=== PATIENT | male | born 1990 | race Two or more races ===

== ENCOUNTER 2021-06-03 10:28 | Inpatient (IN) | payer OTHER, SELFPAY ==
--- NOTE | ~2021-06-03 | XR_ITS ---
EXAMINATION: XR CHEST CLINICAL INFORMATION: Fever. COMPARISON: Chest radiograph dated from 06/08/2021. TECHNIQUE: 2 views of the chest were obtained. FINDINGS: No significant abnormality is noted involving the heart, lungs, mediastinum, bony thorax or soft tissues. XR/XR chest 2V IMPRESSION: Unremarkable examination.
--- NOTE | ~2021-06-03 | XR_ITS ---
EXAMINATION: XR CHEST CLINICAL INFORMATION: Chest congestion with fever. COMPARISON: None TECHNIQUE: Frontal view of the chest was obtained. FINDINGS: No significant abnormality is noted involving the heart, lungs, mediastinum, bony thorax or soft tissues. XR/XR chest 1V IMPRESSION: Unremarkable examination.
[2021-06-03 13:22] VITALS: BP 131/90; PULSE 107; RESP 18; TEMP 37.1; O2SAT 99; BMI 23.3
--- NOTE | 2021-06-03 14:58 | ED_ITS ---
HPI - Psych General Chief Complaint: Psychiatric Symptoms Stated Complaint: Cant sleep/panic attacks Time Seen by Provider: 06/03/21 11:54 Source: patient, family and animal care attendant Mode of arrival: ambulatory Limitations: no limitations History of Present Illness complaint: anxiety and hallucinations Onset (ago): day(s) (4) Duration: constant History of same: Yes Relieving factors: none Exacerbating factors: drug use (?cocaine use) Context: other (states he was hospitalized in [place] for similar episode 2016) Associated psychiatric symptoms: auditory hallucinations and visual hallucinations Associated symptoms: denies other symptoms Treatments prior to arrival: none If self harm: other (when asked about SI or if the AH is telling him to harm himself he states I have maybe heard that. ) Related Data Allergies Allergy/AdvReac Type Severity Reaction Status Date / Time No Known Allergies Allergy Verified 06/03/21 13:27 Review of Systems Review of Systems: Constitutional : No Fever, No Chills ENT/Mouth : No Ear Pain, No Nasal Congestion, No sore throat Eyes: No Eye Pain, No Swelling, No Redness Cardiovascular : No Chest Pain, No SOB Respiratory : No Cough, No Sputum, No Dyspnea Gastrointestinal : No Nausea, No Vomiting, No Diarrhea, No Hematochezia, No Melena Genitourinary : No Dysuria, No Urinary Frequency, No Hematuria Musculoskeletal : No Myalgias Skin : No Skin Lesions, No rash Neuro : No Weakness, No Numbness, No Paresthesias, No Dizziness, No Headache Psych : positive Anxiety, positive Depression, no SI/HI, pos AH/VH Heme/Lymph: No Lymphadenopathy Endocrine : No Polyuria, No Polydipsia All other systems reviewed and are negative [facility] Past Medical History Attestation statement: The following information was validated with the patient. Medical History Anxiety Asthma Depression Social History Social History Patient Tobacco Use Status: Never used Tobacco Substance Use Type: Crack/Cocaine and Marijuana Advance Directives: No Advance Directives Information Provided: No Physical Exam Vital Signs: Vital Signs: Last Vital Signs Temp 97.8 F 06/03/21 15:51 Pulse 70 06/03/21 15:51 Resp 16 06/03/21 15:51 BP 118/70 06/03/21 15:51 Pulse Ox 98 06/03/21 15:51 BMI result Body Mass Index 23.3 Appearance: Alert. Oriented X3. No acute distress. Looking around, soft spoken, anxious Eyes: Pupils equal, round and reactive to light. ENT: Pharynx normal. Neck: Normal inspection. Neck supple. CVS: Normal heart rate and rhythm. Pulses normal. Respiratory: No respiratory distress. Breath sounds normal. Abdomen: Soft and nontender. Skin: Skin warm and dry. Normal skin color. Normal skin turgor. Extremities: No lower extremity edema. No calf ttp Neuro: Oriented X 3. No motor deficit. No sensory deficit. CN2-12 intact Course Course Course Narrative: Physician observation started at 7pm. Patient placed in physician observation because the patient needed more time for care team to reassess in AM given presentation. At the time observation was started the patient's vitals were stable, patient is alert and oriented but slightly anxious, Neuro: nonfocal, CV RRR, Lungs clear MDM - Psych MDM Narrative Medical decision making narrative: 31 yo male with anxiety/depression notes he was hospitalized in [place] 2017 but cannot tell me why, here with c/o AH/VH with insomnia x 4 days. Admits to THC and cocaine use. He will need labs, PO ativan and crisis consult. When I asked him about bipolar/schizophrenia/psychosis - he notes they were thinking about that but never finished it. Lab Data Result diagrams: 06/03/21 16:08 06/03/21 16:08 Labs: Lab Results 06/03/21 06/03/21 06/03/21 Range/Units 16:08 16:08 16:08 WBC 8.4 (4.8-10.8) X10*3/uL RBC 5.02 (4.60-5.80) X10*6/uL Hgb 15.3 (14.0-18.0) g/dl Hct 45.0 (42.0-52.0) % MCV 89.6 (80.0-98.0) fL MCH 30.5 (27.0-33.0) pg MCHC 34.0 (31.0-36.0) g/dl RDW 12.3 (11.0-16.0) % Plt Count 253 (160-400) X10*3/uL MPV 9.7 (9.4-12.4) fL Immature Gran % (Auto) 0.4 (0.0-0.4) % Neut % (Auto) 55.6 (45-73) % Lymph % (Auto) 32.8 (20-40) % [place] % (Auto) 9.9 (2-11) % Eos % (Auto) 0.6 (0-4) % Baso % (Auto) 0.7 (0-2) % Lymph # (Auto) 2.8 (1.2-4.9) X10*3/uL [place] # (Auto) 0.8 (0.1-1.2) X10*3/uL Eos # (Auto) 0.1 (0.0-0.4) X10*3/uL Baso # (Auto) 0.1 (0.0-0.2) X10*3/uL Abs Immat Gran (auto) 0.03 (0.00-0.03) X10*3/uL Absolute Neuts (auto) 4.7 (2.0-8.3) x10*3/uL Absolute Nucleated RBC 0.000 (0.0-0.012) X10*3/uL Nucleated RBC % (auto) 0.0 (0.0-0.2) /100WBC Sodium 136 (135-145) mmol/L Potassium 4.7 (3.3-5.1) mmol/L Chloride 103 (96-108) mmol/L Carbon Dioxide 25 (22-29) mmol/L Anion Gap 13 (12-20) BUN 10 (9-16) mg/dL Creatinine 0.92 (0.5-1.4) mg/dL Estim Creat Clear Calc 103.0 Estimated GFR > 60 Random Glucose 94 (60-115) mg/dL Calcium 10.3 H (8.4-10.2) mg/dL Total Bilirubin (0.0-1.0) mg/dL Direct Bilirubin (0.0-0.5) mg/dL AST (5-37) U/L ALT (0-40) U/L Alkaline Phosphatase (39-117) U/L Total Protein (6.5-8.0) g/dL Albumin (3.5-5.0) g/dL Urine Color Urine Appearance Urine pH (5.0-8.0) Ur Specific [place] (1.005-1.025) Urine Protein (NEG-TRACE) MG/DL Urine Glucose (UA) (NEG) MG/DL Urine Ketones (NEG) MG/DL Urine Blood (NEG) Urine Nitrite (NEG) Ur Leukocyte Esterase (NEG) Urine RBC (0) /HPF Urine WBC (0-4) /HPF Ur Squamous Epith Cells /LPF Calcium Oxalate Crystal /LPF Urine Bacteria /LPF Urine Mucus /LPF Urine Opiates Screen (Not Detect) Urine Fentanyl Screen (Not Detect) Ur Barbiturates Screen (Not Detect) Ur Phencyclidine Scrn (Not Detect) Ur Amphetamines Screen (Not Detect) U Benzodiazepines Scrn (Not Detect) Urine Cocaine Screen (Not Detect) U Marijuana (THC) Screen (Not Detect) Ethyl Alcohol < 10 mg/dL COVID-19 (DREA) (Negative) COVID-19 Clin Com 06/03/21 06/03/21 06/03/21 Range/Units 16:08 16:08 16:08 WBC (4.8-10.8) X10*3/uL RBC (4.60-5.80) X10*6/uL Hgb (14.0-18.0) g/dl Hct (42.0-52.0) % MCV (80.0-98.0) fL MCH (27.0-33.0) pg MCHC (31.0-36.0) g/dl RDW (11.0-16.0) % Plt Count (160-400) X10*3/uL MPV (9.4-12.4) fL Immature Gran % (Auto) (0.0-0.4) % Neut % (Auto) (45-73) % Lymph % (Auto) (20-40) % [place] % (Auto) (2-11) % Eos % (Auto) (0-4) % Baso % (Auto) (0-2) % Lymph # (Auto) (1.2-4.9) X10*3/uL [place] # (Auto) (0.1-1.2) X10*3/uL Eos # (Auto) (0.0-0.4) X10*3/uL Baso # (Auto) (0.0-0.2) X10*3/uL Abs Immat Gran (auto) (0.00-0.03) X10*3/uL Absolute Neuts (auto) (2.0-8.3) x10*3/uL Absolute Nucleated RBC (0.0-0.012) X10*3/uL Nucleated RBC % (auto) (0.0-0.2) /100WBC Sodium (135-145) mmol/L Potassium (3.3-5.1) mmol/L Chloride (96-108) mmol/L Carbon Dioxide (22-29) mmol/L Anion Gap (12-20) BUN (9-16) mg/dL Creatinine (0.5-1.4) mg/dL Estim Creat Clear Calc Estimated GFR Random Glucose (60-115) mg/dL Calcium (8.4-10.2) mg/dL Total Bilirubin 1.0 (0.0-1.0) mg/dL Direct Bilirubin 0.4 (0.0-0.5) mg/dL AST 18 (5-37) U/L ALT 14 (0-40) U/L Alkaline Phosphatase 51 (39-117) U/L Total Protein 8.0 (6.5-8.0) g/dL Albumin 5.0 (3.5-5.0) g/dL Urine Color YELLOW Urine Appearance CLEAR Urine pH 5.5 (5.0-8.0) Ur Specific [place] >= 1.030 H (1.005-1.025) Urine Protein TRACE (NEG-TRACE) MG/DL Urine Glucose (UA) NEG (NEG) MG/DL Urine Ketones 5 (NEG) MG/DL Urine Blood NEG (NEG) Urine Nitrite NEG (NEG) Ur Leukocyte Esterase NEG (NEG) Urine RBC 0 (0) /HPF Urine WBC 0 (0-4) /HPF Ur Squamous Epith Cells NONE /LPF Calcium Oxalate Crystal TRACE /LPF Urine Bacteria TRACE /LPF Urine Mucus TRACE /LPF Urine Opiates Screen (Not Detect) Urine Fentanyl Screen (Not Detect) Ur Barbiturates Screen (Not Detect) Ur Phencyclidine Scrn (Not Detect) Ur Amphetamines Screen (Not Detect) U Benzodiazepines Scrn (Not Detect) Urine Cocaine Screen (Not Detect) U Marijuana (THC) Screen (Not Detect) Ethyl Alcohol mg/dL COVID-19 (DREA) Negative (Negative) COVID-19 Clin Com See Note 06/03/21 Range/Units 16:08 WBC (4.8-10.8) X10*3/uL RBC (4.60-5.80) X10*6/uL Hgb (14.0-18.0) g/dl Hct (42.0-52.0) % MCV (80.0-98.0) fL MCH (27.0-33.0) pg MCHC (31.0-36.0) g/dl RDW (11.0-16.0) % Plt Count (160-400) X10*3/uL MPV (9.4-12.4) fL Immature Gran % (Auto) (0.0-0.4) % Neut % (Auto) (45-73) % Lymph % (Auto) (20-40) % [place] % (Auto) (2-11) % Eos % (Auto) (0-4) % Baso % (Auto) (0-2) % Lymph # (Auto) (1.2-4.9) X10*3/uL [place] # (Auto) (0.1-1.2) X10*3/uL Eos # (Auto) (0.0-0.4) X10*3/uL Baso # (Auto) (0.0-0.2) X10*3/uL Abs Immat Gran (auto) (0.00-0.03) X10*3/uL Absolute Neuts (auto) (2.0-8.3) x10*3/uL Absolute Nucleated RBC (0.0-0.012) X10*3/uL Nucleated RBC % (auto) (0.0-0.2) /100WBC Sodium (135-145) mmol/L Potassium (3.3-5.1) mmol/L Chloride (96-108) mmol/L Carbon Dioxide (22-29) mmol/L Anion Gap (12-20) BUN (9-16) mg/dL Creatinine (0.5-1.4) mg/dL Estim Creat Clear Calc Estimated GFR Random Glucose (60-115) mg/dL Calcium (8.4-10.2) mg/dL Total Bilirubin (0.0-1.0) mg/dL Direct Bilirubin (0.0-0.5) mg/dL AST (5-37) U/L ALT (0-40) U/L Alkaline Phosphatase (39-117) U/L Total Protein (6.5-8.0) g/dL Albumin (3.5-5.0) g/dL Urine Color Urine Appearance Urine pH (5.0-8.0) Ur Specific [place] (1.005-1.025) Urine Protein (NEG-TRACE) MG/DL Urine Glucose (UA) (NEG) MG/DL Urine Ketones (NEG) MG/DL Urine Blood (NEG) Urine Nitrite (NEG) Ur Leukocyte Esterase (NEG) Urine RBC (0) /HPF Urine WBC (0-4) /HPF Ur Squamous Epith Cells /LPF Calcium Oxalate Crystal /LPF Urine Bacteria /LPF Urine Mucus /LPF Urine Opiates Screen Not Detected (Not Detect) Urine Fentanyl Screen Not Detected (Not Detect) Ur Barbiturates Screen Not Detected (Not Detect) Ur Phencyclidine Scrn Not Detected (Not Detect) Ur Amphetamines Screen Not Detected (Not Detect) U Benzodiazepines Scrn Not Detected (Not Detect) Urine Cocaine Screen POSITIVE H (Not Detect) U Marijuana (THC) Screen POSITIVE H (Not Detect) Ethyl Alcohol mg/dL COVID-19 (DREA) (Negative) COVID-19 Clin Com Discharge Plan Discharge Clinical Impression: Auditory hallucinations, Cocaine abuse Patient Disposition: Still a Patient
[2021-06-03] MEDS: LORazepam 1 MG TABLET PO (15:26)
[2021-06-03 15:51] VITALS: BP 118/70; PULSE 70; RESP 16; TEMP 36.6; O2SAT 98
[2021-06-03 16:17] LABS: MANUAL DIFF FLAG NO
[2021-06-03 16:18] LABS: Appearance Urine CLEAR; Color Urine YELLOW; Glucose Urine UA NEG (NEG); Leukocyte Esterase Urine NEG (NEG); Nitrite Urine NEG (NEG); PH 5.5 (5.0-8.0); Specific Gravity - Urine >= 1.030 (1.005-1.025); Urine Blood NEG (NEG); Urine Ketones 5 MG/DL (NEG); Urine Protein TRACE MG/DL (NEG-TRACE)
[2021-06-03 16:30] LABS: COVID-19 Test Negative (Negative)
[2021-06-03 16:32] LABS: Bacteria Urine TRACE /LPF; RBC Urine 0 /HPF (0); WBC Urine 0 /HPF (0-4)
[2021-06-03 16:33] LABS: Calcium Oxalate Crystals Urine TRACE /LPF; Mucus Urine TRACE /LPF
[2021-06-03 16:36] LABS: Basophils Absolute Auto 0.1 X10*3/uL (0.0-0.2); Basophils Percent Auto 0.7 % (0-2); Eosinophils Absolute Auto 0.1 X10*3/uL (0.0-0.4); Eosinophils Percent Auto 0.6 % (0-4); Hemoglobin 15.3 g/dl (14.0-18.0); Imm Gran Abs Auto 0.03 X10*3/uL (0.00-0.03); Imm Gran Pct Auto 0.4 % (0.0-0.4); Lymphocytes Absolute Auto 2.8 X10*3/uL (1.2-4.9); Lymphocytes Percent Auto 32.8 % (20-40); Mean Corpuscular Hemoglobin 30.5 pg (27.0-33.0); Mean Corpuscular Volume 89.6 fL (80.0-98.0); Mean Platelet Volume 9.7 fL (9.4-12.4); Monocytes Absolute Auto 0.8 X10*3/uL (0.1-1.2); Monocytes Percent Auto 9.9 % (2-11); Neutrophils Absolute Auto 4.7 x10*3/uL (2.0-8.3); Neutrophils Percent Auto 55.6 % (45-73); Platelet Count 253 X10*3/uL (160-400); Red Blood Count 5.02 X10*6/uL (4.60-5.80); Red Cell Distribution Width 12.3 % (11.0-16.0); White Blood Count 8.4 X10*3/uL (4.8-10.8)
[2021-06-03 16:41] LABS: Ethanol < 10 mg/dL
[2021-06-03 16:42] LABS: Amphetamine Screen Urine Not Detected (Not Detect); Anion Gap 13 (12-20); Barbiturates, Urine Not Detected (Not Detect); Benzodiazepines Screen Urine Not Detected (Not Detect); Blood Urea Nitrogen 10 mg/dL (9-16); Calcium 10.3 mg/dL (8.4-10.2); Cannabinoid Screen Urine POSITIVE (Not Detect); Carbon Dioxide 25 mmol/L (22-29); Chloride 103 mmol/L (96-108); Cocaine Screen Urine POSITIVE (Not Detect); Estimated Glomerular Filt Rate > 60; Fentanyl, urine Not Detected (Not Detect); Glucose Random 94 mg/dL (60-115); Opiate Screen Urine Not Detected (Not Detect); Phencyclidine Screen Urine Not Detected (Not Detect); Potassium 4.7 mmol/L (3.3-5.1); Sodium 136 mmol/L (135-145)
[2021-06-03 16:43] LABS: Alanine Aminotransferase 14 U/L (0-40); Alkaline Phosphatase 51 U/L (39-117); Aspartate Amino Transferase 18 U/L (5-37); Bilirubin Direct 0.4 mg/dL (0.0-0.5)
[2021-06-04 01:52] VITALS: BP 114/79; PULSE 90; RESP 16; TEMP 37.3; O2SAT 98
--- NOTE | 2021-06-04 06:40 | PC.NURSE ---
This RN received consent from PT to speak with brother, Wade, over the phone. Brother was informed of plan to reassess PT this morning. Brother requested that we call with an update once reassessment was completed. Contact at [phone].
[2021-06-04] MEDS: LORazepam 1 MG TABLET 2 MG PO ×2 (07:21→15:10)
--- NOTE | 2021-06-04 07:30 | PC.NURSE ---
patient appears to remain at rest at present, respirations are even and unlabored patient appears in no distress
[2021-06-04 07:53] VITALS: BP 127/81; PULSE 89; RESP 17; TEMP 37.2; O2SAT 98
--- NOTE | 2021-06-04 13:07 | PC.NURSE ---
patient and patients mother requested staff interpreter services to speak to this patient, m had asked about results from labs and this tech writer responded that i could review labs but ti would be normal for mew to share with patient only, patient stated after this i dont feel like i trust you they give me pills and i have moctezuma on me t/w explained only medication given was one in morning for rquest of medication for sleep. t/w exited room leaving staff interpreter and mom and son (patient).
--- NOTE | 2021-06-04 23:39 | PC.NURSE ---
Patient ripped up sheet into long strips. Sheet taken away. Will monitor closely.
--- NOTE | 2021-06-05 | ECG_ITS ---
Test Reason : MEDCLEARANCE Blood Pressure : / mmHG Vent. Rate : 099 BPM Atrial Rate : 099 BPM P-R Int : 142 ms QRS Dur : 088 ms QT Int : 308 ms P-R-T Axes : 070 053 002 degrees QTc Int : 395 ms Normal sinus rhythm with sinus arrhythmia Normal ECG No previous ECGs available Referred By: Dahiana Hammond Electronically Signed By:TIFFANY WICK MD
[2021-06-05 01:08] VITALS: BP 116/77; PULSE 83; RESP 16; TEMP 36.8; O2SAT 99
[2021-06-05] MEDS: LORazepam 1 MG TABLET 2 MG PO ×3 (02:38→14:07)
--- NOTE | 2021-06-05 07:20 | PC.NURSE ---
patient appears to remain asleep at present respirations are even and unlabored patient appears in no distress
--- NOTE | 2021-06-05 08:01 | PHA.MEDREC ---
Pharmacy Consult ? Medication Reconciliation Pharmacy has completed the medication reconciliation. Per nurse, pt doesnt take any home medications
[2021-06-05 10:07] VITALS: BP 103/62; PULSE 92; TEMP 37.2; O2SAT 97
--- NOTE | 2021-06-05 10:46 | PC.NURSE ---
clients brother requested update have attempted to call twice in last ten minutes, phone line remains busy.
[2021-06-05 11:26] LABS: COVID-19 Test Negative (Negative)
[2021-06-05 17:10] VITALS: BP 125/78; PULSE 97; RESP 16; TEMP 36.6; O2SAT 100
--- NOTE | 2021-06-05 18:02 | PC.ADMIT ---
Patient arrived to M3 from [facility] ED pod at 17:05. Patient arrived in a wheelchair with a legal status of conditional voluntary. Patient's vital signs upon admission were 97.8, 125/78, 97 for HR, 16 for RR, 100% RA. Patient denied physical complaints. Patient is primarily Filipino speaking. Patient declined to use the video medical writer during admission assessment stating I am not going to be able understand that thing . This RN attempted to call medical writer services a few times, but was unsuccessful in making contact with hospital medical writer services. Patient reported to be a smoker reporting smoking a pack a day. Patient denied SI/HI/VH. Patient reported that I will hear familiar voices sometimes. They don't tell me bad things. They just are there . Patient reported that he last had a therapist when I was at university and she truly cared about my well being. She helped me learn about who I was . Patient was tearful during this conversation. Patient disclosed that he has a male partner and he often refers to him as his brother . Patient reported that a hard thing for me is being with a partner. Like people don't have to be an asshole to me because I am different . Admission assessment and process unable to be completed at this time due to language barrier and awaiting medical writer services.
[2021-06-05] MEDS: Acetaminophen 325 MG TABLET 650 MG PO (19:19)
[2021-06-05 20:20] VITALS: BP 117/79; PULSE 100; RESP 16; TEMP 36.8; O2SAT 99
[2021-06-05] MEDS: OLANZapine 10 MG TABLET PO (20:43)
[2021-06-05] MEDS: Nicotine Polacrilex 2 MG GUM BUCCAL (20:46)
[2021-06-06 08:32] LABS: Estimated Average Glucose 103 mg/dL; Hemoglobin A1c % 5.2 %
--- NOTE | 2021-06-06 08:43 | PC.NURSE ---
Admission process completed per crisis evaluation. Patient reported to RN to be smoker of a pack a day. Patient declined nicotine replacement and refused flu vaccine.
[2021-06-06 08:46] VITALS: BP 124/81; PULSE 86; RESP 17; TEMP 36.7; O2SAT 98
[2021-06-06 09:06] LABS: Alanine Aminotransferase 12 U/L (0-40); Albumin Level 4.6 g/dL (3.5-5.0); Alkaline Phosphatase 43 U/L (39-117); Anion Gap 11 (12-20); Aspartate Amino Transferase 14 U/L (5-37); Bilirubin Direct 0.3 mg/dL (0.0-0.5); Bilirubin Total 0.7 mg/dL (0.0-1.0); Blood Urea Nitrogen 11 mg/dL (9-16); Carbon Dioxide 28 mmol/L (22-29); Chloride 104 mmol/L (96-108); Cholesterol 114 mg/dL; Creatinine Clr Calc Pharmacy 92.9; Estimated Glomerular Filt Rate > 60; Glucose Fasting 94 mg/dL (60-99); HDL Cholesterol 38 mg/dL; LDL Cholesterol Calculated 63 mg/dl; Potassium 4.2 mmol/L (3.3-5.1); Sodium 139 mmol/L (135-145); Total Protein 7.2 g/dL (6.5-8.0); Triglycerides 66 mg/dL
[2021-06-06 09:29] LABS: Free T4 (Free Thyroxine) 1.04 ng/dL (0.71-1.85); Thyroid Stimulating Hormone 0.77 uIU/mL (0.32-4.0)
--- NOTE | 2021-06-06 09:30 | P.HPPS_ITS ---
HPI Date of Service: 06/06/21 Chief Complaint: Psychosis Sources of Information: patient interviewed, chart reviewed and crisis/core team assessment reviewed Additional Sources of Information: Mother- Monica present during interview. HPI Subjective Notes: Conn Warning and Conditional Voluntary Narrative: Mr. Cardoza is a 31 year-old male who was brought by mother to [facility] ED due to changes in behavior including increased agitation, anxious mood, suicidal reports in context of cocaine use. His utox in the ED was positive for cannabis and cocaine. On the unit, pt presents at times tearful. He reports he does not remember much in terms of events leading to this admission. He does report that several days prior to being brought to ED, he had suicidal ideation with plan to jump off a bridge. Mother, who was present at time of interview, reports that Mr. Cardoza friend called her to let her know that he was very agitated and anxious. Mother reports pt was not sleeping well for about one week. She reports she was unaware of Mr. Cardoza using cocaine but states that she had not seen him the way he presented on day she brought him to the ED. Pt reports hearing voices in the past of people he knows. He denies hearing any voices or seeing things that others can't see. Mother denies hx of paranoia or delusions. Pt reports hx of trauma, depression, intermittent suicidal ideation for several years. Pt reports past inpatient psychiatric admission, outpatient psychiatric treatment in [place]. He reports he came to [place] this past January with his mother. In terms of substance use, pt reports he was unaware that cannabis had cocaine. He reports cannabis was probably laced with cocaine as he does not remember using it. He denies any other substance use hx. On the unit, Mr. Cardoza denies suicidal or homicidal ideation. He reports he heard some voices yesterday but again reports of people he knew- unclear if these are related to trauma, more than primarily psychosis. Past Psychiatric History: Inpatient: 2017 [place]; one other in [place] OP: none currently Past trials: wellbutrin (ineffective- made him angry ), zoloft ( made me violent ) Suicide attempts: pt reports ideation but no hx of attempts. Medical Evaluation Reviewed: Yes [facility] Medical History Anxiety Asthma Depression Family History: mother- depression maternal uncle of suicide Social History: lives with mother. not , no children. 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 Substance History: cocaine: positive for cocaine but denies frequent use. alcohol: none cannabis: regularly opioids: denies amphetamines: denies Trauma History: reports but no details provided Diagnostics Vital Signs (24Hr): Vital Signs - 24 hr 06/05/21 17:10 06/05/21 20:20 06/06/21 08:46 Temperature 97.8 F 98.3 F 98.1 F Pulse Rate 97 100 86 Respiratory Rate 16 16 17 Blood Pressure 125/78 117/79 124/81 Pulse Oximetry 100 99 98 BMI result Body Mass Index 23.3 Labs Results: 06/03/21 16:08 06/06/21 08:11 Labs: Laboratory Results - last 48 hr 06/05/21 06/06/21 06/06/21 10:48 08:11 08:11 Sodium 139 Potassium 4.2 Chloride 104 Carbon Dioxide 28 Anion Gap 11 L BUN 11 Creatinine 1.02 Estim Creat Clear Calc 92.9 Estimated GFR > 60 Fasting Glucose 94 Estimat Average Glucose 103 Hemoglobin A1c % 5.2 Calcium 10.0 Total Bilirubin 0.7 Direct Bilirubin 0.3 AST 14 ALT 12 Alkaline Phosphatase 43 Total Protein 7.2 Albumin 4.6 Triglycerides 66 Cholesterol 114 LDL Cholesterol, Calc 63 HDL Cholesterol 38 Vitamin B12 Folate TSH 0.77 Free T4 1.04 COVID-19 (DREA) Negative COVID-19 Clin Com See Note 06/06/21 08:11 Sodium Potassium Chloride Carbon Dioxide Anion Gap BUN Creatinine Estim Creat Clear Calc Estimated GFR Fasting Glucose Estimat Average Glucose Hemoglobin A1c % Calcium Total Bilirubin Direct Bilirubin AST ALT Alkaline Phosphatase Total Protein Albumin Triglycerides Cholesterol LDL Cholesterol, Calc HDL Cholesterol Vitamin B12 408 Folate 14.6 TSH Free T4 COVID-19 (DREA) COVID-19 Clin Com Meds/Allergies Meds Home Medications Acetaminophen (Acetaminophen 325 Mg Tablet) 650 mg PO Q6H PRN PRN Reason: Headache/Pain Mild Scale (1-3) Last Admin: 06/05/21 19:19 Dose: 650 mg Documented by: Al Hydroxide/Mg Hydroxide (Magnesium Hydrox/Alum Hydrox 30 Ml Oral.Susp) 30 ml PO Q6H PRN PRN Reason: Heartburn/Nausea Clonidine HCl (Clonidine Hcl 0.1 Mg Tablet) 0.1 mg PO BID PRN; Protocol PRN Reason: anxiety Hydroxyzine HCl (Hydroxyzine Hcl 50 Mg Tablet) 50 mg PO Q6H PRN PRN Reason: Anxiety/sleep Ibuprofen (Ibuprofen 600 Mg Tablet) 600 mg PO Q8H PRN PRN Reason: Pain, Moderate (Pain Scale 4-6 Magnesium Hydroxide (Milk Of Magnesia 30 Ml Oral.Susp) 30 ml PO DAILY PRN PRN Reason: Constipation Nicotine Polacrilex (Nicotine Polacrilex 2 Mg Gum) 2 mg BUCCAL QID PRN PRN Reason: Nicotine Cravings Last Admin: 06/05/21 20:46 Dose: 2 mg Documented by: Nicotine Polacrilex (Nicotine Polacrilex 2 Mg Gum) 4 mg BUCCAL Q2H PRN PRN Reason: Nicotine Cravings Last Admin: 06/06/21 14:28 Dose: 4 mg Documented by: Olanzapine (Olanzapine 10 Mg Tablet) 10 mg PO BEDTIME ALISTAIR Last Admin: 06/05/21 20:43 Dose: 10 mg Documented by: Olanzapine (Olanzapine 5 Mg Tablet) 5 mg PO Q6H PRN PRN Reason: agitation Pharmacy Consult (Consult Rx Perform Med Rec) 1 each MISCELLANE ONCE PRN PRN Reason: Consult order Trazodone HCl (Trazodone Hcl 100 Mg Tablet) 100 mg PO BEDTIME PRN PRN Reason: Insomnia Allergies Allergies Allergy/AdvReac Type Severity Reaction Status Date / Time No Known Allergies Allergy Verified 06/03/21 13:27 Mental Status Exam Mental Status Exam Narrative: Appearance: casually groomed, fair hygiene in NAD Behavior:guarded, but cooperative. psychomotor:on agitation or retardation noted Speech:clear, normal rate/rhythm/volume, spontaneous Thought process:tangential Thought content:no signs of psychosis, wanting to spend time with mother and reconnecting with psych tx. Mood: depressed Affect: tearful, blunted SI:none, but reports feeling hopeless, HI:none VH/AH:none Delusions:none Insight/judgment:fair x 2. Memory/cog: alert, oriented x 3. grossly intact to conversational testing. Assessment & Plan Assessment & Plan (1) Bipolar 2 disorder, major depressive episode: Status: Acute Code(s): F31.81 - Bipolar II disorder (2) Cocaine use disorder: Status: Acute Code(s): F14.10 - Cocaine abuse, uncomplicated Plan Mr. Cardoza is a 31 year-old male with hx of depression, trauma, cocaine use who was brought to [facility] ED by mother as pt presented as agitated, anxious, reporting SI in context of cocaine use. However, pt reports hx of increase irritability and aggression with antidepressants. He denies ongoing cocaine use and states that cannabis must have been laced as he did not remember using cocaine. We discussed risks, benefits and alternative treatment options. He agrees to continue olanzapine, which was started in ED PLAN 1. Admit to M3, CV, 15 mins checks 2. continue olanzapine 10mg po qhs, prn for agitation, clonidine for anxiety 3. aftercare planning. Mr. Cardoza interested in reconnecting with OP psych tx, pt does not think he needs support with substance use treatment. Patient educated on: diagnosis and substance abuse Reason for continued inpatient stay Substantial Risk for: harm to self
[2021-06-06 10:03] LABS: Folate 14.6 ng/mL (> or = 4.0); Vitamin B12 408 pg/mL (200-900)
[2021-06-06] MEDS: Nicotine Polacrilex 2 MG GUM 4 MG BUCCAL ×2 (14:28→20:59)
[2021-06-06 20:55] VITALS: BP 129/90; PULSE 91; RESP 18; TEMP 36.2; O2SAT 98
[2021-06-06] MEDS: OLANZapine 10 MG TABLET PO (20:59)
[2021-06-06] MEDS: traZODone HCL 100 MG TABLET PO ×2 (21:45→23:43)
[2021-06-06] MEDS: Nicotine 14 MG PATCH.TD24 TRANSDERMA (21:45)
[2021-06-07] MEDS: Nicotine Polacrilex 2 MG GUM 4 MG BUCCAL ×2 (02:53→19:18)
[2021-06-07 10:15] VITALS: BP 137/81; PULSE 105; RESP 17; TEMP 36.7; O2SAT 99
[2021-06-07] MEDS: Nicotine 14 MG PATCH.TD24 TRANSDERMA (10:17)
--- NOTE | 2021-06-07 14:43 | P.PNPSI_ITS ---
Subjective Subjective Date of Service: 06/07/21 Reason For Visit: Psychosis Subjective Notes: Conditional Voluntary Interim History: Pt reports feeling less calmer, less anxious. Pt somewhat sspicious about staff and thinking they are making him sign things that are not legal. Pt denies SI/HI. he denies VH/AH. He reports he slept better last night, but nursing reports he was up most of the night. He has been visible in the unit. No behavioral concerns. Medication Compliance: Yes Side effects from medications: No Attending Groups: Yes Review of Systems Acute medical concerns: No Medical Review of Systems: unchanged Review of Systems Review of Systems Pt reports hx of TBI, denies hx of seizures. Constitutional: Reports difficulty sleeping and Denies headache(s) Eyes: Reports no additional eye complaints Denies headache(s) and Denies disequilibrium Cardiovascular: Denies chest pain, Denies chest pain at rest, Denies diaphoresis, Denies rapid heart rate, Denies leg edema, Denies lightheadedness and Denies dyspnea Respiratory: Denies chest congestion, Denies cough, Denies pain with cough and Denies dyspnea Gastrointestinal: Denies constipation, Denies dyspepsia, Denies heartburn, Denies diarrhea and Denies nausea Genitourinary: Denies dysuria, Denies flank pain and Denies urinary frequency Musculoskeletal: Reports back pain (for one day, no trauma) and Denies numbness Denies headache(s), Denies numbness, Denies convulsions, Denies seizure-like activity and Denies disequilibrium Mental Status Exam Mental Status Exam Narrative: Appearance: casually groomed, fair hygiene in NAD Behavior:guarded, but cooperative. psychomotor:on agitation or retardation noted Speech:clear, normal rate/rhythm/volume, spontaneous Thought process:tangential Thought content:no signs of psychosis, wanting to spend time with mother and reconnecting with psych tx. Mood: depressed Affect: tearful, blunted SI:none, but reports feeling hopeless, HI:none VH/AH:none Delusions:none Insight/judgment:fair x 2. Memory/cog: alert, oriented x 3. grossly intact to conversational testing. Diagnostics Vital Signs (24Hr): Vital Signs - 24 hr 06/06/21 20:55 06/07/21 10:15 Temperature 97.2 F 98.1 F Pulse Rate 91 105 H Respiratory Rate 18 17 Blood Pressure 129/90 H 137/81 Pulse Oximetry 98 99 BMI result Body Mass Index 23.3 Labs Results: 06/03/21 16:08 06/06/21 08:11 Labs: Laboratory Results - last 48 hr 06/06/21 06/06/21 06/06/21 08:11 08:11 08:11 Sodium 139 Potassium 4.2 Chloride 104 Carbon Dioxide 28 Anion Gap 11 L BUN 11 Creatinine 1.02 Estim Creat Clear Calc 92.9 Estimated GFR > 60 Fasting Glucose 94 Estimat Average Glucose 103 Hemoglobin A1c % 5.2 Calcium 10.0 Total Bilirubin 0.7 Direct Bilirubin 0.3 AST 14 ALT 12 Alkaline Phosphatase 43 Total Protein 7.2 Albumin 4.6 Triglycerides 66 Cholesterol 114 LDL Cholesterol, Calc 63 HDL Cholesterol 38 Vitamin B12 408 Folate 14.6 TSH 0.77 Free T4 1.04 Medications Medications Current Medications Acetaminophen (Acetaminophen 325 Mg Tablet) 650 mg PO Q6H PRN PRN Reason: Headache/Pain Mild Scale (1-3) Last Admin: 06/05/21 19:19 Dose: 650 mg Documented by: Al Hydroxide/Mg Hydroxide (Magnesium Hydrox/Alum Hydrox 30 Ml Oral.Susp) 30 ml PO Q6H PRN PRN Reason: Heartburn/Nausea Clonidine HCl (Clonidine Hcl 0.1 Mg Tablet) 0.1 mg PO BID PRN; Protocol PRN Reason: anxiety Hydroxyzine HCl (Hydroxyzine Hcl 50 Mg Tablet) 50 mg PO Q6H PRN PRN Reason: Anxiety/sleep Ibuprofen (Ibuprofen 600 Mg Tablet) 600 mg PO Q8H PRN PRN Reason: Pain, Moderate (Pain Scale 4-6 Magnesium Hydroxide (Milk Of Magnesia 30 Ml Oral.Susp) 30 ml PO DAILY PRN PRN Reason: Constipation Nicotine (Nicotine 14 Mg Patch.Td24) 14 mg TRANSDERMA DAILY [facility] Last Admin: 06/07/21 10:17 Dose: 14 mg Documented by: Nicotine Polacrilex (Nicotine Polacrilex 2 Mg Gum) 4 mg BUCCAL Q2H PRN PRN Reason: Nicotine Cravings Last Admin: 06/07/21 02:53 Dose: 4 mg Documented by: Olanzapine (Olanzapine 10 Mg Tablet) 10 mg PO BEDTIME [facility] Last Admin: 06/06/21 20:59 Dose: 10 mg Documented by: Olanzapine (Olanzapine 5 Mg Tablet) 5 mg PO Q6H PRN PRN Reason: agitation Pharmacy Consult (Consult Rx Perform Med Rec) 1 each MISCELLANE ONCE PRN PRN Reason: Consult order Trazodone HCl (Trazodone Hcl 100 Mg Tablet) 100 mg PO BEDTIME PRN PRN Reason: Insomnia Last Admin: 06/06/21 23:43 Dose: 100 mg Documented by: Allergies Allergies Allergy/AdvReac Type Severity Reaction Status Date / Time No Known Allergies Allergy Verified 06/03/21 13:27 Assessment & Plan Assessment & Plan (1) Bipolar 2 disorder, major depressive episode: Status: Acute Code(s): F31.81 - Bipolar II disorder (2) Cocaine use disorder: Status: Acute Code(s): F14.10 - Cocaine abuse, uncomplicated Plan Mr. Cardoza is a 31 year-old male with hx of depression, trauma, cocaine use who was brought to [facility] ED by mother as pt presented as agitated, anxious, reporting SI in context of cocaine use. However, pt reports hx of increase irritability and aggression with antidepressants. He denies ongoing cocaine use and states that cannabis must have been laced as he did not remember using cocaine. We discussed risks, benefits and alternative treatment options. He agrees to continue olanzapine, which was started in ED PLAN 1. Admit to M3, CV, 15 mins checks 2. continue olanzapine 10mg po qhs, prn for agitation, clonidine for anxiety 3. aftercare planning. Mr. Cardoza interested in reconnecting with OP psych tx, pt does not think he needs support with substance use treatment. 06/07- increase olanzapine to 15mg po qhs. continue all other meds. increase trazodone for sleep. I spent __25____ minutes with the patient and/or on the patient floor today, greater than?50% of which was spent counseling/coordinating care. Reason for contiued inpatient stay Substantial Risk for: inability to function
[2021-06-07] MEDS: cloNIDine HCL 0.1 MG TABLET PO (20:49)
[2021-06-07] MEDS: OLANZapine 7.5 MG TABLET 15 MG PO (20:49)
[2021-06-07 20:50] VITALS: BP 126/89; PULSE 108; RESP 20; TEMP 36.7; O2SAT 99
[2021-06-07] MEDS: traZODone HCL 100 MG TABLET PO (20:54)
[2021-06-08] MEDS: hydrOXYzine HCL 50 MG TABLET PO (02:29)
[2021-06-08] MEDS: OLANZapine 5 MG TABLET PO (02:29)
[2021-06-08] MEDS: Acetaminophen 325 MG TABLET 650 MG PO ×2 (11:02→18:36)
[2021-06-08 11:09] VITALS: BP 115/58; PULSE 112; RESP 18; TEMP 39.3; O2SAT 98
--- NOTE | 2021-06-08 11:12 | P.PNPSI_ITS ---
Subjective Subjective Date of Service: 06/08/21 Reason For Visit: Psychosis Interim History: 06/07:Pt reports feeling less calmer, less anxious. Pt somewhat sspicious about staff and thinking they are making him sign things that are not legal. Pt denies SI/HI. he denies VH/AH. He reports he slept better last night, but nursing reports he was up most of the night. He has been visible in the unit. No behavioral concerns. 06/08: Pt states feels sedated. AH are + but farther away. Pt is febrile, Vo/ Diarhea/ Chest tightness. XRC neg/ COVID neg. c/o penile redness. Hospitalist consulted. Albuterol/ MDI and Nebs added. Check CK too. Labs ordered. Medication Compliance: Yes Side effects from medications: No Attending Groups: No Review of Systems Acute medical concerns: Yes See above Review of Systems Review of Systems Denies chest pain Denies shortness of breath Denies nausea vomiting diarrhea Admits fever chills Denies discharge Constitutional: Reports difficulty sleeping and Denies headache(s) Eyes: Reports no additional eye complaints Denies headache(s) and Denies disequilibrium Cardiovascular: Denies chest pain, Denies chest pain at rest, Denies diaphoresis, Denies rapid heart rate, Denies leg edema, Denies lightheadedness and Denies dyspnea Respiratory: Denies chest congestion, Denies cough, Denies pain with cough and Denies dyspnea Gastrointestinal: Denies constipation, Denies dyspepsia, Denies heartburn, Joao es diarrhea and Denies nausea Genitourinary: Denies dysuria, Denies flank pain and Denies urinary frequency Musculoskeletal: Reports back pain (for one day, no trauma) and Denies numbness Denies headache(s), Denies numbness, Denies convulsions, Denies seizure-like activity and Denies disequilibrium Mental Status Exam Mental Status Exam Narrative: Appearance: casually groomed, fair hygiene in NAD Behavior:guarded, but cooperative. psychomotor:on agitation or retardation noted Speech:clear, normal rate/rhythm/volume, spontaneous Thought process:tangential Thought content:no signs of psychosis, wanting to spend time with mother and reconnecting with psych tx. Mood: depressed Affect: tearful, blunted SI:none, but reports feeling hopeless, HI:none VH/AH:none Delusions:none Insight/judgment:fair x 2. Memory/cog: alert, oriented x 3. grossly intact to conversational testing. Diagnostics Vital Signs (24Hr): Vital Signs - 24 hr 06/07/21 20:50 06/08/21 11:09 Temperature 98.1 F 102.8 F H Pulse Rate 108 H 112 H Respiratory Rate 20 18 Blood Pressure 126/89 115/58 L Pulse Oximetry 99 98 BMI result Body Mass Index 23.3 Labs Results: 06/03/21 16:08 06/06/21 08:11 Medications Medications Current Medications Acetaminophen (Acetaminophen 325 Mg Tablet) 650 mg PO Q6H PRN PRN Reason: Headache/Pain Mild Scale (1-3) Last Admin: 06/08/21 11:02 Dose: 650 mg Documented by: Al Hydroxide/Mg Hydroxide (Magnesium Hydrox/Alum Hydrox 30 Ml Oral.Susp) 30 ml PO Q6H PRN PRN Reason: Heartburn/Nausea Clonidine HCl (Clonidine Hcl 0.1 Mg Tablet) 0.1 mg PO BID PRN; Protocol PRN Reason: anxiety Last Admin: 06/07/21 20:49 Dose: 0.1 mg Documented by: Hydroxyzine HCl (Hydroxyzine Hcl 50 Mg Tablet) 50 mg PO Q6H PRN PRN Reason: Anxiety/sleep Last Admin: 06/08/21 02:29 Dose: 50 mg Documented by: Ibuprofen (Ibuprofen 600 Mg Tablet) 600 mg PO Q8H PRN PRN Reason: Pain, Moderate (Pain Scale 4-6 Magnesium Hydroxide (Milk Of Magnesia 30 Ml Oral.Susp) 30 ml PO DAILY PRN PRN Reason: Constipation Nicotine (Nicotine 14 Mg Patch.Td24) 14 mg TRANSDERMA DAILY [facility] Last Admin: 06/07/21 10:17 Dose: 14 mg Documented by: Nicotine Polacrilex (Nicotine Polacrilex 2 Mg Gum) 4 mg BUCCAL Q2H PRN PRN Reason: Nicotine Cravings Last Admin: 06/07/21 19:18 Dose: 4 mg Documented by: Olanzapine (Olanzapine 5 Mg Tablet) 5 mg PO Q6H PRN PRN Reason: agitation Last Admin: 06/08/21 02:29 Dose: 5 mg Documented by: Olanzapine (Olanzapine 7.5 Mg Tablet) 15 mg PO BEDTIME [facility] Last Admin: 06/07/21 20:49 Dose: 15 mg Documented by: Pharmacy Consult (Consult Rx Perform Med Rec) 1 each MISCELLANE ONCE PRN PRN Reason: Consult order Trazodone HCl (Trazodone Hcl 100 Mg Tablet) 100 mg PO BEDTIME PRN PRN Reason: Insomnia Last Admin: 06/06/21 23:43 Dose: 100 mg Documented by: Trazodone HCl (Trazodone Hcl 100 Mg Tablet) 100 mg PO BEDTIME [facility] Last Admin: 06/07/21 20:54 Dose: 100 mg Documented by: Allergies Allergies Allergy/AdvReac Type Severity Reaction Status Date / Time No Known Allergies Allergy Verified 06/03/21 13:27 Assessment & Plan Assessment & Plan (1) Bipolar 2 disorder, major depressive episode: Status: Acute Code(s): F31.81 - Bipolar II disorder (2) Cocaine use disorder: Status: Acute Code(s): F14.10 - Cocaine abuse, uncomplicated Plan Mr. Cardoza is a 31 year-old male with hx of depression, trauma, cocaine use who was brought to [facility] ED by mother as pt presented as agitated, anxious, reporting SI in context of cocaine use. However, pt reports hx of increase irritability and aggression with antidepressants. He denies ongoing cocaine use and states that cannabis must have been laced as he did not remember using cocaine. We discussed risks, benefits and alternative treatment options. He agrees to carito nue olanzapine, which was started in ED PLAN 1. Admit to M3, CV, 15 mins checks 2. continue olanzapine 10mg po qhs, prn for agitation, clonidine for anxiety 3. aftercare planning. Mr. Cardoza interested in reconnecting with OP psych tx, pt does not think he needs support with substance use treatment. 06/07- increase olanzapine to 15mg po qhs. continue all other meds. increase trazodone for sleep. 06/08: No med changes. Med consult pending. I spent minutes with the patient and/or on the patient floor today, greater than?50% of which was spent counseling/coordinating care. Reason for contiued inpatient stay Substantial Risk for: inability to function and med/psych decompensation
[2021-06-08 12:16] LABS: COVID-19 Test Negative (Negative)
[2021-06-08 14:45] VITALS: TEMP 37.5
--- NOTE | 2021-06-08 15:49 | P.CNHOSGPS_ITS ---
History of Present Illness Data of Consult Service Date: 06/08/21 Primary Care Provider: None Physician HPI Reason for consult: fever Asked to see patient for complaints of redness underneath the glans of his penis and fever to 102. He was COVID negative on admission and states he was vaccinated in [place]. Review of Systems Review of Systems: Denies chest pain Denies shortness of breath Denies nausea vomiting diarrhea Admits fever chills Denies discharge PENDING SALE TO [facility] Medical History Anxiety Asthma Depression Social History Household Members: Significant Other Housing: Homeless Do you presently have visiting nurse or other home services: No Unable to assess alcohol history related to: Refusing to respond Patient Tobacco Use Status: Current someday Tobacco user Tobacco use type: Cigarette Cigarette Packs Per Day: 1 Cigarettes Per Day: 20.0 Smoked in Last 30 Days: Yes Patient Interested in Nicotine Replacement: No Patient Given Instructions on How to Stop Smoking: No Second Hand Smoke Exposure: No Use of substances other than those prescribed or required for medical reasons: Refusing to respond Substance Use Type: Crack/Cocaine and Marijuana Currently Displaying Signs/Symptoms of Drug Intoxication Withdrawal: No Do you feel safe in your current relationship?: Yes Advance Directives: No Advance Directives Information Provided: No Guardian: No Do you have thoughts of harming others: None Do you have a plan to hurt others: No Plan Recently lost weight without trying: Unsure Nutrition Risks: No Nutritional Risk Poor oral hygiene: No service: No Sexual orientation: Did not discuss. Meds Allergies Allergy/AdvReac Type Severity Reaction Status Date / Time No Known Allergies Allergy Verified 06/03/21 13:27 Active Medications: Current Medications Acetaminophen (Acetaminophen 325 Mg Tablet) 650 mg PO Q6H PRN PRN Reason: Headache/Pain Mild Scale (1-3) Last Admin: 06/08/21 11:02 Dose: 650 mg Documented by: Al Hydroxide/Mg Hydroxide (Magnesium Hydrox/Alum Hydrox 30 Ml Oral.Susp) 30 ml PO Q6H PRN PRN Reason: Heartburn/Nausea Albuterol Sulfate (Albuterol Sulfate 90 Mcg 8 Gm Inhaler) 2 puff INHALE RQ4H PRN PRN Reason: Shortness of Breath/Wheezing Albuterol/Ipratropium (Albuterol/Iprat 2.5/0.5mg 3 Ml Ampul.Neb) 3 ml INHALE RQ4H PRN PRN Reason: Shortness of Breath Cefuroxime Axetil (Cefuroxime Axetil 500 Mg Tablet) 500 mg PO Q12H [facility] Clonidine HCl (Clonidine Hcl 0.1 Mg Tablet) 0.1 mg PO BID PRN; Protocol PRN Reason: anxiety Last Admin: 06/07/21 20:49 Dose: 0.1 mg Documented by: Hydrocortisone (Hydrocortisone 1 % Cream 28.35 Gm Tube) 1 appl TOPICAL BID [facility]; Protocol Hydroxyzine HCl (Hydroxyzine Hcl 50 Mg Tablet) 50 mg PO Q6H PRN PRN Reason: Anxiety/sleep Last Admin: 06/08/21 02:29 Dose: 50 mg Documented by: Ibuprofen (Ibuprofen 600 Mg Tablet) 600 mg PO Q8H PRN PRN Reason: Pain, Moderate (Pain Scale 4-6 Magnesium Hydroxide (Milk Of Magnesia 30 Ml Oral.Susp) 30 ml PO DAILY PRN PRN Reason: Constipation Nicotine (Nicotine 14 Mg Patch.Td24) 14 mg TRANSDERMA DAILY [facility] Last Admin: 06/08/21 12:24 Dose: Not Given Documented by: Nicotine Polacrilex (Nicotine Polacrilex 2 Mg Gum) 4 mg BUCCAL Q2H PRN PRN Reason: Nicotine Cravings Last Admin: 06/07/21 19:18 Dose: 4 mg Documented by: Olanzapine (Olanzapine 5 Mg Tablet) 5 mg PO Q6H PRN PRN Reason: agitation Last Admin: 06/08/21 02:29 Dose: 5 mg Documented by: Olanzapine (Olanzapine 7.5 Mg Tablet) 15 mg PO BEDTIME [facility] Last Admin: 06/07/21 20:49 Dose: 15 mg Documented by: Pharmacy Consult (Consult Rx Perform Med Rec) 1 each MISCELLANE ONCE PRN PRN Reason: Consult order Trazodone HCl (Trazodone Hcl 100 Mg Tablet) 100 mg PO BEDTIME PRN PRN Reason: Insomnia Last Admin: 06/06/21 23:43 Dose: 100 mg Documented by: Trazodone HCl (Trazodone Hcl 100 Mg Tablet) 100 mg PO BEDTIME [facility] Last Admin: 06/07/21 20:54 Dose: 100 mg Documented by: Home Medications Medication Instructions Recorded Confirmed Last Taken Type No Known Home Meds 06/05/21 06/05/21 Unknown History Results Labs CBC and Chem 7: 06/03/21 16:08 06/06/21 08:11 Labs: Laboratory Results - last 24 hr 06/08/21 11:34 COVID-19 ([facility]REA) Negative COVID-19 Clin Com See Note Imaging Radiologist's Impressions: Impressions Chest X-Ray 06/08/21 11:21 IMPRESSION: Unremarkable examination. Assessment and Plan (1) Balanitis: Status: Acute (2) Fever: Status: Acute Plan 31-year-old with irritation distal faintness and fevers to 102. COVID negative this a.m. 1. Balanitis -hydrocortisone cream to affected areas b.i.d. x1 week or until resolved 2. Fever -check CBC chemistries/flu swab/blood cultures x2/urine culture/chest x-ray -empiric Ceftin after cultures Will follow Physical Exam Vital Signs: Last Vital Signs Temp 99.5 F 06/08/21 14:45 Pulse 112 H 06/08/21 11:09 Resp 18 06/08/21 11:09 BP 115/58 L 06/08/21 11:09 Pulse Ox 98 06/08/21 11:09 BMI result Body Mass Index 23.3 Const Other: Awake alert oriented x3 no acute distress Resp Other: Clear to auscultation bilaterally Cardio Other: No S4 positive S1-S2 no S3 murmurs or gallops GI Other: Soft nontender nondistended with normoactive bowel sounds Other: Uncircumcised; foreskin retracted evidence of balanitis Neuro Other: Cranial nerves 2-12 grossly intact as tested. Motor is 5/5 all extremities. Sensation intact. Cognition appropriate Cranial nerves: Yes CN's II-XII intact bilaterally Extrem Other: No edema bilaterally
[2021-06-08 16:09] LABS: Alanine Aminotransferase 13 U/L (0-40); Albumin Level 4.4 g/dL (3.5-5.0); Alkaline Phosphatase 41 U/L (39-117); Anion Gap 12 (12-20); Aspartate Amino Transferase 15 U/L (5-37); Bilirubin Total 0.6 mg/dL (0.0-1.0); Blood Urea Nitrogen 13 mg/dL (9-16); Calcium 9.2 mg/dL (8.4-10.2); Carbon Dioxide 26 mmol/L (22-29); Chloride 104 mmol/L (96-108); Creatinine Clr Calc Pharmacy 86.9; Estimated Glomerular Filt Rate > 60; Glucose Random 116 mg/dL (60-115); Potassium 3.8 mmol/L (3.3-5.1); Sodium 138 mmol/L (135-145); Total Protein 6.9 g/dL (6.5-8.0)
[2021-06-08 16:13] LABS: MANUAL DIFF FLAG NO
[2021-06-08 16:15] LABS: Basophils Percent Auto 0.2 % (0-2); Eosinophils Percent Auto 0.2 % (0-4); Hematocrit 41.2 % (42.0-52.0); Hemoglobin 13.9 g/dl (14.0-18.0); Imm Gran Abs Auto 0.02 X10*3/uL (0.00-0.03); Imm Gran Pct Auto 0.5 % (0.0-0.4); Lymphocytes Absolute Auto 0.6 X10*3/uL (1.2-4.9); Lymphocytes Percent Auto 14.3 % (20-40); Mean Corpuscular HGB Conc 33.7 g/dl (31.0-36.0); Mean Corpuscular Hemoglobin 30.6 pg (27.0-33.0); Mean Corpuscular Volume 90.7 fL (80.0-98.0); Mean Platelet Volume 9.2 fL (9.4-12.4); Monocytes Absolute Auto 0.5 X10*3/uL (0.1-1.2); Monocytes Percent Auto 12.4 % (2-11); Neutrophils Absolute Auto 3.1 x10*3/uL (2.0-8.3); Neutrophils Percent Auto 72.4 % (45-73); Platelet Count 173 X10*3/uL (160-400); Red Blood Count 4.54 X10*6/uL (4.60-5.80); Red Cell Distribution Width 12.3 % (11.0-16.0); White Blood Count 4.3 X10*3/uL (4.8-10.8)
[2021-06-08 16:39] LABS: IDNOW Serial# 16C4AD1C; Influenza A Positive (Negative); Influenza B2 Negative (Negative)
[2021-06-08] MEDS: Oseltamivir Phosphate 75 MG CAPSULE PO (18:36)
[2021-06-08] MEDS: Albuterol Sulfate 90 MCG 8 GM INHALER 2 PUFF INHALE (18:38)
[2021-06-08 18:55] VITALS: TEMP 38.1
[2021-06-08] MEDS: traZODone HCL 100 MG TABLET PO (20:43)
[2021-06-08] MEDS: OLANZapine 7.5 MG TABLET 15 MG PO (20:43)
[2021-06-08 20:50] VITALS: BP 127/66; PULSE 110; RESP 20; TEMP 37.6; O2SAT 97
[2021-06-09] MEDS: Oseltamivir Phosphate 75 MG CAPSULE PO ×2 (06:30→17:23)
[2021-06-09] MEDS: Acetaminophen 325 MG TABLET 650 MG PO ×3 (06:30→21:27)
[2021-06-09 06:39] VITALS: TEMP 37.8
[2021-06-09] MEDS: Albuterol Sulfate 90 MCG 8 GM INHALER 2 PUFF INHALE ×2 (06:40→17:22)
[2021-06-09] MEDS: Hydrocortisone 1 % Cream 28.35 GM TUBE 1 APPL TOPICAL (10:53)
[2021-06-09] MEDS: Nicotine 14 MG PATCH.TD24 TRANSDERMA (10:54)
[2021-06-09 11:00] VITALS: BP 110/74; PULSE 110; RESP 17; TEMP 37.1
--- NOTE | 2021-06-09 14:50 | P.PNPSI_ITS ---
Subjective Subjective Date of Service: 06/09/21 Reason For Visit: Psychosis Subjective Notes: Conditional Voluntary Interim History: 06/07:Pt reports feeling less calmer, less anxious. Pt somewhat sspicious about staff and thinking they are making him sign things that are not legal. Pt denies SI/HI. he denies VH/AH. He reports he slept better last night, but al kirk reports he was up most of the night. He has been visible in the unit. No behavioral concerns. 06/08: Pt states feels sedated. AH are + but farther away. Pt is febrile, Vo/ Diarhea/ Chest tightness. XRC neg/ COVID neg. c/o penile redness. Hospitalist consulted. Albuterol/ MDI and Nebs added. Check CK too. Labs ordered. 06/09: Afebrile today but flushed. In bed with Flu Type A. Blood Cx pending. XRC neg. Reactive cell lines noted. Now on Tamiflu per Dr sepulveda. AH +. Review of Systems Review of Systems Denies chest pain Denies shortness of breath Denies nausea vomiting diarrhea Admits fever chills Denies discharge Constitutional: Reports difficulty sleeping and Denies headache(s) Eyes: Reports no additional eye complaints Denies headache(s) and Denies disequilibrium Cardiovascular: Denies chest pain, Denies chest pain at rest, Denies diaphoresis, Denies rapid heart rate, Denies leg edema, Denies lightheadedness and Denies dyspnea Respiratory: Denies chest congestion, Denies cough, Denies pain with cough and Denies dyspnea Gastrointestinal: Denies constipation, Denies dyspepsia, Denies heartburn, Denies diarrhea and Denies nausea Genitourinary: Denies dysuria, Denies flank pain and Denies urinary frequency Musculoskeletal: Reports back pain (for one day, no trauma) and Denies numbness Denies headache(s), Denies numbness, Denies convulsions, Denies seizure-like activity and Denies disequilibrium Mental Status Exam Mental Status Exam Narrative: Appearance: casually groomed, fair hygiene in NAD Behavior:guarded, but cooperative. psychomotor:on agitation or retardation noted Speech:clear, normal rate/rhythm/volume, spontaneous Thought process:tangential Thought content:no signs of psychosis, wanting to spend time with mother and reconnecting with psych tx. Mood: depressed Affect: tearful, blunted SI:none, but reports feeling hopeless, HI:none VH/AH:none Delusions:none Insight/judgment:fair x 2. Memory/cog: alert, oriented x 3. grossly intact to conversational testing. Diagnostics Vital Signs (24Hr): Vital Signs - 24 hr 06/08/21 18:55 06/08/21 20:50 06/09/21 06:39 Temperature 100.6 F H 99.6 F 100.0 F Pulse Rate 110 H Respiratory Rate 20 Blood Pressure 127/66 Pulse Oximetry 97 06/09/21 11:00 Temperature 98.7 F Pulse Rate 110 H Respiratory Rate 17 Blood Pressure 110/74 Pulse Oximetry BMI result Body Mass Index 23.3 Labs Results: 06/08/21 16:08 06/08/21 15:27 Labs: Laboratory Results - last 48 hr 06/08/21 06/08/21 06/08/21 11:34 15:27 16:08 WBC 4.3 L RBC 4.54 L Hgb 13.9 L Hct 41.2 L MCV 90.7 MCH 30.6 MCHC 33.7 RDW 12.3 Plt Count 173 D MPV 9.2 L Immature Gran % (Auto) 0.5 H Neut % (Auto) 72.4 Lymph % (Auto) 14.3 L [place] % (Auto) 12.4 H Eos % (Auto) 0.2 Baso % (Auto) 0.2 Lymph # (Auto) 0.6 L [place] # (Auto) 0.5 Eos # (Auto) 0.0 Baso # (Auto) 0.0 Abs Immat Gran (auto) 0.02 Absolute Neuts (auto) 3.1 Absolute Nucleated RBC 0.000 Nucleated RBC % (auto) 0.0 Sodium 138 Potassium 3.8 Chloride 104 Carbon Dioxide 26 Anion Gap 12 BUN 13 Creatinine 1.09 Estim Creat Clear Calc 86.9 Estimated GFR > 60 Random Glucose 116 H Calcium 9.2 D Total Bilirubin 0.6 AST 15 ALT 13 Alkaline Phosphatase 41 Total Creatine Kinase 95 Total Protein 6.9 Albumin 4.4 COVID-19 (DREA) Negative COVID-19 Clin Com See Note Influenza Type A (MARLY) Influenza Type B (MARLY) Influenza A & B Note 06/08/21 16:16 WBC RBC Hgb Hct MCV MCH MCHC RDW Plt Count MPV Immature Gran % (Auto) Neut % (Auto) Lymph % (Auto) [place] % (Auto) Eos % (Auto) Baso % (Auto) Lymph # (Auto) [place] # (Auto) Eos # (Auto) Baso # (Auto) Abs Immat Gran (auto) Absolute Neuts (auto) Absolute Nucleated RBC Nucleated RBC % (auto) Sodium Potassium Chloride Carbon Dioxide Anion Gap BUN Creatinine Estim Creat Clear Calc Estimated GFR Random Glucose Calcium Total Bilirubin AST ALT Alkaline Phosphatase Total Creatine Kinase Total Protein Albumin COVID-19 (DREA) COVID-19 Clin Com Influenza Type A (MARLY) Positive A Influenza Type B (MARLY) Negative Influenza A & B Note See Note Imaging Radiology Impressions: ITS Impressions Chest X-Ray 06/08/21 11:21 IMPRESSION: Unremarkable examination. Chest X-Ray 06/08/21 20:00 IMPRESSION: Unremarkable examination. Medications Medications Current Medications Acetaminophen (Acetaminophen 325 Mg Tablet) 650 mg PO Q6H PRN PRN Reason: Headache/Pain Mild Scale (1-3) Last Admin: 06/09/21 13:40 Dose: 650 mg Documented by: Al Hydroxide/Mg Hydroxide (Magnesium Hydrox/Alum Hydrox 30 Ml Oral.Susp) 30 ml PO Q6H PRN PRN Reason: Heartburn/Nausea Albuterol Sulfate (Albuterol Sulfate 90 Mcg 8 Gm Inhaler) 2 puff INHALE RQ4H PRN PRN Reason: Shortness of Breath/Wheezing Last Admin: 06/09/21 06:40 Dose: 2 puff Documented by: Albuterol/Ipratropium (Albuterol/Iprat 2.5/0.5mg 3 Ml Ampul.Neb) 3 ml INHALE RQ4H PRN PRN Reason: Shortness of Breath Cefuroxime Axetil (Cefuroxime Axetil 500 Mg Tablet) 500 mg PO Q12H [facility] Last Admin: 06/09/21 06:30 Dose: 500 mg Documented by: Clonidine HCl (Clonidine Hcl 0.1 Mg Tablet) 0.1 mg PO BID PRN; Protocol PRN Reason: anxiety Last Admin: 06/07/21 20:49 Dose: 0.1 mg Documented by: Hydrocortisone (Hydrocortisone 1 % Cream 28.35 Gm Tube) 1 appl TOPICAL BID [facility]; Protocol Last Admin: 06/09/21 10:53 Dose: 1 appl Documented by: Hydroxyzine HCl (Hydroxyzine Hcl 50 Mg Tablet) 50 mg PO Q6H PRN PRN Reason: Anxiety/sleep Last Admin: 06/08/21 02:29 Dose: 50 mg Documented by: Ibuprofen (Ibuprofen 600 Mg Tablet) 600 mg PO Q8H PRN PRN Reason: Pain, Moderate (Pain Scale 4-6 Magnesium Hydroxide (Milk Of Magnesia 30 Ml Oral.Susp) 30 ml PO DAILY PRN PRN Reason: Constipation Nicotine (Nicotine 14 Mg Patch.Td24) 14 mg TRANSDERMA DAILY [facility] Last Admin: 06/09/21 10:54 Dose: 14 mg Documented by: Nicotine Polacrilex (Nicotine Polacrilex 2 Mg Gum) 4 mg BUCCAL Q2H PRN PRN Reason: Nicotine Cravings Last Admin: 06/07/21 19:18 Dose: 4 mg Documented by: Olanzapine (Olanzapine 5 Mg Tablet) 5 mg PO Q6H PRN PRN Reason: agitation Last Admin: 06/08/21 02:29 Dose: 5 mg Documented by: Olanzapine (Olanzapine 7.5 Mg Tablet) 15 mg PO BEDTIME [facility] Last Admin: 06/08/21 20:43 Dose: 15 mg Documented by: Oseltamivir Phosphate (Oseltamivir Phosphate 75 Mg Capsule) 75 mg PO Q12H [facility] Stop: 06/13/21 06:01 Last Admin: 06/09/21 06:30 Dose: 75 mg Documented by: Pharmacy Consult (Consult Rx Perform Med Rec) 1 each MISCELLANE ONCE PRN PRN Reason: Consult order Trazodone HCl (Trazodone Hcl 100 Mg Tablet) 100 mg PO BEDTIME PRN PRN Reason: Insomnia Last Admin: 06/06/21 23:43 Dose: 100 mg Documented by: Trazodone HCl (Trazodone Hcl 100 Mg Tablet) 100 mg PO BEDTIME [facility] Last Admin: 06/08/21 20:43 Dose: 100 mg Documented by: Allergies Allergies Allergy/AdvReac Type Severity Reaction Status Date / Time No Known Allergies Allergy Verified 06/03/21 13:27 Assessment & Plan Assessment & Plan (1) Bipolar 2 disorder, major depressive episode: Status: Acute Code(s): F31.81 - Bipolar II disorder (2) Cocaine use disorder: Status: Acute Code(s): F14.10 - Cocaine abuse, uncomplicated Plan Mr. Cardoza is a 31 year-old male with hx of depression, trauma, cocaine use who was brought to [facility] ED by mother as pt presented as agitated, anxious, reporting SI in context of cocaine use. However, pt reports hx of increase irritability and aggression with antidepressants. He denies ongoing cocaine use and states that cannabis must have been laced as he did not remember using cocaine. We discussed risks, benefits and alternative treatment options. He agrees to continue olanzapine, which was started in ED PLAN 1. Admit to M3, CV, 15 mins checks 2. continue olanzapine 10mg po qhs, prn for agitation, clonidine for anxiety 3. aftercare planning. Mr. Cardoza interested in reconnecting with OP psych tx, pt does not think he needs support with substance use treatment. 06/07- increase olanzapine to 15mg po qhs. continue all other meds. increase trazodone for sleep. 06/08: No med changes. Med consult pending. 06/09: Ct meds. Monitor Flu Sx. I spent minutes with the patient and/or on the patient floor today, greater than?50% of which was spent counseling/coordinating care. Reason for contiued inpatient stay Substantial Risk for: harm to self and med/psych decompensation
[2021-06-09] MEDS: Nicotine Polacrilex 2 MG GUM 4 MG BUCCAL (16:45)
[2021-06-09] MEDS: Ibuprofen 600 MG TABLET PO (16:45)
[2021-06-09 16:47] VITALS: TEMP 36.6
[2021-06-09 18:00] VITALS: BP 126/77; PULSE 91; RESP 18; TEMP 36.8; O2SAT 99
[2021-06-09] MEDS: hydrOXYzine HCL 50 MG TABLET PO (21:27)
[2021-06-09] MEDS: traZODone HCL 100 MG TABLET PO ×2 (21:27→23:40)
[2021-06-09] MEDS: OLANZapine 5 MG TABLET PO (21:28)
[2021-06-09] MEDS: OLANZapine 7.5 MG TABLET 15 MG PO (21:28)
[2021-06-09] MEDS: cloNIDine HCL 0.1 MG TABLET PO (23:40)
[2021-06-10] MEDS: traZODone HCL 100 MG TABLET PO ×4 (00:46→23:22)
[2021-06-10] MEDS: Ibuprofen 600 MG TABLET PO (00:46)
[2021-06-10] MEDS: Albuterol Sulfate 90 MCG 8 GM INHALER 2 PUFF INHALE ×3 (00:48→21:12)
[2021-06-10] MEDS: Acetaminophen 325 MG TABLET 650 MG PO ×2 (08:26→21:14)
[2021-06-10] MEDS: Oseltamivir Phosphate 75 MG CAPSULE PO ×2 (08:29→21:14)
[2021-06-10 08:52] VITALS: BP 123/72; PULSE 87; RESP 18; TEMP 36.2; O2SAT 99
--- NOTE | 2021-06-10 11:33 | HO.PSYCHPN ---
Subjective Subjective Date of Service: 06/10/21 Reason For Visit: Psychosis Interim History: Medical- pt dx influenza type 1. no cough, afebrile, reports feeling better physically. Psych- reports feeling depressed, sad, less than before but still tearful, future oriented in that he is looking forward to return home with family and continue OP psych tx. Passive SI at times but no plan or intent to hurt himself. Medication Compliance: Yes Side effects from medications: No Attending Groups: Yes Review of Systems Review of Systems Denies chest pain Denies shortness of breath Denies nausea vomiting diarrhea Admits fever chills Denies discharge Constitutional: Reports difficulty sleeping and Denies headache(s) Eyes: Reports no additional eye complaints Denies headache(s) and Denies disequilibrium Cardiovascular: Denies chest pain, Denies chest pain at rest, Denies diaphoresis, Denies rapid heart rate, Denies leg edema, Denies lightheadedness and Denies dyspnea Respiratory: Denies chest congestion, Denies cough, Denies pain with cough and Denies dyspnea Gastrointestinal: Denies constipation, Denies dyspepsia, Denies heartburn, Denies diarrhea and Denies nausea Genitourinary: Denies dysuria, Denies flank pain and Denies urinary frequency Musculoskeletal: Reports back pain (for one day, no trauma) and Denies numbness Denies headache(s), Denies numbness, Denies convulsions, Denies seizure-like activity and Denies disequilibrium Mental Status Exam Mental Status Exam Narrative: Appearance: casually groomed, fair hygiene in NAD Behavior:guarded, but cooperative. psychomotor:on agitation or retardation noted Speech:clear, normal rate/rhythm/volume, spontaneous Thought process:tangential Thought content:no signs of psychosis, wanting to spend time with mother and reconnecting with psych tx. Mood: depressed Affect: tearful, blunted SI:none, but reports feeling hopeless, HI:none VH/AH:none Delusions:none Insight/judgment:fair x 2. Memory/cog: alert, oriented x 3. grossly intact to conversational testing. Diagnostics Vital Signs (24Hr): Vital Signs - 24 hr 06/09/21 16:47 06/09/21 18:00 06/10/21 08:52 Temperature 97.9 F 98.3 F 97.1 F Pulse Rate 91 87 Respiratory Rate 18 18 Blood Pressure 126/77 123/72 Pulse Oximetry 99 99 BMI result Body Mass Index 23.3 Labs Results: 06/08/21 16:08 06/08/21 15:27 Labs: Laboratory Results - last 48 hr 06/08/21 06/08/21 06/08/21 15:27 16:08 16:16 WBC 4.3 L RBC 4.54 L Hgb 13.9 L Hct 41.2 L MCV 90.7 MCH 30.6 MCHC 33.7 RDW 12.3 Plt Count 173 D MPV 9.2 L Immature Gran % (Auto) 0.5 H Neut % (Auto) 72.4 Lymph % (Auto) 14.3 L [place] % (Auto) 12.4 H Eos % (Auto) 0.2 Baso % (Auto) 0.2 Lymph # (Auto) 0.6 L [place] # (Auto) 0.5 Eos # (Auto) 0.0 Baso # (Auto) 0.0 Abs Immat Gran (auto) 0.02 Absolute Neuts (auto) 3.1 Absolute Nucleated RBC 0.000 Nucleated RBC % (auto) 0.0 Sodium 138 Potassium 3.8 Chloride 104 Carbon Dioxide 26 Anion Gap 12 BUN 13 Creatinine 1.09 Estim Creat Clear Calc 86.9 Estimated GFR > 60 Random Glucose 116 H Calcium 9.2 D Total Bilirubin 0.6 AST 15 ALT 13 Alkaline Phosphatase 41 Total Creatine Kinase 95 Total Protein 6.9 Albumin 4.4 Influenza Type A (MARLY) Positive A Influenza Type B (MARLY) Negative Influenza A & B Note See Note Imaging Radiology Impressions: ITS Impressions Chest X-Ray 06/08/21 11:21 IMPRESSION: Unremarkable examination. Chest X-Ray 06/08/21 20:00 IMPRESSION: Unremarkable examination. Medications Medications Current Medications Acetaminophen (Acetaminophen 325 Mg Tablet) 650 mg PO Q6H PRN PRN Reason: Headache/Pain Mild Scale (1-3) Last Admin: 06/10/21 08:26 Dose: 650 mg Documented by: Al Hydroxide/Mg Hydroxide (Magnesium Hydrox/Alum Hydrox 30 Ml Oral.Susp) 30 ml PO Q6H PRN PRN Reason: Heartburn/Nausea Albuterol Sulfate (Albuterol Sulfate 90 Mcg 8 Gm Inhaler) 2 puff INHALE RQ4H PRN PRN Reason: Shortness of Breath/Wheezing Last Admin: 06/10/21 08:26 Dose: 2 puff Documented by: Albuterol/Ipratropium (Albuterol/Iprat 2.5/0.5mg 3 Ml Ampul.Neb) 3 ml INHALE RQ4H PRN PRN Reason: Shortness of Breath Cefuroxime Axetil (Cefuroxime Axetil 500 Mg Tablet) 500 mg PO Q12H [facility] Stop: 06/14/21 08:01 Last Admin: 06/10/21 08:29 Dose: 500 mg Documented by: Clonidine HCl (Clonidine Hcl 0.1 Mg Tablet) 0.1 mg PO BID PRN; Protocol PRN Reason: anxiety Last Admin: 06/09/21 23:40 Dose: 0.1 mg Documented by: Hydrocortisone (Hydrocortisone 1 % Cream 28.35 Gm Tube) 1 appl TOPICAL BID [facility]ISTAIR; Protocol Last Admin: 06/10/21 13:02 Dose: Not Given Documented by: Hydroxyzine HCl (Hydroxyzine Hcl 50 Mg Tablet) 50 mg PO Q6H PRN PRN Reason: Anxiety/sleep Last Admin: 06/09/21 21:27 Dose: 50 mg Documented by: Ibuprofen (Ibuprofen 600 Mg Tablet) 600 mg PO Q8H PRN PRN Reason: Pain, Moderate (Pain Scale 4-6 Last Admin: 06/10/21 00:46 Dose: 600 mg Documented by: Magnesium Hydroxide (Milk Of Magnesia 30 Ml Oral.Susp) 30 ml PO DAILY PRN PRN Reason: Constipation Nicotine (Nicotine 14 Mg Patch.Td24) 14 mg TRANSDERMA DAILY [facility] Last Admin: 06/10/21 08:33 Dose: Not Given Documented by: Nicotine Polacrilex (Nicotine Polacrilex 2 Mg Gum) 4 mg BUCCAL Q2H PRN PRN Reason: Nicotine Cravings Last Admin: 06/09/21 16:45 Dose: 4 mg Documented by: Olanzapine (Olanzapine 5 Mg Tablet) 5 mg PO Q6H PRN PRN Reason: agitation Last Admin: 06/10/21 13:15 Dose: 5 mg Documented by: Olanzapine (Olanzapine 7.5 Mg Tablet) 15 mg PO BEDTIME [facility] Last Admin: 06/09/21 21:28 Dose: 15 mg Documented by: Oseltamivir Phosphate (Oseltamivir Phosphate 75 Mg Capsule) 75 mg PO Q12H [facility] Stop: 06/13/21 08:01 Last Admin: 06/10/21 08:29 Dose: 75 mg Documented by: Pharmacy Consult (Consult Rx Perform Med Rec) 1 each MISCELLANE ONCE PRN PRN Reason: Consult order Trazodone HCl (Trazodone Hcl 100 Mg Tablet) 100 mg PO BEDTIME PRN PRN Reason: Insomnia Last Admin: 06/10/21 00:46 Dose: 100 mg Documented by: Trazodone HCl (Trazodone Hcl 100 Mg Tablet) 100 mg PO BEDTIME [facility] Last Admin: 06/09/21 21:27 Dose: 100 mg Documented by: Allergies Allergies Allergy/AdvReac Type Severity Reaction Status Date / Time No Known Allergies Allergy Verified 06/03/21 13:27 Assessment & Plan Assessment & Plan (1) Bipolar 2 disorder, major depressive episode: Status: Acute Code(s): F31.81 - Bipolar II disorder (2) Cocaine use disorder: Status: Acute Code(s): F14.10 - Cocaine abuse, uncomplicated Plan Mr. Cardoza is a 31 year-old male with hx of depression, trauma, cocaine use who was brought to [facility] by mother as pt presented as agitated, anxious, reporting SI in context of cocaine use. However, pt reports hx of increase irritability and aggression with antidepressants. He denies ongoing cocaine use and states that cannabis must have been laced as he did not remember using cocaine. We discussed risks, benefits and alternative treatment options. He agrees to continue olanzapine, which was started in ED PLAN 1. Admit to M3, CV, 15 mins checks 2. continue olanzapine 10mg po qhs, prn for agitation, clonidine for anxiety 3. aftercare planning. Mr. Cardoza interested in reconnecting with OP psych tx, pt does not think he needs support with substance use treatment. 06/07- increase olanzapine to 15mg po qhs. continue all other meds. increase trazodone for sleep. 06/10- continue current medications, may add antidepressant. 06/08: No med changes. Med consult pending. 06/09: Ct meds. Monitor Flu Sx. I spent minutes with the patient and/or on the patient floor today, greater than?50% of which was spent counseling/coordinating care. Reason for contiued inpatient stay Substantial Risk for: harm to self
[2021-06-10] MEDS: OLANZapine 5 MG TABLET PO (13:15)
--- NOTE | 2021-06-10 13:17 | PC.NURSE ---
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 A few minutes later patient came to nurses' station stating that staff has told him' that you have my meds ready?' Patient given Olanzapine PRN for agitation.
[2021-06-10 18:00] VITALS: BP 126/78; PULSE 76; RESP 18; TEMP 37; O2SAT 100
[2021-06-10] MEDS: Hydrocortisone 1 % Cream 28.35 GM TUBE 1 APPL TOPICAL (21:12)
[2021-06-10] MEDS: OLANZapine 7.5 MG TABLET 15 MG PO (21:13)
[2021-06-10] MEDS: cloNIDine HCL 0.1 MG TABLET PO (21:13)
[2021-06-10] MEDS: hydrOXYzine HCL 50 MG TABLET PO (21:13)
[2021-06-11] MEDS: Acetaminophen 325 MG TABLET 650 MG PO (04:02)
[2021-06-11 09:30] VITALS: BP 114/60; PULSE 116; RESP 18; TEMP 36.2; O2SAT 100
[2021-06-11] MEDS: Oseltamivir Phosphate 75 MG CAPSULE PO (10:05)
[2021-06-11] MEDS: OLANZapine 10 MG TABLET PO (12:47)
--- NOTE | 2021-06-11 12:52 | PC.NURSE ---
Patient requesting to sign a 3 day notice. Instructional Leader called, reviewed 3 day notice with patient as requested w/ sanitizer present. Patient then began to state that he had completed his 3 days and he wanted to leave today. Patient informed that this was not how a three day notice worked, and reminded that he had had a conversation yesterday with his psychiatric social worker supervisor about discharge plans this week. Patient then became increasingly agitated, making allegations regarding an incident he stated had occurred during the night. 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 Attempted to redirect patient back to the 3 day notice w/ assistance from the sanitizer. Patient declined to sign. Management and provider informed of patient allegations. Patient accepted Zyprexa 10 mg as ordered.
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
[2021-06-11] MEDS: Nicotine Polacrilex 2 MG GUM 4 MG BUCCAL (15:25)
[2021-06-11] MEDS: hydrOXYzine HCL 50 MG TABLET PO (17:48)
[2021-06-11] MEDS: Albuterol Sulfate 90 MCG 8 GM INHALER 2 PUFF INHALE (17:59)
[2021-06-11] MEDS: Milk of Magnesia 30 ML ORAL.SUSP PO (17:59)
[2021-06-11] MEDS: traZODone HCL 100 MG TABLET PO (20:56)
[2021-06-11] MEDS: OLANZapine 10 MG TABLET 20 MG PO (20:56)
[2021-06-11] MEDS: diphenhydrAMINE HCL 25 MG TABLET PO (20:58)
[2021-06-11 21:05] VITALS: BP 117/73; PULSE 78; RESP 18; TEMP 36.8; O2SAT 99
[2021-06-12 08:59] VITALS: BP 131/84; PULSE 83; RESP 17; TEMP 36.5; O2SAT 100
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
[2021-06-12] MEDS: Nicotine 14 MG PATCH.TD24 TRANSDERMA (09:52)
== END 2021-06-12 11:58 | disposition home or self-care (01) | DRG 753 ==
LOC: HO.ED 19:01 → HO.PADLT16 06-05 16:33
PROVIDERS: Hospitalist; Physician Assistant Medical; Psychiatry & Neurology Psychiatry; Admitting Provider Psychiatry & Neurology Psychiatry; Emergency Provider Emergency Medicine; Visit Provider Social Worker
DX: F31.81 Bipolar II disorder (principal); F14.10 Cocaine abuse, uncomplicated; N48.1 Balanitis; J11.1 Influenza due to unidentified influenza virus with other respiratory manifestations; F17.210 Nicotine dependence, cigarettes, uncomplicated; J45.909 Unspecified asthma, uncomplicated; Z20.822 Contact with and (suspected) exposure to COVID-19; Z87.820 Personal history of traumatic brain injury; Z71.6 Tobacco abuse counseling; Z79.899 Other long term (current) drug therapy
CPT/HCPCS: 36415; 71045; 71046; 80048; 80053; 80061; 80076; 80307; 81001; 82077; 82550; 82607; 82746; 83036; 84439; 84443; 85025; 87040; 87502; 87635; 93005; 99285; Q0163

== ENCOUNTER 2021-08-24 18:01 | Inpatient (IN) | payer OTHER, SELFPAY ==
[2021-08-24 18:15] VITALS: BP 110/90; BP 120/86; PULSE 103; PULSE 80; RESP 18; TEMP 36.9; O2SAT 96; O2SAT 98; BMI 21.6
--- NOTE | 2021-08-24 18:34 | ED.ANXIETY ---
HPI - Anxiety General Chief Complaint: Psychiatric Symptoms Stated Complaint: crisis Time Seen by Provider: 08/24/21 18:29 Source: patient and EMS Mode of arrival: EMS Limitations: no limitations History of Present Illness MD complaint: anxiety (SI) Onset (ago): day(s) (2) Symptoms: other (anxiety, SI) Severity: moderate Quality: worsening Place: home History of similar episodes: Yes Provoking factors: other (used a drug, not taking meds x 1 week) Relieving factors: other Exacerbating factors: thinking about event Associated symptoms: denies other symptoms Related Data Previous Rx's Medication Instructions Recorded albuterol sulfate 90 mcg/actuation 2 puff inhalation RQ4H PRN 06/12/21 aerosol inhaler (Ventolin HFA) Shortness Of Breath/Wheezing #6.7 grams clonidine HCl 0.1 mg tablet 0.1 mg PO BID PRN anxiety #30 tabs 06/12/21 hydrocortisone 1 % topical cream 1 appl topical BID #28.35 grams 06/12/21 nicotine 14 mg/24 hr daily 14 mg transdermal DAILY #30 ea 06/12/21 transdermal patch olanzapine 20 mg tablet 20 mg PO BEDTIME #30 tabs 06/12/21 olanzapine 5 mg tablet 5 mg PO BID PRN agitation #60 tabs 06/12/21 trazodone 150 mg tablet 150 mg PO BEDTIME #30 tabs 06/12/21 Allergies Allergy/AdvReac Type Severity Reaction Status Date / Time No Known Allergies Allergy Verified 06/03/21 13:27 Review of Systems Review of Systems: Constitutional : No Fever, No Chills ENT/Mouth : No Ear Pain, No Nasal Congestion, No sore throat Eyes: No Eye Pain, No Swelling, No Redness Cardiovascular : No Chest Pain, No SOB Respiratory : No Cough, No Sputum, No Dyspnea Gastrointestinal : No Nausea, No Vomiting, No Diarrhea, No Hematochezia, No Melena Genitourinary : No Dysuria, No Urinary Frequency, No Hematuria Musculoskeletal : No Myalgias Skin : No Skin Lesions, No rash Neuro : No Weakness, No Numbness, No Paresthesias, No Dizziness, No Headache Psych : positive Anxiety, positive Depression, positive SI no HI Heme/Lymph: No Lymphadenopathy Endocrine : No Polyuria, No Polydipsia All other systems reviewed and are negative [facility] Past Medical History Attestation statement: The following information was validated with the patient. Medical History Anxiety Asthma Depression Social History Social History Household Members: Significant Other Housing: Homeless Do you presently have visiting nurse or other home services: No Unable to assess alcohol history related to: Refusing to respond Patient Tobacco Use Status: Current someday Tobacco user Tobacco use type: Cigarette Cigarette Packs Per Day: 1 Cigarettes Per Day: 20.0 Second Hand Smoke Exposure: No Substance Use Type: Crack/Cocaine and Marijuana service: No Sexual orientation: Did not discuss. Physical Exam Vital Signs: Vital Signs: Last Vital Signs Temp 98.5 F 08/24/21 18:15 Pulse 80 08/24/21 18:15 Resp 18 08/24/21 18:15 BP 120/86 08/24/21 18:15 Pulse Ox 98 08/24/21 18:15 O2 Del Method 08/24/21 18:15 BMI result Body Mass Index 21.6 Appearance: Alert. Oriented X3. No acute distress. Crying, anxious Eyes: Pupils equal, round and reactive to light. ENT: Pharynx normal. Neck: Normal inspection. Neck supple. CVS: Normal heart rate and rhythm. Pulses normal. Respiratory: No respiratory distress. Breath sounds normal. Abdomen: Soft and nontender. Skin: Skin warm and dry. Normal skin color. Normal skin turgor. Extremities: No lower extremity edema. No calf ttp Neuro: Oriented X 3. No motor deficit. No sensory deficit. CN 2-12 intact Course Course Course Narrative: Physician observation started at 702pm. Patient placed in physician observation because the patient needed more time for BHN to assess the need for psych admission. At the time observation was started the patient's vitals were stable, patient is alert and oriented but anxious, Neuro: nonfocal, CV RRR, Lungs clear MDM - Anxiety MDM Narrative Medical decision making narrative: 31 yo male with hx of bipolar disorder here off meds with anxiety and drug use at this time labs and BHN consult ordered. Dispo per their recommendations. Discharge Plan Discharge Clinical Impression: Acute anxiety Patient Disposition: Still a Patient Prescriptions: No Action albuterol sulfate [Ventolin HFA] 90 mcg/actuation Hfa Aerosol Inhaler 2 puff inhalation RQ4H PRN (Reason: Shortness Of Breath/Wheezing) Qty: 6.7 0RF clonidine HCl 0.1 mg Tablet 0.1 mg PO BID PRN (Reason: anxiety) Qty: 30 0RF Protocol: Hold for SBP< HOLD for SBP < : 90 nicotine 14 mg/24 hr Patch 24 Hour 14 mg transdermal DAILY Qty: 30 0RF olanzapine 20 mg tablet 20 mg PO BEDTIME Qty: 30 0RF trazodone 150 mg tablet 150 mg PO BEDTIME Qty: 30 0RF hydrocortisone 1 % Cream 1 appl topical BID Qty: 28.35 0RF Protocol: Apply to: Apply to: base of glans olanzapine 5 mg tablet 5 mg PO BID PRN (Reason: agitation) Qty: 60 0RF
[2021-08-24 19:16] LABS: COVID-19 Test Negative (Negative)
[2021-08-24 19:25] LABS: MANUAL DIFF FLAG NO
[2021-08-24 19:28] LABS: Basophils Percent Auto 0.2 % (0-2); Eosinophils Percent Auto 0.2 % (0-4); Hemoglobin 15.7 g/dl (14.0-18.0); Imm Gran Abs Auto 0.03 X10*3/uL (0.00-0.03); Imm Gran Pct Auto 0.5 % (0.0-0.4); Lymphocytes Absolute Auto 1.5 X10*3/uL (1.2-4.9); Lymphocytes Percent Auto 25.9 % (20-40); Mean Corpuscular HGB Conc 34.1 g/dl (31.0-36.0); Mean Corpuscular Hemoglobin 30.4 pg (27.0-33.0); Mean Platelet Volume 9.2 fL (9.4-12.4); Monocytes Absolute Auto 0.5 X10*3/uL (0.1-1.2); Monocytes Percent Auto 8.2 % (2-11); Neutrophils Absolute Auto 3.8 x10*3/uL (2.0-8.3); Platelet Count 250 X10*3/uL (160-400); Red Blood Count 5.17 X10*6/uL (4.60-5.80); Red Cell Distribution Width 11.9 % (11.0-16.0); White Blood Count 5.8 X10*3/uL (4.8-10.8)
[2021-08-24 19:38] LABS: Ethanol < 10 mg/dL
[2021-08-24 19:42] LABS: Alanine Aminotransferase 20 U/L (0-40); Albumin Level 5.3 g/dL (3.5-5.0); Alkaline Phosphatase 57 U/L (39-117); Anion Gap 14 (12-20); Aspartate Amino Transferase 19 U/L (5-37); Bilirubin Direct 0.3 mg/dL (0.0-0.5); Bilirubin Total 0.6 mg/dL (0.0-1.0); Blood Urea Nitrogen 9 mg/dL (9-16); Calcium 10.3 mg/dL (8.4-10.2); Carbon Dioxide 28 mmol/L (22-29); Chloride 101 mmol/L (96-108); Creatinine Clr Calc Pharmacy 99.8; Estimated Glomerular Filt Rate > 60; Glucose Random 101 mg/dL (60-115); Potassium 3.9 mmol/L (3.3-5.1); Sodium 139 mmol/L (135-145); Total Protein 8.4 g/dL (6.5-8.0)
[2021-08-24 20:23] LABS: Amphetamine Screen Urine Not Detected (Not Detect); Barbiturates, Urine Not Detected (Not Detect); Benzodiazepines Screen Urine Not Detected (Not Detect); Cannabinoid Screen Urine Not Detected (Not Detect); Cocaine Screen Urine Not Detected (Not Detect); Fentanyl, urine Not Detected (Not Detect); Opiate Screen Urine Not Detected (Not Detect); Phencyclidine Screen Urine Not Detected (Not Detect)
[2021-08-24] MEDS: hydrOXYzine HCL 25 MG TABLET PO (20:48)
[2021-08-24] MEDS: OLANZapine 5 MG TABLET PO (20:48)
[2021-08-24] MEDS: LORazepam 1 MG TABLET 2 MG PO (20:48)
[2021-08-24 20:58] LABS: Appearance Urine CLEAR; Color Urine YELLOW; Glucose Urine UA NEG (NEG); Leukocyte Esterase Urine NEG (NEG); Nitrite Urine NEG (NEG); PH 6.5 (5.0-8.0); Specific Gravity - Urine 1.015 (1.005-1.025); Urine Blood NEG (NEG); Urine Ketones 40 MG/DL (NEG); Urine Protein NEG (NEG-TRACE)
[2021-08-25] VITALS (7 sets, daily range): BP systolic 103–117; BP diastolic 68–86; PULSE 82–100; RESP 15–20; TEMP 36.2–37.1; O2SAT 97–100
[2021-08-25] MEDS: OLANZapine 5 MG TABLET PO ×2 (02:08→21:02)
[2021-08-25] MEDS: OLANZapine 10 MG VIAL 5 MG IM (03:30)
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
--- NOTE | 2021-08-25 07:12 | PC.NURSE ---
patient appears top remain asleep at present respirations are even and unlabored patient appears in no distress
[2021-08-25] MEDS: busPIRone HCl 5 MG TABLET PO ×2 (15:12→20:25)
[2021-08-25] MEDS: Doxepin HCl 25 MG CAPSULE 50 MG PO (20:25)
[2021-08-25] MEDS: hydrOXYzine HCL 25 MG TABLET PO (21:00)
--- NOTE | 2021-08-25 21:24 | PC.NURSE ---
Patient seems frustrated/agitated, punched wall couple of times, making multiple phone calls, patient called 911 reported he wants to turn himself in, PRN Olanzapine 5 mg and hydroxyzine 25 mg administered as ordered pending effect, compliant with HS medication, disposition per N is section 12 inpatient bed search, vss, currently on phone talking to his brother Wade, will continue to monitor.
[2021-08-26] MEDS: LORazepam 1 MG TABLET PO ×3 (00:29→20:36)
--- NOTE | 2021-08-26 00:34 | PC.NURSE ---
Patient tried to exit the unit by pushing the door, unable to redirect, security on site, provider notified/ordered/Ativan 1 mg po administered as ordered with pending effect, will continue to monitor.
--- NOTE | 2021-08-26 06:12 | PC.NURSE ---
Patient has been sleeping since 214, patient's thought content delusional and paranoid, affect flat, response delayed, behavior exit seeking and unpredictable, medication compliant, VSS, disposition per [facility] is section 12 inpatient bed search, will continue to monitor.
--- NOTE | 2021-08-26 07:05 | PC.NURSE ---
patient appears to remain asleep at present respirations are even and unlabored patient appears in no distress
[2021-08-26 08:03] VITALS: BP 117/65; PULSE 72; RESP 17; TEMP 36.6; O2SAT 99
[2021-08-26] MEDS: hydrOXYzine HCL 25 MG TABLET PO ×2 (11:28→23:35)
[2021-08-26] MEDS: OLANZapine 5 MG TABLET PO (11:30)
--- NOTE | 2021-08-26 12:41 | PM.PSYCN ---
History of Present Illness Date of Service: 08/26/2021 Chief Complaint: crisis Reason for Consult: psychosis/catatonia Discussed with referring provider: Yes Sources of Information: patient interviewed, chart reviewed and crisis/core team assessment reviewed HPI Narrative: Mr. 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 He was brought on sect 12 from community due to presenting more anxious. His utox was negative. He presents with blank stare, mutism, internally preoccupied. He minimally responds to question. He nods when asked if he is hearing voices. He states he is not suicidal or homicidal. Per nursing, pt has been mostly in his room, minimally verbal, not eating much. No aggression towards self or others. Mother by his side, reports he has not been sleeping, appears to hear voices that others can't here. Here in the ED, pt listening to the renae as he is hearing voices, hypervigilant, fearful at times. Past Psychiatric History: Inpatient: 2017 [place]; one other in [place] OP: none currently Past trials: wellbutrin (ineffective- made him angry ), zoloft ( made me violent ) Suicide attempts: pt reports ideation but no hx of attempts. [facility], [facility] Medical History Anxiety Asthma Depression Family History: mother- depression maternal uncle of suicide Social History: lives with mother. not , no children. 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 Trauma History: reports but no details provided Diagnostics Vital Signs (24Hr): Vital Signs - 24 hr 08/25/21 23:47 08/26/21 08:03 Temperature 97.1 F 97.9 F Pulse Rate 98 72 Respiratory Rate 16 17 Blood Pressure 117/86 117/65 Pulse Oximetry 100 99 Oxygen Delivery Method Room Air Room Air BMI result Body Mass Index 21.6 Labs Results: 08/24/21 19:21 08/24/21 19:21 Labs: Laboratory Results - last 48 hr 08/24/21 08/24/21 08/24/21 18:49 19:21 19:21 WBC 5.8 RBC 5.17 Hgb 15.7 Hct 46.0 MCV 89.0 MCH 30.4 MCHC 34.1 RDW 11.9 Plt Count 250 D MPV 9.2 L Immature Gran % (Auto) 0.5 H Neut % (Auto) 65.0 Lymph % (Auto) 25.9 [place] % (Auto) 8.2 Eos % (Auto) 0.2 Baso % (Auto) 0.2 Lymph # (Auto) 1.5 [place] # (Auto) 0.5 Eos # (Auto) 0.0 Baso # (Auto) 0.0 Abs Immat Gran (auto) 0.03 Absolute Neuts (auto) 3.8 Absolute Nucleated RBC 0.000 Nucleated RBC % (auto) 0.0 Sodium 139 Potassium 3.9 Chloride 101 Carbon Dioxide 28 Anion Gap 14 BUN 9 Creatinine 0.91 Estim Creat Clear Calc 99.8 Estimated GFR > 60 Random Glucose 101 Calcium 10.3 H D Total Bilirubin 0.6 Direct Bilirubin 0.3 AST 19 ALT 20 Alkaline Phosphatase 57 D Total Protein 8.4 H D Albumin 5.3 H D Urine Color Urine Appearance Urine pH Ur Specific [place]el Urine Protein Urine Glucose (UA) Urine Ketones Urine Blood Urine Nitrite Ur Leukocyte Esterase Urine Opiates Screen Urine Fentanyl Screen Ur Barbiturates Screen Ur Phencyclidine Scrn Ur Amphetamines Screen U Benzodiazepines Scrn Urine Cocaine Screen U Marijuana (THC) Screen Ethyl Alcohol COVID-19 (DREA) Negative COVID-19 Clin Com See Note 08/24/21 08/24/21 08/24/21 19:21 20:01 20:01 WBC RBC Hgb Hct MCV MCH MCHC RDW Plt Count MPV Immature Gran % (Auto) Neut % (Auto) Lymph % (Auto) [place] % (Auto) Eos % (Auto) Baso % (Auto) Lymph # (Auto) [place] # (Auto) Eos # (Auto) Baso # (Auto) Abs Immat Gran (auto) Absolute Neuts (auto) Absolute Nucleated RBC Nucleated RBC % (auto) Sodium Potassium Chloride Carbon Dioxide Anion Gap BUN Creatinine Estim Creat Clear Calc Estimated GFR Random Glucose Calcium Total Bilirubin Direct Bilirubin AST ALT Alkaline Phosphatase Total Protein Albumin Urine Color YELLOW Urine Appearance CLEAR Urine pH 6.5 Ur Specific Noel 1.015 Urine Protein NEG Urine Glucose (UA) NEG Urine Ketones 40 Urine Blood NEG Urine Nitrite NEG Ur Leukocyte Esterase NEG Urine Opiates Screen Not Detected Urine Fentanyl Screen Not Detected Ur Barbiturates Screen Not Detected Ur Phencyclidine Scrn Not Detected Ur Amphetamines Screen Not Detected U Benzodiazepines Scrn Not Detected Urine Cocaine Screen Not Detected U Marijuana (THC) Screen Not Detected Ethyl Alcohol < 10 COVID-19 (DREA) COVID-19 Clin Com Mental Status Exam Mental Status Exam Narrative: Appearance: casually groomed, fair hygiene in NAD Behavior:blank stare, minimally engaged psychomotor:retardation noted Speech:single words, soft, delayed response rate, minimally spontaneous Thought process:thought blocking Thought content:unable to assess, does say he hears voices but would not elaborate. Mood: not well Affect: blunted, constricted SI:denies HI:denies VH/AH:appears internally preoccupied. Delusions:paranoid delusions Insight/judgment:poor x 2. Memory/cog: alert, unable to assess orientation. Medications Medications Current Medications Buspirone HCl (Buspirone Hcl 5 Mg Tablet) 5 mg PO TID ALISTAIR Last Admin: 08/26/21 10:59 Dose: Not Given Hydroxyzine HCl (Hydroxyzine Hcl 25 Mg Tablet) 25 mg PO TID PRN PRN Reason: Anxiety Last Admin: 08/26/21 11:28 Dose: 25 mg Lorazepam (Lorazepam 1 Mg Tablet) 1 mg PO TID ALISTAIR Olanzapine (Olanzapine 5 Mg Tablet) 5 mg PO Q6H PRN PRN Reason: anxiety/aggression Last Admin: 08/26/21 11:30 Dose: 5 mg Allergies Allergies Allergy/AdvReac Type Severity Reaction Status Date / Time No Known Allergies Allergy Verified 06/03/21 13:27 Assessment & Plan Assessment & Plan (1) MDD (major depressive disorder), recurrent, severe, with psychosis: Status: Acute Code(s): F33.3 - Major depressive disorder, recurrent, severe with psychotic symptoms Plan Mr. Cardoza is a 31 year-old male with hx of psychosis, initially thought to be related to substance induced but it is becoming more frequent and intense even without any substance use. Pt has been presenting with AH, not sleeping. In the ED pt presents with s/s of catatonia including blank stare, mutism, reports AH. We discussed risks, benefits and alternative treatment options. He agrees to start ativan 1mg po TID, Olanzapine 10mg po qhs and 5 mg po daily. PLAN 1. Pt meets criteria for ILOC due to presenting unable to care for himself due to s/s of catatonia, AH, paranoia. 2. Start Ativan 1mg po TID- may need higher doses for catatonia 3. Olanzapine 10mg po qhs and 5mg po daily. I spent minutes with the patient and/or on the patient floor today, greater than?50% of which was spent counseling/coordinating care.
[2021-08-26 14:39] LABS: COVID-19 Test Negative (Negative)
[2021-08-26] MEDS: busPIRone HCl 5 MG TABLET PO (14:39)
[2021-08-26] MEDS: Escitalopram Oxalate 5 MG TABLET PO (14:39)
--- NOTE | 2021-08-26 15:51 | PHA.MEDREC ---
Pharmacy Consult ? Medication Reconciliation Pharmacy has completed the medication reconciliation. Reviewed med red done by nursing.
[2021-08-26 16:50] VITALS: BP 98/57; PULSE 81; TEMP 36.6
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
[2021-08-26] MEDS: QUEtiapine Fumarate 100 MG TABLET PO ×2 (20:35→23:35)
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
[2021-08-27] MEDS: QUEtiapine Fumarate 100 MG TABLET PO ×2 (01:59→20:40)
[2021-08-27 06:00] VITALS: BP 108/58; PULSE 92; RESP 16; TEMP 36.6; O2SAT 99
[2021-08-27 09:06] LABS: Ammonia 30 umol/L (13-55)
[2021-08-27] MEDS: LORazepam 1 MG TABLET PO ×4 (09:06→20:41)
[2021-08-27 09:11] LABS: Estimated Average Glucose 97 mg/dL
[2021-08-27 10:03] LABS: Cholesterol 99 mg/dL; HDL Cholesterol 32 mg/dL; LDL Cholesterol Calculated 58 mg/dl; Triglycerides 46 mg/dL
[2021-08-27 10:09] LABS: Reflex LDLD? No
--- NOTE | 2021-08-27 10:38 | P.PNPSI_ITS ---
Subjective Subjective Date of Service: 08/27/21 Reason For Visit: psychosis/ catatonia Interim History: Patient mostly mute, internally preoccupied. Certified Respiratory Therapist asked if it was hard to talk or if patient just in want to and he was able to say that It is hard to talk. Nodded yes to hearing voices; nodded yes that he wants treatment home medication. Understood 3 day notice. Otherwise Remained disorganized and uncommunicative with production underwriter and mother who was also present. Mental Status Exam Mental Status Exam Narrative: Pt is alert and oriented; behavior is disorganized, mostly mute; calm; dressed in casual attire with hat on; adequate hygiene; mood: pt mute; affect cons tricted; no eye contact; Speech: pt is mute; psychomotor retardation present; thought process derailed by Internal preoccupations; Thought content is derailed by Internal preoccupations; unable to access for delusional content, paranoid ideations or grandiosity; unclear SI/HI. Internally preoccupied. Positive for AH which say to hurt himself and hurt others. Patients insight and judgment Are impaired. Diagnostics Vital Signs (24Hr): Vital Signs - 24 hr 08/26/21 16:50 08/27/21 06:00 Temperature 97.8 F 97.8 F Pulse Rate 81 92 Respiratory Rate 16 Blood Pressure 98/57 L 108/58 L Pulse Oximetry 99 Oxygen Delivery Method Room Air BMI result Body Mass Index 21.6 Labs Results: 08/24/21 19:21 08/24/21 19:21 Labs: Laboratory Results - last 48 hr 08/26/21 08/27/21 08/27/21 14:13 08:13 08:13 Estimat Average Glucose 97 Hemoglobin A1c % 5.0 Ammonia 30 Triglycerides Cholesterol LDL Cholesterol, Calc HDL Cholesterol TSH COVID-19 (DREA) Negative COVID-19 Clin Com See Note 08/27/21 08:13 Estimat Average Glucose Hemoglobin A1c % Ammonia Triglycerides 46 Cholesterol 99 LDL Cholesterol, Calc 58 HDL Cholesterol 32 TSH 0.80 COVID-19 (DREA) COVID-19 Clin Com Medications Medications Current Medications Acetaminophen (Acetaminophen 325 Mg Tablet) 650 mg PO Q6H PRN PRN Reason: Headache/Pain Mild Scale (1-3) Al Hydroxide/Mg Hydroxide (Magnesium Hydrox/Alum Hydrox 30 Ml Oral.Susp) 30 ml PO Q6H PRN PRN Reason: Heartburn/Nausea Hydroxyzine HCl (Hydroxyzine Hcl 25 Mg Tablet) 25 mg PO TID PRN PRN Reason: Anxiety Last Admin: 08/26/21 23:35 Dose: 25 mg Lorazepam (Lorazepam 1 Mg Tablet) 1 mg PO TID ALISTAIR Last Admin: 08/27/21 09:06 Dose: 1 mg Magnesium Hydroxide (Milk Of Magnesia 30 Ml Oral.Susp) 30 ml PO DAILY PRN PRN Reason: Constipation Nicotine Polacrilex (Nicotine Polacrilex 2 Mg Gum) 4 mg BUCCAL Q2H PRN PRN Reason: Nicotine Cravings Quetiapine Fumarate (Quetiapine Fumarate 100 Mg Tablet) 100 mg PO BEDTIME PRN PRN Reason: sleep Last Admin: 08/27/21 01:59 Dose: 100 mg Allergies Allergies Allergy/AdvReac Type Severity Reaction Status Date / Time No Known Allergies Allergy Verified 06/03/21 13:27 Assessment & Plan Assessment & Plan (1) Cocaine use disorder: Status: Acute Code(s): F14.10 - Cocaine abuse, uncomplicated (2) Bipolar 2 disorder, major depressive episode: Status: Acute Code(s): F31.81 - Bipolar II disorder Plan Alcides is a 31 year-old male with hx of psychosis, initially thought to be related to substance induced but it is becoming more frequent and intense even without any substance use. Pt has been presenting with AH, not sleeping. In the ED pt presents with s/s of catatonia including blank stare, mutism, reports AH. Pt agreed to start ativan 1mg po TID, In the ED, pt was seen for psych consultation, was started on Ativan 1mg po TID, Olanzapine 10mg po qhs, and 5mg po daily. On Admission, Pt stated he does not want to take olanzapine, says that medication is ?not good? and ?I dont want that one,? has been non-adherent for unclear reasons. Agrees to trial seroquel 100 mg QHS for sleep tonight. 08/27 Patient appears catatonic; will treat with Ativan for now and hold off antipsychotics PLAN: Q15 min safety checks, CV INCREASED To Ativan 1 mg q.i.d. for catatonic symptoms HOLD OFF on starting an antipsychotic at this time as patient is not exhibiting any unsafe behavior and want to mitigate risk of impeding Ativan's treatment for catatonia Monitor response to medications. Monitor for safety in the milieu. Discharge on stabilization. Patient seen. Chart reviewed. Discussed with team. Obtain collateral contact info?as needed I spent minutes with the patient and/or on the patient floor today, greater than?50% of which was spent counseling/coordinating care. Patient educated on: diagnosis and medication risk/benefits Informed Consent: understands and further education needed Reason for contiued inpatient stay Substantial Risk for: inability to function and rapid decompensation
--- NOTE | 2021-08-27 15:37 | PC.NURSE ---
Alcides signed a 3 day today, will be up Thursday.
--- NOTE | 2021-08-27 15:52 | ECG_ITS ---
Test Reason : QTC CHECK Blood Pressure : / mmHG Vent. Rate : 089 BPM Atrial Rate : 089 BPM P-R Int : 156 ms QRS Dur : 088 ms QT Int : 330 ms P-R-T Axes : 068 030 002 degrees QTc Int : 401 ms Normal sinus rhythm Normal ECG When compared with ECG of 05-JUN-2021 16:37, No significant change was found Referred By: Gordo San Electronically Signed By:TIFFANY WICK MD
[2021-08-27 20:30] VITALS: BP 107/75; PULSE 113; TEMP 36.6; O2SAT 98
[2021-08-28] MEDS: Nicotine Polacrilex 2 MG GUM 4 MG BUCCAL ×3 (02:24→22:00)
[2021-08-28] MEDS: LORazepam 1 MG TABLET PO ×4 (09:38→21:58)
--- NOTE | 2021-08-28 10:36 | HO.PSYCHPN ---
Subjective Subjective Date of Service: 08/28/21 Reason For Visit: psychosis/ catatonia Subjective Notes: Conn Warning (Given by this database report writer on 08/28) Interim History: Patient a little more able to talk today and more engaged. Agrees to retract 3 day notice and says he wants to be here and wants treatment. Patient reports auditory hallucinations that say upsetting things. He is unable to say how long it has been going on a when it 1st started or when it got worse; he says he was psychiatrically admitted at least once before. He does not want Zyprexa since he does not like the way it makes him feel. Denies drug or alcohol abuse. Agrees to start Risperdal for auditory hallucinations. Patient said he was able to eat today Later Kuwaiti-speaking nurse talked with patient in [place]i and found that although patient is fully bilingual, he is more comfortable talking in [place]i and was able to converse much more freely. He reports seeing faces of people some he knows and some he does not know and that he is terrified. He very much wants medication to help these hallucinations.. Director Of Epidemiology's mother came in and shared that patient's psychotic symptoms started little by little about 5 years ago and increased where he started hearing voices and would sometimes hit himself in the head. Symptoms seem to have waxed and waned. She said about 2 weeks ago he told her the voices started to get louder and that they were telling him to hurt himself and hurt others. He had told a friend he had some thoughts to jump off a bridge. Mother says patient was not eating much at all and not sleeping, wanting to sleep but just unable to. Sometimes he would throw stuff in his head with his hands. At last admission patient had auditory hallucinations and some delusional thoughts. Mental Status Exam Mental Status Exam Narrative: Pt is alert and oriented; behavior is disorganized, but less so and no longer mute; calm; dressed in casual attire with hat on; adequate hygiene; mood scared and affect anxious and constricted; appropriate eye contact; significant speech latency however when talks, normal rate, volume and prosody; psychomotor retardation present; thought process derailed by Internal preoccupations but is able to be goal oriented; Thought content is on dealing with auditory and visual hallucinations, feeling very frightened; patient has not expressed any delusional content or paranoid ideations; denies SI/HI. Auditory hallucinations saying to hurt himself and others; visual hallucinations of faces, some he knows others he does not. Patients insight and judgment Are impaired. Diagnostics Vital Signs (24Hr): Vital Signs - 24 hr 08/27/21 20:30 Temperature 98 F Pulse Rate 113 H Blood Pressure 107/75 Pulse Oximetry 98 Oxygen Delivery Method Room Air BMI result Body Mass Index 21.6 Labs Results: 08/24/21 19:21 08/24/21 19:21 Labs: Laboratory Results - last 48 hr 08/26/21 08/27/21 08/27/21 14:13 08:13 08:13 Estimat Average Glucose 97 Hemoglobin A1c % 5.0 Ammonia 30 Triglycerides Cholesterol LDL Cholesterol, Calc HDL Cholesterol TSH COVID-19 ([facility]) Negative COVID-19 Clin Com See Note 08/27/21 08:13 Estimat Average Glucose Hemoglobin A1c % Ammonia Triglycerides 46 Cholesterol 99 LDL Cholesterol, Calc 58 HDL Cholesterol 32 TSH 0.80 COVID-19 ([facility]) COVID-19 Clin Com Medications Medications Current Medications Acetaminophen (Acetaminophen 325 Mg Tablet) 650 mg PO Q6H PRN PRN Reason: Headache/Pain Mild Scale (1-3) Al Hydroxide/Mg Hydroxide (Magnesium Hydrox/Alum Hydrox 30 Ml Oral.Susp) 30 ml PO Q6H PRN PRN Reason: Heartburn/Nausea Hydroxyzine HCl (Hydroxyzine Hcl 25 Mg Tablet) 25 mg PO TID PRN PRN Reason: Anxiety Last Admin: 08/26/21 23:35 Dose: 25 mg Lorazepam (Lorazepam 1 Mg Tablet) 1 mg PO QID ALISTAIR Last Admin: 08/28/21 09:38 Dose: 1 mg Magnesium Hydroxide (Milk Of Magnesia 30 Ml Oral.Susp) 30 ml PO DAILY PRN PRN Reason: Constipation Nicotine Polacrilex (Nicotine Polacrilex 2 Mg Gum) 4 mg BUCCAL Q2H PRN PRN Reason: Nicotine Cravings Last Admin: 08/28/21 02:24 Dose: 4 mg Quetiapine Fumarate (Quetiapine Fumarate 100 Mg Tablet) 100 mg PO BEDTIME PRN PRN Reason: sleep Last Admin: 08/27/21 20:40 Dose: 100 mg Allergies Allergies Allergy/AdvReac Type Severity Reaction Status Date / Time No Known Allergies Allergy Verified 06/03/21 13:27 Assessment & Plan Assessment & Plan (1) Cocaine use disorder: Status: Acute Code(s): F14.10 - Cocaine abuse, uncomplicated (2) Bipolar 2 disorder, major depressive episode: Status: Acute Code(s): F31.81 - Bipolar II disorder Plan Alcides is a bilingual 31 year-old male (prefers to talk in [place]i) with hx of psychosis, initially thought to be related to substance induced but it is becoming more frequent and intense even without any substance use. Pt has been presenting with AH, not sleeping. In the ED pt presents with s/s of catatonia including blank stare, mutism, reports AH. Pt agreed to start ativan 1mg po TID, In the ED, pt was seen for psych consultation, was started on Ativan 1mg po TID, Olanzapine 10mg po qhs, and 5mg po daily. On Admission, Pt stated he does not want to take olanzapine, says that medication is ?not good? and ?I dont want that one,? has been non-adherent for unclear reasons. Agrees to trial seroquel 100 mg QHS for sleep tonight. 08/27 Patient appears catatonic; will treat with Ativan for now and hold off antipsychotics 08/28 catatonic symptoms have dissipated and patient is talking much more freely, especially in [place]i; endorses auditory and visual hallucinations and that he is very frightened. Wants to start Risperdal; database report writer offered to discuss side effects/risks but patient said to talk at a later time about it PLAN: Q15 min safety checks, CV Taper Ativan; Ativan 1 mg q.i.d. at 1st for catatonic like symptoms (did not meet full criteria for catatonia); will taper and discontinue Risperdal 1 mg daily Risperdal 2 mg q.h.s. Seroquel p.r.n. for anxiety Hydroxyzine p.r.n. for anxiety Monitor response to medications. Monitor for safety in the milieu. Discharge on stabilization. Patient seen. Chart reviewed. Discussed with team. Obtain collateral contact info?as needed I spent minutes with the patient and/or on the patient floor today, greater than?50% of which was spent counseling/coordinating care. Patient educated on: diagnosis and medication risk/benefits Informed Consent: understands Reason for contiued inpatient stay Substantial Risk for: inability to function and rapid decompensation
[2021-08-28 10:47] VITALS: BP 118/79; PULSE 108; RESP 16; TEMP 36.7; O2SAT 97
[2021-08-28] MEDS: hydrOXYzine HCL 25 MG TABLET PO (14:12)
[2021-08-28] MEDS: risperiDONE 1 MG TABLET PO (17:30)
[2021-08-28] MEDS: Acetaminophen 325 MG TABLET 650 MG PO (17:32)
[2021-08-28 20:40] VITALS: BP 114/74; PULSE 95; TEMP 36.8
[2021-08-28] MEDS: risperiDONE 2 MG TABLET PO (21:58)
[2021-08-28] MEDS: QUEtiapine Fumarate 100 MG TABLET PO (23:01)
[2021-08-29] MEDS: hydrOXYzine HCL 25 MG TABLET PO (01:21)
[2021-08-29] MEDS: LORazepam 1 MG TABLET PO ×3 (08:46→22:02)
[2021-08-29] MEDS: Nicotine Polacrilex 2 MG GUM 4 MG BUCCAL (08:52)
[2021-08-29 09:00] VITALS: BP 108/61; PULSE 108; RESP 18; TEMP 36.3; O2SAT 100
--- NOTE | 2021-08-29 12:35 | HO.PSYCHPN ---
Subjective Subjective Date of Service: 08/29/21 Reason For Visit: psychosis/ catatonia Interim History: Patient reports that both legs got cramped and tight after taking Risperdal dose. Pollution Control Engineer agrees could be due to side effect of Risperdal. Patient agrees to switch to Abilify. Patient says he still has auditory hallucinations but they are less than on admission seemingly due to Risperdal. Patient slept well. No visual hallucinations today. Patient asked if he would ever be able to have a normal life, would have to take medications indefinitely that at that video games storywriter discussed his diagnosis, treatment and potential outcomes with and without medication; patient asked questions and understood. denies any SI. Mental Status Exam Mental Status Exam Narrative: Pt is alert and oriented; behavior is somewhat disorganized, smiling at odd times, but overall organization has improved; no longer mute; dressed in casual attire with hat on; adequate hygiene; mood anxious and affect congruent; minimal eye contact, though sometimes stares; continues with speech latency, though less so; when talks, often slowed and soft, but sometimes normal rate, volume and prosody; psychomotor retardation present; thought process derailed by Internal preoccupations but is able to be goal oriented; Thought content is on dealing with auditory; feeling very frightened; patient has not expressed any delusional content or paranoid ideations; denies SI/HI. Auditory hallucinations saying to hurt himself and others; No VH; Patients insight and judgment Are impaired but improving. Diagnostics Vital Signs (24Hr): Vital Signs - 24 hr 08/28/21 20:40 08/29/21 09:00 Temperature 98.3 F 97.4 F Pulse Rate 95 108 H Respiratory Rate 18 Blood Pressure 114/74 108/61 Pulse Oximetry 100 Oxygen Delivery Method Room Air BMI result Body Mass Index 21.6 Labs Results: 08/24/21 19:21 08/24/21 19:21 Medications Medications Current Medications Acetaminophen (Acetaminophen 325 Mg Tablet) 650 mg PO Q6H PRN PRN Reason: Headache/Pain Mild Scale (1-3) Last Admin: 08/28/21 17:32 Dose: 650 mg Al Hydroxide/Mg Hydroxide (Magnesium Hydrox/Alum Hydrox 30 Ml Oral.Susp) 30 ml PO Q6H PRN PRN Reason: Heartburn/Nausea Diphenhydramine HCl (Diphenhydramine Hcl 25 Mg Tablet) 50 mg PO Q4H PRN PRN Reason: agitation/severe psychotic anx Haloperidol (Haloperidol 5 Mg Tablet) 5 mg PO Q4H PRN PRN Reason: agitation/severe psychotic anx Hydroxyzine HCl (Hydroxyzine Hcl 25 Mg Tablet) 25 mg PO TID PRN PRN Reason: Anxiety Last Admin: 08/29/21 01:21 Dose: 25 mg Lorazepam (Lorazepam 1 Mg Tablet) 1 mg PO TID ALISTAIR Last Admin: 08/29/21 08:46 Dose: 1 mg Lorazepam (Lorazepam 1 Mg Tablet) 2 mg PO Q4H PRN PRN Reason: agitation/severe psychotic anx Magnesium Hydroxide (Milk Of Magnesia 30 Ml Oral.Susp) 30 ml PO DAILY PRN PRN Reason: Constipation Nicotine Polacrilex (Nicotine Polacrilex 2 Mg Gum) 4 mg BUCCAL Q2H PRN PRN Reason: Nicotine Cravings Last Admin: 08/29/21 08:52 Dose: 4 mg Quetiapine Fumarate (Quetiapine Fumarate 100 Mg Tablet) 100 mg PO BEDTIME PRN PRN Reason: sleep Last Admin: 08/28/21 23:01 Dose: 100 mg Risperidone (Risperidone 2 Mg Tablet) 2 mg PO BEDTIME ALISTAIR Last Admin: 08/28/21 21:58 Dose: 2 mg Risperidone (Risperidone 1 Mg Tablet) 1 mg PO DAILY ALISTAIR Last Admin: 08/29/21 08:52 Dose: Not Given Allergies Allergies Allergy/AdvReac Type Severity Reaction Status Date / Time No Known Allergies Allergy Verified 06/03/21 13:27 Assessment & Plan Assessment & Plan (1) Cocaine use disorder: Status: Acute Code(s): F14.10 - Cocaine abuse, uncomplicated (2) Bipolar 2 disorder, major depressive episode: Status: Acute Code(s): F31.81 - Bipolar II disorder Plan Alcides is a bilingual 31 year-old male (prefers to talk in [place]err[place]) with hx of psychosis, initially thought to be related to substance induced but it is becoming more frequent and intense even without any substance use. Pt has been presenting with AH, not sleeping. In the ED pt presents with s/s of catatonia including blank stare, mutism, reports AH. Pt agreed to start ativan 1mg po TID, In the ED, pt was seen for psych consultation, was started on Ativan 1mg po TID, Olanzapine 10mg po qhs, and 5mg po daily. On Admission, Pt stated he does not want to take olanzapine, says that medication is ?not good? and ?I dont want that one,? has been non-adherent for unclear reasons. Agrees to trial seroquel 100 mg QHS for sleep tonight. 08/27 Patient appears catatonic; will treat with Ativan for now and hold off antipsychotics 08/28 catatonic symptoms have dissipated and patient is talking much more freely, especially in [place]; endorses auditory and visual hallucinations and that he is very frightened. Wants to start Risperdal; video games storywriter offered to discuss side effects/risks but patient said to talk at a later time about it 08/29 patient reports side effect from Risperdal, cramps legs and does not want to take. Agrees to Abilify. Auditory hallucinations are less and visual hallucinations have so far resolved, likely due to Risperdal. Patient remains with speech latency however is able to talk a little more freely. He has insight to know that he has a psychiatric illness that requires medications. Eating better. Able to sleep with medication PLAN: Q15 min safety checks, CV Leave Ativan 1 mg TID as it seems to be helping; will eventually taper and discontinue (did not meet full criteria for catatonia) START Abilify 5 mg daily Discontinue Risperdal possibly dystonic reaction; that said this medication seem to reduce psychotic symptoms Seroquel p.r.n. for anxiety Hydroxyzine p.r.n. for anxiety Monitor response to medications. Monitor for safety in the milieu. Discharge on stabilization. Patient seen. Chart reviewed. Discussed with team. Obtain collateral contact info?as needed I spent minutes with the patient and/or on the patient floor today, greater than?50% of which was spent counseling/coordinating care. Patient educated on: diagnosis, medication risk/benefits and therapeutic strategies Informed Consent: understands Reason for contiued inpatient stay Substantial Risk for: inability to function and rapid decompensation
[2021-08-29] MEDS: ARIPiprazole 5 MG TABLET PO (13:01)
[2021-08-29 17:15] VITALS: BP 109/59; PULSE 98; TEMP 37.2
[2021-08-29] MEDS: diphenhydrAMINE HCL 25 MG TABLET 50 MG PO (18:04)
[2021-08-29] MEDS: HaloperidoL 5 MG TABLET PO (18:05)
[2021-08-29] MEDS: LORazepam 1 MG TABLET 2 MG PO (18:05)
[2021-08-29] MEDS: QUEtiapine Fumarate 100 MG TABLET PO (22:02)
[2021-08-30] MEDS: Nicotine Polacrilex 2 MG GUM 4 MG BUCCAL ×2 (00:32→19:32)
[2021-08-30] MEDS: diphenhydrAMINE HCL 25 MG TABLET 50 MG PO (00:36)
[2021-08-30] MEDS: hydrOXYzine HCL 25 MG TABLET PO ×2 (00:36→17:12)
[2021-08-30 06:00] VITALS: BP 112/74; PULSE 102; RESP 18; TEMP 36.6; O2SAT 99
[2021-08-30] MEDS: ARIPiprazole 5 MG TABLET PO (08:58)
[2021-08-30] MEDS: LORazepam 1 MG TABLET PO ×3 (08:58→19:32)
--- NOTE | 2021-08-30 10:35 | HO.PSYCHPN ---
Subjective Subjective Date of Service: 08/30/21 Reason For Visit: psychosis/ catatonia Interim History: AH remain but are less; no VH. Pt reports sleeping well, eating well. Tolerating abilify. Pt remains with speech latency Mental Status Exam Mental Status Exam Narrative: Pt is alert and oriented; behavior is somewhat disorganized, smiling at odd times, but overall organization has improved; no longer mute; dressed in casual attire with hat on; adequate hygiene; mood anxious and affect congruent; minimal eye contact, though sometimes stares; continues with speech latency, though less so; when talks, often slowed and soft, but sometimes normal rate, volume and prosody; psychomotor retardation present; thought process derailed by Internal preoccupations but is able to be goal oriented; Thought content is on dealing with auditory; feeling very frightened; patient has not expressed any delusional content or paranoid ideations; denies SI/HI. Auditory hallucinations saying to hurt himself and others; No VH; Patients insight and judgment Are impaired but improving. Diagnostics Vital Signs (24Hr): Vital Signs - 24 hr 08/29/21 17:15 08/30/21 06:00 Temperature 98.9 F 97.9 F Pulse Rate 98 102 H Respiratory Rate 18 Blood Pressure 109/59 L 112/74 Pulse Oximetry 99 BMI result Body Mass Index 21.6 Labs Results: 08/24/21 19:21 08/24/21 19:21 Medications Medications Current Medications Acetaminophen (Acetaminophen 325 Mg Tablet) 650 mg PO Q6H PRN PRN Reason: Headache/Pain Mild Scale (1-3) Last Admin: 08/28/21 17:32 Dose: 650 mg Al Hydroxide/Mg Hydroxide (Magnesium Hydrox/Alum Hydrox 30 Ml Oral.Susp) 30 ml PO Q6H PRN PRN Reason: Heartburn/Nausea Aripiprazole (Aripiprazole 5 Mg Tablet) 5 mg PO DAILY ALISTAIR Last Admin: 08/30/21 08:58 Dose: 5 mg Diphenhydramine HCl (Diphenhydramine Hcl 25 Mg Tablet) 50 mg PO Q4H PRN PRN Reason: agitation/severe psychotic anx Last Admin: 08/30/21 00:36 Dose: 50 mg Haloperidol (Haloperidol 5 Mg Tablet) 5 mg PO Q4H PRN PRN Reason: agitation/severe psychotic anx Last Admin: 08/29/21 18:05 Dose: 5 mg Hydroxyzine HCl (Hydroxyzine Hcl 25 Mg Tablet) 25 mg PO TID PRN PRN Reason: Anxiety Last Admin: 08/30/21 00:36 Dose: 25 mg Lorazepam (Lorazepam 1 Mg Tablet) 1 mg PO TID ALISTAIR Last Admin: 08/30/21 08:58 Dose: 1 mg Lorazepam (Lorazepam 1 Mg Tablet) 2 mg PO Q4H PRN PRN Reason: agitation/severe psychotic anx Last Admin: 08/29/21 18:05 Dose: 2 mg Magnesium Hydroxide (Milk Of Magnesia 30 Ml Oral.Susp) 30 ml PO DAILY PRN PRN Reason: Constipation Nicotine Polacrilex (Nicotine Polacrilex 2 Mg Gum) 4 mg BUCCAL Q2H PRN PRN Reason: Nicotine Cravings Last Admin: 08/30/21 00:32 Dose: 4 mg Quetiapine Fumarate (Quetiapine Fumarate 100 Mg Tablet) 100 mg PO BEDTIME PRN PRN Reason: sleep Last Admin: 08/29/21 22:02 Dose: 100 mg Allergies Allergies Allergy/AdvReac Type Severity Reaction Status Date / Time No Known Allergies Allergy Verified 06/03/21 13:27 Assessment & Plan Assessment & Plan (1) Cocaine use disorder: Status: Acute Code(s): F14.10 - Cocaine abuse, uncomplicated (2) Schizophrenia: Status: Acute Code(s): F20.9 - Schizophrenia, unspecified Plan Alcides is a bilingual 31 year-old male (prefers to talk in Hungarian) with hx of psychosis, initially thought to be related to substance induced but it is becoming more frequent and intense even without any substance use. Pt has been presenting with AH, not sleeping. In the ED pt presents with s/s of catatonia including blank stare, mutism, reports AH. Pt agreed to start ativan 1mg po TID, In the ED, pt was seen for psych consultation, was started on Ativan 1mg po TID, Olanzapine 10mg po qhs, and 5mg po daily. On Admission, Pt stated he does not want to take olanzapine, says that medication is ?not good? and ?I dont want that one,? has been non-adherent for unclear reasons. Agrees to trial seroquel 100 mg QHS for sleep tonight. 08/27 Patient appears catatonic; will treat with Ativan for now and hold off antipsychotics 08/28 catatonic symptoms have dissipated and patient is talking much more freely, especially in Hungarian; endorses auditory and visual hallucinations and that he is very frightened. Wants to start Risperdal; telegraphic typewriter mechanic offered to discuss side effects/risks but patient said to talk at a later time about it 08/29 patient reports side effect from Risperdal, cramps legs and does not want to take. Agrees to Abilify. Auditory hallucinations are less and visual hallucinations have so far resolved, likely due to Risperdal. Patient remains with speech latency however is able to talk a little more freely. He has insight to know that he has a psychiatric illness that requires medications. Eating better. Able to sleep with medication 08/30 tolerating abilify; AH remains but a little less; still speech latency. PLAN: Q15 min safety checks, CV Leave Ativan 1 mg TID as it seems to be helping; will eventually taper and discontinue (did not meet full criteria for catatonia) START Abilify 5 mg daily Discontinue Risperdal possibly dystonic reaction; that said this medication seem to reduce psychotic symptoms Seroquel p.r.n. for anxiety Hydroxyzine p.r.n. for anxiety Monitor response to medications. Monitor for safety in the milieu. Discharge on stabilization. Patient seen. Chart reviewed. Discussed with team. Obtain collateral contact info?as needed I spent minutes with the patient and/or on the patient floor today, greater than?50% of which was spent counseling/coordinating care. Patient educated on: diagnosis and medication risk/benefits Informed Consent: understands Reason for contiued inpatient stay Substantial Risk for: inability to function and rapid decompensation
[2021-08-30 18:00] VITALS: BP 112/68; PULSE 74; RESP 14; TEMP 36.5
[2021-08-30] MEDS: QUEtiapine Fumarate 100 MG TABLET PO ×2 (21:44→22:21)
[2021-08-31 06:00] VITALS: BP 110/77; PULSE 100; TEMP 36.8; O2SAT 97
[2021-08-31] MEDS: ARIPiprazole 5 MG TABLET PO ×2 (09:11→15:02)
[2021-08-31] MEDS: LORazepam 1 MG TABLET PO ×3 (09:13→20:23)
--- NOTE | 2021-08-31 13:52 | HO.PSYCHPN ---
Subjective Subjective Date of Service: 08/31/21 Reason For Visit: psychosis/ catatonia Interim History: Patient remains with speech latency and is internally preoccupied. However he says the voices continue to lessened and are less than yesterday. No SI. He would like to increase Abilify to 10 mg to see if this can further resolve auditory hallucinations; he understands that he can always lowered back down to 5 mg later as an outpatient if he remains stable. Patient's mother present who reports she finds her son more calm and peaceful. Patient is sleeping and eating well. In the course of discussion he shares that he does have a history of depression and would like to discuss medications for depression. It is not clear if he also has a history of manic episodes and thus patient agrees to wait until his mind clear is a little more from the psychotic fog so that a more accurate history can be obtained Diagnostics Vital Signs (24Hr): Vital Signs - 24 hr 08/30/21 18:00 08/31/21 06:00 Temperature 97.7 F 98.2 F Pulse Rate 74 100 Respiratory Rate 14 Blood Pressure 112/68 110/77 Pulse Oximetry 97 Oxygen Delivery Method Room Air BMI result Body Mass Index 21.6 Labs Results: 08/24/21 19:21 08/24/21 19:21 Medications Medications Current Medications Acetaminophen (Acetaminophen 325 Mg Tablet) 650 mg PO Q6H PRN PRN Reason: Headache/Pain Mild Scale (1-3) Last Admin: 08/28/21 17:32 Dose: 650 mg Al Hydroxide/Mg Hydroxide (Magnesium Hydrox/Alum Hydrox 30 Ml Oral.Susp) 30 ml PO Q6H PRN PRN Reason: Heartburn/Nausea Aripiprazole (Aripiprazole 5 Mg Tablet) 5 mg PO DAILY [facility] Last Admin: 08/31/21 09:11 Dose: 5 mg Aripiprazole (Aripiprazole 5 Mg Tablet) 5 mg PO ONCE ONE Stop: 08/31/21 13:52 Diphenhydramine HCl (Diphenhydramine Hcl 25 Mg Tablet) 50 mg PO Q4H PRN PRN Reason: agitation/severe psychotic anx Last Admin: 08/30/21 00:36 Dose: 50 mg Haloperidol (Haloperidol 5 Mg Tablet) 5 mg PO Q4H PRN PRN Reason: agitation/severe psychotic anx Last Admin: 08/29/21 18:05 Dose: 5 mg Hydroxyzine HCl (Hydroxyzine Hcl 25 Mg Tablet) 25 mg PO TID PRN PRN Reason: Anxiety Last Admin: 08/30/21 17:12 Dose: 25 mg Lorazepam (Lorazepam 1 Mg Tablet) 1 mg PO TID [facility] Last Admin: 08/31/21 09:13 Dose: 1 mg Lorazepam (Lorazepam 1 Mg Tablet) 2 mg PO Q4H PRN PRN Reason: agitation/severe psychotic anx Last Admin: 08/29/21 18:05 Dose: 2 mg Magnesium Hydroxide (Milk Of Magnesia 30 Ml Oral.Susp) 30 ml PO DAILY PRN PRN Reason: Constipation Nicotine Polacrilex (Nicotine Polacrilex 2 Mg Gum) 4 mg BUCCAL Q2H PRN PRN Reason: Nicotine Cravings Last Admin: 08/30/21 19:32 Dose: 4 mg Quetiapine Fumarate (Quetiapine Fumarate 100 Mg Tablet) 100 mg PO BEDTIME PRN PRN Reason: sleep Last Admin: 08/30/21 22:21 Dose: 100 mg Allergies Allergies Allergy/AdvReac Type Severity Reaction Status Date / Time No Known Allergies Allergy Verified 06/03/21 13:27 Assessment & Plan Assessment & Plan (1) Schizoaffective disorder, depressive type: Status: Acute Code(s): F25.1 - Schizoaffective disorder, depressive type (2) Cocaine use disorder: Status: Acute Code(s): F14.10 - Cocaine abuse, uncomplicated Plan Alcides is a bilingual 31 year-old male (prefers to talk in Portuguese) with hx of psychosis, initially thought to be related to substance induced but it is becoming more frequent and intense even without any substance use. Pt has been presenting with AH, not sleeping. In the ED pt presents with s/s of catatonia including blank stare, mutism, reports AH. Pt agreed to start ativan 1mg po TID, In the ED, pt was seen for psych consultation, was started on Ativan 1mg po TID, Olanzapine 10mg po qhs, and 5mg po daily. On Admission, Pt stated he does not want to take olanzapine, says that medication is ?not good? and ?I dont want that one,? has been non-adherent for unclear reasons. Agrees to trial seroquel 100 mg QHS for sleep tonight. 08/27 Patient appears catatonic; will treat with Ativan for now and hold off antipsychotics 08/28 catatonic symptoms have dissipated and patient is talking much more freely, especially in Portuguese; endorses auditory and visual hallucinations and that he is very frightened. Wants to start Risperdal; senior underwriter offered to discuss side effects/risks but patient said to talk at a later time about it 08/29 patient reports side effect from Risperdal, cramps legs and does not want to take. Agrees to Abilify. Auditory hallucinations are less and visual hallucinations have so far resolved, likely due to Risperdal. Patient remains with speech latency however is able to talk a little more freely. He has insight to know that he has a psychiatric illness that requires medications. Eating better. Able to sleep with medication 08/30 tolerating abilify; AH remains but a little less; still speech latency. 08/31 auditory hallucinations remain but are a little better; still with speech latency and internally preoccupied. He shares a history of depression and wants to discuss medications for depression. He makes a vague reference to a possible history of manic episodes however this is not clear. Patient agrees to wait until his mind clears is a little more from the psychotic fog so that a more accurate history can be obtained. Will change diagnosis to schizoaffective depressed type PLAN: Q15 min safety checks, CV Lower to Ativan 1 mg BID as it seems to be helping; will eventually taper and discontinue (did not meet full criteria for catatonia) INCREAE to [id number] mg daily on 08/31 Consider medication for depression; 1st need to rule out history of manic type episodes. Discontinue Risperdal possibly dystonic reaction; that said this medication seem to reduce psychotic symptoms Seroquel p.r.n. for anxiety Hydroxyzine p.r.n. for anxiety Monitor response to medications. Monitor for safety in the milieu. Discharge on stabilization. Patient seen. Chart reviewed. Discussed with team. Obtain collateral contact info?as needed I spent minutes with the patient and/or on the patient floor today, greater than?50% of which was spent counseling/coordinating care. Patient educated on: diagnosis, medication risk/benefits and therapeutic strategies Informed Consent: understands Reason for contiued inpatient stay Substantial Risk for: inability to function and rapid decompensation
[2021-08-31] MEDS: Nicotine Polacrilex 2 MG GUM 4 MG BUCCAL ×2 (15:38→19:17)
[2021-08-31] MEDS: hydrOXYzine HCL 25 MG TABLET PO (18:17)
[2021-08-31 18:30] VITALS: BP 118/83; PULSE 91; TEMP 37.1
[2021-08-31] MEDS: QUEtiapine Fumarate 100 MG TABLET PO ×2 (20:23→23:00)
[2021-09-01 06:00] VITALS: BP 108/72; PULSE 90; TEMP 36.8; O2SAT 90
[2021-09-01] MEDS: LORazepam 1 MG TABLET PO ×2 (08:53→20:49)
[2021-09-01] MEDS: ARIPiprazole 10 MG TABLET PO (08:53)
[2021-09-01] MEDS: Acetaminophen 325 MG TABLET 650 MG PO ×2 (09:21→17:01)
[2021-09-01] MEDS: hydrOXYzine HCL 25 MG TABLET PO (13:50)
[2021-09-01] MEDS: Nicotine Polacrilex 2 MG GUM 4 MG BUCCAL (16:30)
[2021-09-01] MEDS: QUEtiapine Fumarate 25 MG TABLET PO (16:59)
[2021-09-01 18:00] VITALS: BP 113/70; PULSE 98; TEMP 36.8; O2SAT 96
--- NOTE | 2021-09-01 18:04 | HO.PSYCHPN ---
Subjective Subjective Date of Service: 09/01/21 Reason For Visit: psychosis/ catatonia Interim History: Patient remains internally preoccupied and with speech latency. However he says that the voices are still continue to lessen and he is mostly able to ignore it. He says however when he is feeling emotional they are harder to ignore. Patient just got done with a difficult conversation with his partner and is feeling emotional. Denies any SI. Feels Abilify is probably helping and wants to continue. He says he is about a 4/10, 10 being his regular self. He said the gap is that normally he is more organized and more able to focus. Patient said he would very much like to discharge as soon as he can however says that he will stay as long as doctor/team thinks he needs to. Mental Status Exam Mental Status Exam Narrative: Pt is alert and oriented; behavior is overall more organized, though not fully and he remains internally preoccupied, speech latent and odd affect; dressed in casual attire with hat on; adequate hygiene; mood anxious and affect a little odd; appropriate l eye contact, though sometimes stares; Speech: continues with speech latency, though less so; when talks, often slowed and soft, but sometimes normal rate, volume and prosody; some psychomotor retardation present; thought process still gets derailed by Internal preoccupations but is able to be goal oriented and linear; Thought content is on dealing with AH and depression; also on life going foward with psychiatric diagnosis; patient has not expressed any delusional content or paranoid ideations; denies SI/HI. AH but mostly minimal, muffled and mostly able to be ignored; VH fully resolved; Patients insight and judgment have improved an are fair and adequate. Diagnostics Vital Signs (24Hr): Vital Signs - 24 hr 08/31/21 18:30 09/01/21 06:00 Temperature 98.8 F 98.2 F Pulse Rate 91 90 Blood Pressure 118/83 108/72 Pulse Oximetry 90 L Oxygen Delivery Method Room Air BMI result Body Mass Index 21.6 Labs Results: 08/24/21 19:21 08/24/21 19:21 Medications Medications Current Medications Acetaminophen (Acetaminophen 325 Mg Tablet) 650 mg PO Q6H PRN PRN Reason: Headache/Pain Mild Scale (1-3) Last Admin: 09/01/21 17:01 Dose: 650 mg Al Hydroxide/Mg Hydroxide (Magnesium Hydrox/Alum Hydrox 30 Ml Oral.Susp) 30 ml PO Q6H PRN PRN Reason: Heartburn/Nausea Aripiprazole (Aripiprazole 10 Mg Tablet) 10 mg PO DAILY [facility] Last Admin: 09/01/21 08:53 Dose: 10 mg Diphenhydramine HCl (Diphenhydramine Hcl 25 Mg Tablet) 50 mg PO Q4H PRN PRN Reason: agitation/severe psychotic anx Last Admin: 08/30/21 00:36 Dose: 50 mg Haloperidol (Haloperidol 5 Mg Tablet) 5 mg PO Q4H PRN PRN Reason: agitation/severe psychotic anx Last Admin: 08/29/21 18:05 Dose: 5 mg Hydroxyzine HCl (Hydroxyzine Hcl 25 Mg Tablet) 25 mg PO TID PRN PRN Reason: Anxiety Last Admin: 09/01/21 13:50 Dose: 25 mg Lorazepam (Lorazepam 1 Mg Tablet) 2 mg PO Q4H PRN PRN Reason: agitation/severe psychotic anx Last Admin: 08/29/21 18:05 Dose: 2 mg Lorazepam (Lorazepam 1 Mg Tablet) 1 mg PO BID [facility] Last Admin: 09/01/21 08:53 Dose: 1 mg Magnesium Hydroxide (Milk Of Magnesia 30 Ml Oral.Susp) 30 ml PO DAILY PRN PRN Reason: Constipation Nicotine Polacrilex (Nicotine Polacrilex 2 Mg Gum) 4 mg BUCCAL Q2H PRN PRN Reason: Nicotine Cravings Last Admin: 09/01/21 16:30 Dose: 4 mg Quetiapine Fumarate (Quetiapine Fumarate 200 Mg Tablet) 200 mg PO BEDTIME PRN PRN Reason: sleep Quetiapine Fumarate (Quetiapine Fumarate 25 Mg Tablet) 25 mg PO Q4H PRN PRN Reason: anxiety Last Admin: 09/01/21 16:59 Dose: 25 mg Allergies Allergies Allergy/AdvReac Type Severity Reaction Status Date / Time No Known Allergies Allergy Verified 06/03/21 13:27 Assessment & Plan Assessment & Plan (1) Schizoaffective disorder, depressive type: Status: Acute Code(s): F25.1 - Schizoaffective disorder, depressive type (2) Cocaine use disorder: Status: Acute Code(s): F14.10 - Cocaine abuse, uncomplicated Plan Alcides is a bilingual 31 year-old male (prefers to talk in [place]ian) with hx of psychosis, initially thought to be related to substance induced but it is becoming more frequent and intense even without any substance use. Pt has been presenting with AH, not sleeping. In the ED pt presents with s/s of catatonia including blank stare, mutism, reports AH. Pt agreed to start ativan 1mg po TID, In the ED, pt was seen for psych consultation, was started on Ativan 1mg po TID, Olanzapine 10mg po qhs, and 5mg po daily. On Admission, Pt stated he does not want to take olanzapine, says that medication is ?not good? and ?I dont want that one,? has been non-adherent for unclear reasons. Agrees to trial seroquel 100 mg QHS for sleep tonight. 08/27 Patient appears catatonic; will treat with Ativan for now and hold off antipsychotics 08/28 catatonic symptoms have dissipated and patient is talking much more freely, especially in Malawian; endorses auditory and visual hallucinations and that he is very frightened. Wants to start Risperdal; fiction and nonfiction writer prose offered to discuss side effects/risks but patient said to talk at a later time about it 08/29 patient reports side effect from Risperdal, cramps legs and does not want to take. Agrees to Abilify. Auditory hallucinations are less and visual hallucinations have so far resolved, likely due to Risperdal. Patient remains with speech latency however is able to talk a little more freely. He has insight to know that he has a psychiatric illness that requires medications. Eating better. Able to sleep with medication 08/30 tolerating abilify; AH remains but a little less; still speech latency. 08/31 auditory hallucinations remain but are a little better; still with speech latency and internally preoccupied. He shares a history of depression and wants to discuss medications for depression. He makes a vague reference to a possible history of manic episodes however this is not clear. Patient agrees to wait until his mind clears is a little more from the psychotic fog so that a more accurate history can be obtained. Will change diagnosis to schizoaffective depressed type 09/01 improved though still with psychotic symptoms; will leave Abilify as is for now and see if symptoms improve further. Patient has depression but before starting him on an SSRI, want to still will out bipolar disorder. That said he is on Abilify which is a mood stabilizer PLAN: Q15 min safety checks, CV Lower to Ativan 1 mg BID as it seems to be helping; will eventually taper and discontinue (did not meet full criteria for catatonia) Continue at [id number] mg daily on 08/31 Consider medication for depression; 1st need to rule out history of manic type episodes. Discontinue Risperdal possibly dystonic reaction; that said this medication seem to reduce psychotic symptoms Seroquel p.r.n. for anxiety Hydroxyzine p.r.n. for anxiety Monitor response to medications. Monitor for safety in the milieu. Discharge on stabilization. Patient seen. Chart reviewed. Discussed with team. Obtain collateral contact info?as needed I spent minutes with the patient and/or on the patient floor today, greater than?50% of which was spent counseling/coordinating care. Patient educated on: diagnosis and medication risk/benefits Informed Consent: understands Reason for contiued inpatient stay Substantial Risk for: rapid decompensation
[2021-09-01] MEDS: QUEtiapine Fumarate 200 MG TABLET PO (20:49)
[2021-09-02 06:00] VITALS: BP 117/79; PULSE 88; RESP 16; TEMP 36.7; O2SAT 97
[2021-09-02] MEDS: LORazepam 1 MG TABLET PO ×2 (09:07→20:13)
[2021-09-02] MEDS: ARIPiprazole 10 MG TABLET PO (09:07)
--- NOTE | 2021-09-02 15:39 | HO.PSYCHPN ---
Subjective Subjective Date of Service: 09/02/21 Reason For Visit: psychosis/ catatonia Interim History: Patient remains with significant speech latency and is internally preoccupied When journalists and other writers set down to talk with patient he became tearful and says he does not know where to begin. Patient still has AH but says they are less than yesterday; however he is still only sometimes able to ignore them. Staff reported patient complained of some neck pain. Patient clarifies and says this was 2 days ago, not yesterday and not today. Patient endorses history of depression that was so debilitating it interfered with continuing school. 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 Episodes like this has happened more than once. Patient was not on any cocaine at this time Patient says he uses cocaine infrequently Mental Status Exam Mental Status Exam Narrative: Pt is alert and oriented; behavior is overall more organized, though not fully and he remains internally preoccupied, speech latent and odd affect; dressed in casual attire with hat on; adequate hygiene; mood anxious and affect a little odd; appropriate l eye contact, though sometimes stares; Speech: continues with speech latency, though less so; when talks, often slowed and soft, but sometimes normal rate, volume and prosody; some psychomotor retardation present; thought process still gets derailed by Internal preoccupations but is able to be goal oriented and linear; Thought content is on dealing with AH and depression; also on life going foward with psychiatric diagnosis; patient has not expressed any delusional content or paranoid ideations; denies SI/HI. AH but mostly minimal, muffled and mostly able to be ignored; VH fully resolved; Patients insight and judgment have improved an are fair and adequate. Diagnostics Vital Signs (24Hr): Vital Signs - 24 hr 09/01/21 18:00 09/02/21 06:00 Temperature 98.3 F 98.1 F Pulse Rate 98 88 Respiratory Rate 16 Blood Pressure 113/70 117/79 Pulse Oximetry 96 97 Oxygen Delivery Method Room Air BMI result Body Mass Index 21.6 Labs Results: 08/24/21 19:21 08/24/21 19:21 Medications Medications Current Medications Acetaminophen (Acetaminophen 325 Mg Tablet) 650 mg PO Q6H PRN PRN Reason: Headache/Pain Mild Scale (1-3) Last Admin: 09/01/21 17:01 Dose: 650 mg Al Hydroxide/Mg Hydroxide (Magnesium Hydrox/Alum Hydrox 30 Ml Oral.Susp) 30 ml PO Q6H PRN PRN Reason: Heartburn/Nausea Aripiprazole (Aripiprazole 10 Mg Tablet) 10 mg PO DAILY [facility] Last Admin: 09/02/21 09:07 Dose: 10 mg Diphenhydramine HCl (Diphenhydramine Hcl 25 Mg Tablet) 50 mg PO Q4H PRN PRN Reason: agitation/severe psychotic anx Last Admin: 08/30/21 00:36 Dose: 50 mg Haloperidol (Haloperidol 5 Mg Tablet) 5 mg PO Q4H PRN PRN Reason: agitation/severe psychotic anx Last Admin: 08/29/21 18:05 Dose: 5 mg Hydroxyzine HCl (Hydroxyzine Hcl 25 Mg Tablet) 25 mg PO TID PRN PRN Reason: Anxiety Last Admin: 09/01/21 13:50 Dose: 25 mg Lorazepam (Lorazepam 1 Mg Tablet) 2 mg PO Q4H PRN PRN Reason: agitation/severe psychotic anx Last Admin: 08/29/21 18:05 Dose: 2 mg Lorazepam (Lorazepam 1 Mg Tablet) 1 mg PO BID [facility] Last Admin: 09/02/21 09:07 Dose: 1 mg Magnesium Hydroxide (Milk Of Magnesia 30 Ml Oral.Susp) 30 ml PO DAILY PRN PRN Reason: Constipation Nicotine Polacrilex (Nicotine Polacrilex 2 Mg Gum) 4 mg BUCCAL Q2H PRN PRN Reason: Nicotine Cravings Last Admin: 09/01/21 16:30 Dose: 4 mg Quetiapine Fumarate (Quetiapine Fumarate 200 Mg Tablet) 200 mg PO BEDTIME PRN PRN Reason: sleep Last Admin: 09/01/21 20:49 Dose: 200 mg Quetiapine Fumarate (Quetiapine Fumarate 25 Mg Tablet) 25 mg PO Q4H PRN PRN Reason: anxiety Last Admin: 09/01/21 16:59 Dose: 25 mg Allergies Allergies Allergy/AdvReac Type Severity Reaction Status Date / Time No Known Allergies Allergy Verified 06/03/21 13:27 Assessment & Plan Assessment & Plan (1) Schizoaffective disorder, depressive type: Status: Acute Code(s): F25.1 - Schizoaffective disorder, depressive type (2) Cocaine use disorder: Status: Acute Code(s): F14.10 - Cocaine abuse, uncomplicated Plan Alcides is a bilingual 31 year-old male (prefers to talk in [place]) with hx of psychosis, initially thought to be related to substance induced but it is becoming more frequent and intense even without any substance use. Pt has been presenting with AH, not sleeping. In the ED pt presents with s/s of catatonia including blank stare, mutism, reports AH. Pt agreed to start ativan 1mg po TID, In the ED, pt was seen for psych consultation, was started on Ativan 1mg po TID, Olanzapine 10mg po qhs, and 5mg po daily. On Admission, Pt stated he does not want to take olanzapine, says that medication is ?not good? and ?I dont want that one,? has been non-adherent for unclear reasons. Agrees to trial seroquel 100 mg QHS for sleep tonight. 08/27 Patient appears catatonic; will treat with Ativan for now and hold off antipsychotics 08/28 catatonic symptoms have dissipated and patient is talking much more freely, especially in [place]; endorses auditory and visual hallucinations and that he is very frightened. Wants to start Risperdal; journalists and other writers offered to discuss side effects/risks but patient said to talk at a later time about it 08/29 patient reports side effect from Risperdal, cramps legs and does not want to take. Agrees to Abilify. Auditory hallucinations are less and visual hallucinations have so far resolved, likely due to Risperdal. Patient remains with speech latency however is able to talk a little more freely. He has insight to know that he has a psychiatric illness that requires medications. Eating better. Able to sleep with medication 08/30 tolerating abilify; AH remains but a little less; still speech latency. 08/31 auditory hallucinations remain but are a little better; still with speech latency and internally preoccupied. He shares a history of depression and wants to discuss medications for depression. He makes a vague reference to a possible history of manic episodes however this is not clear. Patient agrees to wait until his mind clears is a little more from the psychotic fog so that a more accurate history can be obtained. Will change diagnosis to schizoaffective depressed type 09/01 improved though still with psychotic symptoms; will leave Abilify as is for now and see if symptoms improve further. Patient has depression but before starting him on an SSRI, want to still will out bipolar disorder. That said he is on Abilify which is a mood stabilizer 09/02 Every day patient says AH is a little less than the day before however they remain on a bothersome; also he remains with speech latency and is emotional. Endorses hypomanic episodes lasting 3-4 days; also history of depression which would sometimes be severe enough to interfere with school PLAN: Q15 min safety checks, CV Lower to Ativan 1 mg daily and then dc INCREASE Abilify 15 mg daily on 09/02 Consider medication for depression; 1st need to rule out history of manic type episodes. Discontinue Risperdal possibly dystonic reaction; that said this medication seem to reduce psychotic symptoms Seroquel p.r.n. for anxiety Hydroxyzine p.r.n. for anxiety Monitor response to medications. Monitor for safety in the milieu. Discharge on stabilization. Patient seen. Chart reviewed. Discussed with team. Obtain collateral contact info?as needed I spent minutes with the patient and/or on the patient floor today, greater than?50% of which was spent counseling/coordinating care. Patient educated on: diagnosis, medication risk/benefits and substance abuse Informed Consent: understands Reason for contiued inpatient stay Substantial Risk for: stable for discharge
[2021-09-02] MEDS: hydrOXYzine HCL 25 MG TABLET PO (16:52)
[2021-09-02] MEDS: Nicotine Polacrilex 2 MG GUM 4 MG BUCCAL (16:52)
[2021-09-02 18:00] VITALS: BP 114/77; PULSE 94; RESP 14; TEMP 37.1
[2021-09-02] MEDS: QUEtiapine Fumarate 200 MG TABLET PO (20:14)
[2021-09-03 06:00] VITALS: BP 116/74; PULSE 95; RESP 16; TEMP 36.8; O2SAT 97
[2021-09-03] MEDS: ARIPiprazole 15 MG TABLET PO (09:07)
[2021-09-03] MEDS: LORazepam 1 MG TABLET PO ×2 (09:07→21:18)
--- NOTE | 2021-09-03 17:50 | HO.PSYCHPN ---
Subjective Subjective Date of Service: 09/03/21 Reason For Visit: psychosis/ catatonia Interim History: Patient reports that voices are intermittent and seem to be more present during stress. He thinks that the Abilify is helping. Patient was much more able to engage and articulate his history more clearly. In the course of discussion patient reflected that it seems the auditory hallucinations may only have ever been present when he is depressed. Given his also reported history of mild hyperactive episodes, it is quite possible that patient may actually have bipolar disorder. He reports that his mood was made much better with Wellbutrin; on this medication he said he got a very tiny bit more irritable but it was very manageable and not a problem. Nuclear Instructor discussed his differential diagnosis and discussed risks/side effects of Wellbutrin; also reviewed risks/side effects of Abilify. Patient understands, ask questions and would like to restart Wellbutrin Reports feeling depressed trying to wrap his mind around how to move forward given his new diagnosis Mental Status Exam Mental Status Exam Narrative: Pt is alert and oriented; behavior is organized, though somewhat internally preoccupied, speech still latent but can pull out of it; dressed in casual attire with hat on; adequate hygiene; mood i don't know... depressed and affect congruent, withdrawn; appropriate eye contact, though sometimes stares; Speech: continues with speech latency, though less so; when talks, more normal rate, volume and prosody; some psychomotor retardation present; thought process goal oriented and linear; Thought content is on dealing with AH and depression; also on life going forward with psychiatric diagnosis; patient has not expressed any delusional content or paranoid ideations; denies SI/HI. AH but mostly minimal, muffled and mostly able to be ignored; VH fully resolved; Patients insight and judgment are fair and adequate. Diagnostics Vital Signs (24Hr): Vital Signs - 24 hr 09/02/21 18:00 09/03/21 06:00 Temperature 98.8 F 98.2 F Pulse Rate 94 95 Respiratory Rate 14 16 Blood Pressure 114/77 116/74 Pulse Oximetry 97 BMI result Body Mass Index 21.6 Labs Results: 08/24/21 19:21 08/24/21 19:21 Medications Medications Current Medications Acetaminophen (Acetaminophen 325 Mg Tablet) 650 mg PO Q6H PRN PRN Reason: Headache/Pain Mild Scale (1-3) Last Admin: 09/01/21 17:01 Dose: 650 mg Al Hydroxide/Mg Hydroxide (Magnesium Hydrox/Alum Hydrox 30 Ml Oral.Susp) 30 ml PO Q6H PRN PRN Reason: Heartburn/Nausea Aripiprazole (Aripiprazole 15 Mg Tablet) 15 mg PO DAILY [facility] Last Admin: 09/03/21 09:07 Dose: 15 mg Bupropion HCl (Bupropion Hcl Xl 150 Mg Tab.Er.24h) 150 mg PO DAILY [facility] Hydroxyzine HCl (Hydroxyzine Hcl 25 Mg Tablet) 25 mg PO TID PRN PRN Reason: Anxiety Last Admin: 09/02/21 16:52 Dose: 25 mg Lorazepam (Lorazepam 1 Mg Tablet) 1 mg PO BID [facility] Stop: 09/03/21 21:00 Last Admin: 09/03/21 09:07 Dose: 1 mg Lorazepam (Lorazepam 1 Mg Tablet) 1 mg PO DAILY [facility] Magnesium Hydroxide (Milk Of Magnesia 30 Ml Oral.Susp) 30 ml PO DAILY PRN PRN Reason: Constipation Nicotine Polacrilex (Nicotine Polacrilex 2 Mg Gum) 4 mg BUCCAL Q2H PRN PRN Reason: Nicotine Cravings Last Admin: 09/02/21 16:52 Dose: 4 mg Quetiapine Fumarate (Quetiapine Fumarate 200 Mg Tablet) 200 mg PO BEDTIME PRN PRN Reason: sleep Last Admin: 09/02/21 20:14 Dose: 200 mg Quetiapine Fumarate (Quetiapine Fumarate 25 Mg Tablet) 25 mg PO Q4H PRN PRN Reason: anxiety Last Admin: 09/01/21 16:59 Dose: 25 mg Allergies Allergies Allergy/AdvReac Type Severity Reaction Status Date / Time No Known Allergies Allergy Verified 06/03/21 13:27 Assessment & Plan Assessment & Plan (1) Cocaine use disorder: Status: Acute Code(s): F14.10 - Cocaine abuse, uncomplicated (2) Schizoaffective disorder, bipolar type: Status: Acute Code(s): F25.0 - Schizoaffective disorder, bipolar type Plan Alcides is a bilingual 31 year-old male (prefers to talk in Italian) with hx of psychosis, initially thought to be related to substance induced but it is becoming more frequent and intense even without any substance use. Pt has been presenting with AH, not sleeping. In the ED pt presents with s/s of catatonia including blank stare, mutism, reports AH. Pt agreed to start ativan 1mg po TID, In the ED, pt was seen for psych consultation, was started on Ativan 1mg po TID, Olanzapine 10mg po qhs, and 5mg po daily. On Admission, Pt stated he does not want to take olanzapine, says that medication is ?not good? and ?I dont want that one,? has been non-adherent for unclear reasons. Agrees to trial seroquel 100 mg QHS for sleep tonight. 08/27 Patient appears catatonic; will treat with Ativan for now and hold off antipsychotics 08/28 catatonic symptoms have dissipated and patient is talking much more freely, especially in Italian; endorses auditory and visual hallucinations and that he is very frightened. Wants to start Risperdal; blurb writer offered to discuss side effects/risks but patient said to talk at a later time about it 08/29 patient reports side effect from Risperdal, cramps legs and does not want to take. Agrees to Abilify. Auditory hallucinations are less and visual hallucinations have so far resolved, likely due to Risperdal. Patient remains with speech latency however is able to talk a little more freely. He has insight to know that he has a psychiatric illness that requires medications. Eating better. Able to sleep with medication 08/30 tolerating abilify; AH remains but a little less; still speech latency. 08/31 auditory hallucinations remain but are a little better; still with speech latency and internally preoccupied. He shares a history of depression and wants to discuss medications for depression. He makes a vague reference to a possible history of manic episodes however this is not clear. Patient agrees to wait until his mind clears is a little more from the psychotic fog so that a more accurate history can be obtained. Will change diagnosis to schizoaffective depressed type 09/01 improved though still with psychotic symptoms; will leave Abilify as is for now and see if symptoms improve further. Patient has depression but before starting him on an SSRI, want to still will out bipolar disorder. That said he is on Abilify which is a mood stabilizer 09/02 Every day patient says AH is a little less than the day before however they remain on a bothersome; also he remains with speech latency and is emotional. Endorses hypomanic episodes lasting 3-4 days; also history of depression which would sometimes be severe enough to interfere with school 09/03 more likely Bipolar disorder with psychotic symptoms OR schizoaffective disorder; patient reports having found relief from depression with Wellbutrin and wants to restart. Patient feels that he is good enough to go home and that he can continue treatment as an outpatient which with blurb writer agrees. He agrees that it is best to leave Abilify at current dose since it is possible for continued improvement to occur at this dose. PLAN: Q15 min safety checks, CV Start Wellbutrin XL 150mg Lower to Ativan 1 mg daily and then dc INCREASE Abilify 15 mg daily on 09/02 Consider medication for depression; 1st need to rule out history of manic type episodes. Discontinue Risperdal possibly dystonic reaction; that said this medication seem to reduce psychotic symptoms Seroquel p.r.n. for anxiety Hydroxyzine p.r.n. for anxiety Monitor response to medications. Monitor for safety in the milieu. Discharge on stabilization. Patient seen. Chart reviewed. Discussed with team. Obtain collateral contact info?as needed I spent minutes with the patient and/or on the patient floor today, greater than?50% of which was spent counseling/coordinating care. Patient educated on: diagnosis, medication risk/benefits and therapeutic strategies Informed Consent: understands Reason for contiued inpatient stay Substantial Risk for: stable for discharge
[2021-09-03] MEDS: Nicotine Polacrilex 2 MG GUM 4 MG BUCCAL (19:17)
[2021-09-03] MEDS: QUEtiapine Fumarate 200 MG TABLET PO (21:18)
[2021-09-03 21:20] VITALS: BP 122/83; PULSE 103; TEMP 36.3; O2SAT 96
[2021-09-04 06:00] VITALS: BP 123/76; PULSE 82; TEMP 36.7; O2SAT 99
[2021-09-04] MEDS: ARIPiprazole 15 MG TABLET PO (08:16)
[2021-09-04] MEDS: LORazepam 1 MG TABLET PO (08:16)
[2021-09-04] MEDS: buPROPion HCl XL 150 MG TAB.ER.24H PO (08:16)
--- NOTE | 2021-09-04 13:44 | P.PNPSI_ITS ---
Subjective Subjective Date of Service: 09/04/21 Reason For Visit: psychosis/ catatonia Interim History: Patient reports still depressed but feeling less anxious and tolerating Wellbutrin and feels a little more focused. Still feels ready to go tomorrow. Denies any SI at all. Mental Status Exam Mental Status Exam Narrative: Pt is alert and oriented; behavior is organized, though somewhat internally preoccupied, speech still latent but can pull out of it; dressed in casual attire with hat on; adequate hygiene; mood i don't know... depressed and affect congruent, withdrawn; appropriate eye contact, though sometimes stares; Speech: continues with speech latency, though less so; when talks, more normal rate, volume and prosody; some psychomotor retardation present; thought process goal oriented and linear; Thought content is on dealing with AH and depression; also on life going forward with psychiatric diagnosis; patient has not expressed any delusional content or paranoid ideations; denies SI/HI. AH but mostly minimal, muffled and mostly able to be ignored; VH fully resolved; Patients insight and judgment are fair and adequate. Diagnostics Vital Signs (24Hr): Vital Signs - 24 hr 09/03/21 21:20 09/04/21 06:00 Temperature 97.3 F 98.0 F Pulse Rate 103 H 82 Blood Pressure 122/83 123/76 Pulse Oximetry 96 99 Oxygen Delivery Method Room Air Room Air BMI result Body Mass Index 21.6 Labs Results: 08/24/21 19:21 08/24/21 19:21 Medications Medications Current Medications Acetaminophen (Acetaminophen 325 Mg Tablet) 650 mg PO Q6H PRN PRN Reason: Headache/Pain Mild Scale (1-3) Last Admin: 09/01/21 17:01 Dose: 650 mg Al Hydroxide/Mg Hydroxide (Magnesium Hydrox/Alum Hydrox 30 Ml Oral.Susp) 30 ml PO Q6H PRN PRN Reason: Heartburn/Nausea Aripiprazole (Aripiprazole 15 Mg Tablet) 15 mg PO DAILY [facility] Last Admin: 09/04/21 08:16 Dose: 15 mg Bupropion HCl (Bupropion Hcl Xl 150 Mg Tab.Er.24h) 150 mg PO DAILY [facility] Last Admin: 09/04/21 08:16 Dose: 150 mg Hydroxyzine HCl (Hydroxyzine Hcl 25 Mg Tablet) 25 mg PO TID PRN PRN Reason: Anxiety Last Admin: 09/02/21 16:52 Dose: 25 mg Lorazepam (Lorazepam 1 Mg Tablet) 1 mg PO DAILY [facility] Last Admin: 09/04/21 08:16 Dose: 1 mg Magnesium Hydroxide (Milk Of Magnesia 30 Ml Oral.Susp) 30 ml PO DAILY PRN PRN Reason: Constipation Nicotine Polacrilex (Nicotine Polacrilex 2 Mg Gum) 4 mg BUCCAL Q2H PRN PRN Reason: Nicotine Cravings Last Admin: 09/03/21 19:17 Dose: 4 mg Quetiapine Fumarate (Quetiapine Fumarate 200 Mg Tablet) 200 mg PO BEDTIME PRN PRN Reason: sleep Last Admin: 09/03/21 21:18 Dose: 200 mg Quetiapine Fumarate (Quetiapine Fumarate 25 Mg Tablet) 25 mg PO Q4H PRN PRN Reason: anxiety Last Admin: 09/01/21 16:59 Dose: 25 mg Trazodone HCl (Trazodone Hcl 50 Mg Tablet) 50 mg PO BEDTIME [facility] Allergies Allergies Allergy/AdvReac Type Severity Reaction Status Date / Time No Known Allergies Allergy Verified 06/03/21 13:27 Assessment & Plan Assessment & Plan (1) Schizoaffective disorder, depressive type: Status: Acute Code(s): F25.1 - Schizoaffective disorder, depressive type (2) Cocaine use disorder: Status: Acute Code(s): F14.10 - Cocaine abuse, uncomplicated Plan Alcides is a bilingual 31 year-old male (prefers to talk in Maltese) with hx of psychosis, initially thought to be related to substance induced but it is becoming more frequent and intense even without any substance use. Pt has been presenting with AH, not sleeping. In the ED pt presents with s/s of catatonia including blank stare, mutism, reports AH. Pt agreed to start ativan 1mg po TID, In the ED, pt was seen for psych consultation, was started on Ativan 1mg po TID, Olanzapine 10mg po qhs, and 5mg po daily. On Admission, Pt stated he does not want to take olanzapine, says that medication is ?not good? and ?I dont want that one,? has been non-adherent for unclear reasons. Agrees to trial seroquel 100 mg QHS for sleep tonight. 08/27 Patient appears catatonic; will treat with Ativan for now and hold off antipsychotics 08/28 catatonic symptoms have dissipated and patient is talking much more freely, especially in Maltese; endorses auditory and visual hallucinations and that he is very frightened. Wants to start Risperdal; sign writer letterer or painter offered to discuss side effects/risks but patient said to talk at a later time about it 08/29 patient reports side effect from Risperdal, cramps legs and does not want to take. Agrees to Abilify. Auditory hallucinations are less and visual hallucinations have so far resolved, likely due to Risperdal. Patient remains with speech latency however is able to talk a little more freely. He has insight to know that he has a psychiatric illness that requires medications. Eating better. Able to sleep with medication 08/30 tolerating abilify; AH remains but a little less; still speech latency. 08/31 auditory hallucinations remain but are a little better; still with speech latency and internally preoccupied. He shares a history of depression and wants to discuss medications for depression. He makes a vague reference to a possible history of manic episodes however this is not clear. Patient agrees to wait until his mind clears is a little more from the psychotic fog so that a more accurate history can be obtained. Will change diagnosis to schizoaffective depressed type 09/01 improved though still with psychotic symptoms; will leave Abilify as is for now and see if symptoms improve further. Patient has depression but before st arting him on an SSRI, want to still will out bipolar disorder. That said he is on Abilify which is a mood stabilizer 09/02 Every day patient says AH is a little less than the day before however they remain on a bothersome; also he remains with speech latency and is emotional. Endorses hypomanic episodes lasting 3-4 days; also history of depression which would sometimes be severe enough to interfere with school 09/03 more likely Bipolar disorder with psychotic symptoms OR schizoaffective disorder; patient reports having found relief from depression with Wellbutrin and wants to restart.? Patient feels that he is good enough to go home and that he can continue treatment as an outpatient which with sign writer letterer or painter agrees.? He agrees that it is best to leave Abilify at current dose since it is possible for continued improvement to occur at this dose. 7/20 patient not in imminent risk for harm to self or others and request for discharge honored PLAN: Q15 min safety checks, CV Patient will try trazodone tonight for sleep to see if can avoid taking Seroquel Start Wellbutrin XL 150mg Lower to Ativan 1 mg daily and then dc INCREASE Abilify 15 mg daily on 09/02 Consider medication for depression; 1st need to rule out history of manic type episodes. Discontinue Risperdal possibly dystonic reaction; that said this medication seem to reduce psychotic symptoms Seroquel p.r.n. for insomnia Hydroxyzine p.r.n. for anxiety Monitor response to medications. Monitor for safety in the milieu. Discharge on stabilization. Patient seen. Chart reviewed. Discussed with team. Obtain collateral contact info?as needed I spent minutes with the patient and/or on the patient floor today, greater than?50% of which was spent counseling/coordinating care. Patient educated on: diagnosis and medication risk/benefits Informed Consent: understands Reason for contiued inpatient stay Substantial Risk for: stable for discharge
[2021-09-04 18:00] VITALS: BP 123/72; PULSE 92; RESP 20; TEMP 37.2; O2SAT 99
[2021-09-04] MEDS: QUEtiapine Fumarate 200 MG TABLET PO (20:25)
[2021-09-04] MEDS: traZODone HCL 50 MG TABLET PO (20:25)
[2021-09-05 06:35] VITALS: BP 116/74; PULSE 96; RESP 16; TEMP 37.5; O2SAT 95
[2021-09-05] MEDS: LORazepam 1 MG TABLET PO (09:13)
[2021-09-05] MEDS: buPROPion HCl XL 150 MG TAB.ER.24H PO (09:13)
[2021-09-05] MEDS: ARIPiprazole 15 MG TABLET PO (09:13)
[2021-09-05 09:16] VITALS: BMI 25.6
--- NOTE | 2021-09-05 09:36 | PM.PSYDC ---
DS: Providers Provider Date of Service: 09/05/21 Date of admission: 08/26/21 15:43 Date of discharge: 09/05/21 Primary care physician: Unknown Physician Admitting clinician: Nkechi Arreguin Attending physician on discharge: Gordo San DS: Diagnosis Discharge Diagnosis (1) Schizoaffective disorder, depressive type: Status: Acute (2) Cocaine use disorder: Status: Acute DS: Medications Discharge Medications Home Medications: Previous Rx's Medication Instructions Recorded aripiprazole 15 mg tablet 15 mg PO DAILY 30 days #30 tabs 09/05/21 bupropion HCl 150 mg 24 hr tablet, 150 mg PO DAILY 30 days #30 tabs 09/05/21 extended release hydroxyzine pamoate 25 mg capsule 25 mg PO TID PRN Anxiety 30 days 09/05/21 #60 caps nicotine (polacrilex) 2 mg gum 4 mg buccal Q2H PRN Nicotine 09/05/21 Cravings 30 days #50 ea quetiapine 200 mg tablet 200 mg PO BEDTIME PRN continued 09/05/21 insomnia 30 days #30 tabs quetiapine 25 mg tablet 25 mg PO Q4H PRN anxiety 30 days 09/05/21 #30 tabs trazodone 100 mg tablet 100 mg PO BEDTIME PRN insomnia 30 09/05/21 days #30 tabs Mental Status Exam Mental Status Exam Narrative: Pt is alert and oriented; behavior is organized, though somewhat internally preoccupied, speech still latent but can pull out of it; dressed in casual attire with hat on; adequate hygiene; mood ok and affect congruent, a little withdrawn; appropriate eye contact, though sometimes stares; Speech: continues with speech latency, though less so; when talks, more normal rate, volume and prosody; no psychomotor retardation; thought process goal oriented and linear; Thought content is on dealing with AH and depression; also on life going forward with psychiatric diagnosis; no delusional content or paranoid ideations; denies SI/HI. Minimal and intermittent AH, muffled and mostly able to be ignored; no VH; Patients insight and judgment are intact. DS: Summary Hospital Course Hospital Course: HPI: Alcides is a bilingual 31 year-old male (prefers to talk in Greek) with hx of psychosis, initially thought to be related to substance induced but it is becoming more frequent and intense even without any substance use. Pt has been presenting with AH, not sleeping. In the ED pt presents with s/s of catatonia including blank stare, mutism, reports AH. Pt agreed to start ativan 1mg po TID, In the ED, pt was seen for psych consultation, was started on Ativan 1mg po TID, Olanzapine 10mg po qhs, and 5mg po daily. On Admission, Pt stated he does not want to take olanzapine, says that medication is ?not good? and ?I dont want that one,? has been non-adherent for unclear reasons. Agrees to trial seroquel 100 mg QHS for sleep tonight. Hospital course: -On admission, has some catatonic-like symptoms (though does not meet criteria for actual catatonia) with significant speech latency and internal preoccupation -Treated catatonic-like symptoms with Ativan prior to starting antipsychotics; with ativan catatonic symptoms started to dissipated; speech latency remains but patient is talking more freely, especially in Greek; endorses auditory and visual hallucinations and that he is very frightened.? -started Risperdal however seemed to develop either bilateral lower limb dystonia or akathisia and this medication was discontinued -Patient agreed to start Abilify which was titrated. Over the next several days, AH continue to lessen and VH fully resolved. AH did not fully resolve but it became minimal, intermittent and mostly able to be ignored. Patient continued to have some speech latency but was much less and he could break out of it once he got talking. Patient endorsed depression but denied any SI at all. At S patient became more able to engage he reflected on his history and thought that his history of AH was only present when he was depressed. Patient also endorsed hypomanic episodes lasting 3-4 days. Which data analyst report writer change diagnosis to schizoaffective disorder, bipolar type and left bipolar as a rule out (patient's memory of AH not fully clear). -For depression, patient reported that he had been on Wellbutrin in the past and that it was helpful. Patient was restarted on this medication which was well tolerated and lowered anxiety. -Patient thinks trazodone may be enough for insomnia; however also prescribed Seroquel as a p.r.n. in case patient has severe insomnia, which could otherwise potentially exacerbate psychotic or manic symptoms -Patient was eager for discharge. Throughout his admission, patient mostly kept to himself but was otherwise appropriate with peers and staff. Patient was engaged in 1 on 1 therapy sessions. He demonstrated good insight and good judgment and fully understands his psychiatric illness and the need for medication. In fact much of the time during this admission patient was trying to Gilma matching what his life was going to be like going forward, now that he understands his illness. Senior Salesforce Developer and patient discussed treatment plan and patient decided to remain on current dose of Abilify to see if this does continue to further resolve symptoms; if not, patient felt comfortable discussing this with outpatient provider on whether not to increase. Same true for Wellbutrin. Patient is returning to live with his mother who is supportive. Patient also has friends in the community and feels safe and he already has a therapist and an outpatient prescriber. Patient is not in imminent risk for harm to self or others and his request for discharge honored. Time spent discussing smoking cessation with patient: 3 to 10 minutes Status at Discharge Functional status at discharge: independent ambulation Overall status at discharge: patient is progressing back to baseline Time Spent with Patient Time attestation: Total time spent providing and/or coordinating discharge services: Time spent: Greater than 30 minutes Discharge Plan Discharge Patient Disposition: Home, Self-Care Discharge Diagnosis: Schizoaffective disorder, bipolar type (r/o Bipolar) Referrals: MAYCOL JURADO, THERAPIST [Other] - 09/16/21 3:00 pm (TELE[facility]) PATY GARCIA MEDICATION PROVIDER [Other] - 09/24/21 4:20 pm (TELEHEALTH) Discharge Medications: New nicotine (polacrilex) 2 mg Gum 4 mg buccal Q2H PRN (Reason: Nicotine Cravings) 30 Days Qty: 50 0RF aripiprazole 15 mg Tablet 15 mg PO DAILY 30 Days Qty: 30 0RF bupropion HCl 150 mg Tablet Extended Release 24 Hr 150 mg PO DAILY 30 Days Qty: 30 0RF quetiapine 25 mg Tablet 25 mg PO Q4H PRN (Reason: anxiety) 30 Days Qty: 30 0RF quetiapine 200 mg Tablet 200 mg PO BEDTIME PRN (Reason: continued insomnia) 30 Days Qty: 30 0RF trazodone 100 mg tablet 100 mg PO BEDTIME PRN (Reason: insomnia) 30 Days Qty: 30 0RF Rx Instructions: take 1/2 to 1 tab as needed for sleep Changed hydroxyzine pamoate 25 mg capsule 25 mg PO TID PRN (Reason: Anxiety) 30 Days Qty: 60 0RF Discontinued buspirone 5 mg tablet 1 tab PO TID doxepin 25 mg capsule 2 cap PO BEDTIME escitalopram oxalate 5 mg tablet 1 tab PO DAILY Discharge Orders: Discharge Order (Routine); Ordered 09/05/21 Ordered By: Gordo San Diet: Regular diet Activity on Discharge: As tolerated Stand Alone Forms: Patient Portal Discharge page Care Plan Goals: Maintain mood and safe behaviors Take medications as prescribed Continue to pursue sobriety Practice coping skills Continue with outpatient providers and reach out to them as needed Health Concerns: Mood stability and behaviors Sobriety Plan of Treatment: Follow up with your psychiatric provider and other outpatient providers regarding above concerns Take medications as prescribed Assessment: Risk assessment at time of discharge:? Patient was interviewed prior to discharge and found to be fully oriented and without any SI or HI. Patient has insight and demonstrates good judgment in terms of wanting to pursue treatment. Patient is not in imminent risk of harm to self or others and has a safety plan that includes presenting to the closest ER or calling 911 if feeling unsafe.? Patient has been observed closely by nursing and unit staff throughout admission; patient has not engaged in any behaviors that suggest dangerousness to self or others and has demonstrated appropriate behaviors and impulse control
[2021-09-05] MEDS: Naloxone HCl Nasal TAKE HOME 4 MG SPRAY NOSTRILALT (10:37)
== END 2021-09-05 13:17 | disposition home or self-care (01) | DRG 750 ==
LOC: HO.ED 19:37 → HO.PM5 08-26 15:49
PROVIDERS: Physician Assistant Medical; Admitting Provider Psychiatry & Neurology Psychiatry; Emergency Provider Emergency Medicine; Visit Provider Psychiatry & Neurology Psychiatry
DX: F25.1 Schizoaffective disorder, depressive type (principal); F14.10 Cocaine abuse, uncomplicated; F17.210 Nicotine dependence, cigarettes, uncomplicated; Z20.822 Contact with and (suspected) exposure to COVID-19; Z71.6 Tobacco abuse counseling; Z79.899 Other long term (current) drug therapy
CPT/HCPCS: 36415; 80048; 80061; 80076; 80307; 81003; 82077; 82140; 83036; 84443; 85025; 87635; 93005; 99285; Q0163

== ENCOUNTER 2022-06-26 11:38 | Inpatient (IN) | payer OTHER, SELFPAY ==
[2022-06-26 11:49] VITALS: BP 108/82; PULSE 93; RESP 18; TEMP 36.6; O2SAT 99; BMI 22.5
[2022-06-26 12:23] LABS: Appearance Urine Clear; Color Urine Dark Yellow; Glucose Urine UA Negative (Negative); Leukocyte Esterase Urine Negative (Negative); Nitrite Urine Negative (Negative); Specific Gravity - Urine >= 1.030 (1.005-1.025); UMIC TRIGGER UACC YES; Urine Blood Negative (Negative); Urine Ketones 15 mg/dL (Negative); Urine Protein 30 (1+) mg/dL (Neg-Trace)
[2022-06-26 12:28] LABS: Bacteria Urine None Seen (None Seen); Hyaline Casts Urine 0-2 /LPF (0-2); RBC Urine 0-2 /HPF (0-2); Squamous Epithelial Cell Urine 0-2 /HPF (0-2); WBC Urine 0-5 /HPF (0-5)
[2022-06-26 12:36] LABS: Amphetamine Screen Urine POSITIVE (Not Detect); Barbiturates, Urine Not Detected (Not Detect); Benzodiazepines Screen Urine Not Detected (Not Detect); Cannabinoid Screen Urine POSITIVE (Not Detect); Cocaine Screen Urine Not Detected (Not Detect); Fentanyl, urine Not Detected (Not Detect); Opiate Screen Urine Not Detected (Not Detect); Phencyclidine Screen Urine Not Detected (Not Detect)
--- NOTE | 2022-06-26 12:55 | ED_ITS ---
HPI - General Adult General Chief complaint: Psychiatric Symptoms Stated complaint: crisis Time Seen by Provider: 06/26/22 12:49 Source: patient, RN notes reviewed and old records reviewed Mode of arrival: ambulatory History of Present Illness HPI narrative: 32-year-old male with past medical history of anxiety, asthma, depression, schizoaffective, presenting to the ED complaining of polysubstance abuse, requesting detox. Patient reports using cocaine, meth, cigarettes, and marijuana. Patient requesting help, would like to stop using the substances. Also reports auditory and visual hallucinations. Denies SI/HI. Denies EtOH, abdominal pain, CP/SOB, nausea/vomiting Onset (ago): unknown Related Data Home Medications Medication Instructions Recorded Confirmed dolutegravir 50 mg tablet (Tivicay) 50 mg PO QAM 06/26/22 06/26/22 emtricitabine 200 mg-tenofovir 1 tab PO QAM 06/26/22 06/26/22 alafenamide fumarate 25 mg tablet (Descovy) Allergies Allergy/AdvReac Type Severity Reaction Status Date / Time No Known Allergies Allergy Verified 06/26/22 13:36 Review of Systems Review of Systems: Constitutional: No Fever, No Chills, No Fatigue, No Malaise ENT/Mouth: No Ear Pain, No Nasal Congestion, No sore throat, No Rhinorrhea, No Swallowing Difficulty Eyes: No Eye Pain, No Swelling, No Redness Cardiovascular: No Chest Pain, No SOB, No Edema, No Palpitations Respiratory: No Cough, No Sputum, No Dyspnea Gastrointestinal: No Nausea, No Vomiting, No Diarrhea, No Constipation, No Abdominal pain Musculoskeletal: No joint pain, No Myalgias Skin: No Skin Lesions, No rash Neuro: No Weakness, No Headache Psych: No Anxiety/Panic, No Depression, No SI/HI, +AH/VH, No Social Issues Yes all other systems are reviewed and are negative Constitutional: Constitutional: Reports as per [facility] Past Medical History Attestation statement: The following information was validated with the patient. Source: old records reviewed Medical History Acute anxiety Anxiety Asthma Depression Schizoaffective disorder, bipolar type Social History Social History Household Members: Other Household Members Other:: mother Housing: Apartment Do you presently have visiting nurse or other home services: No Unable to assess alcohol history related to: Refusing to respond Alcohol intake: current Alcohol intake frequency: a few times a week Alcohol type: beer, wine and hard liquor Patient Tobacco Use Status: Current everyday Tobacco user Tobacco use type: Cigarette Cigarette Packs Per Day: 1 Cigarettes Per Day: 20.0 Years Smoked: 10 Smoked in Last 30 Days: Yes e-Cigarette/Vaping Use: Former Use Second Hand Smoke Exposure: Yes Substance Use Type: [employer] Senior [employer] Drugs, Crack/Cocaine, Marijuana, Methamphetamine, Opiates and Caffiene Substance Use Frequency: Chronic Longstanding Last Used Substance: Just Prior to Admission Any prior treatment program specific to substance use: Yes Advance Directives: No Advance Directives Information Provided: Yes Healthcare Proxy: No Guardian: No service: No Sexual orientation: Did not discuss Physical Exam ED Vital Signs: Vital Signs - 24 hr 06/26/22 11:49 Temperature 97.9 F Pulse Rate 93 Respiratory Rate 18 Blood Pressure 108/82 Pulse Oximetry 99 Oxygen Delivery Method Room Air BMI result Body Mass Index 22.5 Const General: cooperative, no acute distress and alert Orientation/consciousness: patient oriented x3 Limitations: no limitations HENMT Head: Yes normal to inspection and Yes atraumatic Ears: hearing grossly normal bilaterally General nose exam: Normal external nose present Face and sinus: Yes normal facial exam Eyes General: appearance normal, both eyes and all related structures Pupils: Equal, round and reactive pupils present and Dilated pupils bilaterally EOM: EOMs intact bilaterally Neck Neck: Yes normal visual inspection and Yes no meningeal signs Resp Effort & Inspection: normal respiratory effort and no respiratory distress Auscultation: clear to auscultation bilaterally Cardio Rate: regular rate Heart sounds: S1 normal heart sound present and S2 normal heart sound present GI Inspection: Yes normal to inspection Palpation (GI): Soft to palpation, nontender, no guarding and not rigid Skin Rashes: no rashes Wounds: no wounds Neuro General: patient oriented x3, tone normal, moves all extremities, no meningeal signs, no focal motor deficits and CN's II-XI intact bilaterally Cranial nerves: Yes CN's II-XII intact bilaterally and Yes Equal, round and reactive pupils present Gait exam (Neuro): Normal gait present Extrem General: Yes normal to inspection Psych Affect: Sad affect present (Tearful) Attitude: cooperative Thought content: suicidality, no homicidality and Hallucination(s) present Course Course Course Narrative: - labs reassuring. Tox screen positive for amphetamines and THC -CARE team evaluated patient and he needs inpatient level of care. Physician observation initiated at 14:40 as patient needs more time for inpatient bed search -1630-- ED care transferred to [facility] pending inpatient bed search Medical Decision Making Medical Decision Making [facility] Narrative: 32-year-old male with past medical history of anxiety, asthma, depression, schizoaffective, presenting to the ED complaining of polysubstance abuse, requesting detox and auditory/visual hallucinations. On exam vital signs stable, NAD, nontoxic appearing, concern for polysubstance abuse vs schizoaffective. Rule out metabolic/infectious etiology Plan: Labs, UA, drug screen, CARE team consult Please refer to course for remaining clinical decision making, interpretation of labs/imaging results, and discussions with consultants and/or family members. Differential Diagnosis Differential Diagnoses: The differential diagnosis associated with the presentation includes As above Admission/Observation Consideration of admission/observation: Escalation of care including admission/observation considered Lab Data [facility] Lab Attestation statement: I reviewed the patient's lab results. 06/26/22 13:12 06/26/22 13:12 Labs: Lab Results 06/26/22 06/26/22 06/26/22 Range/Units 12:10 12:10 13:08 WBC (4.8-10.8) X10*3/uL RBC (4.60-5.80) X10*6/uL Hgb (14.0-18.0) g/dl Hct (42.0-52.0) % MCV (80.0-98.0) fL MCH (27.0-33.0) pg MCHC (31.0-36.0) g/dl RDW (11.0-16.0) % Plt Count (160-400) X10*3/uL MPV (9.4-12.4) fL Immature Gran % (Auto) (0.0-0.4) % Neut % (Auto) (45-73) % Lymph % (Auto) (20-40) % [place] % (Auto) (2-11) % Eos % (Auto) (0-4) % Baso % (Auto) (0-2) % Lymph # (Auto) (1.2-4.9) X10*3/uL [place] # (Auto) (0.1-1.2) X10*3/uL Eos # (Auto) (0.0-0.4) X10*3/uL Baso # (Auto) (0.0-0.2) X10*3/uL Abs Immat Gran (auto) (0.00-0.03) X10*3/uL Absolute Neuts (auto) (2.0-8.3) x10*3/uL Absolute Nucleated RBC (0.0-0.012) X10*3/uL Nucleated RBC % (auto) (0.0-0.2) /100WBC Sodium (135-145) mmol/L Potassium (3.3-5.1) mmol/L Chloride (96-108) mmol/L Carbon Dioxide (22-29) mmol/L Anion Gap (12-20) BUN (9-16) mg/dL Creatinine (0.5-1.4) mg/dL Estim Creat Clear Calc Estimated GFR Random Glucose (60-115) mg/dL Calcium (8.4-10.2) mg/dL Total Bilirubin (0.0-1.0) mg/dL AST (5-37) U/L ALT (0-40) U/L Alkaline Phosphatase (39-117) U/L Total Protein (6.5-8.0) g/dL Albumin (3.5-5.0) g/dL Urine Color Dark Yellow Urine Appearance Clear Urine pH 6.0 (5.0-9.0) Ur Specific [place] >= 1.030 H (1.005-1.025) Urine Protein 30 (1+) H (Neg-Trace) mg/dL Urine Glucose (UA) Negative (Negative) mg/dL Urine Ketones 15 (Negative) mg/dL Urine Blood Negative (Negative) Urine Nitrite Negative (Negative) Ur Leukocyte Esterase Negative (Negative) Urine RBC 0-2 (0-2) /HPF Urine WBC 0-5 (0-5) /HPF Ur Squamous Epith Cells 0-2 (0-2) /HPF Urine Bacteria None Seen (None Seen) Hyaline Casts 0-2 (0-2) /LPF Salicylates (15-30) mg/dL Urine Opiates Screen Not Detected (Not Detect) Urine Fentanyl Screen Not Detected (Not Detect) Acetaminophen (<30) mcg/mL Ur Barbiturates Screen Not Detected (Not Detect) Ur Phencyclidine Scrn Not Detected (Not Detect) Ur Amphetamines Screen POSITIVE H (Not Detect) U Benzodiazepines Scrn Not Detected (Not Detect) Urine Cocaine Screen Not Detected (Not Detect) U Marijuana (THC) Screen POSITIVE H (Not Detect) Ethyl Alcohol mg/dL COVID-19 (DREA) Negative (Negative) COVID-19 Clin Com See Note 06/26/22 06/26/22 Range/Units 13:12 13:12 WBC 5.7 (4.8-10.8) X10*3/uL RBC 4.69 (4.60-5.80) X10*6/uL Hgb 14.4 (14.0-18.0) g/dl Hct 41.1 L (42.0-52.0) % MCV 87.6 (80.0-98.0) fL MCH 30.7 (27.0-33.0) pg MCHC 35.0 (31.0-36.0) g/dl RDW 12.8 (11.0-16.0) % Plt Count 213 (160-400) X10*3/uL MPV 9.0 L (9.4-12.4) fL Immature Gran % (Auto) 0.2 (0.0-0.4) % Neut % (Auto) 46.0 (45-73) % Lymph % (Auto) 42.8 H (20-40) % [place] % (Auto) 8.5 (2-11) % Eos % (Auto) 1.8 (0-4) % Baso % (Auto) 0.7 (0-2) % Lymph # (Auto) 2.4 (1.2-4.9) X10*3/uL [place] # (Auto) 0.5 (0.1-1.2) X10*3/uL Eos # (Auto) 0.1 (0.0-0.4) X10*3/uL Baso # (Auto) 0.0 (0.0-0.2) X10*3/uL Abs Immat Gran (auto) 0.01 (0.00-0.03) X10*3/uL Absolute Neuts (auto) 2.6 (2.0-8.3) x10*3/uL Absolute Nucleated RBC 0.000 (0.0-0.012) X10*3/uL Nucleated RBC % (auto) 0.0 (0.0-0.2) /100WBC Sodium 139 (135-145) mmol/L Potassium 4.1 (3.3-5.1) mmol/L Chloride 105 (96-108) mmol/L Carbon Dioxide 28 (22-29) mmol/L Anion Gap 10 L (12-20) BUN 15 (9-16) mg/dL Creatinine 0.79 (0.5-1.4) mg/dL Estim Creat Clear Calc 118.4 Estimated GFR > 60 Random Glucose 103 (60-115) mg/dL Calcium 9.3 D (8.4-10.2) mg/dL Total Bilirubin 1.1 H (0.0-1.0) mg/dL AST 30 (5-37) U/L ALT 22 (0-40) U/L Alkaline Phosphatase 64 (39-117) U/L Total Protein 7.0 (6.5-8.0) g/dL Albumin 4.4 (3.5-5.0) g/dL Urine Color Urine Appearance Urine pH (5.0-9.0) Ur Specific [place] (1.005-1.025) Urine Protein (Neg-Trace) mg/dL Urine Glucose (UA) (Negative) mg/dL Urine Ketones (Negative) mg/dL Urine Blood (Negative) Urine Nitrite (Negative) Ur Leukocyte Esterase (Negative) Urine RBC (0-2) /HPF Urine WBC (0-5) /HPF Ur Squamous Epith Cells (0-2) /HPF Urine Bacteria (None Seen) Hyaline Casts (0-2) /LPF Salicylates < 5.0 L (15-30) mg/dL Urine Opiates Screen (Not Detect) Urine Fentanyl Screen (Not Detect) Acetaminophen < 17 (<30) mcg/mL Ur Barbiturates Screen (Not Detect) Ur Phencyclidine Scrn (Not Detect) Ur Amphetamines Screen (Not Detect) U Benzodiazepines Scrn (Not Detect) Urine Cocaine Screen (Not Detect) U Marijuana (THC) Screen (Not Detect) Ethyl Alcohol < 10 mg/dL COVID-19 (DREA) (Negative) COVID-19 Clin Com Radiology Impression Discussion of test interpretation with radiology: I have reviewed the radiologist's reading. External Record Review External record reviewed: Inpatient record, Office record, Outpatient record, [facility] outpatient labs, Prior outpatient radiology, Primary care record and Outside ED record Tests considered The following testing was considered but not selected: As above Discharge Plan Discharge Clinical Impression: Schizoaffective disorder, bipolar type, Polysubstance abuse Patient Disposition: Still a Patient Prescriptions: No Action Tivicay 50 mg tablet 50 mg PO QAM Descovy 200-25 mg tablet 1 tab PO QAM Interventions: [place]-Suicide Risk Severity Scale Last Done: 06/26/22 12:16
[2022-06-26 13:20] LABS: MANUAL DIFF FLAG NO
[2022-06-26 13:21] LABS: Basophils Percent Auto 0.7 % (0-2); Eosinophils Absolute Auto 0.1 X10*3/uL (0.0-0.4); Eosinophils Percent Auto 1.8 % (0-4); Hematocrit 41.1 % (42.0-52.0); Hemoglobin 14.4 g/dl (14.0-18.0); Imm Gran Abs Auto 0.01 X10*3/uL (0.00-0.03); Imm Gran Pct Auto 0.2 % (0.0-0.4); Lymphocytes Absolute Auto 2.4 X10*3/uL (1.2-4.9); Lymphocytes Percent Auto 42.8 % (20-40); Mean Corpuscular Hemoglobin 30.7 pg (27.0-33.0); Mean Corpuscular Volume 87.6 fL (80.0-98.0); Monocytes Absolute Auto 0.5 X10*3/uL (0.1-1.2); Monocytes Percent Auto 8.5 % (2-11); Neutrophils Absolute Auto 2.6 x10*3/uL (2.0-8.3); Platelet Count 213 X10*3/uL (160-400); Red Blood Count 4.69 X10*6/uL (4.60-5.80); Red Cell Distribution Width 12.8 % (11.0-16.0); White Blood Count 5.7 X10*3/uL (4.8-10.8)
[2022-06-26 13:41] LABS: COVID-19 Test Negative (Negative); IDNOW Serial# BCCEAD1C
[2022-06-26 13:48] LABS: Alanine Aminotransferase 22 U/L (0-40); Albumin Level 4.4 g/dL (3.5-5.0); Alkaline Phosphatase 64 U/L (39-117); Anion Gap 10 (12-20); Aspartate Amino Transferase 30 U/L (5-37); Bilirubin Total 1.1 mg/dL (0.0-1.0); Blood Urea Nitrogen 15 mg/dL (9-16); Calcium 9.3 mg/dL (8.4-10.2); Carbon Dioxide 28 mmol/L (22-29); Chloride 105 mmol/L (96-108); Creatinine Clr Calc Pharmacy 118.4; Estimated Glomerular Filt Rate > 60; Ethanol < 10 mg/dL; Glucose Random 103 mg/dL (60-115); Potassium 4.1 mmol/L (3.3-5.1); Sodium 139 mmol/L (135-145)
[2022-06-26 15:14] LABS: Acetaminophen LAB < 17 mcg/mL (<30); Salicylate < 5.0 mg/dL (15-30)
--- NOTE | 2022-06-26 15:20 | PHA.MEDREC ---
Pharmacy Consult ? Medication Reconciliation Pharmacy has completed the medication reconciliation. Nurse unable to put medications in the system...unsure why. Patient takes two antiretrovirals. When asked about psych meds, patient says they want meth instead rajinder
[2022-06-26] MEDS: LORazepam 1 MG TABLET PO (19:13)
[2022-06-26 20:46] VITALS: BP 115/73; PULSE 79; RESP 18; TEMP 37.2; O2SAT 99
--- NOTE | 2022-06-26 21:26 | ECG_ITS ---
Test Reason : ck rhythm Blood Pressure : / mmHG Vent. Rate : 092 BPM Atrial Rate : 092 BPM P-R Int : 144 ms QRS Dur : 088 ms QT Int : 338 ms P-R-T Axes : 069 048 014 degrees QTc Int : 417 ms Normal sinus rhythm Normal ECG When compared with ECG of 27-AUG-2021 15:33, No significant change was found Referred By: Oh Cam Electronically Signed By:NIKKIE LOVE
[2022-06-26 22:18] VITALS: BP 119/80; PULSE 85; RESP 20; TEMP 36.6; O2SAT 99
[2022-06-27 09:39] LABS: Alanine Aminotransferase 22 U/L (0-40); Albumin Level 4.3 g/dL (3.5-5.0); Alkaline Phosphatase 60 U/L (39-117); Anion Gap 11 (12-20); Aspartate Amino Transferase 28 U/L (5-37); Bilirubin Total 0.7 mg/dL (0.0-1.0); Blood Urea Nitrogen 14 mg/dL (9-16); Calcium 9.1 mg/dL (8.4-10.2); Carbon Dioxide 26 mmol/L (22-29); Chloride 105 mmol/L (96-108); Cholesterol 108 mg/dL; Creatinine Clr Calc Pharmacy 116.9; Estimated Glomerular Filt Rate > 60; Glucose Fasting 93 mg/dL (60-99); HDL Cholesterol 39 mg/dL; LDL Cholesterol Calculated 57 mg/dl; Potassium 4.6 mmol/L (3.3-5.1); Sodium 137 mmol/L (135-145); Total Protein 6.8 g/dL (6.5-8.0); Triglycerides 60 mg/dL
--- NOTE | 2022-06-27 11:25 | HO.PSYADMNOT ---
Documented by User: Sara Ortiz NP 06/27/22 12:55 HPI Date of Service: 06/27/22 Chief Complaint: SI PARANOIA SUB ABUSE Sources of Information: patient interviewed, chart reviewed and crisis/core team assessment reviewed HPI Subjective Notes: Conn Warning and Conditional Voluntary Medical Problems Affecting Mental Status: No Narrative: Patient is a 32 year old male with hx of schizoaffective d/o and polysubstance abuse who self presented to [facility] secondary to wanting detox and reporting vague SI. He was last at [facility] on M5 09/06 and M3 06/07. He currently does not have any psychiatric providers and does not take any psychiatric medications. He reports he has been homeless for the past year, which is one of his biggest stressors. During interview, patient presents as irritable, disorganized, and tangential. Patients insight and judgement are poor. Patient observed responding to internal stimuli. Patient denies AH/VH at this time. He does report having thoughts of suicide but feels safe on the unit. Patient denies HI at this time. Past Psychiatric History: Inpatient: 2017 [place]; one other in [place], M5 09/06, M3 06/07, Suicide attempts: one attempt in 2017 where he attempted to hang self but friend intervened Medical Evaluation Reviewed: Yes [facility] Medical History (Updated 06/27/22 @ 15:09 by Oh Cam MD) Acute anxiety Amphetamine use disorder, severe Anxiety Asthma Cocaine use disorder, moderate, dependence Depression Schizoaffective disorder, bipolar type Family History: mother- depression maternal uncle of suicide Social History: homeless. single, Substance History: Patient reports daily use of methamphetamines, marijuana, cocaine. Trauma History: reports but no details provided Diagnostics Vital Signs (24Hr): Vital Signs - 24 hr 06/26/22 11:49 06/26/22 20:46 06/26/22 22:18 Temperature 97.9 F 98.9 F 98 F Pulse Rate 93 79 85 Respiratory Rate 18 18 20 Blood Pressure 108/82 115/73 119/80 Pulse Oximetry 99 99 99 Oxygen Delivery Method Room Air Room Air Room Air BMI result Body Mass Index 22.5 Labs 06/26/22 13:12 06/27/22 08:48 Labs: Laboratory Results - last 48 hr 06/26/22 06/26/22 06/26/22 12:10 12:10 13:08 WBC RBC Hgb Hct MCV MCH MCHC RDW Plt Count MPV Immature Gran % (Auto) Neut % (Auto) Lymph % (Auto) [place] % (Auto) Eos % (Auto) Baso % (Auto) Lymph # (Auto) [place] # (Auto) Eos # (Auto) Baso # (Auto) Abs Immat Gran (auto) Absolute Neuts (auto) Absolute Nucleated RBC Nucleated RBC % (auto) Sodium Potassium Chloride Carbon Dioxide Anion Gap BUN Creatinine Estim Creat Clear Calc Estimated GFR Random Glucose Fasting Glucose Calcium Total Bilirubin AST ALT Alkaline Phosphatase Total Protein Albumin Triglycerides Cholesterol LDL Cholesterol, Calc HDL Cholesterol Urine Color Dark Yellow Urine Appearance Clear Urine pH 6.0 Ur Specific [place] >= 1.030 H Urine Protein 30 (1+) H Urine Glucose (UA) Negative Urine Ketones 15 Urine Blood Negative Urine Nitrite Negative Ur Leukocyte Esterase Negative Urine RBC 0-2 Urine WBC 0-5 Ur Squamous Epith Cells 0-2 Urine Bacteria None Seen Hyaline Casts 0-2 Salicylates Urine Opiates Screen Not Detected Urine Fentanyl Screen Not Detected Acetaminophen Ur Barbiturates Screen Not Detected Ur Phencyclidine Scrn Not Detected Ur Amphetamines Screen POSITIVE H U Benzodiazepines Scrn Not Detected Urine Cocaine Screen Not Detected U Marijuana (THC) Screen POSITIVE H Ethyl Alcohol COVID-19 (DREA) Negative COVID-19 Clin Com See Note 06/26/22 06/26/22 06/27/22 13:12 13:12 08:48 WBC 5.7 RBC 4.69 Hgb 14.4 Hct 41.1 L MCV 87.6 MCH 30.7 MCHC 35.0 RDW 12.8 Plt Count 213 MPV 9.0 L Immature Gran % (Auto) 0.2 Neut % (Auto) 46.0 Lymph % (Auto) 42.8 H [place] % (Auto) 8.5 Eos % (Auto) 1.8 Baso % (Auto) 0.7 Lymph # (Auto) 2.4 [place] # (Auto) 0.5 Eos # (Auto) 0.1 Baso # (Auto) 0.0 Abs Immat Gran (auto) 0.01 Absolute Neuts (auto) 2.6 Absolute Nucleated RBC 0.000 Nucleated RBC % (auto) 0.0 Sodium 139 137 Potassium 4.1 4.6 Chloride 105 105 Carbon Dioxide 28 26 Anion Gap 10 L 11 L BUN 15 14 Creatinine 0.79 0.80 Estim Creat Clear Calc 118.4 116.9 Estimated GFR > 60 > 60 Random Glucose 103 Fasting Glucose 93 Calcium 9.3 D 9.1 Total Bilirubin 1.1 H 0.7 AST 30 28 ALT 22 22 Alkaline Phosphatase 64 60 Total Protein 7.0 6.8 Albumin 4.4 4.3 Triglycerides 60 Cholesterol 108 LDL Cholesterol, Calc 57 HDL Cholesterol 39 Urine Color Urine Appearance Urine pH Ur Specific [place] Urine Protein Urine Glucose (UA) Urine Ketones Urine Blood Urine Nitrite Ur Leukocyte Esterase Urine RBC Urine WBC Ur Squamous Epith Cells Urine Bacteria Hyaline Casts Salicylates < 5.0 L Urine Opiates Screen Urine Fentanyl Screen Acetaminophen < 17 Ur Barbiturates Screen Ur Phencyclidine Scrn Ur Amphetamines Screen U Benzodiazepines Scrn Urine Cocaine Screen U Marijuana (THC) Screen Ethyl Alcohol < 10 COVID-19 (DREA) COVID-19 Clin Com Meds/Allergies Meds Home Medications Medication Instructions Recorded Confirmed Type dolutegravir 50 mg tablet (Tivicay) 50 mg PO QAM 06/26/22 06/26/22 History emtricitabine 200 mg-tenofovir 1 tab PO QAM 06/26/22 06/26/22 History alafenamide fumarate 25 mg tablet (Descovy) Allergies Allergies Allergy/AdvReac Type Severity Reaction Status Date / Time No Known Allergies Allergy Verified 06/26/22 13:36 Mental Status Exam Mental Status Exam Narrative: Pt is alert and oriented; behavior is cooperative; patient is not in distress; dressed in casual attire; mood is described as okay and affect congruent; eye contact appropriate; Speech is normal rate, volume and prosody and not pressured; no psychomotor agitation/retardation present; thought process is disorganized; Thought content is tangential; does not present with any delusional content, paranoid ideations or grandiosity; Patient reports having suicidal ideation d/t homelessness, however he states he feels safe on the unit. denies any HI. Patient observed responding to internal stimuli. Patient denies AH/VH. Patients insight and judgment appear poor. During interview patient stated, I like using cocaine and meth. I'll take Adderall and viagra so I can have sex with people . Patient has a difficult time staying on topic when asked a question. Patient believes people are working against him for him not to have a relationship with his mother. Patient stated, I don't know who is controlling my mother and I not seeing each other. I've been sleeping with the government to have something in my life . Assessment & Plan Assessment & Plan (1) Schizoaffective disorder, bipolar type: Status: Acute Code(s): F25.0 - Schizoaffective disorder, bipolar type (2) Cocaine use disorder: Status: Resolved Code(s): F14.10 - Cocaine abuse, uncomplicated (3) Amphetamine use disorder, moderate, dependence: Status: Acute Code(s): F15.20 - Other stimulant dependence, uncomplicated (4) Cocaine use disorder, moderate, dependence: Status: Acute Code(s): F14.20 - Cocaine dependence, uncomplicated Plan Patient is a 32 year old male with hx of schizoaffective d/o and polysubstance abuse who self presented to [facility] secondary to wanting detox and reporting vague SI. CV 15 min safety checks Start: Abilify 5mg PO daily (Increase to 10mg if no positive affects seen with 5mg) Ativan 1mg TID PRN Patient educated on: medication risk/benefits Informed Consent: further education needed Reason for continued inpatient stay Substantial Risk for: harm to self and med/psych decompensation Statement Statement: I have reviewed the history and physical and performed a pertinent examination on my patient. No changes have occurred unless specified. If the History and Physical was not performed prior to admission, the Hospitalist's service will be consulted for completing the admission physical. Time Spent With Patient Time: Total time managing care of this patient today ____ minutes. Documented by User: Oh Cam MD 06/27/22 15:12 HPI Chief Complaint: SI PARANOIA SUB ABUSE [facility] Medical History (Updated 06/27/22 @ 15:09 by Oh Cam MD) Acute anxiety Amphetamine use disorder, severe Anxiety Asthma Cocaine use disorder, moderate, dependence Depression Schizoaffective disorder, bipolar type Diagnostics Labs 06/26/22 13:12 06/27/22 08:48 Meds/Allergies Meds Home Medications Medication Instructions Recorded Confirmed Type dolutegravir 50 mg tablet (Tivicay) 50 mg PO QAM 06/26/22 06/26/22 History emtricitabine 200 mg-tenofovir 1 tab PO QAM 06/26/22 06/26/22 History alafenamide fumarate 25 mg tablet (Descovy) Allergies Allergies Allergy/AdvReac Type Severity Reaction Status Date / Time No Known Allergies Allergy Verified 06/26/22 13:36 Assessment & Plan Assessment & Plan (1) Schizoaffective disorder, bipolar type: Status: Acute Code(s): F25.0 - Schizoaffective disorder, bipolar type (2) Cocaine use disorder: Status: Resolved Code(s): F14.10 - Cocaine abuse, uncomplicated (3) Amphetamine use disorder, moderate, dependence: Status: Acute Code(s): F15.20 - Other stimulant dependence, uncomplicated (4) Cocaine use disorder, moderate, dependence: Status: Acute Code(s): F14.20 - Cocaine dependence, uncomplicated Plan Patient is a 32 year old male with hx of schizoaffective d/o and polysubstance abuse who self presented to [facility] secondary to wanting detox and reporting vague SI. CV 15 min safety checks clarify psych history Start: Abilify 5mg PO daily (Increase to 10mg if no positive affects seen with 5mg) Ativan 1mg TID PRN would benefit from sub abuse referral and tx Patient educated on: substance abuse
[2022-06-27] MEDS: Emtricitabine/Tenofov Alafenam TABLET 1 TAB PO (11:31)
[2022-06-27] MEDS: ARIPiprazole 5 MG TABLET PO (11:31)
[2022-06-27 11:33] VITALS: BP 140/88; PULSE 99; RESP 18; TEMP 36.6; O2SAT 98
[2022-06-27] MEDS: Dolutegravir Sodium 50 MG TABLET PO (13:53)
[2022-06-27] MEDS: LORazepam 1 MG TABLET PO ×2 (13:55→19:37)
[2022-06-28] MEDS: Dolutegravir Sodium 50 MG TABLET PO (08:40)
[2022-06-28] MEDS: Emtricitabine/Tenofov Alafenam TABLET 1 TAB PO (08:41)
[2022-06-28 10:36] VITALS: BP 114/65; PULSE 72; RESP 16; TEMP 36.4; O2SAT 98
--- NOTE | 2022-06-28 11:39 | P.PNPSI_ITS ---
Subjective Subjective Date of Service: 06/28/22 Reason For Visit: SI PARANOIA SUB ABUSE Interim History: Patient seen and chart reviewed. He has taken his medications. He continues withdrawn and paranoid and disorganized. He says he feels people are plotting against jose and he doesn't feel safe. I want to protect us. When asked who us is he talked about being homosexual and trying to protect other homosexual people. His thought process was disorganized while discussing this. He says I want a medicine that is equivalent to meth. I have been using a lot of meth.I guess that's Adderall. Explained that stimulants are not indicated in his case. When medications to alleviate his fears and worries was brought up he got angry and irritable saying I am not scared, you have to take that out of your mind.. Appears preoccupied and guarded. Review of Systems Review of Systems Constitutional: No Fever, No Chills, No Fatigue, No Malaise ENT/Mouth: No Ear Pain, No Nasal Congestion, No sore throat, No Rhinorrhea, No Swallowing Difficulty Eyes: No Eye Pain, No Swelling, No Redness Cardiovascular: No Chest Pain, No SOB, No Edema, No Palpitations Respiratory: No Cough, No Sputum, No Dyspnea Gastrointestinal: No Nausea, No Vomiting, No Diarrhea, No Constipation, No Abdominal pain Musculoskeletal: No joint pain, No Myalgias Skin: No Skin Lesions, No rash Neuro: No Weakness, No Headache Psych: No Anxiety/Panic, No Depression, No SI/HI, +AH/VH, No Social Issues Yes all other systems are reviewed and are negative Constitutional: Reports as per HPI Eyes: Reports as per HPI Reports as per HPI Cardiovascular: Reports as per HPI Respiratory: Reports as per HPI Gastrointestinal: Reports as per HPI Genitourinary: Reports as per HPI Musculoskeletal: Reports as per HPI Skin/Breast: Reports as per HPI Reports as per HPI Psychiatric: Reports as per HPI Endocrine: Reports as per HPI Hematologic/Lymphatic: Reports as per HPI Allergic/Immunologic: Reports as per HPI Mental Status Exam Mental Status Exam Narrative: Pt is alert and oriented; behavior is cooperative; patient is not in distress; dressed in casual attire; mood is described as okay and affect labile; eye contact intense; Speech is slow. normal volume and prosody and not pressured; no psychomotor agitation/retardation present; thought process is disorganized; Thought content is tangential, paranoid ideation and grandiosity; Patient reports having suicidal ideation d/t homelessness, however he states he feels safe on the unit. denies any HI. Patient observed responding to internal stimuli. Patient denies AH/VH. Patients insight and judgment appear poor. Diagnostics Vital Signs (24Hr): Vital Signs - 24 hr 06/28/22 10:36 Temperature 97.6 F Pulse Rate 72 Respiratory Rate 16 Blood Pressure 114/65 Pulse Oximetry 98 Oxygen Delivery Method Room Air BMI result Body Mass Index 22.5 Labs 06/26/22 13:12 06/27/22 08:48 Labs: Laboratory Results - last 48 hr 06/26/22 06/26/22 06/26/22 12:10 12:10 13:08 WBC RBC Hgb Hct MCV MCH MCHC RDW Plt Count MPV Immature Gran % (Auto) Neut % (Auto) Lymph % (Auto) Bent % (Auto) Eos % (Auto) Baso % (Auto) Lymph # (Auto) Bent # (Auto) Eos # (Auto) Baso # (Auto) Abs Immat Gran (auto) Absolute Neuts (auto) Absolute Nucleated RBC Nucleated RBC % (auto) Sodium Potassium Chloride Carbon Dioxide Anion Gap BUN Creatinine Estim Creat Clear Calc Estimated GFR Random Glucose Fasting Glucose Calcium Total Bilirubin AST ALT Alkaline Phosphatase Total Protein Albumin Triglycerides Cholesterol LDL Cholesterol, Calc HDL Cholesterol Urine Color Dark Yellow Urine Appearance Clear Urine pH 6.0 Ur Specific [place] >= 1.030 H Urine Protein 30 (1+) H Urine Glucose (UA) Negative Urine Ketones 15 Urine Blood Negative Urine Nitrite Negative Ur Leukocyte Esterase Negative Urine RBC 0-2 Urine WBC 0-5 Ur Squamous Epith Cells 0-2 Urine Bacteria None Seen Hyaline Casts 0-2 Salicylates Urine Opiates Screen Not Detected Urine Fentanyl Screen Not Detected Acetaminophen Ur Barbiturates Screen Not Detected Ur Phencyclidine Scrn Not Detected Ur Amphetamines Screen POSITIVE H U Benzodiazepines Scrn Not Detected Urine Cocaine Screen Not Detected U Marijuana (THC) Screen POSITIVE H Ethyl Alcohol COVID-19 (DREA) Negative COVID-19 Clin Com See Note 06/26/22 06/26/22 06/27/22 13:12 13:12 08:48 WBC 5.7 RBC 4.69 Hgb 14.4 Hct 41.1 L MCV 87.6 MCH 30.7 MCHC 35.0 RDW 12.8 Plt Count 213 MPV 9.0 L Immature Gran % (Auto) 0.2 Neut % (Auto) 46.0 Lymph % (Auto) 42.8 H Bent % (Auto) 8.5 Eos % (Auto) 1.8 Baso % (Auto) 0.7 Lymph # (Auto) 2.4 Bent # (Auto) 0.5 Eos # (Auto) 0.1 Baso # (Auto) 0.0 Abs Immat Gran (auto) 0.01 Absolute Neuts (auto) 2.6 Absolute Nucleated RBC 0.000 Nucleated RBC % (auto) 0.0 Sodium 139 137 Potassium 4.1 4.6 Chloride 105 105 Carbon Dioxide 28 26 Anion Gap 10 L 11 L BUN 15 14 Creatinine 0.79 0.80 Estim Creat Clear Calc 118.4 116.9 Estimated GFR > 60 > 60 Random Glucose 103 Fasting Glucose 93 Calcium 9.3 D 9.1 Total Bilirubin 1.1 H 0.7 AST 30 28 ALT 22 22 Alkaline Phosphatase 64 60 Total Protein 7.0 6.8 Albumin 4.4 4.3 Triglycerides 60 Cholesterol 108 LDL Cholesterol, Calc 57 HDL Cholesterol 39 Urine Color Urine Appearance Urine pH Ur Specific [place] Urine Protein Urine Glucose (UA) Urine Ketones Urine Blood Urine Nitrite Ur Leukocyte Esterase Urine RBC Urine WBC Ur Squamous Epith Cells Urine Bacteria Hyaline Casts Salicylates < 5.0 L Urine Opiates Screen Urine Fentanyl Screen Acetaminophen < 17 Ur Barbiturates Screen Ur Phencyclidine Scrn Ur Amphetamines Screen U Benzodiazepines Scrn Urine Cocaine Screen U Marijuana (THC) Screen Ethyl Alcohol < 10 COVID-19 (DREA) COVID-19 Clin Com Medications Medications Current Medications Acetaminophen (Acetaminophen 325 Mg Tablet) 650 mg PO Q6H PRN PRN Reason: Headache/Pain Mild Scale (1-3) Al Hydroxide/Mg Hydroxide (Magnesium Hydrox/Alum Hydrox 30 Ml Oral.Susp) 30 ml PO Q6H PRN PRN Reason: Heartburn/Nausea Aripiprazole (Aripiprazole 5 Mg Tablet) 5 mg PO DAILY [facility] Last Admin: 06/28/22 09:30 Dose: Not Given Dolutegravir Sodium (Dolutegravir Sodium 50 Mg Tablet) 50 mg PO DAILY [facility] Last Admin: 06/28/22 08:40 Dose: 50 mg Emtricitabine/Tenofovir Alafenamide (Emtricitabine/Tenofov Alafenam Tablet) 1 tab PO DAILY [facility] Last Admin: 06/28/22 08:41 Dose: 1 tab Hydroxyzine HCl (Hydroxyzine Hcl 25 Mg Tablet) 25 mg PO Q6H PRN PRN Reason: Anxiety Lorazepam (Lorazepam 1 Mg Tablet) 1 mg PO TID PRN PRN Reason: Anxiety Last Admin: 06/27/22 19:37 Dose: 1 mg Magnesium Hydroxide (Milk Of Magnesia 30 Ml Oral.Susp) 30 ml PO DAILY PRN PRN Reason: Constipation Trazodone HCl (Trazodone Hcl 50 Mg Tablet) 50 mg PO BEDTIME MRX1 PRN PRN Reason: Insomnia Allergies Allergies Allergy/AdvReac Type Severity Reaction Status Date / Time No Known Allergies Allergy Verified 06/26/22 13:36 Assessment & Plan Assessment & Plan (1) Schizoaffective disorder, bipolar type: Status: Acute Code(s): F25.0 - Schizoaffective disorder, bipolar type (2) Cocaine use disorder: Status: Resolved Code(s): F14.10 - Cocaine abuse, uncomplicated (3) Amphetamine use disorder, moderate, dependence: Status: Acute Code(s): F15.20 - Other stimulant dependence, uncomplicated (4) Cocaine use disorder, moderate, dependence: Status: Acute Code(s): F14.20 - Cocaine dependence, uncomplicated Plan Patient is a 32 year old male with hx of schizoaffective d/o and polysubstance abuse who self presented to [facility] ED secondary to wanting detox and reporting vague SI. CV 15 min safety checks clarify psych history Start: Abilify 5mg PO daily (Increase to 10mg if no positive affects seen with 5mg) Ativan 1mg TID PRN would benefit from sub abuse referral and tx 06/28: Increase Abilify to 10 mg. Reason for continued inpatient stay Substantial Risk for: inability to function and rapid decompensation Time Spent With Patient Time: Total time managing care of this patient today ____ minutes.
[2022-06-28] MEDS: LORazepam 1 MG TABLET PO ×3 (13:17→22:16)
[2022-06-28] MEDS: hydrOXYzine HCL 25 MG TABLET PO ×2 (15:14→20:45)
[2022-06-28 18:00] VITALS: BP 104/60; PULSE 80; RESP 18; TEMP 37.2; O2SAT 99
[2022-06-28] MEDS: Nicotine Polacrilex 2 MG GUM 4 MG BUCCAL (22:21)
[2022-06-29] MEDS: hydrOXYzine HCL 25 MG TABLET PO ×4 (03:56→23:53)
[2022-06-29] MEDS: Nicotine Polacrilex 2 MG GUM 4 MG BUCCAL ×3 (03:57→17:53)
[2022-06-29] MEDS: LORazepam 1 MG TABLET PO ×3 (07:26→15:32)
[2022-06-29] MEDS: Emtricitabine/Tenofov Alafenam TABLET 1 TAB PO (08:44)
[2022-06-29] MEDS: Dolutegravir Sodium 50 MG TABLET PO (08:44)
[2022-06-29 10:21] VITALS: BP 138/80; PULSE 87; RESP 18; TEMP 36.4; O2SAT 98
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
[2022-06-29] MEDS: traZODone HCL 50 MG TABLET PO (19:35)
[2022-06-29] MEDS: OLANZapine 10 MG VIAL IM (21:25)
[2022-06-29] MEDS: diphenhydrAMINE HCL 50 MG/ML VIAL IM (21:25)
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
[2022-06-30] MEDS: LORazepam 1 MG TABLET PO ×3 (02:41→19:26)
[2022-06-30 06:00] VITALS: RESP 16
[2022-06-30] MEDS: Dolutegravir Sodium 50 MG TABLET PO (09:03)
[2022-06-30] MEDS: Emtricitabine/Tenofov Alafenam TABLET 1 TAB PO (09:03)
[2022-06-30] MEDS: hydrOXYzine HCL 25 MG TABLET PO ×2 (09:10→15:34)
[2022-06-30] MEDS: OLANZapine ODT 10 MG TAB.RAPDIS TRANSLINGU ×2 (13:11→19:26)
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
[2022-07-01] MEDS: hydrOXYzine HCL 25 MG TABLET PO ×4 (03:09→22:08)
[2022-07-01] MEDS: LORazepam 1 MG TABLET PO ×2 (03:09→11:03)
[2022-07-01] MEDS: QUEtiapine Fumarate 100 MG TABLET PO (04:44)
[2022-07-01] MEDS: Dolutegravir Sodium 50 MG TABLET PO (08:50)
[2022-07-01] MEDS: OLANZapine ODT 10 MG TAB.RAPDIS TRANSLINGU ×2 (08:51→20:02)
[2022-07-01] MEDS: Emtricitabine/Tenofov Alafenam TABLET 1 TAB PO (08:51)
[2022-07-01] MEDS: Acetaminophen 325 MG TABLET 650 MG PO (08:56)
[2022-07-01 08:58] VITALS: BP 133/80; PULSE 97; RESP 16; TEMP 36.8; O2SAT 99
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
[2022-07-01] MEDS: Divalproex Sodium ER 250 MG TAB.ER.24H PO (12:26)
[2022-07-01] MEDS: Nicotine Polacrilex 2 MG GUM 4 MG BUCCAL ×2 (13:55→21:23)
[2022-07-01 16:51] VITALS: BP 110/61; PULSE 54; RESP 16; TEMP 36.1; O2SAT 97
[2022-07-01] MEDS: Divalproex Sodium ER 500 MG TAB.ER.24H PO (20:16)
[2022-07-02] MEDS: hydrOXYzine HCL 25 MG TABLET PO ×2 (03:13→15:09)
[2022-07-02] MEDS: LORazepam 1 MG TABLET PO ×3 (03:47→16:57)
[2022-07-02 07:46] LABS: HBc Num1 7.67 S/CO (0.00-0.79); HBsAGNum1 0.34 S/CO (0.00-0.99); Hepatitis A Antibody IgM 0.22 Index (0-0.79); Hepatitis B Surface Antigen Negative (Negative); ~HepC Num1 0.09 S/CO (0.00-0.79); ~Hepatitis A Antibody IgM Nonreactive (Nonreactive); ~Hepatitis B Surface Antibody REACTIVE (Nonreactive); ~Hepatitis C Antibody Nonreactive (Nonreactive)
[2022-07-02] MEDS: Dolutegravir Sodium 50 MG TABLET PO (08:04)
[2022-07-02] MEDS: Emtricitabine/Tenofov Alafenam TABLET 1 TAB PO (08:04)
[2022-07-02] MEDS: OLANZapine ODT 10 MG TAB.RAPDIS TRANSLINGU ×2 (08:04→22:15)
[2022-07-02 08:07] VITALS: BP 118/84; PULSE 87; RESP 18; TEMP 36.9; O2SAT 98
[2022-07-02 08:48] LABS: HIV AB/AG Reactive (Nonreactive)
[2022-07-02 08:53] LABS: HBc Num3 7.75 S/CO; Hepatitis B Core Antibody Reactive (Nonreactive)
--- NOTE | 2022-07-02 13:03 | HO.PSYCHPN ---
Subjective Subjective Date of Service: 07/02/22 Reason For Visit: SI PARANOIA SUB ABUSE Subjective Notes: Conditional Voluntary Interim History: Reviewed in team. Met pt with social services specialist present; patient presents as labile, paranoid and disorganized. Patient stated, you guys won't help me. Why won't you give me a job here? T/W explained to patient that he is welcome to apply to work for the hospital once he is feeling better and discharged, but we don't control who gets hired . Patient then stated, I don't respect women because my mothers is a fucking liar. Any women in my life is a fucking liar . T/W expressed that we are trying to help. Patient agreed to increasing dose of Depakote. Medication Compliance: Yes Attending Groups: Yes Review of Systems Medical Review of Systems: unchanged Review of Systems Review of Systems Yes all other systems are reviewed and are negative Constitutional: Reports as per HPI Eyes: Reports as per HPI Reports as per HPI Cardiovascular: Reports as per HPI Respiratory: Reports as per HPI Gastrointestinal: Reports as per HPI Genitourinary: Reports as per HPI Musculoskeletal: Reports as per HPI Skin/Breast: Reports as per HPI Reports as per HPI Psychiatric: Reports as per HPI Endocrine: Reports as per HPI Hematologic/Lymphatic: Reports as per HPI Allergic/Immunologic: Reports as per HPI Mental Status Exam Mental Status Exam Narrative: Pt is alert and oriented; behavior can be cooperative but also intermittently guarded, aggressive and threatening; patient is not in distress; dressed in hospital garb, has wrapped hospital top around his waist and turned into shorts; mood is described as fine and affect labile; eye contact intense; Speech is slow. normal volume and prosody and not pressured; no psychomotor agitation/retardation present; thought process can be goal oriented; Thought content with paranoid ideation; denies SI/HI. Patient denies AH/VH. Patients insight and judgment appear poor. Diagnostics Vital Signs (24Hr): Vital Signs - 24 hr 07/01/22 16:51 07/02/22 08:07 Temperature 97 F 98.4 F Pulse Rate 54 87 Respiratory Rate 16 18 Blood Pressure 110/61 118/84 Pulse Oximetry 97 98 Oxygen Delivery Method Room Air Room Air BMI result Body Mass Index 22.5 Labs 06/26/22 13:12 06/27/22 08:48 Labs: Laboratory Results - last 48 hr 07/01/22 07/01/22 15:27 15:27 Hepatitis A IgM Ab Nonreactive Hep Bs Antigen Negative Hep Bs Antibody REACTIVE Hep B Core Total Ab Reactive Hep B Core IgM Ab Cancelled Hepatitis C Ab (EIA) Nonreactive HIV 1&2 Ab/P24 Ag 4thGn Reactive H Medications Medications Current Medications Acetaminophen (Acetaminophen 325 Mg Tablet) 650 mg PO Q6H PRN PRN Reason: Headache/Pain Mild Scale (1-3) Last Admin: 07/01/22 08:56 Dose: 650 mg Al Hydroxide/Mg Hydroxide (Magnesium Hydrox/Alum Hydrox 30 Ml Oral.Susp) 30 ml PO Q6H PRN PRN Reason: Heartburn/Nausea Divalproex Sodium (Divalproex Sodium Er 250 Mg Tab.Er.24h) 750 mg PO BEDTIME [facility] Dolutegravir Sodium (Dolutegravir Sodium 50 Mg Tablet) 50 mg PO DAILY [facility] Last Admin: 07/02/22 08:04 Dose: 50 mg Emtricitabine/Tenofovir Alafenamide (Emtricitabine/Tenofov Alafenam Tablet) 1 tab PO DAILY [facility] Last Admin: 07/02/22 08:04 Dose: 1 tab Hydroxyzine HCl (Hydroxyzine Hcl 25 Mg Tablet) 25 mg PO Q6H PRN PRN Reason: Anxiety Last Admin: 07/02/22 03:13 Dose: 25 mg Lorazepam (Lorazepam 1 Mg Tablet) 1 mg PO TID PRN PRN Reason: Anxiety Last Admin: 07/02/22 12:45 Dose: 1 mg Magnesium Hydroxide (Milk Of Magnesia 30 Ml Oral.Susp) 30 ml PO DAILY PRN PRN Reason: Constipation Nicotine Polacrilex (Nicotine Polacrilex 2 Mg Gum) 4 mg BUCCAL Q2H PRN PRN Reason: Nicotine Cravings Last Admin: 07/01/22 21:23 Dose: 4 mg Olanzapine (Olanzapine Odt 10 Mg Tab.Rapdis) 10 mg TRANSLINGU BID [facility] Last Admin: 07/02/22 08:04 Dose: 10 mg Quetiapine Fumarate (Quetiapine Fumarate 100 Mg Tablet) 100 mg PO BID PRN PRN Reason: agitation Last Admin: 07/01/22 04:44 Dose: 100 mg Trazodone HCl (Trazodone Hcl 50 Mg Tablet) 50 mg PO BEDTIME MRX1 PRN PRN Reason: Insomnia Last Admin: 06/29/22 19:35 Dose: 50 mg Allergies Allergies Allergy/AdvReac Type Severity Reaction Status Date / Time No Known Allergies Allergy Verified 06/26/22 13:36 Assessment & Plan Assessment & Plan (1) Schizoaffective disorder, bipolar type: Status: Acute Code(s): F25.0 - Schizoaffective disorder, bipolar type (2) Cocaine use disorder: Status: Resolved Code(s): F14.10 - Cocaine abuse, uncomplicated (3) Amphetamine use disorder, moderate, dependence: Status: Acute Code(s): F15.20 - Other stimulant dependence, uncomplicated (4) Cocaine use disorder, moderate, dependence: Status: Acute Code(s): F14.20 - Cocaine dependence, uncomplicated Plan Patient is a 32 year old male with hx of schizoaffective d/o and polysubstance abuse who self presented to [facility] [place] [facility] secondary to wanting detox and reporting vague SI. CV 15 min safety checks Zyprexa Zydis 10mg PO BID Seroquel 100mg BID PRN for agitation Increase Depakote ER 1000mg PO bedtime Hospital course: 06/28: Increase Abilify to 10 mg. 06/29: Refusing Abilify. Continues paranoid and psychotic. Wants Adderall to replace methamphetamine he was using on the street. Poor insight. 06/30: Stopped Abilify d/t patient not wanting to take this medication. Patient agreed to Zyprexa Zydis, starting since pt has disorganized, psychotic presentation. He continues to request Adderall. Patient reports he does not plan on stopping using methamphetamine while he is outside the hospital. Continues with poor insight and judgment. 07/01: Per RN report, pt did not sleep last night. He continues irritable, paranoid and accusatory. Pt presenting with manic symptoms as well as psychotic. He has agreed to try Depakote to help in his mood. 07/02: Patient continues to present as labile and paranoid. Patient agrees to increase in Depakote. Patient educated on: medication risk/benefits Informed Consent: further education needed Reason for continued inpatient stay Substantial Risk for: med/psych decompensation Time Spent With Patient Time: Total time managing care of this patient today ____ minutes.
--- NOTE | 2022-07-02 13:28 | PC.NURSE ---
pt signed a 3 day notice, up on Thursday07/07/22. Provider, SW, and UR notified via [place] Text
[2022-07-02] MEDS: Nicotine Polacrilex 2 MG GUM 4 MG BUCCAL (15:42)
--- NOTE | 2022-07-02 16:23 | PC.NURSE ---
Patient agitated and said Hydroxyzine made him want to run around the building . He refused Seroquel and also insists this selling underwriter is lying about Hydroxyzine and Atarax being the same medication.
[2022-07-02 17:20] VITALS: BP 119/69; PULSE 111; TEMP 36.7
[2022-07-02] MEDS: Divalproex Sodium ER 250 MG TAB.ER.24H 750 MG PO (22:15)
[2022-07-03] MEDS: LORazepam 1 MG TABLET PO ×3 (03:09→19:45)
[2022-07-03] MEDS: hydrOXYzine HCL 25 MG TABLET PO ×3 (03:09→22:45)
[2022-07-03 07:00] VITALS: BMI 25.1
[2022-07-03] MEDS: OLANZapine ODT 10 MG TAB.RAPDIS TRANSLINGU (08:26)
[2022-07-03] MEDS: Emtricitabine/Tenofov Alafenam TABLET 1 TAB PO (08:26)
[2022-07-03] MEDS: Dolutegravir Sodium 50 MG TABLET PO (08:26)
[2022-07-03 08:34] VITALS: BP 115/84; PULSE 96; RESP 18; TEMP 20.2; O2SAT 98
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
[2022-07-03 16:30] VITALS: BP 119/66; PULSE 102; TEMP 37
[2022-07-03] MEDS: Divalproex Sodium ER 500 MG TAB.ER.24H 1000 MG PO (22:40)
[2022-07-03] MEDS: OLANZapine ODT 10 MG TAB.RAPDIS 20 MG TRANSLINGU (22:41)
[2022-07-04] MEDS: LORazepam 1 MG TABLET PO ×3 (02:32→21:13)
[2022-07-04] MEDS: Acetaminophen 325 MG TABLET 650 MG PO ×3 (02:59→23:41)
[2022-07-04] MEDS: Emtricitabine/Tenofov Alafenam TABLET 1 TAB PO (09:20)
[2022-07-04] MEDS: Dolutegravir Sodium 50 MG TABLET PO (09:20)
[2022-07-04] MEDS: Nicotine Polacrilex 2 MG GUM 4 MG BUCCAL ×2 (09:55→13:42)
--- NOTE | 2022-07-04 10:02 | P.PNPSI_ITS ---
Subjective Subjective Date of Service: 07/04/22 Reason For Visit: SI PARANOIA SUB ABUSE Interim History: met w/ patient; discussed with team pt slept on/off overnight, which is improvement still making innappropriate sexualized comments to staff, but overall in improved behavioral control and more organized in speech an behavior. Discussed treatment and pt agrees to continue medications; discussed aftercare options Mental Status Exam Mental Status Exam Narrative: Pt is alert and oriented; behavior can be cooperative and today less guarded, however remains intermittently can be verbally aggressive and inappropriate; patient is not in distress; dressed in casual attire; mood is described as great and affect congruent, more calm; eye contact appropriate; Speech is normal rate, volume and prosody and not pressured; no psychomotor agitation/retardation present; thought process can be goal oriented; Thought content about treatment and aftercare though still with some residual paranoid ideation; denies SI/HI. Patient denies AH/VH. Patients insight and judgment are impaired but improving Diagnostics Vital Signs (24Hr): Vital Signs - 24 hr 07/03/22 16:30 Temperature 98.6 F Pulse Rate 102 H Blood Pressure 119/66 BMI result Body Mass Index 25.1 Labs 06/26/22 13:12 06/27/22 08:48 Medications Medications Current Medications Acetaminophen (Acetaminophen 325 Mg Tablet) 650 mg PO Q6H PRN PRN Reason: Headache/Pain Mild Scale (1-3) Last Admin: 07/04/22 02:59 Dose: 650 mg Al Hydroxide/Mg Hydroxide (Magnesium Hydrox/Alum Hydrox 30 Ml Oral.Susp) 30 ml PO Q6H PRN PRN Reason: Heartburn/Nausea Divalproex Sodium (Divalproex Sodium Er 500 Mg Tab.Er.24h) 1,000 mg PO BEDTIME [facility] Last Admin: 07/03/22 22:40 Dose: 1,000 mg Dolutegravir Sodium (Dolutegravir Sodium 50 Mg Tablet) 50 mg PO DAILY [facility] Last Admin: 07/04/22 09:20 Dose: 50 mg Emtricitabine/Tenofovir Alafenamide (Emtricitabine/Tenofov Alafenam Tablet) 1 tab PO DAILY [facility] Last Admin: 07/04/22 09:20 Dose: 1 tab Hydroxyzine HCl (Hydroxyzine Hcl 25 Mg Tablet) 25 mg PO Q6H PRN PRN Reason: Anxiety Last Admin: 07/03/22 22:45 Dose: 25 mg Lorazepam (Lorazepam 1 Mg Tablet) 1 mg PO TID PRN PRN Reason: Anxiety Last Admin: 07/04/22 02:32 Dose: 1 mg Magnesium Hydroxide (Milk Of Magnesia 30 Ml Oral.Susp) 30 ml PO DAILY PRN PRN Reason: Constipation Nicotine Polacrilex (Nicotine Polacrilex 2 Mg Gum) 4 mg BUCCAL Q2H PRN PRN Reason: Nicotine Cravings Last Admin: 07/04/22 09:55 Dose: 4 mg Olanzapine (Olanzapine Odt 10 Mg Tab.Rapdis) 20 mg TRANSLINGU BEDTIME [facility] Last Admin: 07/03/22 22:41 Dose: 20 mg Quetiapine Fumarate (Quetiapine Fumarate 100 Mg Tablet) 100 mg PO BID PRN PRN Reason: agitation Last Admin: 07/01/22 04:44 Dose: 100 mg Trazodone HCl (Trazodone Hcl 50 Mg Tablet) 50 mg PO BEDTIME MRX1 PRN PRN Reason: Insomnia Last Admin: 06/29/22 19:35 Dose: 50 mg Allergies Allergies Allergy/AdvReac Type Severity Reaction Status Date / Time No Known Allergies Allergy Verified 06/26/22 13:36 Assessment & Plan Assessment & Plan (1) Schizoaffective disorder, bipolar type: Status: Acute Code(s): F25.0 - Schizoaffective disorder, bipolar type (2) Cocaine use disorder: Status: Resolved Code(s): F14.10 - Cocaine abuse, uncomplicated (3) Amphetamine use disorder, moderate, dependence: Status: Acute Code(s): F15.20 - Other stimulant dependence, uncomplicated (4) Cocaine use disorder, moderate, dependence: Status: Acute Code(s): F14.20 - Cocaine dependence, uncomplicated (5) Post traumatic stress disorder (PTSD): Status: Acute Code(s): F43.10 - Post-traumatic stress disorder, unspecified Plan Patient is a 32 year old male with hx of schizoaffective d/o and polysubstance abuse who self presented to [facility] ED secondary to wanting detox and reporting vague SI. PLAN: 3 day 15 min safety checks Change to Zyprexa Zydis 20 mg q.h.s.; switched to bedtime dosing since patient still not sleeping; however will leave it at 20 mg total daily dose since patients symptoms seem to be improving Seroquel 100mg BID PRN for agitation Increase Depakote ER 1000mg PO bedtime Hospital course: 06/28: Increase Abilify to 10 mg. 06/29: Refusing Abilify. Continues paranoid and psychotic. Wants Adderall to replace methamphetamine he was using on the street. Poor insight. 06/30: Stopped Abilify d/t patient not wanting to take this medication. Patient agreed to Zyprexa Zydis, starting since pt has disorganized, psychotic present ation. He continues to request Adderall. Patient reports he does not plan on stopping using methamphetamine while he is outside the hospital. Continues with poor insight and judgment. 07/01: Per RN report, pt did not sleep last night. He continues irritable, paranoid and accusatory. Pt presenting with manic symptoms as well as psychotic. He has agreed to try Depakote to help in his mood. 07/02: Patient continues to present as labile and paranoid. Patient agrees to increase in Depakote. 07/03: Patient more able to be organized in speech and behavior and appropriately discussed current treatment and aftercare plans; also with improved insight; however remains with residual paranoid ideations and still not sleeping at night. Said he will consider retracting 3 day notice 07/04 remains with improved behavioral and impulse control (though can still be labile); continue current tx plan -will get labs/depakote level Patient educated on: diagnosis, medication risk/benefits and therapeutic strategies Informed Consent: understands and further education needed Reason for continued inpatient stay Substantial Risk for: rapid decompensation Time Spent With Patient Time: Total time managing care of this patient today ____ minutes.
[2022-07-04] MEDS: hydrOXYzine HCL 25 MG TABLET PO ×2 (11:10→21:13)
[2022-07-04 11:13] VITALS: BP 131/74; PULSE 88; RESP 18; TEMP 36.4; O2SAT 98
[2022-07-04] MEDS: OLANZapine ODT 10 MG TAB.RAPDIS 20 MG TRANSLINGU (21:13)
[2022-07-04] MEDS: Divalproex Sodium ER 500 MG TAB.ER.24H 1000 MG PO (21:13)
[2022-07-05] MEDS: Emtricitabine/Tenofov Alafenam TABLET 1 TAB PO (08:15)
[2022-07-05] MEDS: Dolutegravir Sodium 50 MG TABLET PO (08:15)
[2022-07-05 08:29] VITALS: BP 118/66; PULSE 96; RESP 16; TEMP 36.5; O2SAT 98
[2022-07-05] MEDS: LORazepam 1 MG TABLET PO ×3 (08:31→19:55)
--- NOTE | 2022-07-05 08:55 | P.PNPSI_ITS ---
Subjective Subjective Date of Service: 07/05/22 Reason For Visit: SI PARANOIA SUB ABUSE Subjective Notes: 3 Day Interim History: Pt seen, reviewed in team. Sleep improved with adjustments in regime Discussed his substance use today and asked what agents can be substituted for substances. Discussed memory issues, housing and how I want to feel. Cooperative, engaged. Medication Compliance: Yes Mental Status Exam Mental Status Exam Patient Appearance: Appropriate Patient Orientation: Person, Place, Time and Situation Level of Consciousness: Alert Patient Behavior: Talkative and Good Eye Contact Mood Description: Anxious Affect Description: Anxious Patient Cognition Impaired: No Ability to Follow Directions: Good Speech Pattern: Spontaneous Speech Memory Description: Episodic Impaired Hallucinations: None Delusions: Grandiose and Present Perceptual Disturbances: Derealization Thought Process: Goal Oriented Thought Content: positive for [place], positive for Circumstantial and positive for Goal Oriented Judgement: Good Diagnostics Vital Signs (24Hr): Vital Signs - 24 hr 07/04/22 11:13 07/05/22 08:29 Temperature 97.5 F 97.7 F Pulse Rate 88 96 Respiratory Rate 18 16 Blood Pressure 131/74 118/66 Pulse Oximetry 98 98 Oxygen Delivery Method Room Air Room Air BMI result Body Mass Index 25.1 Labs 06/26/22 13:12 06/27/22 08:48 Medications Medications Current Medications Acetaminophen (Acetaminophen 325 Mg Tablet) 650 mg PO Q6H PRN PRN Reason: Headache/Pain Mild Scale (1-3) Last Admin: 07/04/22 23:41 Dose: 650 mg Al Hydroxide/Mg Hydroxide (Magnesium Hydrox/Alum Hydrox 30 Ml Oral.Susp) 30 ml PO Q6H PRN PRN Reason: Heartburn/Nausea Divalproex Sodium (Divalproex Sodium Er 500 Mg Tab.Er.24h) 1,000 mg PO BEDTIME [facility] Last Admin: 07/04/22 21:13 Dose: 1,000 mg Dolutegravir Sodium (Dolutegravir Sodium 50 Mg Tablet) 50 mg PO DAILY [facility] Last Admin: 07/05/22 08:15 Dose: 50 mg Emtricitabine/Tenofovir Alafenamide (Emtricitabine/Tenofov Alafenam Tablet) 1 tab PO DAILY [facility] Last Admin: 07/05/22 08:15 Dose: 1 tab Hydroxyzine HCl (Hydroxyzine Hcl 25 Mg Tablet) 25 mg PO Q6H PRN PRN Reason: Anxiety Last Admin: 07/04/22 21:13 Dose: 25 mg Lorazepam (Lorazepam 1 Mg Tablet) 1 mg PO TID PRN PRN Reason: Anxiety Last Admin: 07/05/22 08:31 Dose: 1 mg Magnesium Hydroxide (Milk Of Magnesia 30 Ml Oral.Susp) 30 ml PO DAILY PRN PRN Reason: Constipation Nicotine Polacrilex (Nicotine Polacrilex 2 Mg Gum) 4 mg BUCCAL Q2H PRN PRN Reason: Nicotine Cravings Last Admin: 07/04/22 13:42 Dose: 4 mg Olanzapine (Olanzapine Odt 10 Mg Tab.Rapdis) 20 mg TRANSLINGU BEDTIME [facility] Last Admin: 07/04/22 21:13 Dose: 20 mg Quetiapine Fumarate (Quetiapine Fumarate 100 Mg Tablet) 100 mg PO BID PRN PRN Reason: agitation Last Admin: 07/01/22 04:44 Dose: 100 mg Trazodone HCl (Trazodone Hcl 50 Mg Tablet) 50 mg PO BEDTIME MRX1 PRN PRN Reason: Insomnia Last Admin: 06/29/22 19:35 Dose: 50 mg Allergies Allergies Allergy/AdvReac Type Severity Reaction Status Date / Time No Known Allergies Allergy Verified 06/26/22 13:36 Assessment & Plan Assessment & Plan (1) Schizoaffective disorder, bipolar type: Status: Acute Code(s): F25.0 - Schizoaffective disorder, bipolar type (2) Cocaine use disorder: Status: Resolved Code(s): F14.10 - Cocaine abuse, uncomplicated (3) Amphetamine use disorder, moderate, dependence: Status: Acute Code(s): F15.20 - Other stimulant dependence, uncomplicated (4) Cocaine use disorder, moderate, dependence: Status: Acute Code(s): F14.20 - Cocaine dependence, uncomplicated (5) Post traumatic stress disorder (PTSD): Status: Acute Code(s): F43.10 - Post-traumatic stress disorder, unspecified Plan Patient is a 32 year old male with hx of schizoaffective d/o and polysubstance abuse who self presented to [facility] ED secondary to wanting detox and reporting vague SI. PLAN: 3 day 15 min safety checks Change to Zyprexa Zydis 20 mg q.h.s.; switched to bedtime dosing since patient still not sleeping; however will leave it at 20 mg total daily dose since patients symptoms seem to be improving Seroquel 100mg BID PRN for agitation Increase Depakote ER 1000mg PO bedtime Hospital course: 06/28: Increase Abilify to 10 mg. 06/29: Refusing Abilify. Continues paranoid and psychotic. Wants Adderall to replace methamphetamine he was using on the street. Poor insight. 06/30: Stopped Abilify d/t patient not wanting to take this medication. Patient agreed to Zyprexa Zydis, starting since pt has disorganized, psychotic presentation. He continues to request Adderall. Patient reports he does not plan on stopping using methamphetamine while he is outside the hospital. Continues with poor insight and judgment. 07/01: Per RN report, pt did not sleep last night. He continues irritable, parano id and accusatory. Pt presenting with manic symptoms as well as psychotic. He has agreed to try Depakote to help in his mood. 07/02: Patient continues to present as labile and paranoid. Patient agrees to increase in Depakote. 07/03: Patient more able to be organized in speech and behavior and appro priately discussed current treatment and aftercare plans; also with improved insight; however remains with residual paranoid ideations and still not sleeping at night. Said he will consider retracting 3 day notice 07/04 remains with improved behavioral and impulse control (though can still be labile); continue current tx plan -will get labs/depakote level 07/05/21: Continue current regime and plan. Pt requested that prn Trazodone and Seroquel be discontinued Patient educated on: medication risk/benefits, substance abuse and therapeutic strategies Informed Consent: further education needed Reason for continued inpatient stay Substantial Risk for: rapid decompensation Time Spent With Patient Time: Total time managing care of this patient today ____ minutes.
[2022-07-05] MEDS: hydrOXYzine HCL 25 MG TABLET PO ×3 (10:01→22:06)
[2022-07-05] MEDS: Acetaminophen 325 MG TABLET 650 MG PO (13:16)
[2022-07-05 17:04] VITALS: BP 121/72; PULSE 96; TEMP 36.9; O2SAT 98
[2022-07-05] MEDS: Divalproex Sodium ER 500 MG TAB.ER.24H 1000 MG PO (19:53)
[2022-07-05] MEDS: OLANZapine ODT 10 MG TAB.RAPDIS 20 MG TRANSLINGU (20:46)
[2022-07-06 06:00] VITALS: BP 116/79; PULSE 94; RESP 16; TEMP 36.6; O2SAT 98
[2022-07-06] MEDS: Dolutegravir Sodium 50 MG TABLET PO (07:54)
[2022-07-06] MEDS: Emtricitabine/Tenofov Alafenam TABLET 1 TAB PO (07:55)
[2022-07-06] MEDS: LORazepam 1 MG TABLET PO ×3 (08:34→18:44)
[2022-07-06] MEDS: Nicotine Polacrilex 2 MG GUM 4 MG BUCCAL (10:57)
[2022-07-06] MEDS: hydrOXYzine HCL 25 MG TABLET PO ×2 (10:57→17:17)
--- NOTE | 2022-07-06 16:36 | P.PNPSI_ITS ---
Subjective Subjective Date of Service: 07/06/22 Reason For Visit: SI PARANOIA SUB ABUSE Interim History: Pt reviewed with team. 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 Retracted his three day notice of intent with team today. Mental Status Exam Mental Status Exam Patient Appearance: Appropriate Patient Orientation: Person, Place, Time and Situation Level of Consciousness: Alert Patient Behavior: Talkative and Good Eye Contact Mood Description: Anxious Affect Description: Anxious Patient Cognition Impaired: No Ability to Follow Directions: Good Speech Pattern: Spontaneous Speech Memory Description: Episodic Impaired Hallucinations: None Delusions: Grandiose and Present Perceptual Disturbances: Derealization Thought Process: Goal Oriented Thought Content: positive for [place], positive for Circumstantial and positive for Goal Oriented Judgement: Good Diagnostics Vital Signs (24Hr): Vital Signs - 24 hr 07/05/22 17:04 07/06/22 06:00 Temperature 98.5 F 97.9 F Pulse Rate 96 94 Respiratory Rate 16 Blood Pressure 121/72 116/79 Pulse Oximetry 98 98 Oxygen Delivery Method Room Air Room Air BMI result Body Mass Index 25.1 Labs 06/26/22 13:12 06/27/22 08:48 Medications Medications Current Medications Acetaminophen (Acetaminophen 325 Mg Tablet) 650 mg PO Q6H PRN PRN Reason: Headache/Pain Mild Scale (1-3) Last Admin: 07/05/22 13:16 Dose: 650 mg Al Hydroxide/Mg Hydroxide (Magnesium Hydrox/Alum Hydrox 30 Ml Oral.Susp) 30 ml PO Q6H PRN PRN Reason: Heartburn/Nausea Divalproex Sodium (Divalproex Sodium Er 500 Mg Tab.Er.24h) 1,000 mg PO BEDTIME [facility] Last Admin: 07/05/22 19:53 Dose: 1,000 mg Dolutegravir Sodium (Dolutegravir Sodium 50 Mg Tablet) 50 mg PO DAILY [facility] Last Admin: 07/06/22 07:54 Dose: 50 mg Emtricitabine/Tenofovir Alafenamide (Emtricitabine/Tenofov Alafenam Tablet) 1 tab PO DAILY [facility] Last Admin: 07/06/22 07:55 Dose: 1 tab Hydroxyzine HCl (Hydroxyzine Hcl 25 Mg Tablet) 25 mg PO Q6H PRN PRN Reason: Anxiety Last Admin: 07/06/22 10:57 Dose: 25 mg Lorazepam (Lorazepam 1 Mg Tablet) 1 mg PO TID PRN PRN Reason: Anxiety Last Admin: 07/06/22 14:11 Dose: 1 mg Magnesium Hydroxide (Milk Of Magnesia 30 Ml Oral.Susp) 30 ml PO DAILY PRN PRN Reason: Constipation Nicotine Polacrilex (Nicotine Polacrilex 2 Mg Gum) 4 mg BUCCAL Q2H PRN PRN Reason: Nicotine Cravings Last Admin: 07/06/22 10:57 Dose: 4 mg Olanzapine (Olanzapine Odt 10 Mg Tab.Rapdis) 20 mg TRANSLINGU BEDTIME [facility] Last Admin: 07/05/22 20:46 Dose: 20 mg Allergies Allergies Allergy/AdvReac Type Severity Reaction Status Date / Time No Known Allergies Allergy Verified 06/26/22 13:36 Assessment & Plan Assessment & Plan (1) Schizoaffective disorder, bipolar type: Status: Acute Code(s): F25.0 - Schizoaffective disorder, bipolar type (2) Cocaine use disorder: Status: Resolved Code(s): F14.10 - Cocaine abuse, uncomplicated (3) Amphetamine use disorder, moderate, dependence: Status: Acute Code(s): F15.20 - Other stimulant dependence, uncomplicated (4) Cocaine use disorder, moderate, dependence: Status: Acute Code(s): F14.20 - Cocaine dependence, uncomplicated (5) Post traumatic stress disorder (PTSD): Status: Acute Code(s): F43.10 - Post-traumatic stress disorder, unspecified Plan Patient is a 32 year old male with hx of schizoaffective d/o and polysubstance abuse who self presented to [facility] secondary to wanting detox and reporting vague SI. PLAN: 3 day 15 min safety checks Change to Zyprexa Zydis 20 mg q.h.s.; switched to bedtime dosing since patient still not sleeping; however will leave it at 20 mg total daily dose since patients symptoms seem to be improving Seroquel 100mg BID PRN for agitation Increase Depakote ER 1000mg PO bedtime Hospital course: 06/28: Increase Abilify to 10 mg. 06/29: Refusing Abilify. Continues paranoid and psychotic. Wants Adderall to replace methamphetamine he was using on the street. Poor insight. 06/30: Stopped Abilify d/t patient not wanting to take this medication. Patient agreed to Zyprexa Zydis, starting since pt has disorganized, psychotic presentation. He continues to request Adderall. Patient reports he does not plan on stopping using methamphetamine while he is outside the hospital. Continues with poor insight and judgment. 07/01: Per RN report, pt did not sleep last night. He continues irritable, paranoid and accusatory. Pt presenting with manic symptoms as well as psychotic. He has agreed to try Depakote to help in his mood. 07/02: Patient continues to present as labile and paranoid. Patient agrees to increase in Depakote. 07/03: Patient more able to be organized in speech and behavior and appropriately discussed current treatment and aftercare plans; also with improved insight; however remains with residual paranoid ideations and still not sleeping at night. Said he will consider retracting 3 day notice 07/04 remains with improved behavioral and impulse control (though can still be labile); continue current tx plan -will get labs/depakote level 07/06/22: Continue current regime and plan of care. Informed Consent: understands Reason for continued inpatient stay Substantial Risk for: rapid decompensation Time Spent With Patient Time: Total time managing care of this patient today ____ minutes.
[2022-07-06 16:53] VITALS: BP 119/81; PULSE 115; TEMP 36.7; O2SAT 98
[2022-07-06] MEDS: Acetaminophen 325 MG TABLET 650 MG PO (18:04)
[2022-07-06] MEDS: OLANZapine ODT 10 MG TAB.RAPDIS 20 MG TRANSLINGU (20:23)
[2022-07-06] MEDS: Divalproex Sodium ER 500 MG TAB.ER.24H 1000 MG PO (20:23)
[2022-07-07 08:15] VITALS: BP 119/80; PULSE 98; RESP 18; TEMP 36.2; O2SAT 98
[2022-07-07] MEDS: Dolutegravir Sodium 50 MG TABLET PO (08:26)
[2022-07-07] MEDS: Emtricitabine/Tenofov Alafenam TABLET 1 TAB PO (08:27)
[2022-07-07] MEDS: LORazepam 1 MG TABLET PO ×3 (08:43→17:41)
[2022-07-07] MEDS: hydrOXYzine HCL 25 MG TABLET PO ×3 (08:56→20:21)
[2022-07-07] MEDS: Nicotine Polacrilex 2 MG GUM 4 MG BUCCAL ×2 (09:03→13:23)
[2022-07-07 09:24] LABS: Ammonia 32 umol/L (13-55)
[2022-07-07 09:39] LABS: Alanine Aminotransferase 71 U/L (0-40); Albumin Level 4.5 g/dL (3.5-5.0); Alkaline Phosphatase 52 U/L (39-117); Aspartate Amino Transferase 34 U/L (5-37); Bilirubin Direct 0.1 mg/dL (0.0-0.5); Bilirubin Total 0.4 mg/dL (0.0-1.0); Total Protein 7.3 g/dL (6.5-8.0)
[2022-07-07 09:47] LABS: Valproate 60.2 mcg/mL (50.0-100.0)
--- NOTE | 2022-07-07 14:00 | HO.PSYCHPN ---
Documented by User: Sara Ortiz NP 07/07/22 14:34 Subjective Subjective Date of Service: 07/07/22 Reason For Visit: SI PARANOIA SUB ABUSE Subjective Notes: Conditional Voluntary Interim History: Pt reviewed with team. Met with patient and outreach and education social worker. Patient reports he is looking forward to discharge and following up with his outpatient appointments. Patient stated, I want to be able to leave here and help other people who have been in my situation . Patient expressing gratitude towards outreach and education social worker and T/W regarding receiving treatment. Patient denies SI, HI, VH, AH at this time. Medication Compliance: Yes Side effects from medications: No Attending Groups: Yes Review of Systems Medical Review of Systems: unchanged Review of Systems Review of Systems Yes all other systems are reviewed and are negative Constitutional: Reports as per HPI Eyes: Reports as per HPI Reports as per HPI Cardiovascular: Reports as per HPI Respiratory: Reports as per HPI Gastrointestinal: Reports as per HPI Genitourinary: Reports as per HPI Musculoskeletal: Reports as per HPI Skin/Breast: Reports as per HPI Reports as per HPI Psychiatric: Reports as per HPI Endocrine: Reports as per HPI Hematologic/Lymphatic: Reports as per HPI Allergic/Immunologic: Reports as per HPI Mental Status Exam Mental Status Exam Narrative: Pt is alert and oriented; behavior cooperative and less guarded; patient is not in distress; dressed in casual attire; mood is described as great and affect congruent, more calm; eye contact appropriate; Speech is normal rate, volume and prosody and not pressured; no psychomotor agitation/retardation present; thought process is goal oriented; Thought content about treatment and aftercare though still with some residual paranoid ideation; denies SI/HI. Patient denies AH/VH. Patients insight and judgment are fair. Diagnostics Vital Signs (24Hr): Vital Signs - 24 hr 07/06/22 16:53 07/07/22 08:15 Temperature 98.0 F 97.2 F Pulse Rate 115 H 98 Respiratory Rate 18 Blood Pressure 119/81 119/80 Pulse Oximetry 98 98 Oxygen Delivery Method Room Air Room Air BMI result Body Mass Index 25.1 Labs 06/26/22 13:12 06/27/22 08:48 Labs: Laboratory Results - last 48 hr 07/07/22 07/07/22 07/07/22 09:08 09:08 09:08 Total Bilirubin 0.4 Direct Bilirubin 0.1 AST 34 ALT 71 H Alkaline Phosphatase 52 Ammonia 32 Total Protein 7.3 Albumin 4.5 Valproic Acid 60.2 Medications Medications Current Medications Acetaminophen (Acetaminophen 325 Mg Tablet) 650 mg PO Q6H PRN PRN Reason: Headache/Pain Mild Scale (1-3) Last Admin: 07/06/22 18:04 Dose: 650 mg Al Hydroxide/Mg Hydroxide (Magnesium Hydrox/Alum Hydrox 30 Ml Oral.Susp) 30 ml PO Q6H PRN PRN Reason: Heartburn/Nausea Divalproex Sodium (Divalproex Sodium Er 500 Mg Tab.Er.24h) 1,000 mg PO BEDTIME ALISTAIR Last Admin: 07/06/22 20:23 Dose: 1,000 mg Dolutegravir Sodium (Dolutegravir Sodium 50 Mg Tablet) 50 mg PO DAILY [facility] Last Admin: 07/07/22 08:26 Dose: 50 mg Emtricitabine/Tenofovir Alafenamide (Emtricitabine/Tenofov Alafenam Tablet) 1 tab PO DAILY ALISTAIR Last Admin: 07/07/22 08:27 Dose: 1 tab Hydroxyzine HCl (Hydroxyzine Hcl 25 Mg Tablet) 25 mg PO Q6H PRN PRN Reason: Anxiety Last Admin: 07/07/22 08:56 Dose: 25 mg Lorazepam (Lorazepam 1 Mg Tablet) 1 mg PO TID PRN PRN Reason: Anxiety Last Admin: 07/07/22 08:43 Dose: 1 mg Magnesium Hydroxide (Milk Of Magnesia 30 Ml Oral.Susp) 30 ml PO DAILY PRN PRN Reason: Constipation Nicotine Polacrilex (Nicotine Polacrilex 2 Mg Gum) 4 mg BUCCAL Q2H PRN PRN Reason: Nicotine Cravings Last Admin: 07/07/22 13:23 Dose: 4 mg Olanzapine (Olanzapine Odt 10 Mg Tab.Rapdis) 20 mg TRANSLINGU BEDTIME ALISTAIR Last Admin: 07/06/22 20:23 Dose: 20 mg Allergies Allergies Allergy/AdvReac Type Severity Reaction Status Date / Time No Known Allergies Allergy Verified 06/26/22 13:36 Assessment & Plan Assessment & Plan (1) Schizoaffective disorder, bipolar type: Status: Acute Code(s): F25.0 - Schizoaffective disorder, bipolar type (2) Cocaine use disorder: Status: Resolved Code(s): F14.10 - Cocaine abuse, uncomplicated (3) Amphetamine use disorder, moderate, dependence: Status: Acute Code(s): F15.20 - Other stimulant dependence, uncomplicated (4) Cocaine use disorder, moderate, dependence: Status: Acute Code(s): F14.20 - Cocaine dependence, uncomplicated (5) Post traumatic stress disorder (PTSD): Status: Acute Code(s): F43.10 - Post-traumatic stress disorder, unspecified Plan Patient is a 32 year old male with hx of schizoaffective d/o and polysubstance abuse who self presented to [facility] secondary to wanting detox and reporting vague SI. PLAN: CV 15 min safety checks Change to Zyprexa Zydis 20 mg q.h.s.; switched to bedtime dosing since patient still not sleeping; however will leave it at 20 mg total daily dose since patients symptoms seem to be improving Seroquel 100mg BID PRN for agitation Increase Depakote ER 1000mg PO bedtime Hospital course: 06/28: Increase Abilify to 10 mg. 06/29: Refusing Abilify. Continues paranoid and psychotic. Wants Adderall to replace methamphetamine he was using on the street. Poor insight. 06/30: Stopped Abilify d/t patient not wanting to take this medication. Patient agreed to Zyprexa Zydis, starting since pt has disorganized, psychotic presentation. He continues to request Adderall. Patient reports he does not plan on stopping using methamphetamine while he is outside the hospital. Continues with poor insight and judgment. 07/01: Per RN report, pt did not sleep last night. He continues irritable, paranoid and accusatory. Pt presenting with manic symptoms as well as psychotic. He has agreed to try Depakote to help in his mood. 07/02: Patient continues to present as labile and paranoid. Patient agrees to increase in Depakote. 07/03: Patient more able to be organized in speech and behavior and appropriately discussed current treatment and aftercare plans; also with improved insight; however remains with residual paranoid ideations and still not sleeping at night. Said he will consider retracting 3 day notice 07/04 remains with improved behavioral and impulse control (though can still be labile); continue current tx plan -will get labs/Depakote level 07/06/22: Continue current regime and plan of care. 07/07: Patient looking forward to being discharged tomorrow. He plans on following up with his outpatient appointments and continuing to take his medications. Patient educated on: therapeutic strategies Informed Consent: further education needed Reason for continued inpatient stay Substantial Risk for: stable for discharge Time Spent With Patient Time: Total time managing care of this patient today ____ minutes. Documented by User: Gordo San MD 07/08/22 15:43 Subjective Subjective Reason For Visit: SI PARANOIA SUB ABUSE Diagnostics Labs 06/26/22 13:12 06/27/22 08:48 Assessment & Plan Assessment & Plan (1) Schizoaffective disorder, bipolar type: Status: Acute Code(s): F25.0 - Schizoaffective disorder, bipolar type (2) Cocaine use disorder: Status: Resolved Code(s): F14.10 - Cocaine abuse, uncomplicated (3) Amphetamine use disorder, moderate, dependence: Status: Acute Code(s): F15.20 - Other stimulant dependence, uncomplicated (4) Cocaine use disorder, moderate, dependence: Status: Acute Code(s): F14.20 - Cocaine dependence, uncomplicated (5) Post traumatic stress disorder (PTSD): Status: Acute Code(s): F43.10 - Post-traumatic stress disorder, unspecified Plan Patient is a 32 year old male with hx of schizoaffective d/o and polysubstance abuse who self presented to [facility] secondary to wanting detox and reporting vague SI. PLAN: CV 15 min safety checks Change to Zyprexa Zydis 20 mg q.h.s.; switched to bedtime dosing since patient still not sleeping; however will leave it at 20 mg total daily dose since patients symptoms seem to be improving Seroquel 100mg BID PRN for agitation Increase Depakote ER 1000mg PO bedtime Hospital course: 06/28: Increase Abilify to 10 mg. 06/29: Refusing Abilify. Continues paranoid and psychotic. Wants Adderall to replace methamphetamine he was using on the street. Poor insight. 06/30: Stopped Abilify d/t patient not wanting to take this medication. Patient agreed to Zyprexa Zydis, starting since pt has disorganized, psychotic presentation. He continues to request Adderall. Patient reports he does not plan on stopping using methamphetamine while he is outside the hospital. Continues with poor insight and judgment. 07/01: Per RN report, pt did not sleep last night. He continues irritable, paranoid and accusatory. Pt presenting with manic symptoms as well as psychotic. He has agreed to try Depakote to help in his mood. 07/02: Patient continues to present as labile and paranoid. Patient agrees to increase in Depakote. 07/03: Patient more able to be organized in speech and behavior and appropriately discussed current treatment and aftercare plans; also with improved insight; however remains with residual paranoid ideations and still not sleeping at night. Said he will consider retracting 3 day notice 07/04 remains with improved behavioral and impulse control (though can still be labile); continue current tx plan -will get labs/Depakote level 07/06/22: Continue current regime and plan of care. 07/07: Patient looking forward to being discharged tomorrow. He plans on following up with his outpatient appointments and continuing to take his medications. Patient remains organized behavior and speech; he is in a good mood and future oriented with plans to follow up and continue medication. Patient of course remains at risk for relapse or mood dysregulation however this is a chronic issue for him that will not resolve with a longer stay on inpatient unit. Patient is not in imminent risk for harm to self or others and appropriate to continue treatment in the community.
[2022-07-07] MEDS: Divalproex Sodium ER 500 MG TAB.ER.24H 1000 MG PO (20:20)
[2022-07-07] MEDS: OLANZapine ODT 10 MG TAB.RAPDIS 20 MG TRANSLINGU (20:21)
[2022-07-07 20:40] VITALS: BP 121/72; PULSE 91; TEMP 35.9
[2022-07-08] MEDS: hydrOXYzine HCL 25 MG TABLET PO ×2 (02:21→08:21)
[2022-07-08] MEDS: LORazepam 1 MG TABLET PO (02:55)
[2022-07-08 08:16] VITALS: BP 127/80; PULSE 109; RESP 16; TEMP 36.4; O2SAT 98
[2022-07-08] MEDS: Emtricitabine/Tenofov Alafenam TABLET 1 TAB PO (08:17)
[2022-07-08] MEDS: Dolutegravir Sodium 50 MG TABLET PO (08:17)
[2022-07-08] MEDS: Nicotine Polacrilex 2 MG GUM 4 MG BUCCAL (08:22)
--- NOTE | 2022-07-08 09:22 | P.DS_ITS ---
DS: Providers Provider Date of Service: 07/08/22 Date of admission: 06/26/22 21:26 Date of discharge: 07/08/22 Primary care physician: [facility] Attending physician on admission: Sara Ortiz Attending physician on discharge: Sara Ortiz DS: Diagnosis Discharge Diagnosis (1) Schizoaffective disorder, bipolar type: Status: Acute (2) Cocaine use disorder: Status: Resolved (3) Amphetamine use disorder, moderate, dependence: Status: Acute (4) Cocaine use disorder, moderate, dependence: Status: Acute (5) Post traumatic stress disorder (PTSD): Status: Acute DS: Medications Discharge Medications Home Medications: Home Medications Medication Instructions Recorded Confirmed dolutegravir 50 mg tablet (Tivicay) 50 mg PO QAM 06/26/22 06/26/22 emtricitabine 200 mg-tenofovir 1 tab PO QAM 06/26/22 06/26/22 alafenamide fumarate 25 mg tablet (Descovy) Previous Rx's Medication Instructions Recorded divalproex 500 mg tablet,extended 1,000 mg PO BEDTIME 30 days #60 07/07/22 release 24 hr tabs hydroxyzine HCl 25 mg tablet 25 mg PO BID PRN Anxiety 30 days 07/07/22 #60 tabs lorazepam 1 mg tablet 1 mg PO DAILY PRN Anxiety 3 days 07/07/22 #3 tabs olanzapine 20 mg disintegrating 20 mg PO BEDTIME 30 days #30 tabs 07/07/22 tablet Mental Status Exam Mental Status Exam Narrative: Pt is alert and oriented; behavior is cooperative, friendly and calm; patient is not in distress; dressed in casual attire; mood is described as good ; eye contact appropriate; Speech is normal rate, volume and prosody and not pressured; no psychomotor agitation/retardation present; thought process is organized and goal directed; Thought content is on tx; otherwise pertinent to relevant topics and without any delusional content, paranoid ideations or grandiosity; denies any SI/HI. There is no evidence of perceptual disturb ance.Patients insight and judgment appear fair. Data Data Completed and Pending Completed studies during hospitalization [Text1]: 07/01/22 07/01/22 07/02/22 15:27 15:27 15:27 Total Bilirubin Direct Bilirubin AST ALT Alkaline Phosphatase Ammonia Total Protein Albumin Valproic Acid Hepatitis A IgM Ab Nonreactive Hep Bs Antigen Negative Hep Bs Antibody REACTIVE Hep B Core Total Ab Reactive Hep B Core IgM Ab Cancelled Hepatitis C Ab (EIA) Nonreactive HIV-1 Antibody Pending HIV-1 RNA, Qual (TMA) Pending HIV-2 Antibody Pending HIV 1&2 Ab/P24 Ag 4thGn Reactive H 07/07/22 07/07/22 07/07/22 09:08 09:08 09:08 Total Bilirubin 0.4 Direct Bilirubin 0.1 AST 34 ALT 71 H Alkaline Phosphatase 52 Ammonia 32 Total Protein 7.3 Albumin 4.5 Valproic Acid 60.2 Hepatitis A IgM Ab Hep Bs Antigen Hep Bs Antibody Hep B Core Total Ab Hep B Core IgM Ab Hepatitis C Ab (EIA) HIV-1 Antibody HIV-1 RNA, Qual (TMA) HIV-2 Antibody HIV 1&2 Ab/P24 Ag 4thGn DS: Summary Hospital Course Hospital Course: Patient is a 32 year old male with hx of schizoaffective d/o, extensive trauma and PTSD symptoms and polysubstance abuse who self presented to [facility] [place] [facility] disorganized with psychotic symptoms, wanting detox and reporting vague SI. Hospital course: On admission patient was disorganized, manic, angry and delusional; patient yelling, swearing at staff and particularly volatile towards female staff.. He did however agree to start medication; initially started on Abilify however this was not helpful; he was switched to Zyprexa which helped reduce some of the delusional symptoms however he remained manic, not sleeping at all and so was started on Depakote. On both Zyprexa and Depakote patient's manic, delusional and psychotic symptoms subsided. He became organized in both speech and behavior. Patient was in a good mood, future oriented, and engaged in treatment. Patient remained emotionally reactive and could sometimes be easily triggered by events on the milieu but he was overall able to remain in good behavioral and impulse control. Patient was engaged in treatment and involved in setting up aftercare which included a coach professional athletes, therapist and provider. On discharge, patient reports feeling good . Patient was organized in both speech behavior and psychotic and disorganized symptoms resolved. He no longer presents as labile and paranoid. Patient is future and goal oriented. He is looking forward to leaving and attending his outpatient appointments. Patient stated, I'm going to keep taking my medication and I want to help other people who are in my situation . Patient is hoping he is able to maintain sobriety from substances, however, he knows that this is going to be difficult for him and that he may relapse. Patient stated that if this was to occur he would reach out for help . Patient denies SI/HI/VH/AH. Patient was not in imminent risk for harm to self or others and appropriate to return to the community for treatment. Request for discharge honored. Time spent discussing smoking cessation with patient: 3 to 10 minutes Status at Discharge Cognitive/behavioral status at discharge: Patient was interviewed prior to discharge and found to be fully oriented and without any SI or HI. Patient has insight and demonstrates good judgment in terms of wanting to pursue treatment. Patient is not in imminent risk of harm to self or others and has a safety plan that includes presenting to the closest ER or calling 911 if feeling unsafe. Patient has been observed closely by nursing and unit staff throughout admission; patient has not engaged in any behaviors that suggest dangerousness to self or others and has demonstrated appropriate behaviors and impulse control Functional status at discharge: independent ambulation Overall status at discharge: patient is back to baseline Time Spent with Patient Time attestation: Total time managing care of this patient today ____ minutes. Time spent: Greater than 30 minutes Discharge Plan Discharge Anticipated Discharge Date/Time: 07/08/22 10:00 Patient Disposition: Skilled Nursing Discharge Diagnosis: Schizoaffective d/o, PTSD, Amphetamine use d/o Referrals: [facility] [Other] - 1 Week (Referral for substance use treatment program ([facility]) Patient should follow-up on referral after discharge ) [facility] [Other] - 1 Week (Walk in if needed) [facility] [Other] - 1 Week (Referral for substance use treatment ([facility]) Patient should follow-up on referral after discharge) [facility] [Other] - 1 Week (Referral to [facility] for substance use treatment Patient should follow-up on referral after discharge) [facility] [Other] - 07/08/22 11:00 am (Initial Diagnostic Evaluation for Therapy and Psychiatry services Appointment is in person at [facility]. ) [facility] [Other] - 1 Week (Referral for Recovery Support Navigator Patient should follow-up with [facility] PERSON regarding referral after discharge.) [facility] [Other] - 1 Week (Referral to [facility] Application submitted online. Patient can follow-up on referral after discharge.) [facility] [Other] - 1 Week (Information for [facility] Patient may follow-up with [facility] for Recovery Support ) [facility] [Other] - 1 Week (Skilled Nursing Information) [facility] - [facility] (Skilled Nursing Information) Discharge Medications: New divalproex 500 mg Tablet Extended Release 24 Hr 1,000 mg PO BEDTIME 30 Days Qty: 60 0RF olanzapine 20 mg tablet,disintegrating 20 mg PO BEDTIME 30 Days Qty: 30 0RF hydroxyzine HCl 25 mg Tablet 25 mg PO BID PRN (Reason: Anxiety) 30 Days Qty: 60 0RF lorazepam 1 mg Tablet 1 mg PO DAILY PRN (Reason: Anxiety) 3 Days Qty: 3 0RF Continued Tivicay 50 mg tablet 50 mg PO QAM Descovy 200-25 mg tablet 1 tab PO QAM Discharge Orders: Discharge Order (Routine); Ordered 07/07/22 Ordered By: Sara Ortiz Diet: Regular diet Activity on Discharge: As tolerated Stand Alone Forms: Patient Portal Discharge page, Community Support Care Plan Goals: Maintain mood and safe behaviors Take medications as prescribed Continue to pursue sobriety Practice coping skills Continue with outpatient providers and reach out to them as needed Health Concerns: Mood stability and behaviors Sobriety Plan of Treatment: Follow up with your PCP, psychiatric provider and other outpatient providers regarding above concerns Take medications as prescribed Assessment: Risk assessment at time of discharge: Patient was interviewed prior to discharge and found to be fully oriented and without any SI or HI. Patient has insight and demonstrates good judgment in terms of wanting to pursue treatment. Patient is not in imminent risk of harm to self or others and has a safety plan that includes presenting to the closest ER or calling 911 if feeling unsafe. Patient has been observed closely by nursing and unit staff throughout admission; patient has not engaged in any behaviors that suggest dangerousness to self or others and has demonstrated appropriate behaviors and impulse control Discharge Date/Time: 07/08/22 10:57
== END 2022-07-08 10:57 | disposition home or self-care (01) | DRG 750 ==
LOC: HO.ED 14:44 → HO.PM5 21:32
PROVIDERS: Emergency Medicine; Psychiatry & Neurology Psychiatry; Admitting Provider Psychiatry & Neurology Psychiatry; Emergency Provider Student in an Organized Health Care Education/Training Program; Visit Provider Registered Nurse
DX: F25.0 Schizoaffective disorder, bipolar type (principal); R45.851 Suicidal ideations; F14.20 Cocaine dependence, uncomplicated; F15.20 Other stimulant dependence, uncomplicated; F17.210 Nicotine dependence, cigarettes, uncomplicated; F43.10 Post-traumatic stress disorder, unspecified; Z71.6 Tobacco abuse counseling; Z79.899 Other long term (current) drug therapy
CPT/HCPCS: 36415; 80053; 80061; 80076; 80143; 80164; 80179; 80307; 81001; 82140; 85025; 86701; 86702; 86704; 86706; 86709; 86803; 87340; 87389; 87635; 93005; 99285; J1200; S9485

== ENCOUNTER 2022-10-04 16:36 | Emergency (ER) | payer MEDICAID, SELFPAY ==
[2022-10-04] MEDS: diphenhydrAMINE HCL 25 MG CAPSULE 50 MG PO (16:47)
[2022-10-04] MEDS: LORazepam 1 MG TABLET 2 MG PO (16:48)
[2022-10-04] MEDS: HaloperidoL 5 MG TABLET PO (16:49)
[2022-10-04 16:52] VITALS: BP 132/78; PULSE 78; RESP 18; TEMP 36.2; O2SAT 98; BMI 24.2
--- OUTSIDE RECORDS SUMMARY | 2022-10-04 17:10 | XMS_ITS | Continuity of Care Document ---
Author Name Unknown Organization [facility] ter Address [address] [place] [id number] Encounter [facility] [place] [facility] Date(s): 09/10/22 - 09/10/[address] [id number]- Attending Physician: Susan THORNE, Elis Darnell
--- NOTE | 2022-10-04 17:25 | ED.GENADULT ---
HPI - General Adult General Chief complaint: Psychiatric Symptoms Stated complaint: section 12 Time Seen by Provider: 10/04/22 16:40 Source: patient, EMS, RN notes reviewed and old records reviewed Mode of arrival: EMS Limitations: other (agitated, not cooperative) History of Present Illness HPI narrative: A 32-year-old male presents for evaluation of agitation. Patient has a medical history significant for PTSD, polysubstance abuse, schizoaffective disorder. He arrives to the emergency department screaming and yelling, Exam is limited secondary to agitation and the patient's cooperation. He is accusing staff of not helping and when he is ?being hunted and people are trying to kill me. ? He continues to state ?you people are doing nothing for me. ? He has no somatic complaints Patient was given oral medications on arrival that he took willingly. He was given Benadryl 50 mg, Ativan 2 mg and Haldol 5 mg Related Data Home Medications Medication Instructions Recorded Confirmed dolutegravir 50 mg tablet (Tivicay) 50 mg PO QAM 06/26/22 06/26/22 emtricitabine 200 mg-tenofovir 1 tab PO QAM 06/26/22 06/26/22 alafenamide fumarate 25 mg tablet (Descovy) Previous Rx's Medication Instructions Recorded divalproex 500 mg tablet,extended 1,000 mg PO BEDTIME 30 days #60 07/07/22 release 24 hr tabs hydroxyzine HCl 25 mg tablet 25 mg PO BID PRN Anxiety 30 days 07/07/22 #60 tabs lorazepam 1 mg tablet 1 mg PO DAILY PRN Anxiety 3 days 07/07/22 #3 tabs olanzapine 20 mg disintegrating 20 mg PO BEDTIME 30 days #30 tabs 07/07/22 tablet Allergies Allergy/AdvReac Type Severity Reaction Status Date / Time No Known Allergies Allergy Verified 06/26/22 13:36 Review of Systems Constitutional: Constitutional: Denies chills and Denies fever(s) Cardiovascular: Cardiovascular: Denies chest pain PMFSH Past Medical History Medical History (Updated 10/04/22 @ 17:55 by Foreign Sol) Acute anxiety Amphetamine use disorder, severe Anxiety Asthma Cocaine use disorder, moderate, dependence Depression Polysubstance abuse Post traumatic stress disorder (PTSD) Schizoaffective disorder, bipolar type Social History Social History Household Members: None Household Members Other:: mother Housing: Homeless Do you presently have visiting nurse or other home services: No Unable to assess alcohol history related to: Unknown Alcohol intake: current Alcohol intake frequency: a few times a week Alcohol type: beer, wine and hard liquor Patient Tobacco Use Status: Current someday Tobacco user Tobacco use type: Cigarette Cigarette Packs Per Day: 1 Cigarettes Per Day: 20.0 Years Smoked: 10 e-Cigarette/Vaping Use: Former Use Substance Use Type: Crack/Cocaine, Marijuana and Methamphetamine Advance Directives: No Advance Directives Information Provided: No service: No Sexual orientation: Unable to collect Physical Exam ED Vital Signs: Vital Signs - 24 hr 10/04/22 16:52 Temperature 97.1 F Pulse Rate 78 Respiratory Rate 18 Blood Pressure 132/78 Pulse Oximetry 98 Oxygen Delivery Method Room Air BMI result Body Mass Index 24.2 Const General: healthy appearing, comfortable, no acute distress, alert and awake Nutritional Appearance: well nourished Orientation/consciousness: patient oriented x3 HENMT Head: Yes normocephalic and Yes atraumatic Eyes Eyelids: Yes eyelids normal Conjunctivae: conjunctivae normal Sclerae: sclerae normal Corneas: corneas normal Pupils: Equal, round and reactive pupils present EOM: EOMs intact bilaterally Neck Neck: Yes full ROM Resp Effort & Inspection: normal respiratory effort, able to speak in complete sentences and not labored Cardio Rate: regular rate Rhythm: regular rhythm Skin General skin exam: no rashes or lesions noted and elasticity normal Neuro General: patient oriented x3 Cranial nerves: Yes Equal, round and reactive pupils present and Yes Bilaterally intact EOM present Extrem Other: Moving all extremities well without any obvious deformities Psych Speech and movement: Clear speech present Affect: Labile affect present and Hostile affect present Attitude: Belligerent attititude/behavior present Thought content: Paranoid delusions present Medications Administered Discontinued Medications Generic Name Dose Route Start Last Admin Trade Name Liamq PRN Reason Stop Dose Admin Diphenhydramine HCl 50 mg 10/04/22 16:42 10/04/22 16:47 Diphenhydramine Hcl 25 Mg Capsule PO 10/04/22 16:43 50 mg ONCE ONE Administration Haloperidol 5 mg 10/04/22 16:42 10/04/22 16:49 Haloperidol 5 Mg Tablet PO 10/04/22 16:43 5 mg ONCE ONE Administration Lorazepam 2 mg 10/04/22 16:42 10/04/22 16:48 Lorazepam 1 Mg Tablet PO 10/04/22 16:43 2 mg ONCE ONE Administration Medical Decision Making Medical Decision Making [facility] Narrative: 32-year-old male presents for evaluation of agitation and aggressive behavior. With aggressive towards nursing staff and myself during evaluation. He was given oral medications but was not physically or chemically restrained. Pending labs and urine for medical clearance to be evaluated by the care team. Differential Diagnosis Differential Diagnoses: The differential diagnosis associated with the presentation includes Agitation Substance use Schizoaffective sore Paranoia Schizophrenia Lab Data 10/04/22 17:32 10/04/22 17:32 Labs: Lab Results 10/04/22 10/04/22 10/04/22 Range/Units 17:20 17:20 17:32 WBC 4.9 (4.8-10.8) X10*3/uL RBC 5.07 (4.60-5.80) X10*6/uL Hgb 16.4 (14.0-18.0) g/dl Hct 47.4 (42.0-52.0) % MCV 93.5 (80.0-98.0) fL MCH 32.3 (27.0-33.0) pg MCHC 34.6 (31.0-36.0) g/dl RDW 12.9 (11.0-16.0) % Plt Count 223 (160-400) X10*3/uL MPV 9.2 L (9.4-12.4) fL Immature Gran % (Auto) 0.2 (0.0-0.4) % Neut % (Auto) 50.2 (45-73) % Lymph % (Auto) 40.7 H (20-40) % [place] % (Auto) 7.7 (2-11) % Eos % (Auto) 0.6 (0-4) % Baso % (Auto) 0.6 (0-2) % Lymph # (Auto) 2.0 (1.2-4.9) X10*3/uL [place] # (Auto) 0.4 (0.1-1.2) X10*3/uL Eos # (Auto) 0.0 (0.0-0.4) X10*3/uL Baso # (Auto) 0.0 (0.0-0.2) X10*3/uL Abs Immat Gran (auto) 0.01 (0.00-0.03) X10*3/uL Absolute Neuts (auto) 2.5 (2.0-8.3) x10*3/uL Absolute Nucleated RBC 0.000 (0.0-0.012) X10*3/uL Nucleated RBC % (auto) 0.0 (0.0-0.2) /100WBC Urine Color Yellow Urine Appearance Clear Urine pH 6.0 (5.0-9.0) Ur Specific [place] <= 1.005 (1.005-1.025) Urine Protein Negative (Neg-Trace) mg/dL Urine Glucose (UA) Negative (Negative) mg/dL Urine Ketones Negative (Negative) mg/dL Urine Blood Negative (Negative) Urine Nitrite Negative (Negative) Ur Leukocyte Esterase Negative (Negative) Urine Opiates Screen Not Detected (Not Detect) Urine Fentanyl Screen Not Detected (Not Detect) Ur Barbiturates Screen Not Detected (Not Detect) Ur Phencyclidine Scrn Not Detected (Not Detect) Ur Amphetamines Screen Not Detected (Not Detect) U Benzodiazepines Scrn Not Detected (Not Detect) Urine Cocaine Screen Not Detected (Not Detect) U Marijuana (THC) Screen POSITIVE H (Not Detect) Discharge Plan Discharge Clinical Impression: Agitation, Paranoid delusion Patient Disposition: Still a Patient Prescriptions: No Action Tivicay 50 mg tablet 50 mg PO QAM Descovy 200-25 mg tablet 1 tab PO QAM divalproex 500 mg Tablet Extended Release 24 Hr 1,000 mg PO BEDTIME 30 Days Qty: 60 0RF olanzapine 20 mg tablet,disintegrating 20 mg PO BEDTIME 30 Days Qty: 30 0RF hydroxyzine HCl 25 mg Tablet 25 mg PO BID PRN (Reason: Anxiety) 30 Days Qty: 60 0RF lorazepam 1 mg Tablet 1 mg PO DAILY PRN (Reason: Anxiety) 3 Days Qty: 3 0RF
[2022-10-04 17:28] LABS: Appearance Urine Clear; Color Urine Yellow; Glucose Urine UA Negative (Negative); Leukocyte Esterase Urine Negative (Negative); Nitrite Urine Negative (Negative); Specific Gravity - Urine <= 1.005 (1.005-1.025); Urine Blood Negative (Negative); Urine Ketones Negative (Negative); Urine Protein Negative (Neg-Trace)
[2022-10-04 17:37] LABS: Amphetamine Screen Urine Not Detected (Not Detect); Barbiturates, Urine Not Detected (Not Detect); Benzodiazepines Screen Urine Not Detected (Not Detect); Cannabinoid Screen Urine POSITIVE (Not Detect); Cocaine Screen Urine Not Detected (Not Detect); Opiate Screen Urine Not Detected (Not Detect); Phencyclidine Screen Urine Not Detected (Not Detect)
[2022-10-04 17:41] LABS: MANUAL DIFF FLAG NO
[2022-10-04 17:45] LABS: Basophils Percent Auto 0.6 % (0-2); Eosinophils Percent Auto 0.6 % (0-4); Hematocrit 47.4 % (42.0-52.0); Hemoglobin 16.4 g/dl (14.0-18.0); Imm Gran Abs Auto 0.01 X10*3/uL (0.00-0.03); Imm Gran Pct Auto 0.2 % (0.0-0.4); Lymphocytes Percent Auto 40.7 % (20-40); Mean Corpuscular HGB Conc 34.6 g/dl (31.0-36.0); Mean Corpuscular Hemoglobin 32.3 pg (27.0-33.0); Mean Corpuscular Volume 93.5 fL (80.0-98.0); Mean Platelet Volume 9.2 fL (9.4-12.4); Monocytes Absolute Auto 0.4 X10*3/uL (0.1-1.2); Monocytes Percent Auto 7.7 % (2-11); Neutrophils Absolute Auto 2.5 x10*3/uL (2.0-8.3); Neutrophils Percent Auto 50.2 % (45-73); Platelet Count 223 X10*3/uL (160-400); Red Blood Count 5.07 X10*6/uL (4.60-5.80); Red Cell Distribution Width 12.9 % (11.0-16.0); White Blood Count 4.9 X10*3/uL (4.8-10.8)
[2022-10-04 17:56] LABS: Alanine Aminotransferase 18 U/L (0-40); Albumin Level 4.8 g/dL (3.5-5.0); Alkaline Phosphatase 48 U/L (39-117); Anion Gap 17 (12-20); Aspartate Amino Transferase 23 U/L (5-37); Bilirubin Total 0.5 mg/dL (0.0-1.0); Blood Urea Nitrogen 7 mg/dL (9-16); COVID-19 Test Negative (Negative); Calcium 9.7 mg/dL (8.4-10.2); Carbon Dioxide 21 mmol/L (22-29); Chloride 108 mmol/L (96-108); Creatinine Clr Calc Pharmacy 110.7; Estimated Glomerular Filt Rate > 60; Ethanol 173 mg/dL; Glucose Random 96 mg/dL (60-115); IDNOW Serial# 08D9AD1C; Potassium 3.6 mmol/L (3.3-5.1); Sodium 142 mmol/L (135-145); Total Protein 7.8 g/dL (6.5-8.0)
[2022-10-04 17:58] LABS: Acetaminophen LAB < 17 mcg/mL (<30); Salicylate < 5.0 mg/dL (15-30)
--- NOTE | 2022-10-04 18:25 | PC.NURSE ---
Alcides came in with EMS and was quite agitated with restraints on the stretcher. Alcides was yelling and required redirection when he arrived but was able to calm down when offered medication took Lorazepam 2mg Haldol 5mg and Benadryl 50mg PO. Alcides was compliant with changing clothes and allowing his belongings checked and put away. Alcides req and rec a snack and has now been resting quietly.
[2022-10-04 18:57] LABS: Valproate < 12.5 mcg/mL (50.0-100.0)
[2022-10-05] MEDS: OLANZapine 10 MG TABLET PO ×2 (00:24→10:28)
[2022-10-05] MEDS: clonazePAM 1 MG TABLET PO ×2 (00:24→08:25)
--- NOTE | 2022-10-05 06:14 | PC.NURSE ---
Patient slept whole evening woke up at 0000, started yelling screaming, Olanzapine 10 mg PO and Klonopin 1 mg po administered at 0024 with + effect, slept through rest of the night, VSS, med rec completed/pending provider's approval, behavior unpredictable, care consult ordered/pending evaluation, will continue to monitor
[2022-10-05 06:25] VITALS: RESP 17
[2022-10-05] MEDS: Emtricitabine/Tenofov Alafenam TABLET 1 TAB PO (11:04)
[2022-10-05] MEDS: Dolutegravir Sodium 50 MG TABLET PO (11:04)
[2022-10-05 12:57] LABS: Fentanyl, urine SEE COMMENTS (Not Detect)
[2022-10-05] MEDS: LORazepam 1 MG TABLET 2 MG PO (14:34)
[2022-10-09 10:12] LABS: Fentanyl, Ur NEGATIVE; Norfentanyl, Ur NEGATIVE
== END 2022-10-05 15:15 | disposition home or self-care (01) ==
PROVIDERS: Physician Assistant; Emergency Provider Emergency Medicine
DX: R45.1 Restlessness and agitation (principal); F22 Delusional disorders; F43.10 Post-traumatic stress disorder, unspecified; F14.20 Cocaine dependence, uncomplicated; F25.0 Schizoaffective disorder, bipolar type; Z79.899 Other long term (current) drug therapy; F17.210 Nicotine dependence, cigarettes, uncomplicated
CPT/HCPCS: 36415; 80053; 80143; 80164; 80179; 80307; 80354; 81003; 85025; 87635; 99284; 99285

== ENCOUNTER 2022-10-08 01:49 | Emergency (ER) | payer MEDICAID, SELFPAY ==
[2022-10-08 02:13] VITALS: BP 115/81; BP 127/91; PULSE 78; PULSE 93; RESP 18; TEMP 36.6; O2SAT 100; O2SAT 96; BMI 26.3
--- NOTE | 2022-10-08 02:18 | PC.NURSE ---
Patient presents with eye issues after wearing contacts that he bought off the street. Patient slept in these contact lenses and when he took them out this morning he experienced some eye irritation that kept getting worse throughout the day. Upon triage patient unable to open left eye at all and only able to open right eye some of the way.
--- NOTE | 2022-10-08 03:57 | ED.EYEPROB ---
HPI - Eye Problem General Chief complaint: Eye Problems Stated complaint: EYE IRRATATION Time Seen by Provider: 10/08/22 02:36 Source: patient Mode of arrival: ambulatory Limitations: no limitations History of Present Illness HPI Narrative: Patient apparently got someone contact lenses yesterday and put them in his eyes and slept with them and removed in a.m. comes in with redness of both eyes with discharge specially on the left eye with redness Related Data Home Medications Medication Instructions Recorded Confirmed emtricitabine 200 mg-tenofovir 1 tab PO QAM 06/26/22 10/04/22 alafenamide fumarate 25 mg tablet (Descovy) albuterol sulfate 90 mcg/actuation 1 puff inhalation Q4H PRN wheezing 10/04/22 10/04/22 aerosol inhaler (Ventolin HFA) aripiprazole 5 mg tablet 5 mg PO QAM 10/04/22 10/04/22 clonazepam 1 mg tablet 1 mg PO BEDTIME 10/04/22 10/04/22 dolutegravir 50 mg tablet (Tivicay) 50 mg PO QAM 10/05/22 10/05/22 Previous Rx's Medication Instructions Recorded moxifloxacin 0.5 % eye drops 1 drp ophthalmic (eye) TID 7 days 10/08/22 (Vigamox) #3 mL tobramycin 0.3 % eye drops 2 drp ophthalmic (eye) Q4H #5 mL 10/08/22 Allergies Allergy/AdvReac Type Severity Reaction Status Date / Time No Known Allergies Allergy Verified 06/26/22 13:36 Review of Systems Review of Systems: Yes all other systems are reviewed and are negative PMFSH Past Medical History Medical History Acute anxiety Amphetamine use disorder, severe Anxiety Asthma Cocaine use disorder, moderate, dependence Depression Polysubstance abuse Post traumatic stress disorder (PTSD) Schizoaffective disorder, bipolar type Social History Social History Household Members: None Household Members Other:: mother Housing: Homeless Do you presently have visiting nurse or other home services: No Unable to assess alcohol history related to: Unknown Alcohol intake: current Alcohol intake frequency: a few times a week Alcohol type: beer, wine and hard liquor Patient Tobacco Use Status: Current someday Tobacco user Tobacco use type: Cigarette Cigarette Packs Per Day: 1 Cigarettes Per Day: 20.0 Years Smoked: 10 e-Cigarette/Vaping Use: Former Use Substance Use Type: Crack/Cocaine, Marijuana and Methamphetamine Advance Directives: No Advance Directives Information Provided: Yes service: No Sexual orientation: Unable to collect Physical Exam Vital Signs: Vital Signs: Last Vital Signs Temp 97.7 F 10/08/22 04:08 Pulse 84 10/08/22 04:08 Resp 16 10/08/22 04:08 BP 122/69 10/08/22 04:08 Pulse Ox 100 10/08/22 04:08 O2 Del Method Room Air 10/08/22 04:08 BMI result Body Mass Index 26.3 Eyes: Visual Mims: normal visual mims by confrontation Alignment and Position: alignment normal Periorbital: periorbital findings normal Eyelids: Yes eyelids normal Conjunctivae: conjunctival abnormal (Bilaterally inflamed conjunctiva with purulent discharge on the left side) bilateral Sclerae: scleral abnormal (Inflamed) bilateral Corneas: corneas abnormal (Superficial ulceration left cornea) on the left and fluorescein used Pupils: Equal, round and reactive pupils present EOM: EOMs intact bilaterally Direct Ophthalmoscopy: anterior chamber normal Neuro: Cranial nerves: Yes Equal, round and reactive pupils present Medical Decision Making Medical Decision Making MDM Narrative: Patient with conjunctivitis from contact lenses with superficial corneal abrasion on the left cornea Discharge Plan Discharge Clinical Impression: Corneal abrasion, Bacterial conjunctivitis Patient Disposition: Home, Self-Care Instructions: Corneal Abrasion (ED), Conjunctivitis (ED) Additional Instructions: Use eyedrops as prescribed tobramycin and vigamox untill heals completely Prescriptions: New moxifloxacin [Vigamox] 0.5 % drops 1 drp ophthalmic (eye) TID 7 Days Qty: 3 0RF tobramycin 0.3 % drops 2 drp ophthalmic (eye) Q4H Qty: 5 0RF No Action clonazepam 1 mg Tablet 1 mg PO BEDTIME Rx Instructions: administer 30 minutes before bedtime albuterol sulfate [Ventolin HFA] 90 mcg/actuation HFA aerosol inhaler 1 puff inhalation Q4H PRN (Reason: wheezing) aripiprazole 5 mg tablet 5 mg PO QAM Tivicay 50 mg tablet 50 mg PO QAM Descovy 200-25 mg tablet 1 tab PO QAM
[2022-10-08 04:08] VITALS: BP 122/69; PULSE 84; RESP 16; TEMP 36.5; O2SAT 100
--- NOTE | 2022-10-08 04:09 | MHC.EDTECH ---
Hourly rounds completed, vitals taken and provider is at bedside.
== END 2022-10-08 05:02 | disposition home or self-care (01) ==
PROVIDERS: Emergency Provider Internal Medicine
DX: H18.822 Corneal disorder due to contact lens, left eye (principal); H10.33 Unspecified acute conjunctivitis, bilateral; F17.210 Nicotine dependence, cigarettes, uncomplicated; Z79.899 Other long term (current) drug therapy; Z71.6 Tobacco abuse counseling
CPT/HCPCS: 99283

== ENCOUNTER 2023-07-16 10:09 | Inpatient (IN) | payer MEDICAID, SELFPAY ==
[2023-07-16] VITALS (27 sets, daily range): BP systolic 79–139; BP diastolic 50–98; PULSE 62–140; RESP 16–20; TEMP 32–38.4; O2SAT 91–100; BMI 24.1
--- NOTE | ~2023-07-16 | CT_ITS ---
EXAMINATION: CT HEAD WITHOUT CONTRAST CLINICAL INFORMATION: Alterations in mental status. COMPARISON: None available. TECHNIQUE: Contiguous axial imaging was performed from the skull base to vertex without intravenous administration of contrast. This CT examination was performed using dose optimization techniques as appropriate, variously including the following: *Automated exposure control *Adjustment of mA and/or kV according to patient size (this includes techniques or standardized protocols for targeted exams where dose is matched to indication/reason for exam; i.e. extremities or head) *Use of iterative reconstruction technique DLP: 763 mGy-cm FINDINGS: No intra or extra-axial fluid collection, hemorrhage, mass, or mass effect. Sulci and ventricles normal. Calvarium intact. CT/CT head/brain wo IV con IMPRESSION: No acute intracranial pathology.
--- NOTE | ~2023-07-16 | XR_ITS ---
EXAMINATION: XR CHEST CLINICAL INFORMATION: Intubated COMPARISON: 06/09/2019 TECHNIQUE: Frontal view of the chest was obtained. FINDINGS: There is endotracheal tube with the tip against the base of the right main bronchus and need to be withdrawn. There are patchy airspace disease seen bilaterally. Cardiomediastinal silhouette is normal. XR/XR chest 1V IMPRESSION: Deeply positioned endotracheal tube. Bilateral airspace disease
--- NOTE | ~2023-07-16 | CT_ITS ---
EXAMINATION: CT CERVICAL SPINE WITHOUT CONTRAST CLINICAL INFORMATION: Neck trauma COMPARISON: None available. TECHNIQUE: A spiral CT scan of the cervical spine was obtained without administration of IV contrast. Contiguous transverse, coronal and sagittal bone algorithm images were reconstructed at 2-mm increments This CT examination was performed using dose optimization techniques as appropriate, variously including the following: *Automated exposure control *Adjustment of mA and/or kV according to patient size (this includes techniques or standardized protocols for targeted exams where dose is matched to indication/reason for exam; i.e. extremities or head) *Use of iterative reconstruction technique DLP: 524 mGy-cm FINDINGS: There is straightening of cervical lordosis with mild curvature toward the left. Vertebral bodies are well aligned and intervertebral discs are preserved. Pedicles are intact. There is no evidence of fracture. Patient is intubated with endotracheal tube visualized. Visualized lung apices are opacified more prominent on the right CT/CT cervical spine wo IV con IMPRESSION: Unremarkable cervical spine. Opacification of both lungs right more than left. Fleischner guidelines were followed.
--- NOTE | ~2023-07-16 | XR_ITS ---
EXAMINATION: XR CHEST CLINICAL INFORMATION: OG and ETT placement COMPARISON: Anterior TECHNIQUE: Frontal view of the chest was obtained. FINDINGS: The endotracheal tube is well-positioned with the tip approximately 6 cm above the tamara. Nasogastric tube is below the diaphragm. There are patchy alveolar infiltrates seen bilaterally worsening since previous study. Cardiomediastinal silhouette is normal. XR/XR chest 1V IMPRESSION: Bilateral airspace disease, worsening. Well-positioned endotracheal tube and orogastric tube
--- NOTE | ~2023-07-16 | MR_ITS ---
MRI OF THE BRAIN WITHOUT IV CONTRAST INDICATION: Persistent encephalopathy. Question anoxic injury. COMPARISON: Head CT 07/16/2023. TECHNIQUE: Multiplanar multisequence MR imaging of the brain was obtained without IV contrast. FINDINGS: Imaging findings are most concerning for the sequela of global cerebral anoxic injury given the presence of restricted diffusion/cytotoxic edema within the perirolandic cortex bilaterally, the deep lawrence nuclei bilaterally, the occipital cortex bilaterally, and the cerebellar hemispheres bilaterally. There is mild cerebral sulcal effacement. No hemorrhage. There is no hydrocephalus, extra-axial surface collection, or herniation. The major flow voids at the skull base are preserved. There is no intracranial hemorrhage on the gradient recalled echo acquisition. The midline structures are normal. The cerebellar tonsils are normally positioned. The cerebellum and brainstem are normal. The craniocervical junction is normal. Osseous marrow signal intensity is homogenous. The visualized soft tissues are unremarkable. MR/MR head/brain wo con IMPRESSION: Imaging findings are most concerning for the sequela of global cerebral anoxic injury given the presence of restricted diffusion/cytotoxic edema within the perirolandic cortex bilaterally, the deep lawrence nuclei bilaterally, the occipital cortex bilaterally, and the cerebellar hemispheres bilaterally. There is mild cerebral sulcal effacement. No hemorrhage.
--- NOTE | ~2023-07-16 | CT_ITS ---
EXAMINATION: CT ABDOMEN AND PELVIS WITHOUT CONTRAST CLINICAL INFORMATION: Unresponsive after respiratory arrest COMPARISON: None available. TECHNIQUE: Multidetector volumetric imaging was performed from the superior aspect of the liver through the pubic symphysis. Sagittal and coronal reformatted images were obtained on the technologist's workstation. This CT examination was performed using dose optimization techniques as appropriate, variously including the following: *Automated exposure control *Adjustment of mA and/or kV according to patient size (this includes techniques or standardized protocols for targeted exams where dose is matched to indication/reason for exam; i.e. extremities or head) *Use of iterative reconstruction technique DLP: 674 mGy-cm FINDINGS: LUNG BASES: Extensive consolidations at the lung bases. No pleural effusion. LIVER, GALLBLADDER, AND BILIARY TREE: The liver is normal in size, shape, and attenuation. No focal hepatic lesion or biliary ductal dilatation is present. Gallbladder appears distended and slightly thick walled but discrete gallstones are not observed. PANCREAS: Unremarkable. SPLEEN: Unremarkable. ADRENAL GLANDS: Unremarkable. KIDNEYS AND URETERS: The kidneys are normal in size, shape, and attenuation. No hydronephrosis, hydroureter, or calculi seen. No perinephric stranding. BLADDER: Thick walled and decompressed around a Shepard catheter balloon. GASTROINTESTINAL TRACT: There is a large volume of stool within the rectal vault. No bowel obstruction or right or left lower quadrant inflammatory change. The appendix is normal. ABDOMINAL WALL: No significant hernia is appreciated. LYMPH NODES: Normal. VASCULAR: Unremarkable. PELVIC VISCERA: Unremarkable. OSSEOUS STRUCTURES: Unremarkable. CT/CT abdomen pelvis wo IV con IMPRESSION: Extensive consolidations at the lung bases. Formal CT of the chest may be warranted. Fleischner guidelines were followed.
--- NOTE | ~2023-07-16 | CT_ITS ---
EXAMINATION: CT CHEST WITHOUT CONTRAST CLINICAL INFORMATION: Respiratory arrest COMPARISON: Chest radiograph 07/16/2023 TECHNIQUE: Multidetector volumetric CT imaging of the chest was done. Axial MIP volume rendering provided. Sagittal and coronal reformatted images were obtained. This CT examination was performed using dose optimization techniques as appropriate, variously including the following: *Automated exposure control *Adjustment of mA and/or kV according to patient size (this includes techniques or standardized protocols for targeted exams where dose is matched to indication/reason for exam; i.e. extremities or head) *Use of iterative reconstruction technique DLP: 376 mGy-cm FINDINGS: UNDERWRITING CONSULTANT: Unremarkable LUNGS: Extensive bilateral patchy airspace disease noted extending from the apices down to the lower lobes. This could reflect diffuse multifocal pneumonia or noncardiogenic edema. MEDIASTINUM: The endotracheal tube tip extends into the right mainstem bronchus and needs to be retracted. Study done without IV contrast. Heart size normal. No pericardial effusion or significant adenopathy. CORONARY ARTERY CALCIFICATION: None visualized on this study. PLEURA: There is no pleural effusion. No pleural mass or thickening. AXILLA: No lymphadenopathy. UPPER ABDOMEN: Unremarkable. OSSEOUS STRUCTURES: Unremarkable. CT/CT chest wo IV con IMPRESSION: ET tube needs to be retracted. Extensive diffuse airspace disease reflective of pneumonia and/or edema or combination of both. Fleischner guidelines were followed.
[2023-07-16] MEDS: Naloxone HCl 2 MG/2 ML SYRINGE IVPUSH (10:14)
[2023-07-16] MEDS: Etomidate 20 MG/10 ML VIAL 10 MG IVPUSH (10:15)
[2023-07-16] MEDS: Rocuronium Bromide 50 MG/5 ML VIAL IVPUSH (10:15)
[2023-07-16] MEDS: propofoL 1,000 MG/100 ML VIAL 4.31 MG IVCONT (10:25)
[2023-07-16] MEDS: fentaNYL citrate/NS 1,000 MCG/100 ML PLAST..BAG 2.5 MCG IVCONT (10:27)
--- NOTE | 2023-07-16 10:37 | ED_ITS ---
HPI - Overdose General Chief Complaint: Overdose Stated Complaint: ?OD,NARCAN GIVEN,IGEL IN PLACE,RESP ARREST PER EMS Source: EMS and old records reviewed Mode of arrival: EMS Limitations: altered mental status History of Present Illness ED Provider: FRANCESCA HPI Narrative: 33 yo male with hx PTSD, substance abuse, schizoaffective disorder who reportedly showed up at an acquaintance house then collapsed after reported overdose - friend gave 8mg IN narcan. PD started compressions as they noted they could not find a pulse. On EMS arrival patient had a pulse but was not breathing no response to additional 2mg IN narcan and I gel was placed on our pulse ox he was 92% on arrival with Igel. He had pulse with EMS for 25 min and was sinus tach with start of agonal respirations but no purposeful movements. On arrival to ED BS in 300s, no response to IV narcan, absent gag reflex GCS 3 intubated. MD complaint: other (suspected overdose, respiratory arrest) Onset (ago): minute(s) (30) Timing confirmed by: other (friend who called 911) How Overdose Was Discovered: family/friend present at time and called 911 Context: Accidental Overdose: other Associated symptoms: other (respiratory arrest) Treatments Prior to Arrival: narcan (total 10mg IN narcan), IV fluids and other (PD chest compressions, glucose check, Igel) Related Data Home Medications ?Medication ?Instructions ?Recorded ?Confirmed No Known Home Meds 07/16/23 07/16/23 Allergies Allergy/AdvReac Type Severity Reaction Status Date / Time Unable to Assess Allergy Unverified 07/16/23 10:30 Review of Systems 2 Review of Systems: ROS unable to be obtained due to altered mental status [facility] Past Medical History Source: old records reviewed Medical History Post traumatic stress disorder (PTSD) Cocaine use disorder, moderate, dependence Amphetamine use disorder, severe Polysubstance abuse Schizoaffective disorder, bipolar type Acute anxiety Anxiety Depression Asthma Social History Social History Household Members: None Household Members Other:: mother Housing: Homeless Do you presently have visiting nurse or other home services: No Unable to assess alcohol history related to: Unknown Alcohol intake: current Alcohol intake frequency: a few times a week Alcohol type: beer, wine and hard liquor Patient Tobacco Use Status: Tobacco use Unknown Tobacco use type: Cigarette Cigarette Packs Per Day: 1 Cigarettes Per Day: 20.0 Years Smoked: 10 e-Cigarette/Vaping Use: Former Use Substance Use Type: Crack/Cocaine, Marijuana and Methamphetamine Advance Directives: No Do you have a plan to hurt others: No Plan service: No Sexual orientation: Unable to collect Physical Exam 2 Vital Signs: Vital Signs: Last Vital Signs Temp 98.8 F 07/16/23 14:47 Pulse 91 07/16/23 14:47 Resp 16 07/16/23 14:47 BP 100/67 07/16/23 14:47 Pulse Ox 95 07/16/23 14:47 O2 Del Method Mechanical Ventil ation 07/16/23 14:47 FiO2 100 07/16/23 10:48 BMI result Body Mass Index 24.1 Appearance: no response to painful or verbal stimuli. obtunded, agonal respirations severe acute distress. Eyes: Pupils 3mm no reaction to light ENT: Pharynx frothy pink sputum in airway, no trauma to head noted Neck: Normal inspection. Neck supple. CVS: tachycardic heart rate and rhythm. Pulses normal. Respiratory: No respiratory distress. Breath sounds very coarse and diminished with frothy pink sputum in airway Abdomen: Soft and nontender. no trauma noted Skin: Skin pale and clammy Extremities: No lower extremity edema. No calf ttp Neuro: GCS 3 Course Course Course Narrative: does not appear to be seizures but either myoclonic jerking or decorticate posturing at times - images still not available 1203pm Reevaluation(s) Reevaluation #1: reached a cousin Denisha [phone] who gave me his mom's number I have called multiple old numbers on chart that are out of order for mom and brother [phone] mom's number mom is on the way here now 1241pm Reevaluation #2: ETT pulled back Reevaluation #3: mom here aware of severity of illness and that he is not responding to stimuli medical insurance claims specialist used 210pm Additional Reevaluation(s): 305pm focused exam for sepsis performed Medications Administered Generic Name Dose Route Start Last Admin Trade Name Freq PRN Reason Stop Dose Admin Propofol 1,000 mg in 100 mls @ 0 mls/hr 07/16/23 10:30 07/16/23 12:11 Diprivan IVCONT 30 mcg/kg/min .Q0M ALISTAIR 12.92 mls/hr Titration Protocol Per Protocol Fentanyl 1,000 mcg in 100 mls @ 0 mls/hr 07/16/23 10:30 07/16/23 12:42 Sublimaze/Ns IVCONT 750 mcg/hr .Q0M ALISTAIR 75 mls/hr Titration Protocol Per Protocol Discontinued Medications Generic Name Dose Route Start Last Admin Trade Name Liamq PRN Reason Stop Dose Admin Etomidate 10 mg 07/16/23 10:26 07/16/23 10:15 Etomidate 20 Mg/10 Ml Vial IVPUSH 07/16/23 10:27 10 mg ONCE ONE Administration Piperacillin Sod/Tazobactam 100 mls @ 200 mls/hr 07/16/23 10:21 07/16/23 11:42 Sod 4.5 gm/ Sodium Chloride IV 07/16/23 10:50 Infused ONCE ONE Infusion Sodium Chloride 1,000 mls @ 999 mls/hr 07/16/23 10:45 07/16/23 11:48 Ns IV 07/16/23 11:45 Infused .Q1H1M ONE Infusion Sodium Chloride 1,000 mls @ 999 mls/hr 07/16/23 10:58 07/16/23 11:44 Ns IV 07/16/23 11:58 Not Given .Q1H1M ONE Sodium Chloride 1,000 mls @ 999 mls/hr 07/16/23 10:58 07/16/23 12:33 Ns IV 07/16/23 11:58 Infused .Q1H1M ONE Infusion Sodium Chloride 250 mls @ 999 mls/hr 07/16/23 11:45 07/16/23 12:33 Ns IV 07/16/23 12:00 Infused .Q16M ALISTAIR Infusion Naloxone HCl 2 mg 07/16/23 10:25 07/16/23 10:14 Naloxone Hcl 2 Mg/2 Ml Syringe IVPUSH 07/16/23 10:26 2 mg ONCE ONE Administration Rocuronium Lane 50 mg 07/16/23 10:07/16/23 10:[address] 50 Mg/5 Ml Vial IVPUSH 07/16/23 10:26 50 mg ONCE ONE Administration Procedures Intubation Intubation Type:: Emergency Endotracheal Intubation Intubation Date:: 07/16/23 Intubation Time:: 10:10 Time out performed: Yes sedative: Etomidate Mg Given: 10 paralytic: Rocuronium Mg Given: 50 Laryngoscope: Michaela ET Tube Size: 7.5 ET Tube Uncuffed: Yes Tube Secured Depth (cm): 25 Tube Secured Location: lips Tube Placement Confirmation: visualized tube passing through cords, equal breath sounds bilaterally, no breath sounds over epigastrium and confirmation by capnometry Patient Tolerated Procedure: well and no complications Intubation Complications: none Additional Comments: suctioned pink frothy sputum copious Medical Decision Making Medical Decision Making MDM Narrative: 33 yo male with hx PTSD, substance abuse, schizoaffective disorder who presents as reported overdose no response to narcan could be other medication or xylazine. He shows signs on clinical exam of noncardiogenic pulm edema. History is undifferentiated at this time will need labs, barfield CT scan for trauma/infection, empiric zosyn, he was intubated on arrival for GCS 3 and airway protection. Differential Diagnosis Differential Diagnoses: The differential diagnosis associated with the presentation includes overdose, aspiration pneumonia, respiratory arrest Admission/Observation Consideration of admission/observation: Escalation of care including admission/observation considered admit given critical situation Consult Healthcare Provider Management of the patient was discussed with: Entry Level Sales Representative (Dr. Landis is aware and will admit) Lab Data [facility] Lab Attestation statement: I reviewed the patient's lab results. 07/16/23 10:32 07/16/23 10:32 Labs: Lab Results 07/16/23 07/16/23 07/16/23 Range/Units 10:12 10:31 10:32 WBC 10.3 (4.8-10.8) X10*3/uL RBC 4.74 (4.60-5.80) X10*6/uL Hgb 15.0 (14.0-18.0) g/dl Hct 44.4 (42.0-52.0) % MCV 93.7 (80.0-98.0) fL MCH 31.6 (27.0-33.0) pg MCHC 33.8 (31.0-36.0) g/dl RDW 11.7 (11.0-16.0) % Plt Count 201 (160-400) X10*3/uL MPV 10.1 (9.4-12.4) fL Immature Gran % (Auto) 0.8 H (0.0-0.4) % Neut % (Auto) 29.6 L (45-73) % Lymph % (Auto) 66.1 H (20-40) % Preston % (Auto) 2.5 (2-11) % Eos % (Auto) 0.7 (0-4) % Baso % (Auto) 0.3 (0-2) % Lymph # (Auto) 6.8 H (1.2-4.9) X10*3/uL Preston # (Auto) 0.3 (0.1-1.2) X10*3/uL Eos # (Auto) 0.1 (0.0-0.4) X10*3/uL Baso # (Auto) 0.0 (0.0-0.2) X10*3/uL Abs Immat Gran (auto) 0.08 H (0.00-0.03) X10*3/uL Absolute Neuts (auto) 3.0 (2.0-8.3) x10*3/uL Absolute Nucleated RBC 0.000 (0.0-0.012) X10*3/uL Nucleated RBC % (auto) 0.0 (0.0-0.2) /100WBC Smear Tech's Comments VERIFIED ESR 2 (0-15) MM/HR VBG pH (7.32-7.43) VBG pCO2 mmHg VBG pO2 mmHg VBG HCO3 (22-26) mmol/L VBG O2 Saturation % VBG Base Excess mmol/L Sodium 136 (135-145) mmol/L Potassium 3.7 (3.3-5.1) mmol/L Chloride 106 (96-108) mmol/L Carbon Dioxide 17 L (22-29) mmol/L Anion Gap 17 (12-20) BUN 15 (9-16) mg/dL Creatinine 1.20 (0.5-1.4) mg/dL Estim Creat Clear Calc 86.2 Estimated GFR > 60 POC Glucose 326 H (60-115) mg/dL Random Glucose 358 H* (60-115) mg/dL Lactic Acid 4.6 H* (0.5-2.0) mmol/L Calcium 8.4 D (8.4-10.2) mg/dL Magnesium 2.1 (1.6-2.6) mg/dL Total Bilirubin 0.2 (0.0-1.0) mg/dL Direct Bilirubin < 0.2 (0.0-0.5) mg/dL AST 262 H (5-37) U/L ALT 347 H (0-40) U/L Alkaline Phosphatase 84 (39-117) U/L Ammonia (13-55) umol/L Total Creatine Kinase 98 (38-174) U/L Troponin I High Sens (<3.5-35.0) ng/L C-Reactive Protein < 0.10 (< or = 0.50) mg/dL B-Natriuretic Peptide < 10 (<100) pg/mL Total Protein 7.3 (6.5-8.0) g/dL Albumin 4.4 (3.5-5.0) g/dL Beta-Hydroxybutyrate (0.02-0.27) mmol/L Procalcitonin < 0.02 ng/mL TSH 1.15 (0.32-4.0) uIU/mL Urine Color Urine Appearance Urine pH (5.0-9.0) Ur Specific [place] (1.005-1.025) Urine Protein (Neg-Trace) mg/dL Urine Glucose (UA) (Negative) mg/dL Urine Ketones (Negative) mg/dL Urine Blood (Negative) Urine Nitrite (Negative) Ur Leukocyte Esterase (Negative) Urine RBC (0-2) /HPF Urine WBC (0-5) /HPF Ur Squamous Epith Cells (0-2) /HPF Urine Bacteria (None Seen) Hyaline Casts (0-2) /LPF Granular Casts Salicylates (15-30) mg/dL Urine Opiates Screen (Not Detect) Ur Buprenorphine Scrn (Not Detect) ng/mL Ur Oxycodone Screen (Not Detect) ng/mL Urine Methadone Screen (Not Detect) ng/mL Urine Fentanyl Screen (Not Detect) Acetaminophen (<30) mcg/mL Ur Barbiturates Screen (Not Detect) Ur Phencyclidine Scrn (Not Detect) Ur Amphetamines Screen (Not Detect) U Benzodiazepines Scrn (Not Detect) Urine Cocaine Screen (Not Detect) U Marijuana (THC) Screen (Not Detect) Ethyl Alcohol < 10 mg/dL Influenza Type A (PCR) NEGATIVE (Negative) Influenza Type B (PCR) NEGATIVE (Negative) RSV RNA Qual (PCR) NEGATIVE (Negative) SARS-CoV-2 RNA (RT-PCR) NEGATIVE (Negative) 07/16/23 07/16/23 07/16/23 Range/Units 10:37 10:39 11:26 WBC (4.8-10.8) X10*3/uL RBC (4.60-5.80) X10*6/uL Hgb (14.0-18.0) g/dl Hct (42.0-52.0) % MCV (80.0-98.0) fL MCH (27.0-33.0) pg MCHC (31.0-36.0) g/dl RDW (11.0-16.0) % Plt Count (160-400) X10*3/uL MPV (9.4-12.4) fL Immature Gran % (Auto) (0.0-0.4) % Neut % (Auto) (45-73) % Lymph % (Auto) (20-40) % Preston % (Auto) (2-11) % Eos % (Auto) (0-4) % Baso % (Auto) (0-2) % Lymph # (Auto) (1.2-4.9) X10*3/uL Preston # (Auto) (0.1-1.2) X10*3/uL Eos # (Auto) (0.0-0.4) X10*3/uL Baso # (Auto) (0.0-0.2) X10*3/uL Abs Immat Gran (auto) (0.00-0.03) X10*3/uL Absolute Neuts (auto) (2.0-8.3) x10*3/uL Absolute Nucleated RBC (0.0-0.012) X10*3/uL Nucleated RBC % (auto) (0.0-0.2) /100WBC Smear Tech's Comments ESR (0-15) MM/HR VBG pH 7.24 L (7.32-7.43) VBG pCO2 41 mmHg VBG pO2 138 mmHg VBG HCO3 18 L (22-26) mmol/L VBG O2 Saturation 100.0 % VBG Base Excess -8.6 mmol/L Sodium (135-145) mmol/L Potassium (3.3-5.1) mmol/L Chloride (96-108) mmol/L Carbon Dioxide (22-29) mmol/L Anion Gap (12-20) BUN (9-16) mg/dL Creatinine (0.5-1.4) mg/dL Estim Creat Clear Calc Estimated GFR POC Glucose (60-115) mg/dL Random Glucose (60-115) mg/dL Lactic Acid (0.5-2.0) mmol/L Calcium (8.4-10.2) mg/dL Magnesium (1.6-2.6) mg/dL Total Bilirubin (0.0-1.0) mg/dL Direct Bilirubin (0.0-0.5) mg/dL AST (5-37) U/L ALT (0-40) U/L Alkaline Phosphatase (39-117) U/L Ammonia 44 (13-55) umol/L Total Creatine Kinase (38-174) U/L Troponin I High Sens < 2.7 (<3.5-35.0) ng/L C-Reactive Protein (< or = 0.50) mg/dL B-Natriuretic Peptide (<100) pg/mL Total Protein (6.5-8.0) g/dL Albumin (3.5-5.0) g/dL Beta-Hydroxybutyrate 0.14 (0.02-0.27) mmol/L Procalcitonin ng/mL TSH (0.32-4.0) uIU/mL Urine Color Yellow Urine Appearance Cloudy Urine pH 6.5 (5.0-9.0) Ur Specific [place] >= 1.030 H (1.005-1.025) Urine Protein >=1000 (4+) H (Neg-Trace) mg/dL Urine Glucose (UA) >=1000 H (Negative) mg/dL Urine Ketones Negative (Negative) mg/dL Urine Blood Trace H (Negative) Urine Nitrite Negative (Negative) Ur Leukocyte Esterase Negative (Negative) Urine RBC 3-5 H (0-2) /HPF Urine WBC 0-5 (0-5) /HPF Ur Squamous Epith Cells 0-2 (0-2) /HPF Urine Bacteria 1+ (None Seen) Hyaline Casts 0-2 (0-2) /LPF Granular Casts Present Salicylates < 5.0 L (15-30) mg/dL Urine Opiates Screen Not Detected (Not Detect) Ur Buprenorphine Scrn Not Detected (Not Detect) ng/mL Ur Oxycodone Screen Not Detected (Not Detect) ng/mL Urine Methadone Screen Not Detected (Not Detect) ng/mL Urine Fentanyl Screen POSITIVE H (Not Detect) Acetaminophen < 3 (<30) mcg/mL Ur Barbiturates Screen Not Detected (Not Detect) Ur Phencyclidine Scrn Not Detected (Not Detect) Ur Amphetamines Screen Not Detected (Not Detect) U Benzodiazepines Scrn POSITIVE H (Not Detect) Urine Cocaine Screen POSITIVE H (Not Detect) U Marijuana (THC) Screen POSITIVE H (Not Detect) Ethyl Alcohol mg/dL Influenza Type A (PCR) (Negative) Influenza Type B (PCR) (Negative) RSV RNA Qual (PCR) (Negative) SARS-CoV-2 RNA (RT-PCR) (Negative) ABG Data Attestation ABG: I personally reviewed and interpreted this ABG as follows: Interpretation: metabolic acidosis Independent Interpretation I performed an independent interpretation of an: EKG, Plain X-Ray and CT Scan (extensive aspiration, no ICH) Interpretation: Rate: 80 Rhythm: NSR [place]: normal Normal P waves. Normal STAR. Normal QRS complex. ST T wave : artifact in inf leads but no ILSA qTC: 442 prior studies: no acute ischemia The study has been interpreted contemporaneously by me. . Radiology Impression Discussion of test interpretation with radiology: I have reviewed the radiologist's reading. Independent Historian Clinical information obtained from an independent historian. History obtained from or confirmed by: EMS and Other (mom aware) External Record Review External record reviewed: Inpatient record Critical Care Time Critical Care Time Critical Care Time: Yes Total Critical Care Time: 120 Attestation: review of records, IVF x 2L, repeat calls to family to reach next of kin, repeat assessments, empiric antibiotics, sedation management, ventilator management, admission to ICU family discussion I attest to this time spent taking care of the patient Discharge Plan Discharge Clinical Impression: Acidosis, lactic, Respiratory arrest Aspiration pneumonia of both lungs Qualifiers: Aspiration pneumonia type: due to gastric secretions Lung location: unspecified part of lung Qualified Code(s): J69.0 - Pneumonitis due to inhalation of food and vomit Overdose Qualifiers: Encounter type: initial encounter Injury intent: undetermined intent Qualified Code(s): T50.904A - Poisoning by unspecified drugs, medicaments and biological substances, undetermined, initial encounter Patient Disposition: Admitted As Inpatient Interventions: Admission Worksheet (ED) Last Done: 07/16/23 15:00
--- NOTE | 2023-07-16 10:37 | PC.NURSE ---
Pt at apartment building, and was found down unresponsive, pt is a known heroin user presumed OD. 8mg Narcan given by bystander, Fire on scene was unable to get pulse, CPR started, EMS arrival 2mg intranasal narcan given, HR noted on monitor, CPR stopped, IGEL placed for bagging. EMS worked on scene for 30 minutes upon arrival to ED. pt noted to have pink tinged froth in tube. POC for EMS was 360, #20R AC placed. Pt transferred to ED stretcher, RSI medications given, pt intubated by Dr. Jackson with resp at bedside at 1017 7.5cm 25 at the lip ET tube placed, bilat breath sounds noted, condensation in tube, no color metrix response. after tube placed pt bagged for extended time, o2 ranging from 83%-98 once we were able to sit patient up. 2mg IV Narcan given in ED. Extensive suctioning done. Chest xray obtained, propofol/fent started per orders, 2 #18 placed in left arm by ED staff. Shepard placed at this time, labs obtained and sent down ED POC 326. Cloths were cut off the patient, personal belongings of phone and face cleaner found. security aware.
[2023-07-16 10:41] LABS: Venous Blood Gas Refer to POC result
[2023-07-16 10:43] LABS: Basophils Percent Auto 0.3 % (0-2); Eosinophils Absolute Auto 0.1 X10*3/uL (0.0-0.4); Eosinophils Percent Auto 0.7 % (0-4); Hematocrit 44.4 % (42.0-52.0); Imm Gran Abs Auto 0.08 X10*3/uL (0.00-0.03); Imm Gran Pct Auto 0.8 % (0.0-0.4); Lymphocytes Percent Auto 66.1 % (20-40); MANUAL DIFF FLAG SCAN; Mean Corpuscular HGB Conc 33.8 g/dl (31.0-36.0); Mean Corpuscular Hemoglobin 31.6 pg (27.0-33.0); Mean Corpuscular Volume 93.7 fL (80.0-98.0); Mean Platelet Volume 10.1 fL (9.4-12.4); Monocytes Absolute Auto 0.3 X10*3/uL (0.1-1.2); Monocytes Percent Auto 2.5 % (2-11); Neutrophils Percent Auto 29.6 % (45-73); Platelet Count 201 X10*3/uL (160-400); Red Blood Count 4.74 X10*6/uL (4.60-5.80); Red Cell Distribution Width 11.7 % (11.0-16.0); SCAN SMEAR FLAG 1; White Blood Count 10.3 X10*3/uL (4.8-10.8)
[2023-07-16 10:44] LABS: VBG Base Excess -8.6 mmol/L; VBG HCO3 18 mmol/L (22-26); VBG pCO2 41 mmHg; VBG pH 7.24 (7.32-7.43); VBG pO2 138 mmHg
[2023-07-16 10:44] LABS: Lymphocytes Absolute Auto 6.8 X10*3/uL (1.2-4.9)
[2023-07-16] MEDS: 0.9 % Sodium Chloride 1,000 ML 999 ML IV ×2 (10:51→11:49)
[2023-07-16 10:52] LABS: Ammonia 44 umol/L (13-55)
[2023-07-16] MEDS: Piperacillin Sodium/Tazobactam 4.5 GM in 0.9 % Sodium Chloride 100 ML IV (10:52)
[2023-07-16 10:58] LABS: Lactic Acid 4.6 mmol/L (0.5-2.0)
[2023-07-16 11:01] LABS: Beta-Hydroxybutyrate 0.14 mmol/L (0.02-0.27)
[2023-07-16 11:07] LABS: B Type Natriuretic Peptide < 10 pg/mL (<100)
[2023-07-16 11:08] LABS: Acetaminophen LAB < 3 mcg/mL (<30); Salicylate < 5.0 mg/dL (15-30); Troponin-I High Sensitivity < 2.7 ng/L (<3.5-35.0)
[2023-07-16 11:15] LABS: SLIDE REVIEW VERIFIED
[2023-07-16 11:17] LABS: Alanine Aminotransferase 347 U/L (0-40); Albumin Level 4.4 g/dL (3.5-5.0); Alkaline Phosphatase 84 U/L (39-117); Anion Gap 17 (12-20); Aspartate Amino Transferase 262 U/L (5-37); Bilirubin Direct < 0.2 mg/dL (0.0-0.5); Bilirubin Total 0.2 mg/dL (0.0-1.0); Blood Urea Nitrogen 15 mg/dL (9-16); C Reactive Protein < 0.10 mg/dL (< or = 0.50); Calcium 8.4 mg/dL (8.4-10.2); Carbon Dioxide 17 mmol/L (22-29); Chloride 106 mmol/L (96-108); Creatinine Clr Calc Pharmacy 86.2; Estimated Glomerular Filt Rate > 60; Ethanol < 10 mg/dL; Glucose Random 358 mg/dL (60-115); Magnesium 2.1 mg/dL (1.6-2.6); Potassium 3.7 mmol/L (3.3-5.1); Sodium 136 mmol/L (135-145); Total Protein 7.3 g/dL (6.5-8.0)
[2023-07-16 11:20] LABS: Erythrocyte Sedimentation Rate 2 MM/HR (0-15)
[2023-07-16 11:22] LABS: Procalcitonin < 0.02 ng/mL; TSH reflex Free T4 1.15 uIU/mL (0.32-4.0)
[2023-07-16 11:34] LABS: Appearance Urine Cloudy; Color Urine Yellow; Glucose Urine UA >=1000 mg/dL (Negative); Leukocyte Esterase Urine Negative (Negative); Nitrite Urine Negative (Negative); PH 6.5 (5.0-9.0); Specific Gravity - Urine >= 1.030 (1.005-1.025); UMIC TRIGGER UACC YES; Urine Blood Trace (Negative); Urine Ketones Negative (Negative); Urine Protein >=1000 (4+) mg/dL (Neg-Trace)
[2023-07-16 11:39] LABS: Influenza A PCR NEGATIVE (Negative); Influenza B PCR NEGATIVE (Negative); Resp Syncy Virus RNA Qual PCR NEGATIVE (Negative); SARS COV2 PCR INHOUSE NEGATIVE (Negative)
--- NOTE | 2023-07-16 11:44 | PC.NURSE ---
per verbal order from Dr. Jackson - NS bolus should be a total of 2500ml. 2 bags of NS 1 liter, and 250. order placed for the 250ml and 3rd liter not hung.
[2023-07-16 11:45] LABS: Amphetamine Screen Urine Not Detected (Not Detect); Barbiturates, Urine Not Detected (Not Detect); Benzodiazepines Screen Urine POSITIVE (Not Detect); Buprenorphine Scr Not Detected (Not Detect); Cannabinoid Screen Urine POSITIVE (Not Detect); Cocaine Screen Urine POSITIVE (Not Detect); Fentanyl, urine POSITIVE (Not Detect); Methadone Screen, Urine Not Detected (Not Detect); Opiate Screen Urine Not Detected (Not Detect); Oxycodone Screen Urine Not Detected (Not Detect); Phencyclidine Screen Urine Not Detected (Not Detect)
[2023-07-16 12:11] LABS: WBC Urine 0-5 /HPF (0-5)
[2023-07-16 12:12] LABS: Bacteria Urine 1+ (None Seen); Granular Casts Urine Present; Hyaline Casts Urine 0-2 /LPF (0-2); Squamous Epithelial Cell Urine 0-2 /HPF (0-2)
--- NOTE | 2023-07-16 12:27 | PC.NURSE ---
per Dr Jackson, increase fent to 50mcg
[2023-07-16] MEDS: 0.9 % Sodium Chloride 250 ML 999 ML IV (12:28)
[2023-07-16 12:36] LABS: Reflex Lactate? Lactic Acid Added
[2023-07-16 12:40] LABS: Glucose, Whole Blood 326 mg/dL (60-115)
--- NOTE | 2023-07-16 12:43 | PC.NURSE ---
per MD, increase fent to 75 - pt breathing over vent - sedation needed
--- NOTE | 2023-07-16 14:26 | PC.NURSE ---
RT came in and pulled ET tube back to 23 at the lip. OG tube placed
--- NOTE | 2023-07-16 14:54 | MHC.EDTECH ---
lactic lab draw delayed due to pt family being at bedside request to hold on drawing blood. Lactic lab has been collected
--- NOTE | 2023-07-16 15:01 | PHA.MEDREC ---
Pharmacy Consult ? Medication Reconciliation Pharmacy has completed the medication reconciliation. Spoke with family in room they confirmed he has not filled anything since October 2022.
[2023-07-16 15:29] LABS: ~Lactic Acid-LAB USE ONLY 2.9 mmol/L (0.5-2.0)
[2023-07-16 15:44] LABS: VBG Base Excess -5.3 mmol/L; VBG HCO3 19 mmol/L (22-26); VBG pCO2 35 mmHg; VBG pH 7.34 (7.32-7.43); VBG pO2 49 mmHg
[2023-07-16 15:48] LABS: Venous Blood Gas Refer to POC result
[2023-07-16 15:48] LABS: VBG Base Excess -4.1 mmol/L; VBG HCO3 22 mmol/L (22-26); VBG pCO2 43 mmHg; VBG pO2 53 mmHg
[2023-07-16] MEDS: Heparin Sodium,Porcine 5,000 UNIT/ML VIAL 5000 UNIT SUBCUT ×2 (15:59→20:44)
[2023-07-16] MEDS: Chlorhexidine Gluc Oral Rinse 15 ML MOUTHWASH BUCCAL ×2 (15:59→20:45)
[2023-07-16] MEDS: propofoL 1,000 MG/100 ML VIAL 17.23 MG IVCONT (16:00)
--- NOTE | 2023-07-16 16:29 | PM.CCHP ---
History of Present Illness Date of Service: 07/16/23 Chief Complaint: Comatose 33-year-old gentleman with underlying HIV, polysubstance abuse, schizoaffective disorder admitted after patient collapsed at acquaintance house after reported overdose. CPR performed by police, but pulse present on EMS arrival. On arrival to ER patient comatose, but with to sat of 92%, intubated for airway protection and admitted to intensive care unit. Initial CT head essentially normal. Review of Systems Review of Systems: Yes unobtainable due to endotracheal tube, Unobtainable due to mental condition and Unobtainable due to mental status PMFSH Past Medical History Medical History (Updated 07/16/23 @ 16:36 by Philip Landis MD) Polysubstance abuse Post traumatic stress disorder (PTSD) Cocaine use disorder, moderate, dependence Amphetamine use disorder, severe Schizoaffective disorder, bipolar type Acute anxiety Anxiety Depression Asthma Social History Social History Household Members: Unknown / Unable to assess Household Members Other:: mother Housing: Unknown / Unable to assess Do you presently have visiting nurse or other home services: No Unable to assess alcohol history related to: Unknown Alcohol intake: current Alcohol intake frequency: a few times a week Alcohol type: beer, wine and hard liquor Patient Tobacco Use Status: Tobacco use Unknown Tobacco use type: Cigarette Cigarette Packs Per Day: 1 Cigarettes Per Day: 20.0 Years Smoked: 10 e-Cigarette/Vaping Use: Former Use Use of substances other than those prescribed or required for medical reasons: Unable to respond Substance Use Type: Crack/Cocaine, Marijuana and Methamphetamine Spiritual Healthcare Practices: unable to assess Taoist Healthcare Practices: unable to assess Cultural Healthcare Practices: unable to assess Advance Directives: No Advance Directives Information Provided: No (unable) Advance Directives on File: No Do you have a plan to hurt others: No Plan service: No Sexual orientation: Unable to collect Meds Allergies Allergy/AdvReac Type Severity Reaction Status Date / Time Unable to Assess Allergy Verified 07/16/23 16:24 Active Medications: Current Medications Chlorhexidine Gluconate (Chlorhexidine Gluc Oral Rinse 15 Ml Mouthwash) 15 ml BUCCAL TID ALISTAIR Last Admin: 07/16/23 15:59 Dose: 15 ml Famotidine (Famotidine/Pf 20 Mg/2 Ml Vial) 20 mg IVPUSH DAILY [facility] Heparin Sodium (Porcine) (Heparin Sodium,Porcine 5,000 Unit/Ml Vial) 5,000 unit SUBCUT Q8H [facility] Last Admin: 07/16/23 15:59 Dose: 5,000 unit Propofol (Diprivan) 1,000 mg in 100 mls @ 0 mls/hr IVCONT .Q0M [facility]; Protocol Last Titration: 07/16/23 16:05 Dose: 50 mcg/kg/min, 21.54 mls/hr Fentanyl (Sublimaze/Ns) 1,000 mcg in 100 mls @ 0 mls/hr IVCONT .Q0M [facility]; Protocol Last Titration: 07/16/23 12:42 Dose: 750 mcg/hr, 75 mls/hr Home Medications ?Medication ?Instructions ?Recorded ?Confirmed ?Last Taken ?Type No Known Home Meds 07/16/23 07/16/23 Unknown History Physical Exam Vital Signs: Vital Signs: Last Vital Signs Temp 98.8 F 07/16/23 14:47 Pulse 91 07/16/23 14:47 Resp 16 07/16/23 14:47 BP 100/67 07/16/23 14:47 Pulse Ox 95 07/16/23 14:47 O2 Del Method Mechanical Ventil ation 07/16/23 14:47 FiO2 80 07/16/23 16:09 BMI result Body Mass Index 24.1 Const: General: no acute distress and other (Sedated on the vent) Eyes: Sclerae: sclerae normal EOM: EOMs intact bilaterally Neck: Neck: Yes no lymphadenopathy, Yes trachea midline and Yes supple Resp: Auscultation: clear to auscultation bilaterally Cardio: Rate: regular rate Rhythm: regular rhythm Heart sounds: no gallops, no murmurs and no rubs GI: Palpation (GI): Soft to palpation and Other GI palpation findings present ( Nontender) Auscultation: normal bowel sounds Extrem: General: Yes no pedal edema, No clubbing and No cyanosis Results Labs 07/16/23 10:32 07/16/23 10:32 Labs: Laboratory Results - last 24 hr 07/16/23 07/16/23 07/16/23 10:12 10:31 10:32 MCV 93.7 MCH 31.6 MCHC 33.8 RDW 11.7 Plt Count 201 MPV 10.1 Immature Gran % (Auto) 0.8 H Neut % (Auto) 29.6 L Lymph % (Auto) 66.1 H [place] % (Auto) 2.5 Eos % (Auto) 0.7 Baso % (Auto) 0.3 Lymph # (Auto) 6.8 H [place] # (Auto) 0.3 Eos # (Auto) 0.1 Baso # (Auto) 0.0 Abs Immat Gran (auto) 0.08 H Absolute Neuts (auto) 3.0 Absolute Nucleated RBC 0.000 Nucleated RBC % (auto) 0.0 Smear Tech's Comments VERIFIED ESR 2 VBG pH VBG pCO2 VBG pO2 VBG HCO3 VBG O2 Saturation VBG Base Excess Anion Gap 17 Estim Creat Clear Calc 86.2 Estimated GFR > 60 POC Glucose 326 H Random Glucose 358 H* Lactic Acid 4.6 H* Lactic Acid F/U @ 2Hr Calcium 8.4 D Magnesium 2.1 Total Bilirubin 0.2 Direct Bilirubin < 0.2 AST 262 H ALT 347 H Alkaline Phosphatase 84 Ammonia Total Creatine Kinase 98 Troponin I High Sens C-Reactive Protein < 0.10 B-Natriuretic Peptide < 10 Total Protein 7.3 Albumin 4.4 Beta-Hydroxybutyrate Procalcitonin < 0.02 TSH 1.15 Urine Color Urine Appearance Urine pH Ur Specific [place] Urine Protein Urine Glucose (UA) Urine Ketones Urine Blood Urine Nitrite Ur Leukocyte Esterase Urine RBC Urine WBC Ur Squamous Epith Cells Urine Bacteria Hyaline Casts Granular Casts Salicylates Urine Opiates Screen Ur Buprenorphine Scrn Ur Oxycodone Screen Urine Methadone Screen Urine Fentanyl Screen Acetaminophen Ur Barbiturates Screen Ur Phencyclidine Scrn Ur Amphetamines Screen U Benzodiazepines Scrn Urine Cocaine Screen U Marijuana (THC) Screen Ethyl Alcohol < 10 Influenza Type A (PCR) NEGATIVE Influenza Type B (PCR) NEGATIVE RSV RNA Qual (PCR) NEGATIVE SARS-CoV-2 RNA (RT-PCR) NEGATIVE 07/16/23 07/16/23 07/16/23 10:37 10:39 11:26 MCV MCH MCHC RDW Plt Count MPV Immature Gran % (Auto) Neut % (Auto) Lymph % (Auto) [place] % (Auto) Eos % (Auto) Baso % (Auto) Lymph # (Auto) [place] # (Auto) Eos # (Auto) Baso # (Auto) Abs Immat Gran (auto) Absolute Neuts (auto) Absolute Nucleated RBC Nucleated RBC % (auto) Smear Tech's Comments ESR VBG pH 7.24 L VBG pCO2 41 VBG pO2 138 VBG HCO3 18 L VBG O2 Saturation 100.0 VBG Base Excess -8.6 Anion Gap Estim Creat Clear Calc Estimated GFR POC Glucose Random Glucose Lactic Acid Lactic Acid F/U @ 2Hr Calcium Magnesium Total Bilirubin Direct Bilirubin AST ALT Alkaline Phosphatase Ammonia 44 Total Creatine Kinase Troponin I High Sens < 2.7 C-Reactive Protein B-Natriuretic Peptide Total Protein Albumin Beta-Hydroxybutyrate 0.14 Procalcitonin TSH Urine Color Yellow Urine Appearance Cloudy Urine pH 6.5 Ur Specific [place] >= 1.030 H Urine Protein >=1000 (4+) H Urine Glucose (UA) >=1000 H Urine Ketones Negative Urine Blood Trace H Urine Nitrite Negative Ur Leukocyte Esterase Negative Urine RBC 3-5 H Urine WBC 0-5 Ur Squamous Epith Cells 0-2 Urine Bacteria 1+ Hyaline Casts 0-2 Granular Casts Present Salicylates < 5.0 L Urine Opiates Screen Not Detected Ur Buprenorphine Scrn Not Detected Ur Oxycodone Screen Not Detected Urine Methadone Screen Not Detected Urine Fentanyl Screen POSITIVE H Acetaminophen < 3 Ur Barbiturates Screen Not Detected Ur Phencyclidine Scrn Not Detected Ur Amphetamines Screen Not Detected U Benzodiazepines Scrn POSITIVE H Urine Cocaine Screen POSITIVE H U Marijuana (THC) Screen POSITIVE H Ethyl Alcohol Influenza Type A (PCR) Influenza Type B (PCR) RSV RNA Qual (PCR) SARS-CoV-2 RNA (RT-PCR) 07/16/23 07/16/23 07/16/23 15:07 15:36 15:42 MCV MCH MCHC RDW Plt Count MPV Immature Gran % (Auto) Neut % (Auto) Lymph % (Auto) [place] % (Auto) Eos % (Auto) Baso % (Auto) Lymph # (Auto) [place] # (Auto) Eos # (Auto) Baso # (Auto) Abs Immat Gran (auto) Absolute Neuts (auto) Absolute Nucleated RBC Nucleated RBC % (auto) Smear Tech's Comments ESR VBG pH 7.34 7.30 L VBG pCO2 35 43 VBG pO2 49 53 VBG HCO3 19 L 22 VBG O2 Saturation 82.0 84.0 VBG Base Excess -5.3 -4.1 Anion Gap Estim Creat Clear Calc Estimated GFR POC Glucose Random Glucose Lactic Acid Lactic Acid F/U @ 2Hr 2.9 H* Calcium Magnesium Total Bilirubin Direct Bilirubin AST ALT Alkaline Phosphatase Ammonia Total Creatine Kinase Troponin I High Sens C-Reactive Protein B-Natriuretic Peptide Total Protein Albumin Beta-Hydroxybutyrate Procalcitonin TSH Urine Color Urine Appearance Urine pH Ur Specific [place] Urine Protein Urine Glucose (UA) Urine Ketones Urine Blood Urine Nitrite Ur Leukocyte Esterase Urine RBC Urine WBC Ur Squamous Epith Cells Urine Bacteria Hyaline Casts Granular Casts Salicylates Urine Opiates Screen Ur Buprenorphine Scrn Ur Oxycodone Screen Urine Methadone Screen Urine Fentanyl Screen Acetaminophen Ur Barbiturates Screen Ur Phencyclidine Scrn Ur Amphetamines Screen U Benzodiazepines Scrn Urine Cocaine Screen U Marijuana (THC) Screen Ethyl Alcohol Influenza Type A (PCR) Influenza Type B (PCR) RSV RNA Qual (PCR) SARS-CoV-2 RNA (RT-PCR) Imaging Radiologist's Impressions: Impressions Chest X-Ray 07/16/23 10:27 IMPRESSION: Deeply positioned endotracheal tube. Bilateral airspace disease Abdomen/Pelvis CT 07/16/23 11:59 IMPRESSION: Extensive consolidations at the lung bases. Formal CT of the chest may be warranted. Fleischner guidelines were followed. Cervical Spine CT 07/16/23 12:02 IMPRESSION: Unremarkable cervical spine. Opacification of both lungs right more than left. Fleischner guidelines were followed. Chest CT 07/16/23 12:02 IMPRESSION: ET tube needs to be retracted. Extensive diffuse airspace disease reflective of pneumonia and/or edema or combination of both. Fleischner guidelines were followed. Head CT 07/16/23 12:02 IMPRESSION: No acute intracranial pathology. Chest X-Ray 07/16/23 13:05 IMPRESSION: Bilateral airspace disease, worsening. Well-positioned endotracheal tube and orogastric tube Assessment and Plan (1) Respiratory arrest: Status: Acute (2) Acidosis, lactic: Status: Acute (3) Overdose: Qualifiers: Encounter type: initial encounter Injury intent: undetermined intent Qualified Code(s): T50.904A - Poisoning by unspecified drugs, medicaments and biological substances, undetermined, initial encounter Status: Acute (4) Aspiration pneumonia of both lungs: Qualifiers: Aspiration pneumonia type: due to gastric secretions Lung location: unspecified part of lung Qualified Code(s): J69.0 - Pneumonitis due to inhalation of food and vomit Status: Acute (5) Polysubstance abuse: Status: Acute (6) Schizoaffective disorder, bipolar type: Status: Acute Plan Assessment: 33-year-old gentleman with polysubstance abuse, HIV, schizoaffective disorder admitted after reported polysubstance abuse overdose in comatose state requiring ventilatory support Plan: Neuro: Polysubstance abuse,comatose, if not improving will consider MRI. Cardiac: No acute issues. Pulmonary: Acute hypoxic respiratory failure after respiratory arrest secondary to polysubstance abuse now requiring ventilatory support, continue to titrate off as tolerated. Renal: Acute kidney injury, after respiratory arrest. Continue to monitor renal indices and urine output. Endo: No acute issues. GI: No acute issues. ID: No evidence of sepsis, empiric antibiotics for pulmonary aspiration. Underlying HIV. Heme/Onc: No acute issues. Psych: No acute issues. Miscellaneous: No acute issues. Prophylaxis: Heparin, famotidine Diet: Nothing by mouth Critical care time spent: 60 minutes
[2023-07-16] MEDS: levoFLOXacin/D5W 750 MG/150 ML PIGGYBACK 100 MG IV (17:00)
[2023-07-16] MEDS: Midazolam HCl/PF 2 MG/2 ML VIAL 4 MG IVPUSH (17:00)
[2023-07-16] MEDS: levETIRAcetam in NaCl (iso-os) 1,000 MG/100 ML PIGGYBACK 400 MG IV (17:00)
[2023-07-16 17:10] LABS: Reflex Lactate? 2 Y
[2023-07-16 17:54] LABS: ~Lactic Acid-LAB USE ONLY 2.3 mmol/L (0.5-2.0)
[2023-07-16] MEDS: Norepinephrine Bitartrate/D5W 8 MG/250 ML PLAST..BAG 6.73 MG IV (19:01)
--- NOTE | 2023-07-16 19:54 | PM.EVENT ---
Documented by User: Marion Mena NP 07/16/23 19:54 Event Note Date of Service: 07/16/23 Event Note: Hypotension is related to sedation. No evidence of severe infection/ sepsis Time Spent With Patient Time: Total time managing care of this patient today ____ minutes. Documented by User: Philip Landis MD 07/17/23 11:20 Event Note Date of Service: 07/17/23
[2023-07-16] MEDS: propofoL 1,000 MG/100 ML VIAL 21.54 MG IVCONT (20:42)
[2023-07-16 20:50] LABS: Anion Gap 14 (12-20); Blood Urea Nitrogen 13 mg/dL (9-16); Calcium 7.7 mg/dL (8.4-10.2); Carbon Dioxide 18 mmol/L (22-29); Chloride 113 mmol/L (96-108); Creatinine Clr Calc Pharmacy 123.2; Estimated Glomerular Filt Rate > 60; Glucose Random 82 mg/dL (60-115); Potassium 4.7 mmol/L (3.3-5.1); Sodium 140 mmol/L (135-145)
[2023-07-16] MEDS: fentaNYL citrate/NS 1,000 MCG/100 ML PLAST..BAG 7.5 MCG IVCONT (21:53)
[2023-07-17] VITALS (34 sets, daily range): BP systolic 91–126; BP diastolic 61–82; PULSE 67–107; RESP 14–21; TEMP 34.9–38.1; O2SAT 95–100; BMI 25.1
[2023-07-17] MEDS: propofoL 1,000 MG/100 ML VIAL 21.54 MG IVCONT ×5 (01:13→18:49)
[2023-07-17] MEDS: levETIRAcetam in NaCl (iso-os) 1,000 MG/100 ML PIGGYBACK 400 MG IV ×2 (05:05→16:04)
[2023-07-17 05:12] LABS: MANUAL DIFF FLAG NO
[2023-07-17 05:14] LABS: Basophils Percent Auto 0.3 % (0-2); Eosinophils Percent Auto 0.2 % (0-4); Hematocrit 36.8 % (42.0-52.0); Imm Gran Abs Auto 0.04 X10*3/uL (0.00-0.03); Imm Gran Pct Auto 0.3 % (0.0-0.4); Lymphocytes Absolute Auto 2.7 X10*3/uL (1.2-4.9); Lymphocytes Percent Auto 23.1 % (20-40); Mean Corpuscular HGB Conc 35.3 g/dl (31.0-36.0); Mean Corpuscular Hemoglobin 31.3 pg (27.0-33.0); Mean Corpuscular Volume 88.7 fL (80.0-98.0); Mean Platelet Volume 9.8 fL (9.4-12.4); Monocytes Absolute Auto 0.8 X10*3/uL (0.1-1.2); Monocytes Percent Auto 6.8 % (2-11); Neutrophils Percent Auto 69.3 % (45-73); Platelet Count 175 X10*3/uL (160-400); Red Blood Count 4.15 X10*6/uL (4.60-5.80); Red Cell Distribution Width 11.7 % (11.0-16.0); White Blood Count 11.5 X10*3/uL (4.8-10.8)
[2023-07-17 05:16] LABS: VBG Base Excess -2.4 mmol/L; VBG HCO3 18 mmol/L (22-26); VBG pCO2 23 mmHg; VBG pH 7.51 (7.32-7.43); VBG pO2 65 mmHg
[2023-07-17 05:18] LABS: Venous Blood Gas Refer to POC result
[2023-07-17 05:21] LABS: PTT Heparin Drip 32.8 SEC (53-77.9)
[2023-07-17 05:38] LABS: Alanine Aminotransferase 198 U/L (0-40); Albumin Level 3.3 g/dL (3.5-5.0); Alkaline Phosphatase 42 U/L (39-117); Anion Gap 12 (12-20); Aspartate Amino Transferase 89 U/L (5-37); Bilirubin Total 0.6 mg/dL (0.0-1.0); Blood Urea Nitrogen 9 mg/dL (9-16); Calcium 8.4 mg/dL (8.4-10.2); Carbon Dioxide 18 mmol/L (22-29); Chloride 111 mmol/L (96-108); Creatinine Clr Calc Pharmacy 134.4; Estimated Glomerular Filt Rate > 60; Glucose Random 105 mg/dL (60-115); Magnesium 1.6 mg/dL (1.6-2.6); Phosphorus 2.2 mg/dL (2.7-4.5); Potassium 3.4 mmol/L (3.3-5.1); Sodium 138 mmol/L (135-145); Total Protein 5.5 g/dL (6.5-8.0)
[2023-07-17] MEDS: Heparin Sodium,Porcine 5,000 UNIT/ML VIAL 5000 UNIT SUBCUT ×2 (05:44→14:08)
[2023-07-17] MEDS: Potassium Phosphate/NS 15 MMOL/250 ML PLAST..BAG 62.5 MMOL IV (06:04)
[2023-07-17] MEDS: Albumin Human 25 % 100 ML IV ×4 (06:04→22:23)
--- NOTE | 2023-07-17 06:19 | ECG_ITS ---
Test Reason : Tachy Matthew Blood Pressure : / mmHG Vent. Rate : 073 BPM Atrial Rate : 073 BPM P-R Int : 162 ms QRS Dur : 092 ms QT Int : 392 ms P-R-T Axes : 049 068 -28 degrees QTc Int : 431 ms Normal sinus rhythm Nonspecific ST and T wave abnormality inferior leads Abnormal ECG When compared with ECG of 26-JUN-2022 23:24, Inverted T waves have replaced nonspecific T wave abnormality in Inferior leads Referred By: Marion Mena Electronically Signed By:NIKKIE LOVE
[2023-07-17] MEDS: Sodium Bicarbonate 8.4% 50 MEQ/50 ML VIAL IVPUSH (06:25)
[2023-07-17] MEDS: Calcium Gluconate/NaCl,Iso-Osm 1 GM/50 ML PLAST..BAG IV (06:32)
--- NOTE | 2023-07-17 07:00 | CA_ITS ---
Transthoracic Echocardiogram Patient (Last, First, Middle): Alcides Cardoza, Gender: Male Date of : 1990 Age: 33 Procedure Date: 07/17/2023 Procedure Type: Transthoracic Echocardiogram Location: ICU Height: 172.72 cm Weight: 74.84 kg BSA: 1.88 m2 Heart Rate: bpm BP: 111 / 78 mmHg Communications Superintendent: Referring MD: Philip Landis MD Symptoms: s/p respiratory arrest Study Quality: Fair ECG Rhythm: Sinus Conclusions: - The left ventricular systolic function is severely decreased. The calculated ejection fraction is 28% by biplane method. - The inferolateral wall, the mid anterior, mid inferoseptal, and mid anteroseptal segments are akinetic. Findings Procedure Information Contrast agent, definity, is being given per protocol without apparent complications. Left Ventricle Normal left ventricular cavity size. There is normal left ventricular wall thickness. The left ventricular systolic function is severely decreased. The calculated ejection fraction is 28% by biplane method. There is evidence of regional wall motion abnormalities. Diastolic function is normal for age. Wall Motion Rest Echo Findings The inferolateral wall, the mid anterior, mid inferoseptal, and mid anteroseptal segments are akinetic. Right Ventricle Normal right ventricular cavity size and systolic function. Atria Both atria are normal in size. Aortic Valve There is a normal trileaflet aortic valve. There is no aortic valve stenosis. There is no aortic valve regurgitation. Mitral Valve The mitral valve appears normal. There is no mitral valve regurgitation. There is no mitral valve stenosis. Pulmonic Valve The pulmonic valve was not well visualized. Tricuspid Valve Normal tricuspid valve structure. There is no tricuspid valve regurgitation. There is no evidence of pulmonary hypertension. Great Vessels The sinuses of valsalva and asc aorta are normal in size. Venous The inferior vena cava is mildly dilated and collapses less than 50% with inspiration. (intubated). Pericardium/Pleural There is no evidence of pericardial effusion. Prior Study Comparison No prior study available for comparison. Recommendations, Care & Conclusions No obvious valvular pathology seen on this study. Measurements 2D Linear Measurements IVSd: 0.97 0.6-0.9/0.6-1.0 cm LVIDd: 4.91 3.9-5.3/4.2-5.9 cm LVIDd Index: 2.61 2.4-3.2/2.2-3.1 cm/m2 LVIDs: 3.89 2.0-3.6 cm LVPWd: 0.93 0.7-1.1 cm Ao Root: 2.90 2.1-3.5 cm LA Diam: 2.60 2.7-3.8/3.0-4.0 cm LAIDs Index: 1.38 1.5-2.3 cm/m2 LV Mass: 205.78 67-162/88-224 g LV Mass Index: 109.46 43-95/49-115 g/m2 LVOT Diam: 2.20 3.0+(-)1.3 cm 2D Systolic Function EF 4C: 30.60 >55% EF 2C: 24.00 >55% EF BiP: 27.90 >55% Mitral Valve MV Pk E: 0.74 MV PK A: 0.39 MV Decel Time: 151.00 E/A: 1.90 E'Lateral: 13.30 E'Medial: 9.46 E/E' Med: 7.80 E/E' Lat: 5.60 PHT: 44.00 MVA PHT: 5.00 Decel [place]: 4.90 Aortic Valve AoV Pk Tone: 1.03 AoV Mn Tone: 0.70 AoV VTI: 0.22 AoV Pk Grad: 4.00 Aov Mn Grad: 2.00 LLOYD Cont.VTI: 2.62 LVOT LVOT Pk Tone: 0.71 LVOT Mn Tone: 0.50 LVOT VTI: 0.15 LVOT Pk Grad: 2.00 LVOT Mn Grad: 1.00 LVOT Diam: 2.20 LVOT Area: 3.80 Diastolic Function MV Pk E: 0.74 MV Pk A: 0.39 E/A: 1.90 E'Medial: 9.46 E/E' Med: 7.80 E' Laterial: 13.30 E/E' Lat: 5.60 Right Ventricle TAPSE (mm): 22.00 TVS' Tone: 13.00 Tricuspid Valve TR Pk Tone: 1.90 TR Pk Grad: 14.00 RA Press: 3.00 RVSP: 17.00 Great Vessels Aorta Ao Root-2D: 2.90 2.0-3.7 cm Ao Asc: 3.00 2.1-3.4 cm Pulmonary Valve PV Pk Tone: 0.77 Peak PV Grad: 2.00 Updated in Other Vendor System with Status of Final Asif aCrlisle MD electronically signed on 07/17/2023 11:15:57 AM with status of Final
[2023-07-17 07:13] LABS: B Type Natriuretic Peptide 77 pg/mL (<100)
[2023-07-17 07:16] LABS: Troponin-I High Sensitivity 735.6 ng/L (<3.5-35.0)
[2023-07-17] MEDS: Chlorhexidine Gluc Oral Rinse 15 ML MOUTHWASH BUCCAL ×3 (08:34→22:23)
[2023-07-17] MEDS: Famotidine/PF 20 MG/2 ML VIAL IVPUSH (08:34)
--- NOTE | 2023-07-17 10:24 | MHC.CLN ---
PT IS INTUBATED AND SEDATED DISCUSSED AT ROUNDS WITH MD PLAN TO START TRICKLE FEED TODAY RECOMMEND TO START PROMOTE AT 20ML/HR -NURSE AWARE IF TF NEEDED OVER WEEKEND; RECOMMEND PROMOTE AT MAX GOAL RATE 70ML/HR WITH 240ML FREE WATER Q 8 HRS TO PROVIDE 1680KCALS (2249KCALS WITH SEDATION; 30KCALS/KG), 105G PROTEIN (1.4G/KG), 2129ML TOTAL WATER FROM FORMULA AND FLUSHES (28ML/KG) MONITOR TOLERANCE, RESIDUALS AND LYTES SEE FULL CLINICAL NUTRITION ASSESSMENT RD CAN BE REACHED VIA TIGER CONNECT DURING OFF HOURS
[2023-07-17] MEDS: fentaNYL citrate/NS 1,000 MCG/100 ML PLAST..BAG 7.5 MCG IVCONT (10:54)
--- NOTE | 2023-07-17 11:20 | P.PNCC_ITS ---
Subjective Subjective Date of Service: 07/17/23 Interval History: 33-year-old gentleman with underlying HIV, polysubstance abuse, schizoaffective disorder admitted after patient collapsed at acquaintance house after reported overdose. CPR performed by police, but pulse present on EMS arrival. On arrival to ER patient comatose, but with to sat of 92%, intubated for airway protection and admitted to intensive care unit. Initial CT head essentially normal. Some seizure activity overnight, started on Keppra. Critical Care Time (minutes): 60 Physical Exam 2 Vital Signs: Vital Signs: Last Vital Signs Temp 100.0 F 07/17/23 11:00 Pulse 70 07/17/23 11:00 Resp 16 07/17/23 11:00 BP 91/62 07/17/23 11:00 Pulse Ox 100 07/17/23 11:00 O2 Del Method Mechanical Ventil ation 07/17/23 11:00 FiO2 30 07/17/23 11:02 BMI result Body Mass Index 25.1 Const: General: no acute distress and other (Sedated on the vent) Eyes: Sclerae: sclerae normal EOM: EOMs intact bilaterally Neck: Neck: Yes no lymphadenopathy, Yes trachea midline and Yes supple Resp: Auscultation: clear to auscultation bilaterally Cardio: Rate: regular rate Rhythm: regular rhythm Heart sounds: no gallops, no murmurs and no rubs GI: Palpation (GI): Soft to palpation and Other GI palpation findings present ( Nontender) Auscultation: normal bowel sounds Extrem: General: Yes no pedal edema, No clubbing and No cyanosis Objective Data Labs 07/17/23 05:02 07/17/23 05:02 Labs: Laboratory Results - last 24 hr 07/16/23 07/16/23 07/16/23 10:12 10:32 11:26 WBC RBC Hgb Hct MCV MCH MCHC RDW Plt Count MPV Immature Gran % (Auto) Neut % (Auto) Lymph % (Auto) [place] % (Auto) Eos % (Auto) Baso % (Auto) Lymph # (Auto) [place] # (Auto) Eos # (Auto) Baso # (Auto) Abs Immat Gran (auto) Absolute Neuts (auto) Absolute Nucleated RBC Nucleated RBC % (auto) Smear Path Review SEE NOTE ESR 2 aPTT Heparin Protocol VBG pH VBG pCO2 VBG pO2 VBG HCO3 VBG O2 Saturation VBG Base Excess Sodium Potassium Chloride Carbon Dioxide Anion Gap BUN Creatinine Estim Creat Clear Calc Estimated GFR POC Glucose 326 H Random Glucose Lactic Acid F/U @ 2Hr Lactic Acid F/U @ 4Hr Calcium Phosphorus Magnesium Total Bilirubin AST ALT Alkaline Phosphatase Troponin I High Sens B-Natriuretic Peptide Total Protein Albumin Procalcitonin < 0.02 TSH 1.15 Urine Color Yellow Urine Appearance Cloudy Urine pH 6.5 Ur Specific [place] >= 1.030 H Urine Protein >=1000 (4+) H Urine Glucose (UA) >=1000 H Urine Ketones Negative Urine Blood Trace H Urine Nitrite Negative Ur Leukocyte Esterase Negative Urine RBC 3-5 H Urine WBC 0-5 Ur Squamous Epith Cells 0-2 Urine Bacteria 1+ Hyaline Casts 0-2 Granular Casts Present Urine Opiates Screen Not Detected Ur Buprenorphine Scrn Not Detected Ur Oxycodone Screen Not Detected Urine Methadone Screen Not Detected Urine Fentanyl Screen POSITIVE H Ur Barbiturates Screen Not Detected Ur Phencyclidine Scrn Not Detected Ur Amphetamines Screen Not Detected U Benzodiazepines Scrn POSITIVE H Urine Cocaine Screen POSITIVE H U Marijuana (THC) Screen POSITIVE H Influenza Type A (PCR) NEGATIVE Influenza Type B (PCR) NEGATIVE RSV RNA Qual (PCR) NEGATIVE SARS-CoV-2 RNA (RT-PCR) NEGATIVE 07/16/23 07/16/23 07/16/23 15:07 15:36 15:37 WBC RBC Hgb Hct MCV MCH MCHC RDW Plt Count MPV Immature Gran % (Auto) Neut % (Auto) Lymph % (Auto) [place] % (Auto) Eos % (Auto) Baso % (Auto) Lymph # (Auto) [place] # (Auto) Eos # (Auto) Baso # (Auto) Abs Immat Gran (auto) Absolute Neuts (auto) Absolute Nucleated RBC Nucleated RBC % (auto) Smear Path Review ESR aPTT Heparin Protocol VBG pH 7.34 VBG pCO2 35 VBG pO2 49 VBG HCO3 19 L VBG O2 Saturation 82.0 VBG Base Excess -5.3 Sodium 140 Potassium 4.7 D Chloride 113 H Carbon Dioxide 18 L Anion Gap 14 BUN 13 Creatinine 0.84 Estim Creat Clear Calc 123.2 Estimated GFR > 60 POC Glucose Random Glucose 82 Lactic Acid F/U @ 2Hr 2.9 H* Lactic Acid F/U @ 4Hr Calcium 7.7 L D Phosphorus Magnesium Total Bilirubin AST ALT Alkaline Phosphatase Troponin I High Sens B-Natriuretic Peptide Total Protein Albumin Procalcitonin TSH Urine Color Urine Appearance Urine pH Ur Specific [place] Urine Protein Urine Glucose (UA) Urine Ketones Urine Blood Urine Nitrite Ur Leukocyte Esterase Urine RBC Urine WBC Ur Squamous Epith Cells Urine Bacteria Hyaline Casts Granular Casts Urine Opiates Screen Ur Buprenorphine Scrn Ur Oxycodone Screen Urine Methadone Screen Urine Fentanyl Screen Ur Barbiturates Screen Ur Phencyclidine Scrn Ur Amphetamines Screen U Benzodiazepines Scrn Urine Cocaine Screen U Marijuana (THC) Screen Influenza Type A (PCR) Influenza Type B (PCR) RSV RNA Qual (PCR) SARS-CoV-2 RNA (RT-PCR) 07/16/23 07/16/23 07/17/23 15:42 17:26 05:02 WBC 11.5 H RBC 4.15 L Hgb 13.0 L Hct 36.8 L MCV 88.7 D MCH 31.3 MCHC 35.3 RDW 11.7 Plt Count 175 MPV 9.8 Immature Gran % (Auto) 0.3 Neut % (Auto) 69.3 Lymph % (Auto) 23.1 [place] % (Auto) 6.8 Eos % (Auto) 0.2 Baso % (Auto) 0.3 Lymph # (Auto) 2.7 [place] # (Auto) 0.8 Eos # (Auto) 0.0 Baso # (Auto) 0.0 Abs Immat Gran (auto) 0.04 H Absolute Neuts (auto) 8.0 Absolute Nucleated RBC 0.000 Nucleated RBC % (auto) 0.0 Smear Path Review ESR aPTT Heparin Protocol 32.8 L VBG pH 7.30 L VBG pCO2 43 VBG pO2 53 VBG HCO3 22 VBG O2 Saturation 84.0 VBG Base Excess -4.1 Sodium 138 Potassium 3.4 D Chloride 111 H Carbon Dioxide 18 L Anion Gap 12 BUN 9 Creatinine 0.77 Estim Creat Clear Calc 134.4 Estimated GFR > 60 POC Glucose Random Glucose 105 Lactic Acid F/U @ 2Hr Lactic Acid F/U @ 4Hr 2.3 H* Calcium 8.4 D Phosphorus 2.2 L Magnesium 1.6 Total Bilirubin 0.6 AST 89 H ALT 198 H Alkaline Phosphatase 42 Troponin I High Sens B-Natriuretic Peptide Total Protein 5.5 L Albumin 3.3 L Procalcitonin TSH Urine Color Urine Appearance Urine pH Ur Specific [place] Urine Protein Urine Glucose (UA) Urine Ketones Urine Blood Urine Nitrite Ur Leukocyte Esterase Urine RBC Urine WBC Ur Squamous Epith Cells Urine Bacteria Hyaline Casts Granular Casts Urine Opiates Screen Ur Buprenorphine Scrn Ur Oxycodone Screen Urine Methadone Screen Urine Fentanyl Screen Ur Barbiturates Screen Ur Phencyclidine Scrn Ur Amphetamines Screen U Benzodiazepines Scrn Urine Cocaine Screen U Marijuana (THC) Screen Influenza Type A (PCR) Influenza Type B (PCR) RSV RNA Qual (PCR) SARS-CoV-2 RNA (RT-PCR) 07/17/23 07/17/23 05:08 06:38 WBC RBC Hgb Hct MCV MCH MCHC RDW Plt Count MPV Immature Gran % (Auto) Neut % (Auto) Lymph % (Auto) [place] % (Auto) Eos % (Auto) Baso % (Auto) Lymph # (Auto) [place] # (Auto) Eos # (Auto) Baso # (Auto) Abs Immat Gran (auto) Absolute Neuts (auto) Absolute Nucleated RBC Nucleated RBC % (auto) Smear Path Review ESR aPTT Heparin Protocol VBG pH 7.51 H VBG pCO2 23 VBG pO2 65 VBG HCO3 18 L VBG O2 Saturation 97.0 VBG Base Excess -2.4 Sodium Potassium Chloride Carbon Dioxide Anion Gap BUN Creatinine Estim Creat Clear Calc Estimated GFR POC Glucose Random Glucose Lactic Acid F/U @ 2Hr Lactic Acid F/U @ 4Hr Calcium Phosphorus Magnesium Total Bilirubin AST ALT Alkaline Phosphatase Troponin I High Sens 735.6 H* D B-Natriuretic Peptide 77 Total Protein Albumin Procalcitonin TSH Urine Color Urine Appearance Urine pH Ur Specific [place] Urine Protein Urine Glucose (UA) Urine Ketones Urine Blood Urine Nitrite Ur Leukocyte Esterase Urine RBC Urine WBC Ur Squamous Epith Cells Urine Bacteria Hyaline Casts Granular Casts Urine Opiates Screen Ur Buprenorphine Scrn Ur Oxycodone Screen Urine Methadone Screen Urine Fentanyl Screen Ur Barbiturates Screen Ur Phencyclidine Scrn Ur Amphetamines Screen U Benzodiazepines Scrn Urine Cocaine Screen U Marijuana (THC) Screen Influenza Type A (PCR) Influenza Type B (PCR) RSV RNA Qual (PCR) SARS-CoV-2 RNA (RT-PCR) Progress Note: A&P Assessment and plan (1) Polysubstance abuse: Status: Acute (2) Respiratory arrest: Status: Acute (3) Aspiration pneumonia of both lungs: Status: Acute (4) Acute respiratory failure with hypoxia: Status: Acute (5) Overdose: Status: Acute (6) Schizoaffective disorder, bipolar type: Status: Acute Plan Assessment: 33-year-old gentleman with polysubstance abuse, HIV, schizoaffective disorder admitted after reported polysubstance abuse overdose in comatose state requiring ventilatory support Plan: Neuro: Polysubstance abuse,comatose, if not improving will consider MRI. Some seizure activity overnight, started on Keppra. Cardiac: No acute issues. Pulmonary: Acute hypoxic respiratory failure after respiratory arrest secondary to polysubstance abuse now requiring ventilatory support, continue to titrate off as tolerated. Renal: Acute kidney injury, after respiratory arrest, resolved. Non oliguric. Continue to monitor renal indices and urine output. Endo: No acute issues. GI: No acute issues. ID: No evidence of sepsis, empiric antibiotics for pulmonary aspiration. Underlying HIV. Heme/Onc: No acute issues. Psych: No acute issues. Miscellaneous: No acute issues. Prophylaxis: Heparin, famotidine Diet: Trophic tube feeds Critical care time spent: 60 minutes Quality Stroke Does the patient have a stroke diagnosis?: No VTE Prior VTE?: No VTE Risk Level:: Medical - moderate - high VTE Device Contraindication: Treatment Not Indicated VTE Drug Contraindication: N/A - Med Ordered
[2023-07-17 12:03] LABS: Absolute CD3 Count 907 cells/uL (840-3060); Absolute CD4 Count 496 cells/uL (490-1740); Absolute CD8 Count 409 cells/uL (180-1170); Absolute Lymphocytes 1387 cells/uL (850-3900); CD4 CD8 Ratio 1.21 (0.86-5.00); Percent CD3 Cells 65 % (57-85); Percent CD4 Cells 36 % (30-61); Percent CD8 Cells 29 % (12-42)
--- NOTE | 2023-07-17 12:18 | MHC.CM.PN ---
Pt presented to ED unresponsive from field where he required urgent intubation after narcan administration. Information obtained from EMR, ICU Care team and brief conversation w/pt's mother and cousin. Pt resides w/mother, primary care physician unknown and no payor listed. Pt is independent w/care needs and has no DME or services. Pt w/active substance history. Family is not aware of any HCP. At this time, pt's needs cannot be accurately assessed and d/c planning will be deferred until clinical progress can be demonstrated. CM to follow for finalization of d/c planning needs. Referred to [facility] for assistance w/[employer] application
--- NOTE | 2023-07-17 14:04 | PC.NURSE ---
[employer] called - referral # [id number] - awaiting call back from [facility]
[2023-07-17] MEDS: Aspirin 325 MG TABLET PO (14:29)
[2023-07-17 14:43] LABS: INTERNATIONAL NORM RATIO 1.2 (0.9-1.1); Prothrombin Time 14.9 SEC (11.1-13.3)
[2023-07-17 14:45] LABS: PTT Heparin Drip 37.5 SEC (53-77.9)
[2023-07-17] MEDS: Heparin Sodium,Porcine/1/2NS 25,000 UNIT/250 ML IV.SOLN 10.5 UNIT IVCONT (14:58)
[2023-07-17] MEDS: levoFLOXacin/D5W 750 MG/150 ML PIGGYBACK 100 MG IV (15:53)
[2023-07-17] MEDS: Norepinephrine Bitartrate/D5W 8 MG/250 ML PLAST..BAG 9.42 MG IV (18:07)
[2023-07-17 21:18] LABS: PTT Heparin Drip 98.3 SEC (53-77.9)
[2023-07-18] VITALS (33 sets, daily range): BP systolic 93–158; BP diastolic 62–91; PULSE 70–123; RESP 16–23; TEMP 34.9–38.5; O2SAT 94–100; BMI 24.6
[2023-07-18] MEDS: propofoL 1,000 MG/100 ML VIAL 12.92 MG IVCONT (00:23)
[2023-07-18] MEDS: fentaNYL citrate/NS 1,000 MCG/100 ML PLAST..BAG 5 MCG IVCONT ×2 (01:16→21:54)
[2023-07-18] MEDS: levETIRAcetam in NaCl (iso-os) 1,000 MG/100 ML PIGGYBACK 400 MG IV ×2 (04:06→16:28)
[2023-07-18 05:09] LABS: VBG Base Excess 0.5 mmol/L; VBG HCO3 20 mmol/L (22-26); VBG pCO2 20 mmHg; VBG pO2 114 mmHg
[2023-07-18 05:43] LABS: MANUAL DIFF FLAG NO
[2023-07-18 05:51] LABS: Basophils Percent Auto 0.2 % (0-2); Eosinophils Percent Auto 0.2 % (0-4); Hematocrit 33.9 % (42.0-52.0); Hemoglobin 11.6 g/dl (14.0-18.0); Imm Gran Abs Auto 0.04 X10*3/uL (0.00-0.03); Imm Gran Pct Auto 0.5 % (0.0-0.4); Lymphocytes Absolute Auto 1.9 X10*3/uL (1.2-4.9); Lymphocytes Percent Auto 21.6 % (20-40); Mean Corpuscular HGB Conc 34.2 g/dl (31.0-36.0); Mean Corpuscular Hemoglobin 31.2 pg (27.0-33.0); Mean Corpuscular Volume 91.1 fL (80.0-98.0); Mean Platelet Volume 10.5 fL (9.4-12.4); Monocytes Absolute Auto 0.7 X10*3/uL (0.1-1.2); Monocytes Percent Auto 7.6 % (2-11); Neutrophils Percent Auto 69.9 % (45-73); Platelet Count 151 X10*3/uL (160-400); Red Blood Count 3.72 X10*6/uL (4.60-5.80); Red Cell Distribution Width 11.9 % (11.0-16.0); White Blood Count 8.6 X10*3/uL (4.8-10.8)
[2023-07-18 06:08] LABS: Alanine Aminotransferase 112 U/L (0-40); Albumin Level 4.5 g/dL (3.5-5.0); Alkaline Phosphatase 37 U/L (39-117); Anion Gap 13 (12-20); Aspartate Amino Transferase 71 U/L (5-37); Bilirubin Total 0.8 mg/dL (0.0-1.0); Blood Urea Nitrogen 7 mg/dL (9-16); Calcium 9.4 mg/dL (8.4-10.2); Carbon Dioxide 19 mmol/L (22-29); Chloride 111 mmol/L (96-108); Creatinine Clr Calc Pharmacy 141.8; Estimated Glomerular Filt Rate > 60; Glucose Random 121 mg/dL (60-115); Phosphorus 1.3 mg/dL (2.7-4.5); Potassium 3.4 mmol/L (3.3-5.1); Sodium 140 mmol/L (135-145); Total Protein 6.6 g/dL (6.5-8.0)
[2023-07-18 06:12] LABS: PTT Heparin Drip 60.9 SEC (53-77.9)
[2023-07-18] MEDS: Potassium Phosphate/NS 15 MMOL/250 ML PLAST..BAG 62.5 MMOL IV ×2 (06:36→10:38)
[2023-07-18] MEDS: propofoL 1,000 MG/100 ML VIAL 17.23 MG IVCONT ×3 (07:57→19:05)
[2023-07-18] MEDS: Famotidine/PF 20 MG/2 ML VIAL IVPUSH (07:58)
[2023-07-18] MEDS: Chlorhexidine Gluc Oral Rinse 15 ML MOUTHWASH BUCCAL ×3 (07:58→21:53)
--- NOTE | 2023-07-18 08:16 | PC.NURSE ---
Addendum entered by Navid Pelletier RN 07/19/23 11:52: scanned and hung prop and fent for MRI - requiring high amt of extension tubing Addendum entered by Navid Pelletier RN 07/19/23 11:03: pt had + cough during repositioning Addendum entered by Navid Pelletier RN 07/19/23 08:42: md informed of pupillary difference this AM Addendum entered by Navid Pelletier RN 07/18/23 10:36: NEDS updated Addendum entered by Navid Pelletier RN 07/18/23 09:49: hr increased to 120s. gaze fixed upward to the right. eyes open Addendum entered by Navid Pelletier RN 07/18/23 09:48: pt having tremors to arms, chest and face. BP elevated from SBP 90s to 150s. Pt over breathing the vent current RR 24. Addendum entered by Navid Pelletier RN 07/18/23 09:35: Per Md - performing sedation vacation now. if pt has seizure activity will restart sedation and administer IVP versed then plan for MRI. Addendum entered by Navid Pelletier RN 07/18/23 08:22: versed had + effect aeb twitching/tremors subsiding Original Note: Informed MD this AM pr appears to be seizing; legs shaking, jaw tremor and eyes twitching. med given as ordered
[2023-07-18] MEDS: Midazolam HCl/PF 2 MG/2 ML VIAL 4 MG IVPUSH ×2 (08:20→20:49)
--- NOTE | 2023-07-18 09:35 | P.CONCA_ITS ---
History of Present Illness History of Present Illness Date of Service: 07/18/23 Chief complaint: acute encephalopathy Narrative: This is a cardiology consultation regarding an abnormal echocardiogram and elevated troponins. Patient is currently intubated. Discussed with RN and reviewed the chart. Patient has history of HIV, polysubstance abuse, schizoaffective disorder. It seems that he collapsed at an acquaintance house after reported overdose. CPR was performed with a [place] but pulse present on EMS arrival. On arrival to the ER, he was comatose, intubated for airway protection and then admitted to the ICU. In this context, he is being treated for respiratory arrest from polysubstance abuse. Echocardiogram was performed and that shows wall motion abnormalities and diminished LVEF. Troponins are elevated. As mentioned above, patient is intubated and can not obtain any history. Review of Systems 2 Review of Systems: Unable to obtain. [facility] Past Medical History Medical History (Updated 07/18/23 @ 09:39 by Asif Carlisle MD) Polysubstance abuse Post traumatic stress disorder (PTSD) Cocaine use disorder, moderate, dependence Amphetamine use disorder, severe Schizoaffective disorder, bipolar type Acute anxiety Anxiety Depression Asthma Family History Pertinent family history: Unable to obtain as he is intubated. Social History Social History Household Members: Unknown / Unable to assess Household Members Other:: mother Housing: Unknown / Unable to assess Do you presently have visiting nurse or other home services: No Unable to assess alcohol history related to: Unknown Alcohol intake: current Alcohol intake frequency: a few times a week Alcohol type: beer, wine and hard liquor Patient Tobacco Use Status: Tobacco use Unknown Tobacco use type: Cigarette Cigarette Packs Per Day: 1 Cigarettes Per Day: 20.0 Years Smoked: 10 e-Cigarette/Vaping Use: Former Use Substance Use Type: Crack/Cocaine, Marijuana and Methamphetamine service: No Sexual orientation: Unable to collect Meds Allergies Allergy/AdvReac Type Severity Reaction Status Date / Time No Known Allergies Allergy Verified 07/16/23 16:44 Active Medications: Current Medications Chlorhexidine Gluconate (Chlorhexidine Gluc Oral Rinse 15 Ml Mouthwash) 15 ml BUCCAL TID ALISTAIR Last Admin: 07/18/23 07:58 Dose: 15 ml Famotidine (Famotidine/Pf 20 Mg/2 Ml Vial) 20 mg IVPUSH DAILY [facility] Last Admin: 07/18/23 07:58 Dose: 20 mg Heparin Sodium (Porcine) (Heparin Sodium,Porcine 5,000 Unit/Ml Vial) 3,000 unit 40 unit/kg (3000 unit) IVPUSH PROTOCOL BOLUS PRN; Protocol PRN Reason: 40 unit/kg - Heparin Protocol Heparin Sodium (Porcine) (Heparin Sodium,Porcine 5,000 Unit/Ml Vial) 6,000 unit 80 unit/kg (6000 unit) IVPUSH PROTOCOL BOLUS PRN; Protocol PRN Reason: 80 unit/kg - Heparin Protocol Propofol (Diprivan) 1,000 mg in 100 mls @ 0 mls/hr IVCONT .Q0M ALISTAIR; Protocol Last Admin: 07/18/23 07:57 Dose: 40 mcg/kg/min, 17.23 mls/hr Fentanyl (Sublimaze/Ns) 1,000 mcg in 100 mls @ 0 mls/hr IVCONT .Q0M ALISTAIR; Protocol Last Admin: 07/18/23 01:16 Dose: 50 mcg/hr, 5 mls/hr Levofloxacin (Levaquin) 750 mg in 150 mls @ 100 mls/hr IV Q24H [facility] Last Infusion: 07/17/23 17:52 Dose: Infused Levetiracetam (Keppra) 1,000 mg in 100 mls @ 400 mls/hr IV Q12H [facility] Last Infusion: 07/18/23 04:20 Dose: Infused Norepinephrine Bitartrate (Levophed) 8 mg in 250 mls @ 0 mls/hr IV .Q0M ALISTAIR; Protocol Last Titration: 07/18/23 02:06 Dose: 0.03 mcg/kg/min, 4.04 mls/hr Heparin Sodium/Sodium Chloride (Heparin Sodium,Porcine/1/2ns) 25,000 unit in 250 mls @ 0 mls/hr IVCONT .Q0M ALISTAIR; Protocol Last Titration: 07/17/23 22:41 Dose: 11 units/kg/hr, 8.25 mls/hr Potassium Phosphate (Kphos) 15 mmol in 250 mls @ 62.5 mls/hr IV ONCE ONE Stop: 07/18/23 10:09 Last Admin: 07/18/23 06:36 Dose: 62.5 mls/hr Potassium Phosphate (Kphos) 15 mmol in 250 mls @ 62.5 mls/hr IV ONCE ONE Stop: 07/18/23 14:59 Sodium Chloride (0.9 % Sodium Chloride Flush 3 Ml Syringe) 3 ml IVFLUSH QSHIFT [facility] Last Admin: 07/18/23 07:14 Dose: Not Given Home Medications ?Medication ?Instructions ?Recorded ?Confirmed ?Last Taken ?Type No Known Home Meds 07/16/23 07/16/23 Unknown History Physical Exam 2 Vital Signs: Vital Signs: Last Vital Signs Temp 99.5 F 07/18/23 09:00 Pulse 85 07/18/23 09:00 Resp 16 07/18/23 09:00 BP 97/64 07/18/23 09:00 Pulse Ox 96 07/18/23 09:00 O2 Del Method Mechanical Ventil ation 07/18/23 09:00 FiO2 24 07/18/23 09:00 BMI result Body Mass Index 24.6 Const: Other: Intubated, sedated General: no acute distress HEENT: Other: Unremarkable Head: Yes normal to inspection Neck: Neck: Yes normal visual inspection Chest: Chest palpation & inspection: normal inspection of the chest Resp: Auscultation: clear to auscultation bilaterally Cardio: Palpation: normal PMI Heart sounds: S1 normal heart sound present, S2 normal heart sound present, no gallops, no murmurs and no rubs GI: Palpation (GI): Soft to palpation Back/Spine/Pelvis: Other: unremarkable Skin: General skin exam: no rashes or lesions noted Neuro: Other: Sedated and intubated Extrem: General: Yes normal to inspection Psych: Mental Status: mental status grossly abnormal Objective Labs and Meds 07/18/23 05:07 07/18/23 05:07 Lab results: Laboratory Results - last 24 hr 07/16/23 07/16/23 07/17/23 10:32 15:37 12:26 WBC RBC Hgb Hct MCV MCH MCHC RDW Plt Count MPV Immature Gran % (Auto) Neut % (Auto) Lymph % (Auto) [place] % (Auto) Eos % (Auto) Baso % (Auto) Lymph # (Auto) [place] # (Auto) Eos # (Auto) Baso # (Auto) Abs Immat Gran (auto) Absolute Neuts (auto) Absolute Nucleated RBC Nucleated RBC % (auto) Smear Path Review SEE NOTE Hold Purple Top PT INR aPTT Heparin Protocol VBG pH VBG pCO2 VBG pO2 VBG HCO3 VBG O2 Saturation VBG Base Excess Sodium Potassium Chloride Carbon Dioxide Anion Gap BUN Creatinine Estim Creat Clear Calc Estimated GFR Random Glucose Calcium Phosphorus Magnesium Total Bilirubin AST ALT Alkaline Phosphatase Troponin I High Sens 4973.8 H* D Total Protein Albumin Total Lymphocytes 1387 % CD3 Cells 65 Absolute CD3 Count 907 % CD4 Cells 36 Absolute CD4 Count 496 CD4/CD8 Ratio 1.21 % CD8 Cells 29 Absolute CD8 Count 409 07/17/23 07/17/23 07/17/23 14:27 20:49 20:52 WBC RBC Hgb Hct MCV MCH MCHC RDW Plt Count MPV Immature Gran % (Auto) Neut % (Auto) Lymph % (Auto) [place] % (Auto) Eos % (Auto) Baso % (Auto) Lymph # (Auto) [place] # (Auto) Eos # (Auto) Baso # (Auto) Abs Immat Gran (auto) Absolute Neuts (auto) Absolute Nucleated RBC Nucleated RBC % (auto) Smear Path Review Hold Purple Top SEE NOTE PT 14.9 H INR 1.2 H aPTT Heparin Protocol 37.5 L 98.3 H D VBG pH VBG pCO2 VBG pO2 VBG HCO3 VBG O2 Saturation VBG Base Excess Sodium Potassium Chloride Carbon Dioxide Anion Gap BUN Creatinine Estim Creat Clear Calc Estimated GFR Random Glucose Calcium Phosphorus Magnesium Total Bilirubin AST ALT Alkaline Phosphatase Troponin I High Sens Total Protein Albumin Total Lymphocytes % CD3 Cells Absolute CD3 Count % CD4 Cells Absolute CD4 Count CD4/CD8 Ratio % CD8 Cells Absolute CD8 Count 07/18/23 07/18/23 05:00 05:07 WBC 8.6 RBC 3.72 L Hgb 11.6 L Hct 33.9 L MCV 91.1 MCH 31.2 MCHC 34.2 RDW 11.9 Plt Count 151 L MPV 10.5 Immature Gran % (Auto) 0.5 H Neut % (Auto) 69.9 Lymph % (Auto) 21.6 [place] % (Auto) 7.6 Eos % (Auto) 0.2 Baso % (Auto) 0.2 Lymph # (Auto) 1.9 [place] # (Auto) 0.7 Eos # (Auto) 0.0 Baso # (Auto) 0.0 Abs Immat Gran (auto) 0.04 H Absolute Neuts (auto) 6.0 Absolute Nucleated RBC 0.000 Nucleated RBC % (auto) 0.0 Smear Path Review Hold Purple Top PT INR aPTT Heparin Protocol 60.9 D VBG pH 7.60 H* VBG pCO2 20 VBG pO2 114 VBG HCO3 20 L VBG O2 Saturation 99.0 VBG Base Excess 0.5 Sodium 140 Potassium 3.4 Chloride 111 H Carbon Dioxide 19 L Anion Gap 13 BUN 7 L Creatinine 0.73 Estim Creat Clear Calc 141.8 Estimated GFR > 60 Random Glucose 121 H Calcium 9.4 D Phosphorus 1.3 L Magnesium 2.0 Total Bilirubin 0.8 AST 71 H ALT 112 H Alkaline Phosphatase 37 L Troponin I High Sens Total Protein 6.6 Albumin 4.5 Total Lymphocytes % CD3 Cells Absolute CD3 Count % CD4 Cells Absolute CD4 Count CD4/CD8 Ratio % CD8 Cells Absolute CD8 Count ECG Interpretation: EKG shows sinus rhythm at 73/Min; inferior T inversions; normal [place] and corrected QT. in the prior EKG from 2022, inferior changes not as obvious. Assessment and Plan (1) Acute respiratory failure with hypoxia: Status: Acute (2) Polysubstance abuse: Status: Acute (3) Respiratory arrest: Status: Acute (4) Overdose: Qualifiers: Encounter type: initial encounter Injury intent: undetermined intent Q ualified Code(s): T50.904A - Poisoning by unspecified drugs, medicaments and biological substances, undetermined, initial encounter Status: Acute (5) Cocaine use disorder, moderate, dependence: Status: Acute (6) NSTEMI (non-ST elevated myocardial infarction): Status: Acute (7) Cardiomyopathy: Status: Acute Plan High sensitivity troponins are normal followed by 735 followed by 4973. Echocardiogram with LVEF of 28%. Wall motion abnormalities in various segments. Overall, polysubstance abuse including cocaine. NSTEMI/wall motion abnormalities could be related to cocaine related myocardial injury. Additionally, respiratory arrest, hypoxic and also lead to these. Stress-induced cardiomyopathy may play a role. Recommend IV heparin for about 48 hours or so. Aspirin through OG tube or actually. Currently, he has not in a position to undergo any further workup. Will need to provide supportive care as guided by the autoclave operator and then repeat echocardiogram in a few days. If the abnormalities resolve, then we can presume it is probably from stress- induced cardiomyopathy. If the abnormalities persist or worsen, then will need further workup, possibly with a diagnostic catheterization. However, for that he needs to be extubated and and also he has to have a reasonable mental status. Will follow-up with you. Discussed yesterday with autoclave operator. Procedures Date of Service Date of Service: 07/18/23
--- NOTE | 2023-07-18 10:49 | P.PNCC_ITS ---
Subjective Subjective Date of Service: 07/18/23 Interval History: 33-year-old gentleman with underlying HIV, polysubstance abuse, schizoaffective disorder admitted after patient collapsed at acquaintance house after reported overdose. CPR performed by police, but pulse present on EMS arrival. On arrival to ER patient comatose, but with to sat of 92%, intubated for airway protection and admitted to intensive care unit. Initial CT head essentially normal. Patient with intermittent seizure activity started on Keppra. Echo with new onset cardiomyopathy, evaluated by Cardiology service, now on heparin drip. No events overnight. No arousal with sedation vacation. Critical Care Time (minutes): 60 Physical Exam 2 Vital Signs: Vital Signs: Last Vital Signs Temp 100.2 F 07/18/23 10:00 Pulse 123 H 07/18/23 10:00 Resp 23 H 07/18/23 10:00 BP 140/83 H 07/18/23 10:00 Pulse Ox 98 07/18/23 10:00 O2 Del Method Mechanical Ventil ation 07/18/23 10:00 FiO2 24 07/18/23 10:00 BMI result Body Mass Index 24.6 Const: General: no acute distress and other (Sedated on the vent) Eyes: Sclerae: sclerae normal EOM: EOMs intact bilaterally Neck: Neck: Yes no lymphadenopathy, Yes trachea midline and Yes supple Resp: Auscultation: clear to auscultation bilaterally Cardio: Rate: regular rate Rhythm: regular rhythm Heart sounds: no gallops, no murmurs and no rubs GI: Palpation (GI): Soft to palpation and Other GI palpation findings present ( Nontender) Auscultation: normal bowel sounds Extrem: General: Yes no pedal edema, No clubbing and No cyanosis Objective Data Labs 07/18/23 05:07 07/18/23 05:07 Labs: Laboratory Results - last 24 hr 07/16/23 07/16/23 07/17/23 10:32 15:37 12:26 WBC RBC Hgb Hct MCV MCH MCHC RDW Plt Count MPV Immature Gran % (Auto) Neut % (Auto) Lymph % (Auto) [place] % (Auto) Eos % (Auto) Baso % (Auto) Lymph # (Auto) [place] # (Auto) Eos # (Auto) Baso # (Auto) Abs Immat Gran (auto) Absolute Neuts (auto) Absolute Nucleated RBC Nucleated RBC % (auto) Smear Path Review SEE NOTE Hold Purple Top PT INR aPTT Heparin Protocol VBG pH VBG pCO2 VBG pO2 VBG HCO3 VBG O2 Saturation VBG Base Excess Sodium Potassium Chloride Carbon Dioxide Anion Gap BUN Creatinine Estim Creat Clear Calc Estimated GFR Random Glucose Calcium Phosphorus Magnesium Total Bilirubin AST ALT Alkaline Phosphatase Troponin I High Sens 4973.8 H* D Total Protein Albumin Total Lymphocytes 1387 % CD3 Cells 65 Absolute CD3 Count 907 % CD4 Cells 36 Absolute CD4 Count 496 CD4/CD8 Ratio 1.21 % CD8 Cells 29 Absolute CD8 Count 409 07/17/23 07/17/23 07/17/23 14:27 20:49 20:52 WBC RBC Hgb Hct MCV MCH MCHC RDW Plt Count MPV Immature Gran % (Auto) Neut % (Auto) Lymph % (Auto) [place] % (Auto) Eos % (Auto) Baso % (Auto) Lymph # (Auto) [place] # (Auto) Eos # (Auto) Baso # (Auto) Abs Immat Gran (auto) Absolute Neuts (auto) Absolute Nucleated RBC Nucleated RBC % (auto) Smear Path Review Hold Purple Top SEE NOTE PT 14.9 H INR 1.2 H aPTT Heparin Protocol 37.5 L 98.3 H D VBG pH VBG pCO2 VBG pO2 VBG HCO3 VBG O2 Saturation VBG Base Excess Sodium Potassium Chloride Carbon Dioxide Anion Gap BUN Creatinine Estim Creat Clear Calc Estimated GFR Random Glucose Calcium Phosphorus Magnesium Total Bilirubin AST ALT Alkaline Phosphatase Troponin I High Sens Total Protein Albumin Total Lymphocytes % CD3 Cells Absolute CD3 Count % CD4 Cells Absolute CD4 Count CD4/CD8 Ratio % CD8 Cells Absolute CD8 Count 07/18/23 07/18/23 05:00 05:07 WBC 8.6 RBC 3.72 L Hgb 11.6 L Hct 33.9 L MCV 91.1 MCH 31.2 MCHC 34.2 RDW 11.9 Plt Count 151 L MPV 10.5 Immature Gran % (Auto) 0.5 H Neut % (Auto) 69.9 Lymph % (Auto) 21.6 [place] % (Auto) 7.6 Eos % (Auto) 0.2 Baso % (Auto) 0.2 Lymph # (Auto) 1.9 [place] # (Auto) 0.7 Eos # (Auto) 0.0 Baso # (Auto) 0.0 Abs Immat Gran (auto) 0.04 H Absolute Neuts (auto) 6.0 Absolute Nucleated RBC 0.000 Nucleated RBC % (auto) 0.0 Smear Path Review Hold Purple Top PT INR aPTT Heparin Protocol 60.9 D VBG pH 7.60 H* VBG pCO2 20 VBG pO2 114 VBG HCO3 20 L VBG O2 Saturation 99.0 VBG Base Excess 0.5 Sodium 140 Potassium 3.4 Chloride 111 H Carbon Dioxide 19 L Anion Gap 13 BUN 7 L Creatinine 0.73 Estim Creat Clear Calc 141.8 Estimated GFR > 60 Random Glucose 121 H Calcium 9.4 D Phosphorus 1.3 L Magnesium 2.0 Total Bilirubin 0.8 AST 71 H ALT 112 H Alkaline Phosphatase 37 L Troponin I High Sens Total Protein 6.6 Albumin 4.5 Total Lymphocytes % CD3 Cells Absolute CD3 Count % CD4 Cells Absolute CD4 Count CD4/CD8 Ratio % CD8 Cells Absolute CD8 Count Microbiology Microbiology Results: Microbiology 07/16/23 10:31 Blood - Venous Blood Culture - Preliminary No growth after 24 hours. 07/16/23 10:31 Blood - Venous Blood Culture - Preliminary No growth after 24 hours. Progress Note: A&P Assessment and plan (1) Cardiomyopathy: Status: Acute (2) NSTEMI (non-ST elevated myocardial infarction): Status: Acute (3) Acute respiratory failure with hypoxia: Status: Acute (4) Polysubstance abuse: Status: Acute (5) Respiratory arrest: Status: Acute (6) Seizure-like activity: Status: Acute Plan Assessment: 33-year-old gentleman with polysubstance abuse, HIV, schizoaffective disorder admitted after reported polysubstance abuse overdose in comatose state requiring ventilatory support Plan: Neuro: Polysubstance abuse,comatose, not improving will obtain MRI brain. Intermittent seizure activity, continue on Keppra. Cardiac: No acute issues. Pulmonary: Acute hypoxic respiratory failure after respiratory arrest secondary to polysubstance abuse now requiring ventilatory support, continue to titrate off as tolerated. Renal: Acute kidney injury, after respiratory arrest, resolved. Non oliguric. Continue to monitor renal indices and urine output. Endo: No acute issues. GI: No acute issues. ID: No evidence of sepsis, empiric antibiotics for pulmonary aspiration. Underlying HIV. Heme/Onc: No acute issues. Psych: No acute issues. Miscellaneous: No acute issues. Prophylaxis: Heparin, famotidine Diet: Trophic tube feeds Critical care time spent: 60 minutes Quality Stroke Does the patient have a stroke diagnosis?: No VTE Prior VTE?: No VTE Risk Level:: Medical - moderate - high VTE Device Contraindication: Treatment Not Indicated VTE Drug Contraindication: N/A - Med Ordered
[2023-07-18 11:20] LABS: PTT Heparin Drip 55.3 SEC (53-77.9)
[2023-07-18 12:39] LABS: HIV RNA PCR Qn Copies 44 copies/mL (NOT DETECTED); HIV RNA PCR Qn Log Copies 1.64 (NOT DETECTED)
[2023-07-18 13:31] LABS: Venous Blood Gas Refer to POC result
[2023-07-18] MEDS: Heparin Sodium,Porcine/1/2NS 25,000 UNIT/250 ML IV.SOLN 8.25 UNIT IVCONT (14:40)
[2023-07-18] MEDS: levoFLOXacin/D5W 750 MG/150 ML PIGGYBACK 100 MG IV (16:28)
[2023-07-18] MEDS: Artificial Tears 15 ML DROPS 1 DROP EYE-BOTH (21:21)
[2023-07-19] VITALS (40 sets, daily range): BP systolic 87–129; BP diastolic 38–93; PULSE 16–103; RESP 16–31; TEMP 33.9–38.4; O2SAT 91–100; BMI 24.6
[2023-07-19] MEDS: propofoL 1,000 MG/100 ML VIAL 17.23 MG IVCONT ×5 (00:35→19:13)
[2023-07-19] MEDS: 0.9 % Sodium Chloride Flush 3 ML SYRINGE IVFLUSH ×2 (00:36→19:28)
[2023-07-19] MEDS: Acetaminophen Oral Liquid 650 MG/20.3 ML SOLUTION PO (01:17)
[2023-07-19] MEDS: levETIRAcetam in NaCl (iso-os) 1,000 MG/100 ML PIGGYBACK 400 MG IV ×2 (04:53→17:40)
[2023-07-19 05:05] LABS: VBG Base Excess -2.5 mmol/L; VBG HCO3 20 mmol/L (22-26); VBG pCO2 29 mmHg; VBG pH 7.45 (7.32-7.43); VBG pO2 75 mmHg
[2023-07-19 05:26] LABS: MANUAL DIFF FLAG NO
[2023-07-19 05:27] LABS: Basophils Percent Auto 0.3 % (0-2); Eosinophils Percent Auto 0.5 % (0-4); Hematocrit 32.8 % (42.0-52.0); Hemoglobin 11.2 g/dl (14.0-18.0); Imm Gran Abs Auto 0.01 X10*3/uL (0.00-0.03); Imm Gran Pct Auto 0.2 % (0.0-0.4); Lymphocytes Absolute Auto 1.4 X10*3/uL (1.2-4.9); Mean Corpuscular HGB Conc 34.1 g/dl (31.0-36.0); Mean Corpuscular Hemoglobin 31.1 pg (27.0-33.0); Mean Corpuscular Volume 91.1 fL (80.0-98.0); Mean Platelet Volume 10.2 fL (9.4-12.4); Monocytes Absolute Auto 0.5 X10*3/uL (0.1-1.2); Monocytes Percent Auto 7.1 % (2-11); Neutrophils Absolute Auto 4.6 x10*3/uL (2.0-8.3); Neutrophils Percent Auto 70.9 % (45-73); Platelet Count 151 X10*3/uL (160-400); Red Cell Distribution Width 11.9 % (11.0-16.0); White Blood Count 6.5 X10*3/uL (4.8-10.8)
[2023-07-19 05:35] LABS: PTT Heparin Drip 42.7 SEC (53-77.9)
[2023-07-19] MEDS: Heparin Sodium,Porcine 5,000 UNIT/ML VIAL 3000 UNIT IVPUSH ×3 (05:49→20:22)
[2023-07-19 05:50] LABS: Albumin Level 4.1 g/dL (3.5-5.0); Anion Gap 12 (12-20); Blood Urea Nitrogen 8 mg/dL (9-16); Calcium 9.3 mg/dL (8.4-10.2); Carbon Dioxide 21 mmol/L (22-29); Chloride 108 mmol/L (96-108); Creatinine Clr Calc Pharmacy 141.8; Estimated Glomerular Filt Rate > 60; Glucose Random 129 mg/dL (60-115); Magnesium 1.9 mg/dL (1.6-2.6); Phosphorus 2.9 mg/dL (2.7-4.5); Potassium 3.6 mmol/L (3.3-5.1); Sodium 137 mmol/L (135-145)
[2023-07-19] MEDS: Midazolam HCl/PF 2 MG/2 ML VIAL 4 MG IVPUSH ×2 (05:54→14:42)
[2023-07-19 06:11] LABS: Venous Blood Gas Refer to POC result
[2023-07-19] MEDS: Famotidine/PF 20 MG/2 ML VIAL IVPUSH (08:12)
[2023-07-19] MEDS: Chlorhexidine Gluc Oral Rinse 15 ML MOUTHWASH BUCCAL ×3 (08:12→21:42)
[2023-07-19] MEDS: Norepinephrine Bitartrate/D5W 8 MG/250 ML PLAST..BAG 5.39 MG IV (08:21)
--- NOTE | 2023-07-19 10:30 | P.PNCC_ITS ---
Subjective Subjective Date of Service: 07/19/23 Interval History: 33-year-old gentleman with underlying HIV, polysubstance abuse, schizoaffective disorder admitted after patient collapsed at acquaintance house after reported overdose. CPR performed by police, but pulse present on EMS arrival. On arrival to ER patient comatose, but with to sat of 92%, intubated for airway protection and admitted to intensive care unit. Initial CT head essentially normal. Patient with intermittent seizure activity started on Keppra. Echo with new onset cardiomyopathy, evaluated by Cardiology service, now on heparin drip. Poor arousal with sedation vacation. Brain MRI is pending. No events overnight. Critical Care Time (minutes): 60 Physical Exam 2 Vital Signs: Vital Signs: Last Vital Signs Temp 97.7 F 07/19/23 10:00 Pulse 16 L 07/19/23 10:00 Resp 31 H 07/19/23 10:00 BP 93/61 07/19/23 10:00 Pulse Ox 96 07/19/23 10:00 O2 Del Method Mechanical Ventil ation 07/19/23 10:00 FiO2 24 07/19/23 10:00 BMI result Body Mass Index 24.6 Const: General: no acute distress and other (Sedated on the vent) Eyes: Sclerae: sclerae normal EOM: EOMs intact bilaterally Neck: Neck: Yes no lymphadenopathy, Yes trachea midline and Yes supple Resp: Auscultation: clear to auscultation bilaterally Cardio: Rate: regular rate Rhythm: regular rhythm Heart sounds: no gallops, no murmurs and no rubs GI: Palpation (GI): Soft to palpation and Other GI palpation findings present ( Nontender) Auscultation: normal bowel sounds Extrem: General: Yes no pedal edema, No clubbing and No cyanosis Objective Data Labs 07/19/23 04:55 07/19/23 04:55 Labs: Laboratory Results - last 24 hr 07/16/23 07/18/23 07/19/23 15:37 11:01 04:55 WBC 6.5 RBC 3.60 L Hgb 11.2 L Hct 32.8 L MCV 91.1 MCH 31.1 MCHC 34.1 RDW 11.9 Plt Count 151 L MPV 10.2 Immature Gran % (Auto) 0.2 Neut % (Auto) 70.9 Lymph % (Auto) 21.0 [place] % (Auto) 7.1 Eos % (Auto) 0.5 Baso % (Auto) 0.3 Lymph # (Auto) 1.4 [place] # (Auto) 0.5 Eos # (Auto) 0.0 Baso # (Auto) 0.0 Abs Immat Gran (auto) 0.01 Absolute Neuts (auto) 4.6 Absolute Nucleated RBC 0.000 Nucleated RBC % (auto) 0.0 aPTT Heparin Protocol 55.3 42.7 L D VBG pH VBG pCO2 VBG pO2 VBG HCO3 VBG O2 Saturation VBG Base Excess Sodium 137 Potassium 3.6 Chloride 108 Carbon Dioxide 21 L Anion Gap 12 BUN 8 L Creatinine 0.73 Estim Creat Clear Calc 141.8 Estimated GFR > 60 Random Glucose 129 H Calcium 9.3 Phosphorus 2.9 Magnesium 1.9 Albumin 4.1 HIV-1 RNA copies/mL 44 H HIV-1 RNA logcopies/mL 1.64 H 07/19/23 04:56 WBC RBC Hgb Hct MCV MCH MCHC RDW Plt Count MPV Immature Gran % (Auto) Neut % (Auto) Lymph % (Auto) [place] % (Auto) Eos % (Auto) Baso % (Auto) Lymph # (Auto) [place] # (Auto) Eos # (Auto) Baso # (Auto) Abs Immat Gran (auto) Absolute Neuts (auto) Absolute Nucleated RBC Nucleated RBC % (auto) aPTT Heparin Protocol VBG pH 7.45 H VBG pCO2 29 VBG pO2 75 VBG HCO3 20 L VBG O2 Saturation 96.0 VBG Base Excess -2.5 Sodium Potassium Chloride Carbon Dioxide Anion Gap BUN Creatinine Estim Creat Clear Calc Estimated GFR Random Glucose Calcium Phosphorus Magnesium Albumin HIV-1 RNA copies/mL HIV-1 RNA logcopies/mL Microbiology Microbiology Results: Microbiology 07/16/23 10:31 Blood - Venous Blood Culture - Preliminary No growth after 48 hours. 07/16/23 10:31 Blood - Venous Blood Culture - Preliminary No growth after 48 hours. Progress Note: A&P Assessment and plan (1) Seizure-like activity: Status: Acute (2) Cardiomyopathy: Status: Acute (3) NSTEMI (non-ST elevated myocardial infarction): Status: Acute (4) Acute respiratory failure with hypoxia: Status: Acute (5) Polysubstance abuse: Status: Acute (6) Respiratory arrest: Status: Acute (7) Overdose: Status: Acute (8) Aspiration pneumonia of both lungs: Status: Acute (9) Schizoaffective disorder, bipolar type: Status: Acute Plan Assessment: 33-year-old gentleman with polysubstance abuse, HIV, schizoaffective disorder admitted after reported polysubstance abuse overdose in comatose state requiring ventilatory support Plan: Neuro: Polysubstance abuse,comatose, not improving will obtain MRI brain. Intermittent seizure activity, continue on Keppra. Cardiac: New onset cardiomyopathy, may be related to cocaine abuse. Evaluated by Cardiology service. Heparin drip for 72 hours. Pulmonary: Acute hypoxic respiratory failure after respiratory arrest secondary to polysubstance abuse now requiring ventilatory support, continue to titrate off as tolerated. Renal: Acute kidney injury, after respiratory arrest, resolved. Non oliguric. Continue to monitor renal indices and urine output. Endo: No acute issues. GI: No acute issues. ID: No evidence of sepsis, empiric antibiotics for pulmonary aspiration. Underlying HIV. Heme/Onc: No acute issues. Psych: No acute issues. Miscellaneous: No acute issues. Prophylaxis: Heparin, famotidine Diet: Trophic tube feeds Critical care time spent: 60 minutes Quality Stroke Does the patient have a stroke diagnosis?: No VTE Prior VTE?: No VTE Risk Level:: Medical - moderate - high VTE Device Contraindication: Treatment Not Indicated VTE Drug Contraindication: N/A - Med Ordered
[2023-07-19] MEDS: fentaNYL citrate/NS 1,000 MCG/100 ML PLAST..BAG 5 MCG IVCONT (11:27)
[2023-07-19 12:20] LABS: PTT Heparin Drip 46.2 SEC (53-77.9)
[2023-07-19] MEDS: Heparin Sodium,Porcine/1/2NS 25,000 UNIT/250 ML IV.SOLN 11.25 UNIT IVCONT (13:28)
[2023-07-19] MEDS: levoFLOXacin/D5W 750 MG/150 ML PIGGYBACK 100 MG IV (17:43)
[2023-07-19 20:07] LABS: PTT Heparin Drip 50.2 SEC (53-77.9)
[2023-07-19 20:12] LABS: Glucose, Whole Blood 129 mg/dL (60-115)
[2023-07-19] MEDS: DOPamine HCL/D5W 400 MG/250 ML PLAST..BAG 13.78 MG IVCONT (23:35)
[2023-07-19 23:49] LABS: Glucose, Whole Blood 112 mg/dL (60-115)
[2023-07-20] VITALS (36 sets, daily range): BP systolic 88–173; BP diastolic 52–91; PULSE 56–127; RESP 16–40; TEMP 34.2–37.2; O2SAT 90–99; BMI 25.0
[2023-07-20] MEDS: propofoL 1,000 MG/100 ML VIAL 12.92 MG IVCONT ×4 (00:20→21:15)
[2023-07-20] MEDS: Midazolam HCl/PF 2 MG/2 ML VIAL 4 MG IVPUSH ×5 (00:54→23:09)
[2023-07-20 02:58] LABS: PTT Heparin Drip 79.9 SEC (53-77.9)
[2023-07-20] MEDS: levETIRAcetam in NaCl (iso-os) 1,000 MG/100 ML PIGGYBACK 400 MG IV ×2 (04:34→16:33)
--- NOTE | 2023-07-20 04:49 | PC.NURSE ---
CARE ASSUMED 7PM...REMAINS TUBED/VENTED...PROPOFOL INITIALLY 40 MCG/KG/MIN..UNRESPONSIVE..NO GAG..MINIMAL COUGH REFLEX..EXTREMETIES FLACCID..BP MARGINAL...PER ICU [facility] SBP GOAL 90 AND MAP GOAL 60...INITIALLY NSR HR 84-85...BP MARGINAL PROPOFOL WEANED TO 30 MCG/KG/MIN FOR HR TRENDING DOWN TO 56-58...HR CINTINUED TO DROP DOWN TO 46...S.[place]...TEMP DECREASED FROM 98.6 PO TO 93.0 RECTAL...WARMING BLANKET APPLIED...DOPAMINE DRIP STARTED AT 5 MCG/KG/MIN AND WEANED TO 3 MCG/KG/MIN...BP IMPROVED...TEMP UP TO 98.8 RECTAL AND HR 98-100...WARMING BLANKET TURNED OFF...URINE OUTPUT IMPROVED FRO 20-25 CC/HR TO 90-125 CC/HR
[2023-07-20 05:29] LABS: VBG HCO3 21 mmol/L (22-26); VBG pCO2 31 mmHg; VBG pH 7.43 (7.32-7.43); VBG pO2 57 mmHg
[2023-07-20 05:30] LABS: Venous Blood Gas Refer to POC result
[2023-07-20 05:57] LABS: MANUAL DIFF FLAG NO
[2023-07-20 06:01] LABS: Basophils Percent Auto 0.5 % (0-2); Eosinophils Absolute Auto 0.1 X10*3/uL (0.0-0.4); Eosinophils Percent Auto 1.5 % (0-4); Hematocrit 35.4 % (42.0-52.0); Hemoglobin 12.5 g/dl (14.0-18.0); Imm Gran Abs Auto 0.03 X10*3/uL (0.00-0.03); Imm Gran Pct Auto 0.5 % (0.0-0.4); Lymphocytes Absolute Auto 0.8 X10*3/uL (1.2-4.9); Lymphocytes Percent Auto 13.4 % (20-40); Mean Corpuscular HGB Conc 35.3 g/dl (31.0-36.0); Mean Corpuscular Hemoglobin 31.5 pg (27.0-33.0); Mean Corpuscular Volume 89.2 fL (80.0-98.0); Mean Platelet Volume 9.9 fL (9.4-12.4); Monocytes Absolute Auto 0.5 X10*3/uL (0.1-1.2); Monocytes Percent Auto 8.5 % (2-11); Neutrophils Absolute Auto 4.5 x10*3/uL (2.0-8.3); Neutrophils Percent Auto 75.6 % (45-73); Platelet Count 175 X10*3/uL (160-400); Red Blood Count 3.97 X10*6/uL (4.60-5.80); Red Cell Distribution Width 11.5 % (11.0-16.0); White Blood Count 5.9 X10*3/uL (4.8-10.8)
[2023-07-20 06:05] LABS: Glucose, Whole Blood 109 mg/dL (60-115)
[2023-07-20 06:18] LABS: Albumin Level 4.4 g/dL (3.5-5.0); Anion Gap 15 (12-20); Blood Urea Nitrogen 11 mg/dL (9-16); Calcium 9.9 mg/dL (8.4-10.2); Carbon Dioxide 21 mmol/L (22-29); Chloride 106 mmol/L (96-108); Creatinine Clr Calc Pharmacy 145.8; Estimated Glomerular Filt Rate > 60; Glucose Random 109 mg/dL (60-115); Magnesium 1.9 mg/dL (1.6-2.6); Phosphorus 2.5 mg/dL (2.7-4.5); Potassium 3.6 mmol/L (3.3-5.1); Sodium 138 mmol/L (135-145)
[2023-07-20] MEDS: 0.9 % Sodium Chloride Flush 3 ML SYRINGE IVFLUSH ×2 (08:04→16:33)
[2023-07-20] MEDS: fentaNYL citrate/NS 1,000 MCG/100 ML PLAST..BAG 5 MCG IVCONT ×2 (08:04→23:07)
[2023-07-20] MEDS: Potassium Phosphate/NS 15 MMOL/250 ML PLAST..BAG 62.5 MMOL IV (08:05)
[2023-07-20] MEDS: Chlorhexidine Gluc Oral Rinse 15 ML MOUTHWASH BUCCAL ×3 (08:42→21:22)
[2023-07-20] MEDS: Famotidine/PF 20 MG/2 ML VIAL IVPUSH (08:42)
[2023-07-20 09:34] LABS: PTT Heparin Drip 41.2 SEC (53-77.9)
[2023-07-20] MEDS: Heparin Sodium,Porcine 5,000 UNIT/ML VIAL 3000 UNIT IVPUSH (09:42)
[2023-07-20] MEDS: Heparin Sodium,Porcine/1/2NS 25,000 UNIT/250 ML IV.SOLN 12.75 UNIT IVCONT (09:45)
--- NOTE | 2023-07-20 09:50 | MHC.CLN ---
F/U PT REMAINS INTUBATED AND SEDATED AWAITING RESULTS OF MRI CONTINUES ON TRICKLE FEED TODAY PROMOTE AT 20ML/HR IF TF TO CONTINUE; RECOMMEND PROMOTE AT MAX GOAL RATE 70ML/HR WITH 240ML FREE WATER Q 8 HRS TO PROVIDE 1680KCALS (2020KCALS WITH SEDATION; 27KCALS/KG), 105G PROTEIN (1.4G/KG), 2129ML TOTAL WATER FROM FORMULA AND FLUSHES (28ML/KG) MONITOR TOLERANCE, RESIDUALS AND LYTES FOLLOWING WITH TEAM
--- NOTE | 2023-07-20 10:49 | P.PNCC_ITS ---
Subjective Subjective Date of Service: 07/20/23 Interval History: Episodes of bradycardia and hypotension started on dopamine drip Still remains on ventilator support On propofol for uncontrolled myoclonus Critical Care Time (minutes): 40 Physical Exam 2 Vital Signs: Vital Signs: Last Vital Signs Temp 96.6 F L 07/20/23 10:00 Pulse 73 07/20/23 10:00 Resp 16 07/20/23 10:00 BP 91/56 L 07/20/23 10:00 Pulse Ox 98 07/20/23 10:00 O2 Del Method Mechanical Ventil ation 07/20/23 10:00 FiO2 30 07/20/23 10:00 BMI result Body Mass Index 25.0 General: In acute distress, ill appearing and tired appearing Nutritional Appearance: well nourished and normal weight Eyes: appearance normal, both eyes and all related structures; Alignment and Position: alignment normal and position normal Neck: No lymphadenopathy, no thyromegaly Resp: bilateral air entry equal, no added sounds present Cardio: Regular rate, regular rhythm; Heart sounds: S1 normal heart sound present and S2 normal heart sound present GI: soft, nontender, no guarding, no hepatosplenomegaly : bladder normal to inspection, bladder normal to palpation, no renal angle tenderness Skin: no rashes or lesions noted and elasticity normal Neuro: Unresponsive, absent gag, pupils symmetric and normal reflex Objective Data Labs 07/20/23 05:21 07/20/23 05:21 Labs: Laboratory Results - last 24 hr 07/16/23 07/19/23 07/19/23 15:37 11:59 19:15 WBC RBC Hgb Hct MCV MCH MCHC RDW Plt Count MPV Immature Gran % (Auto) Neut % (Auto) Lymph % (Auto) [place] % (Auto) Eos % (Auto) Baso % (Auto) Lymph # (Auto) [place] # (Auto) Eos # (Auto) Baso # (Auto) Abs Immat Gran (auto) Absolute Neuts (auto) Absolute Nucleated RBC Nucleated RBC % (auto) aPTT Heparin Protocol 46.2 L 50.2 L VBG pH VBG pCO2 VBG pO2 VBG HCO3 VBG O2 Saturation VBG Base Excess Sodium Potassium Chloride Carbon Dioxide Anion Gap BUN Creatinine Estim Creat Clear Calc Estimated GFR POC Glucose Random Glucose Calcium Phosphorus Magnesium Albumin Lymphocyte Subset Cmmnt TNP 07/19/23 07/19/23 07/20/23 20:09 23:30 02:44 WBC RBC Hgb Hct MCV MCH MCHC RDW Plt Count MPV Immature Gran % (Auto) Neut % (Auto) Lymph % (Auto) [place] % (Auto) Eos % (Auto) Baso % (Auto) Lymph # (Auto) [place] # (Auto) Eos # (Auto) Baso # (Auto) Abs Immat Gran (auto) Absolute Neuts (auto) Absolute Nucleated RBC Nucleated RBC % (auto) aPTT Heparin Protocol 79.9 H D VBG pH VBG pCO2 VBG pO2 VBG HCO3 VBG O2 Saturation VBG Base Excess Sodium Potassium Chloride Carbon Dioxide Anion Gap BUN Creatinine Estim Creat Clear Calc Estimated GFR POC Glucose 129 H 112 Random Glucose Calcium Phosphorus Magnesium Albumin Lymphocyte Subset Cmmnt 07/20/23 07/20/23 07/20/23 05:21 06:00 09:19 WBC 5.9 RBC 3.97 L Hgb 12.5 L Hct 35.4 L MCV 89.2 MCH 31.5 MCHC 35.3 RDW 11.5 Plt Count 175 MPV 9.9 Immature Gran % (Auto) 0.5 H Neut % (Auto) 75.6 H Lymph % (Auto) 13.4 L [place] % (Auto) 8.5 Eos % (Auto) 1.5 Baso % (Auto) 0.5 Lymph # (Auto) 0.8 L [place] # (Auto) 0.5 Eos # (Auto) 0.1 Baso # (Auto) 0.0 Abs Immat Gran (auto) 0.03 Absolute Neuts (auto) 4.5 Absolute Nucleated RBC 0.000 Nucleated RBC % (auto) 0.0 aPTT Heparin Protocol 41.2 L D VBG pH 7.43 VBG pCO2 31 VBG pO2 57 VBG HCO3 21 L VBG O2 Saturation 87.0 VBG Base Excess -2.0 Sodium 138 Potassium 3.6 Chloride 106 Carbon Dioxide 21 L Anion Gap 15 BUN 11 Creatinine 0.71 Estim Creat Clear Calc 145.8 Estimated GFR > 60 POC Glucose 109 Random Glucose 109 Calcium 9.9 D Phosphorus 2.5 L Magnesium 1.9 Albumin 4.4 Lymphocyte Subset Cmmnt Microbiology Microbiology Results: Microbiology 07/16/23 10:31 Blood - Venous Blood Culture - Preliminary No growth after 48 hours. 07/16/23 10:31 Blood - Venous Blood Culture - Preliminary No growth after 48 hours. Progress Note: A&P Assessment and plan (1) Respiratory arrest: Status: Acute (2) Polysubstance abuse: Status: Acute (3) Acute respiratory failure with hypoxia: Status: Acute (4) Cardiomyopathy: Status: Acute (5) NSTEMI (non-ST elevated myocardial infarction): Status: Acute (6) Seizure-like activity: Status: Acute (7) Cardiogenic shock: Status: Acute Plan 33-year-old male with PMH of schizoaffective d/o, extensive trauma and PTSD symptoms and polysubstance abuse with previous hospitalization for psych issues, HIV was found down unresponsive at home secondary to multiple drug overdose including cocaine, fentanyl, marijuana and benzodiazepines on 07/16/2023. When the police arrived at home he did not have any pulse and CPR was started by the PD, EMS intubated him and was brought into the ED. MRI of the brain showing extensive anoxic brain injury, echocardiogram showing EF of about 28% with multiple wall akinesis/hypokinesis, very poor neurological response, episodes of bradycardia and hypotension. Neuro: Acute encephalopathy possibly due to anoxic brain encephalopathy due to unknown down time prior to CPR started by PD. MRI of the brain showing extensive anoxic brain injury. Patient currently has very poor neurological status, absent gag reflex, sluggishly reactive pupils, no spontaneous response, significant myoclonic jerks. On propofol for control off myoclonus, as needed fentanyl for analgesia both of which we will taper as tolerated Close neurological status monitoring in the ICU every hour Cardiac: Cardiogenic Shock: On dopamine drip due to episodes of bradycardia, titrate Levophed to keep map above 65 mm Hg TTE showed EF of 28% with akinetic inferolateral, inferoseptal and anterior septal renae possibly secondary to cardiac arrest and stunned myocardium. Cardiology advised to continue heparin for 3 days in total which we will stop this afternoon Respiratory: Acute hypoxemic respiratory failure due to Currently on ventilator support On PRVC mode FiO2[60%], PEEP 5, TV 400, RR 20 Peak pressures and plateau pressures are under the curve Ventilator management bundle with head end elevation, aspiration precaution, chlorhexidine mouthwash, daily awakening trials, daily spontaneous breathing trials GI: on tube feeds Renal: Acute kidney injury possibly secondary to ATN which is currently improving Creatinine 0.71 this morning We will closely monitor I's and O's Avoid nephrotoxic medications Heme: closely monitor H&H, transfuse for hemoglobin less than 7 grams/deciliter Endocrine: Blood sugars under control Sliding scale insulin as needed Infectious disease: Cultures negative so far On empiric Lovenox which we will stop tomorrow Musculoskeletal: Decubitus ulcer prevention protocol Lines: Prophylaxis: Heparin, pantoprazole Quality Stroke Does the patient have a stroke diagnosis?: No VTE Prior VTE?: No VTE Risk Level:: Medical - moderate - high VTE Device Contraindication: Treatment Not Indicated VTE Drug Contraindication: N/A - Med Ordered
[2023-07-20 11:42] LABS: Glucose, Whole Blood 118 mg/dL (60-115)
--- NOTE | 2023-07-20 12:57 | PM.PNCARD ---
Subjective Subjective Date of Service: 07/20/23 Principal diagnosis: Elevated troponins, LV systolic dysfunction Interval history: No symptoms could be obtained from the patient. MRI suggestive of anoxic encephalopathy. Patient had some slowing of the heart rate yesterday was started on dopamine. Blood pressure is borderline with adequate heart rate in normal sinus rhythm. Review of Systems Review of Systems Yes unobtainable due to endotracheal tube Physical Exam Vital Signs: Last Vital Signs Temp 96.8 F 07/20/23 12:00 Pulse 75 07/20/23 12:00 Resp 16 07/20/23 12:00 BP 97/70 07/20/23 12:00 Pulse Ox 98 07/20/23 12:00 O2 Del Method Mechanical Ventilation 07/20/23 12:00 FiO2 30 07/20/23 12:00 BMI result Body Mass Index 25.0 Const Other: Intubated, sedated General: no acute distress HEENT Other: Unremarkable Head: Yes normal to inspection Neck Neck: Yes normal visual inspection Chest Chest palpation & inspection: normal inspection of the chest Resp Auscultation: clear to auscultation bilaterally Cardio Palpation: normal PMI Heart sounds: S1 normal heart sound present, S2 normal heart sound present, no gallops, no murmurs and no rubs GI Palpation (GI): Soft to palpation Back/Spine/Pelvis Other: unremarkable Skin General skin exam: no rashes or lesions noted Neuro Other: Sedated and intubated Extrem General: Yes normal to inspection Psych Mental Status: mental status grossly abnormal Objective Labs and Meds 07/20/23 05:21 07/20/23 05:21 Lab results: Laboratory Results - last 24 hr 07/16/23 07/19/23 07/19/23 15:37 19:15 20:09 WBC RBC Hgb Hct MCV MCH MCHC RDW Plt Count MPV Immature Gran % (Auto) Neut % (Auto) Lymph % (Auto) [place] % (Auto) Eos % (Auto) Baso % (Auto) Lymph # (Auto) [place] # (Auto) Eos # (Auto) Baso # (Auto) Abs Immat Gran (auto) Absolute Neuts (auto) Absolute Nucleated RBC Nucleated RBC % (auto) aPTT Heparin Protocol 50.2 L VBG pH VBG pCO2 VBG pO2 VBG HCO3 VBG O2 Saturation VBG Base Excess Sodium Potassium Chloride Carbon Dioxide Anion Gap BUN Creatinine Estim Creat Clear Calc Estimated GFR POC Glucose 129 H Random Glucose Calcium Phosphorus Magnesium Albumin Lymphocyte Subset Cmmnt TNP 07/19/23 07/20/23 07/20/23 23:30 02:44 05:21 WBC 5.9 RBC 3.97 L Hgb 12.5 L Hct 35.4 L MCV 89.2 MCH 31.5 MCHC 35.3 RDW 11.5 Plt Count 175 MPV 9.9 Immature Gran % (Auto) 0.5 H Neut % (Auto) 75.6 H Lymph % (Auto) 13.4 L [place] % (Auto) 8.5 Eos % (Auto) 1.5 Baso % (Auto) 0.5 Lymph # (Auto) 0.8 L [place] # (Auto) 0.5 Eos # (Auto) 0.1 Baso # (Auto) 0.0 Abs Immat Gran (auto) 0.03 Absolute Neuts (auto) 4.5 Absolute Nucleated RBC 0.000 Nucleated RBC % (auto) 0.0 aPTT Heparin Protocol 79.9 H D VBG pH 7.43 VBG pCO2 31 VBG pO2 57 VBG HCO3 21 L VBG O2 Saturation 87.0 VBG Base Excess -2.0 Sodium 138 Potassium 3.6 Chloride 106 Carbon Dioxide 21 L Anion Gap 15 BUN 11 Creatinine 0.71 Estim Creat Clear Calc 145.8 Estimated GFR > 60 POC Glucose 112 Random Glucose 109 Calcium 9.9 D Phosphorus 2.5 L Magnesium 1.9 Albumin 4.4 Lymphocyte Subset Cmmnt 07/20/23 07/20/23 07/20/23 06:00 09:19 11:38 WBC RBC Hgb Hct MCV MCH MCHC RDW Plt Count MPV Immature Gran % (Auto) Neut % (Auto) Lymph % (Auto) [place] % (Auto) Eos % (Auto) Baso % (Auto) Lymph # (Auto) [place] # (Auto) Eos # (Auto) Baso # (Auto) Abs Immat Gran (auto) Absolute Neuts (auto) Absolute Nucleated RBC Nucleated RBC % (auto) aPTT Heparin Protocol 41.2 L D VBG pH VBG pCO2 VBG pO2 VBG HCO3 VBG O2 Saturation VBG Base Excess Sodium Potassium Chloride Carbon Dioxide Anion Gap BUN Creatinine Estim Creat Clear Calc Estimated GFR POC Glucose 109 118 H Random Glucose Calcium Phosphorus Magnesium Albumin Lymphocyte Subset Cmmnt Imaging Radiologist's impression: Impressions Brain MRI 07/19/23 13:12 IMPRESSION: Imaging findings are most concerning for the sequela of global cerebral anoxic injury given the presence of restricted diffusion/cytotoxic edema within the perirolandic cortex bilaterally, the deep lawrence nuclei bilaterally, the occipital cortex bilaterally, and the cerebellar hemispheres bilaterally. There is mild cerebral sulcal effacement. No hemorrhage. Progress Note: A&P Assessment and plan (1) Cardiomyopathy: Status: Acute Assessment and Plan: Cardiomyopathy with new LV systolic dysfunction with borderline low blood pressure. Possibly stress-induced cardiomyopathy and/or [employer] injury related acute cardiomyopathy. Could also represent coronary vasospastic disease related to cocaine use. Overall prognosis is limited given his anoxic brain injury. I will continue with IV heparin for total of 48 hours. Beyond that continue with supportive care and hemodynamic support and can use dopamine for blood pressure control for now. Aspirin and statins if possible. Other cardioactive agents given low blood pressure would be on hold. Discuss cardiac management with the family. Time Spent With Patient Time: Total time managing care of this patient today ____ minutes. Progress Note: Quality Stroke Does the patient have a stroke diagnosis?: No Procedures Date of Service Date of Service: 07/20/23
--- NOTE | 2023-07-20 15:46 | MHC.CM.PN ---
Review of MRI notes + anoxic injury. Pt w/ongoing seizure activity and overall poor prognosis. Will await MD discussion w/family re: goals of care. CM to follow
[2023-07-20] MEDS: Enoxaparin Sodium 40 MG/0.4 ML SYRINGE SUBCUT (16:33)
[2023-07-20] MEDS: levoFLOXacin/D5W 750 MG/150 ML PIGGYBACK 100 MG IV (16:34)
[2023-07-20 17:20] LABS: Glucose, Whole Blood 121 mg/dL (60-115)
[2023-07-20] MEDS: DOPamine HCL/D5W 400 MG/250 ML PLAST..BAG 13.78 MG IVCONT (23:04)
[2023-07-20 23:36] LABS: Glucose, Whole Blood 119 mg/dL (60-115)
[2023-07-21] VITALS (36 sets, daily range): BP systolic 93–138; BP diastolic 57–90; PULSE 60–102; RESP 16–80; TEMP 34–37.3; O2SAT 93–100; BMI 25.1
[2023-07-21] MEDS: Midazolam HCl/PF 2 MG/2 ML VIAL 4 MG IVPUSH ×3 (02:10→11:24)
[2023-07-21] MEDS: propofoL 1,000 MG/100 ML VIAL 12.92 MG IVCONT ×2 (03:58→10:41)
[2023-07-21] MEDS: levETIRAcetam in NaCl (iso-os) 1,000 MG/100 ML PIGGYBACK 400 MG IV ×2 (05:09→16:03)
[2023-07-21 05:28] LABS: VBG Base Excess -1.7 mmol/L; VBG HCO3 19 mmol/L (22-26); VBG pCO2 25 mmHg; VBG pH 7.49 (7.32-7.43); VBG pO2 68 mmHg
[2023-07-21 05:36] LABS: Venous Blood Gas Refer to POC result
[2023-07-21 05:59] LABS: MANUAL DIFF FLAG NO
[2023-07-21 06:18] LABS: Alanine Aminotransferase 55 U/L (0-40); Albumin Level 4.5 g/dL (3.5-5.0); Alkaline Phosphatase 46 U/L (39-117); Anion Gap 13 (12-20); Aspartate Amino Transferase 52 U/L (5-37); Bilirubin Total 0.4 mg/dL (0.0-1.0); Blood Urea Nitrogen 15 mg/dL (9-16); Carbon Dioxide 21 mmol/L (22-29); Chloride 107 mmol/L (96-108); Creatinine Clr Calc Pharmacy 159.3; Estimated Glomerular Filt Rate > 60; Glucose Random 103 mg/dL (60-115); Potassium 4.1 mmol/L (3.3-5.1); Sodium 137 mmol/L (135-145); Total Protein 7.7 g/dL (6.5-8.0)
[2023-07-21 06:21] LABS: Basophils Percent Auto 0.6 % (0-2); Eosinophils Absolute Auto 0.1 X10*3/uL (0.0-0.4); Eosinophils Percent Auto 2.8 % (0-4); Hematocrit 36.6 % (42.0-52.0); Hemoglobin 12.9 g/dl (14.0-18.0); Imm Gran Abs Auto 0.04 X10*3/uL (0.00-0.03); Imm Gran Pct Auto 0.8 % (0.0-0.4); Mean Corpuscular HGB Conc 35.2 g/dl (31.0-36.0); Mean Corpuscular Hemoglobin 31.2 pg (27.0-33.0); Mean Corpuscular Volume 88.6 fL (80.0-98.0); Mean Platelet Volume 9.9 fL (9.4-12.4); Monocytes Absolute Auto 0.7 X10*3/uL (0.1-1.2); Monocytes Percent Auto 14.1 % (2-11); Neutrophils Absolute Auto 3.1 x10*3/uL (2.0-8.3); Neutrophils Percent Auto 61.7 % (45-73); Platelet Count 197 X10*3/uL (160-400); Red Blood Count 4.13 X10*6/uL (4.60-5.80); Red Cell Distribution Width 11.4 % (11.0-16.0)
[2023-07-21] MEDS: 0.9 % Sodium Chloride Flush 3 ML SYRINGE IVFLUSH ×3 (08:03→21:39)
[2023-07-21] MEDS: Chlorhexidine Gluc Oral Rinse 15 ML MOUTHWASH BUCCAL ×3 (09:56→21:39)
[2023-07-21] MEDS: Famotidine/PF 20 MG/2 ML VIAL IVPUSH (09:56)
--- NOTE | 2023-07-21 10:31 | MHC.CLN ---
F/U PT REMAINS INTUBATED AND SEDATED DISCUSSED AT ROUNDS WITH MD PLAN TO INCREASE TF TO GOAL RATE RECOMMEND PROMOTE AT MAX GOAL RATE 70ML/HR WITH 240ML FREE WATER Q 8 HRS TO PROVIDE 1680KCALS, 105G PROTEIN (1.4G/KG), 2129ML TOTAL WATER FROM FORMULA AND FLUSHES (28ML/KG) MONITOR TOLERANCE, RESIDUALS AND LYTES
--- NOTE | 2023-07-21 10:54 | MHC.CM.PN ---
Pt remains in ICU on ventilatory support: Family met w/MD to discuss outcomes and goals of care. No decisions made towards THERAPY MANAGER at this time. CM to follow/support
--- NOTE | 2023-07-21 10:55 | PM.CCPN ---
Subjective Subjective Date of Service: 07/21/23 Critical Care Time (minutes): 45 Comment: Remains on ventilator support, dopamine for vasopressor support No changes in neurological status, labs stable Physical Exam Vital Signs: Vital Signs: Last Vital Signs Temp 95.5 F L 07/21/23 10:00 Pulse 79 07/21/23 10:00 Resp 20 07/21/23 10:00 BP 100/70 07/21/23 10:00 Pulse Ox 100 07/21/23 10:00 O2 Del Method Mechanical Ventil ation 07/21/23 10:00 FiO2 30 07/21/23 10:00 BMI result Body Mass Index 25.1 General: In acute distress Nutritional Appearance: well nourished and normal weight Eyes: appearance normal, both eyes and all related structures; Alignment and Position: alignment normal and position normal Neck: No lymphadenopathy, no thyromegaly Resp: bilateral air entry equal, no added sounds present Cardio: Regular rate, regular rhythm; Heart sounds: S1 normal heart sound present and S2 normal heart sound present GI: soft, nontender, no guarding, no hepatosplenomegaly : bladder normal to inspection, bladder normal to palpation, no renal angle tenderness Skin: no rashes or lesions noted and elasticity normal Neuro: Pupils reactive to light, absent gag reflex, does not follow any commands, absent cough reflex, upon weaning off the sedation patient has continuous ongoing myoclonic jerks Objective Data Labs 07/21/23 05:22 07/21/23 05:22 Labs: Laboratory Results - last 24 hr 07/20/23 07/20/23 07/20/23 11:38 17:17 23:32 WBC RBC Hgb Hct MCV MCH MCHC RDW Plt Count MPV Immature Gran % (Auto) Neut % (Auto) Lymph % (Auto) [place] % (Auto) Eos % (Auto) Baso % (Auto) Lymph # (Auto) [place] # (Auto) Eos # (Auto) Baso # (Auto) Abs Immat Gran (auto) Absolute Neuts (auto) Absolute Nucleated RBC Nucleated RBC % (auto) VBG pH VBG pCO2 VBG pO2 VBG HCO3 VBG O2 Saturation VBG Base Excess Sodium Potassium Chloride Carbon Dioxide Anion Gap BUN Creatinine Estim Creat Clear Calc Estimated GFR POC Glucose 118 H 121 H 119 H Random Glucose Calcium Total Bilirubin AST ALT Alkaline Phosphatase Total Protein Albumin 07/21/23 07/21/23 05:19 05:22 WBC 5.0 RBC 4.13 L Hgb 12.9 L Hct 36.6 L MCV 88.6 MCH 31.2 MCHC 35.2 RDW 11.4 Plt Count 197 MPV 9.9 Immature Gran % (Auto) 0.8 H Neut % (Auto) 61.7 Lymph % (Auto) 20.0 [place] % (Auto) 14.1 H Eos % (Auto) 2.8 Baso % (Auto) 0.6 Lymph # (Auto) 1.0 L [place] # (Auto) 0.7 Eos # (Auto) 0.1 Baso # (Auto) 0.0 Abs Immat Gran (auto) 0.04 H Absolute Neuts (auto) 3.1 Absolute Nucleated RBC 0.000 Nucleated RBC % (auto) 0.0 VBG pH 7.49 H VBG pCO2 25 VBG pO2 68 VBG HCO3 19 L VBG O2 Saturation 94.0 VBG Base Excess -1.7 Sodium 137 Potassium 4.1 Chloride 107 Carbon Dioxide 21 L Anion Gap 13 BUN 15 Creatinine 0.65 Estim Creat Clear Calc 159.3 Estimated GFR > 60 POC Glucose Random Glucose 103 Calcium 10.0 Total Bilirubin 0.4 AST 52 H ALT 55 H Alkaline Phosphatase 46 Total Protein 7.7 Albumin 4.5 Microbiology Microbiology Results: Microbiology 07/16/23 10:31 Blood - Venous Blood Culture - Preliminary No growth after 48 hours. 07/16/23 10:31 Blood - Venous Blood Culture - Preliminary No growth after 48 hours. Progress Note: A&P Assessment and plan (1) Cardiogenic shock: Status: Acute (2) Seizure-like activity: Status: Acute (3) Cardiomyopathy: Status: Acute (4) Acute respiratory failure with hypoxia: Status: Acute (5) Polysubstance abuse: Status: Acute (6) Anoxic brain injury: Status: Acute Plan 33-year-old male with PMH of schizoaffective d/o, extensive trauma and PTSD symptoms and polysubstance abuse with previous hospitalization for psych issues, HIV was found down unresponsive at home secondary to multiple drug overdose including cocaine, fentanyl, marijuana and benzodiazepines on 07/16/2023. When the police arrived at home he did not have any pulse and CPR was started by the PD, EMS intubated him and was brought into the ED. MRI of the brain showing extensive anoxic brain injury, echocardiogram showing EF of about 28% with multiple wall akinesis/hypokinesis, very poor neurological response, episodes of bradycardia and hypotension. Neuro: Acute encephalopathy possibly due to anoxic brain encephalopathy due to unknown down time prior to CPR started by PD. MRI of the brain showing extensive anoxic brain injury. Patient currently has very poor neurological status, absent gag reflex, sluggishly reactive pupils, no spontaneous response, significant myoclonic jerks. On propofol for control of myoclonus, as needed fentanyl for analgesia both of which we will taper as tolerated. Upon tapering off propofol patient has continuous myoclonic jerks Close neurological status monitoring in the ICU every hour Cardiac: Cardiogenic Shock: On dopamine drip due to episodes of bradycardia, titrate Levophed to keep map above 65 mm Hg TTE showed EF of 28% with akinetic inferolateral, inferoseptal and anterior septal renae possibly secondary to cardiac arrest and stunned myocardium. Heparin drip stopped Respiratory: Acute hypoxemic respiratory failure due to Currently on ventilator support On PRVC mode FiO2[60%], PEEP 5, TV 400, RR 20 Peak pressures and plateau pressures are under the curve Ventilator management bundle with head end elevation, aspiration precaution, chlorhexidine mouthwash, daily awakening trials, daily spontaneous breathing trials GI: on tube feeds Renal: Acute kidney injury possibly secondary to ATN which is currently improving Creatinine 0.65 this morning We will closely monitor I's and O's Avoid nephrotoxic medications Heme: closely monitor H&H, transfuse for hemoglobin less than 7 grams/deciliter Endocrine: Blood sugars under control Sliding scale insulin as needed Infectious disease: Cultures negative so far On levofloxacin, we will stop today Musculoskeletal: Decubitus ulcer prevention protocol Lines: Prophylaxis: Lovenox, pantoprazole Given the MRI findings and clinical examination where he has no cough and gag reflex with continuous ongoing myoclonic jerks upon tapering off propofol he has a very poor prognosis. This has been explained in detail to family especially patients mom that if patient survives this it is very unlikely that he would return back to his previous life and living independent life. It is most likely that patient will be bed-bound needing significant assistance for all activities of his daily life. Critical care time spent is about 45 minutes on ventilator management, sedation management, close neurological status monitoring, vasopressor management, titrating vasopressor drips, management of episodes of tachycardia and bradycardia and this time is excluding procedural time and family meetings Quality Stroke Does the patient have a stroke diagnosis?: No VTE Prior VTE?: No VTE Risk Level:: Medical - moderate - high VTE Device Contraindication: Treatment Not Indicated VTE Drug Contraindication: N/A - Med Ordered
[2023-07-21 11:22] LABS: Glucose, Whole Blood 125 mg/dL (60-115)
[2023-07-21] MEDS: Enoxaparin Sodium 40 MG/0.4 ML SYRINGE SUBCUT (15:18)
[2023-07-21] MEDS: levoFLOXacin/D5W 750 MG/150 ML PIGGYBACK 100 MG IV (16:03)
[2023-07-21] MEDS: DOPamine HCL/D5W 400 MG/250 ML PLAST..BAG 13.78 MG IVCONT (16:49)
[2023-07-21] MEDS: propofoL 1,000 MG/100 ML VIAL 17.23 MG IVCONT ×2 (16:49→22:44)
[2023-07-21 17:40] LABS: Glucose, Whole Blood 133 mg/dL (60-115)
[2023-07-21] MEDS: fentaNYL citrate/NS 1,000 MCG/100 ML PLAST..BAG 5 MCG IVCONT (22:59)
[2023-07-21 23:31] LABS: Glucose, Whole Blood 150 mg/dL (60-115)
[2023-07-22] VITALS (37 sets, daily range): BP systolic 90–168; BP diastolic 27–134; PULSE 82–115; RESP 16–28; TEMP 34.8–38.5; O2SAT 89–99; BMI 25.9
[2023-07-22] MEDS: propofoL 1,000 MG/100 ML VIAL 17.23 MG IVCONT (03:11)
[2023-07-22] MEDS: levETIRAcetam in NaCl (iso-os) 1,000 MG/100 ML PIGGYBACK 400 MG IV ×2 (04:01→15:47)
[2023-07-22 05:53] LABS: VBG Base Excess 0.1 mmol/L; VBG HCO3 24 mmol/L (22-26); VBG pCO2 38 mmHg; VBG pO2 25 mmHg
[2023-07-22 05:54] LABS: Venous Blood Gas Refer to POC result
[2023-07-22 06:41] LABS: MANUAL DIFF FLAG NO
[2023-07-22 06:44] LABS: Basophils Percent Auto 0.4 % (0-2); Eosinophils Absolute Auto 0.1 X10*3/uL (0.0-0.4); Eosinophils Percent Auto 1.1 % (0-4); Hemoglobin 13.1 g/dl (14.0-18.0); Imm Gran Abs Auto 0.07 X10*3/uL (0.00-0.03); Imm Gran Pct Auto 0.9 % (0.0-0.4); Lymphocytes Absolute Auto 0.9 X10*3/uL (1.2-4.9); Lymphocytes Percent Auto 11.6 % (20-40); Mean Corpuscular HGB Conc 34.5 g/dl (31.0-36.0); Mean Corpuscular Hemoglobin 31.3 pg (27.0-33.0); Mean Corpuscular Volume 90.7 fL (80.0-98.0); Monocytes Absolute Auto 0.8 X10*3/uL (0.1-1.2); Monocytes Percent Auto 9.6 % (2-11); Neutrophils Percent Auto 76.4 % (45-73); Platelet Count 230 X10*3/uL (160-400); Red Blood Count 4.19 X10*6/uL (4.60-5.80); Red Cell Distribution Width 11.8 % (11.0-16.0); White Blood Count 7.9 X10*3/uL (4.8-10.8)
[2023-07-22 06:59] LABS: Alanine Aminotransferase 88 U/L (0-40); Albumin Level 4.6 g/dL (3.5-5.0); Alkaline Phosphatase 50 U/L (39-117); Anion Gap 16 (12-20); Aspartate Amino Transferase 76 U/L (5-37); Bilirubin Total 0.3 mg/dL (0.0-1.0); Blood Urea Nitrogen 18 mg/dL (9-16); Calcium 9.9 mg/dL (8.4-10.2); Carbon Dioxide 24 mmol/L (22-29); Chloride 104 mmol/L (96-108); Creatinine Clr Calc Pharmacy 136.2; Estimated Glomerular Filt Rate > 60; Glucose Random 131 mg/dL (60-115); Potassium 3.9 mmol/L (3.3-5.1); Sodium 140 mmol/L (135-145); Total Protein 7.9 g/dL (6.5-8.0)
[2023-07-22] MEDS: Chlorhexidine Gluc Oral Rinse 15 ML MOUTHWASH BUCCAL ×3 (08:19→21:22)
[2023-07-22] MEDS: Famotidine/PF 20 MG/2 ML VIAL IVPUSH (08:19)
[2023-07-22] MEDS: 0.9 % Sodium Chloride Flush 3 ML SYRINGE IVFLUSH ×2 (08:19→15:17)
--- NOTE | 2023-07-22 08:49 | PM.CCPN ---
Subjective Subjective Date of Service: 07/22/23 Critical Care Time (minutes): 35 Comment: Continues to be on ventilator support this morning No new events, no new changes on propofol and fentnayl Physical Exam Vital Signs: Vital Signs: Last Vital Signs Temp 97.9 F 07/22/23 08:00 Pulse 110 H 07/22/23 08:00 Resp 25 H 07/22/23 08:00 BP 119/71 07/22/23 08:00 Pulse Ox 97 07/22/23 08:00 O2 Del Method Mechanical Ventil ation 07/22/23 08:00 FiO2 30 07/22/23 08:16 BMI result Body Mass Index 25.9 General: Patient acute distress Nutritional Appearance: well nourished and normal weight Eyes: appearance normal, both eyes and all related structures; Alignment and Position: alignment normal and position normal Neck: No lymphadenopathy, no thyromegaly Resp: bilateral air entry equal, no added sounds present Cardio: Regular rate, regular rhythm; Heart sounds: S1 normal heart sound present and S2 normal heart sound present GI: soft, nontender, no guarding, no hepatosplenomegaly : bladder normal to inspection, bladder normal to palpation, no renal angle tenderness Skin: no rashes or lesions noted and elasticity normal Neuro: Absent cough and gag reflexes, pupillary reflexes normal, continuous myoclonus jerk, frequent posturing Objective Data Labs 07/22/23 05:38 07/22/23 05:38 Labs: Laboratory Results - last 24 hr 07/21/23 07/21/23 07/21/23 11:18 17:33 23:25 WBC RBC Hgb Hct MCV MCH MCHC RDW Plt Count MPV Immature Gran % (Auto) Neut % (Auto) Lymph % (Auto) [place] % (Auto) Eos % (Auto) Baso % (Auto) Lymph # (Auto) [place] # (Auto) Eos # (Auto) Baso # (Auto) Abs Immat Gran (auto) Absolute Neuts (auto) Absolute Nucleated RBC Nucleated RBC % (auto) VBG pH VBG pCO2 VBG pO2 VBG HCO3 VBG O2 Saturation VBG Base Excess Sodium Potassium Chloride Carbon Dioxide Anion Gap BUN Creatinine Estim Creat Clear Calc Estimated GFR POC Glucose 125 H 133 H 150 H Random Glucose Calcium Total Bilirubin AST ALT Alkaline Phosphatase Total Protein Albumin 07/22/23 07/22/23 05:38 05:44 WBC 7.9 RBC 4.19 L Hgb 13.1 L Hct 38.0 L MCV 90.7 MCH 31.3 MCHC 34.5 RDW 11.8 Plt Count 230 MPV 10.0 Immature Gran % (Auto) 0.9 H Neut % (Auto) 76.4 H Lymph % (Auto) 11.6 L [place] % (Auto) 9.6 Eos % (Auto) 1.1 Baso % (Auto) 0.4 Lymph # (Auto) 0.9 L [place] # (Auto) 0.8 Eos # (Auto) 0.1 Baso # (Auto) 0.0 Abs Immat Gran (auto) 0.07 H Absolute Neuts (auto) 6.0 Absolute Nucleated RBC 0.000 Nucleated RBC % (auto) 0.0 VBG pH 7.40 VBG pCO2 38 VBG pO2 25 VBG HCO3 24 VBG O2 Saturation 35.0 VBG Base Excess 0.1 Sodium 140 Potassium 3.9 Chloride 104 Carbon Dioxide 24 Anion Gap 16 BUN 18 H Creatinine 0.76 Estim Creat Clear Calc 136.2 Estimated GFR > 60 POC Glucose Random Glucose 131 H Calcium 9.9 Total Bilirubin 0.3 AST 76 H ALT 88 H Alkaline Phosphatase 50 Total Protein 7.9 Albumin 4.6 Microbiology Microbiology Results: Microbiology 07/16/23 10:31 Blood - Venous Blood Culture - Final No growth after 5 days. 07/16/23 10:31 Blood - Venous Blood Culture - Final No growth after 5 days. Progress Note: A&P Assessment and plan (1) Anoxic brain injury: Status: Acute (2) Cardiogenic shock: Status: Acute (3) Seizure-like activity: Status: Acute (4) Cardiomyopathy: Status: Acute (5) NSTEMI (non-ST elevated myocardial infarction): Status: Acute (6) Acute respiratory failure with hypoxia: Status: Acute Plan 33-year-old male with PMH of schizoaffective d/o, extensive trauma and PTSD symptoms and polysubstance abuse with previous hospitalization for psych issues, HIV was found down unresponsive at home secondary to multiple drug overdose including cocaine, fentanyl, marijuana and benzodiazepines on 07/16/2023. When the police arrived at home he did not have any pulse and CPR was started by the PD, EMS intubated him and was brought into the ED. MRI of the brain showing extensive anoxic brain injury, echocardiogram showing EF of about 28% with multiple wall akinesis/hypokinesis, very poor neurological response, episodes of bradycardia and hypotension. Neuro: Acute encephalopathy possibly due to anoxic brain encephalopathy due to unknown down time prior to CPR started by PD. MRI of the brain showing extensive anoxic brain injury. Patient currently has very poor neurological status, absent gag reflex, sluggishly reactive pupils, no spontaneous response, significant myoclonic jerks. We will consult Neurology for secondary opinion about neurological prognosis On propofol for control of myoclonus, as needed fentanyl for analgesia both of which we will taper as tolerated. Upon tapering off propofol patient has continuous myoclonic jerks, we will take off propofol for neurological examination. will stop fentanyl Close neurological status monitoring in the ICU every hour Cardiac: Cardiogenic Shock: On dopamine drip due to episodes of bradycardia, titrate Levophed to keep map above 65 mm Hg TTE showed EF of 28% with akinetic inferolateral, inferoseptal and anterior septal renae possibly secondary to cardiac arrest and stunned myocardium. Heparin drip stopped Respiratory: Acute hypoxemic respiratory failure due to Currently on ventilator support On PRVC mode FiO2 50%, PEEP 5, TV 400, RR 20 Peak pressures and plateau pressures are under the curve Ventilator management bundle with head end elevation, aspiration precaution, chlorhexidine mouthwash, daily awakening trials, daily spontaneous breathing trials GI: on tube feeds Renal: Acute kidney injury possibly secondary to ATN which is currently improving Creatinine 0.76 this morning We will closely monitor I's and O's Avoid nephrotoxic medications Heme: closely monitor H&H, transfuse for hemoglobin less than 7 grams/deciliter Endocrine: Blood sugars under control Sliding scale insulin as needed Infectious disease: Cultures negative so far Off levofloxacin Musculoskeletal: Decubitus ulcer prevention protocol Prophylaxis: Lovenox, pantoprazole Given the MRI findings and clinical examination where he has no cough and gag reflex with continuous ongoing myoclonic jerks upon tapering off propofol he has a very poor prognosis. This has been explained in detail to family especially patients mom that if patient survives this it is very unlikely that he would return back to his previous life and living independent life. It is most likely that patient will be bed-bound needing significant assistance for all activities of his daily life. Critical care time spent is about 45 minutes on ventilator management, sedation management, close neurological status monitoring, vasopressor management, titrating vasopressor drips, management of episodes of tachycardia and bradycardia and this time is excluding procedural time and family meetings Quality Stroke Does the patient have a stroke diagnosis?: No VTE Prior VTE?: No VTE Risk Level:: Medical - moderate - high VTE Device Contraindication: Treatment Not Indicated VTE Drug Contraindication: N/A - Med Ordered
[2023-07-22] MEDS: propofoL 1,000 MG/100 ML VIAL 4.31 MG IVCONT (09:49)
--- NOTE | 2023-07-22 10:25 | MHC.CLN ---
F/U PT REMAINS INTUBATED AND SEDATED DISCUSSED AT ROUNDS WITH PT TOLERATING TF WITH LOW RESIDUALS PER NSG RECEIVING PROMOTE AT MAX GOAL RATE 70ML/HR WITH 240ML FREE WATER Q 8 HRS PROVIDES 1680KCALS (2020KCALS WITH SEDATION; 27KCALS/KG), 105G PROTEIN (1.4G/KG), 2129ML TOTAL WATER FROM FORMULA AND FLUSHES (28ML/KG) MONITOR TOLERANCE, RESIDUALS AND LYTES
[2023-07-22] MEDS: DOPamine HCL/D5W 400 MG/250 ML PLAST..BAG 13.78 MG IVCONT (10:47)
--- NOTE | 2023-07-22 13:21 | PM.NEUROCN ---
History of Present Illness Data of Consult Service Date: 07/22/23 Primary Care Provider: Elis Davis MD [facility] Reason for consult: Hypoxic brain damage from Overdose This is a 33-year-old man with underlying HIV, polysubstance abuse, schizoaffective disorder admitted after he collapsed after reported overdose. CPR performed by police, but pulse present on EMS arrival. On arrival to ER patient comatose, but with to sat of 92%, intubated for airway protection and admitted to intensive care unit. Initial CT head essentially normal.MRI consistent with hypoxic brain damge in cortexand basal ganglia. Toxic screen positive for Fentanyl, cocaine and marijuana.He has just been weaned off his sedation Review of Systems Review of Systems: Unable to obtain. Yes unobtainable due to endotracheal tube, Unobtainable due to mental condition and Unobtainable due to mental status PMFSH Past Medical History Medical History (Updated 07/21/23 @ 11:18 by Aydin Car MD) Polysubstance abuse Post traumatic stress disorder (PTSD) Cocaine use disorder, moderate, dependence Amphetamine use disorder, severe Schizoaffective disorder, bipolar type Acute anxiety Anxiety Depression Asthma Family History Pertinent family history: Unable to obtain as he is intubated. Social History Social History Household Members: Unknown / Unable to assess Household Members Other:: mother Housing: Unknown / Unable to assess Do you presently have visiting nurse or other home services: No Unable to assess alcohol history related to: Unknown Alcohol intake: current Alcohol intake frequency: a few times a week Alcohol type: beer, wine and hard liquor Patient Tobacco Use Status: Tobacco use Unknown Tobacco use type: Cigarette Cigarette Packs Per Day: 1 Cigarettes Per Day: 20.0 Years Smoked: 10 e-Cigarette/Vaping Use: Former Use Substance Use Type: Crack/Cocaine, Marijuana and Methamphetamine service: No Sexual orientation: Unable to collect Meds Allergies Allergy/AdvReac Type Severity Reaction Status Date / Time No Known Allergies Allergy Verified 07/16/23 16:44 Active Medications: Current Medications Artificial Tears (Artificial Tears 15 Ml Drops) 1 drop EYE-BOTH TID PRN; Protocol PRN Reason: Dry Eyes Last Admin: 07/18/23 21:21 Dose: 1 drop Chlorhexidine Gluconate (Chlorhexidine Gluc Oral Rinse 15 Ml Mouthwash) 15 ml BUCCAL TID [facility] Last Admin: 07/22/23 08:19 Dose: 15 ml Enoxaparin Sodium (Enoxaparin Sodium 40 Mg/0.4 Ml Syringe) 40 mg SUBCUT Q24H [facility] Last Admin: 07/21/23 15:18 Dose: 40 mg Famotidine (Famotidine/Pf 20 Mg/2 Ml Vial) 20 mg IVPUSH DAILY [facility] Last Admin: 07/22/23 08:19 Dose: 20 mg Propofol (Diprivan) 1,000 mg in 100 mls @ 0 mls/hr IVCONT .Q0M [facility]; Protocol Last Titration: 07/22/23 10:55 Dose: 0 mcg/kg/min, 0 mls/hr Levetiracetam (Keppra) 1,000 mg in 100 mls @ 400 mls/hr IV Q12H [facility] Last Infusion: 07/22/23 04:22 Dose: Infused Norepinephrine Bitartrate (Levophed) 8 mg in 250 mls @ 0 mls/hr IV .Q0M [facility]; Protocol Last Titration: 07/20/23 16:22 Dose: Infused Fentanyl (Sublimaze/Ns) 1,000 mcg in 100 mls @ 0 mls/hr IVCONT .Q0M [facility]; Protocol Last Titration: 07/22/23 09:49 Dose: Infused Dopamine HCl/Dextrose (Dopamine Hcl/D5w) 400 mg in 250 mls @ 0 mls/hr IVCONT .Q0M [facility]; Protocol Last Admin: 07/22/23 10:47 Dose: 5 mcg/kg/min, 13.78 mls/hr Midazolam HCl (Midazolam Hcl/Pf 2 Mg/2 Ml Vial) 4 mg IVPUSH Q15M PRN PRN Reason: seizure Last Admin: 07/21/23 11:24 Dose: 4 mg Sodium Chloride (0.9 % Sodium Chloride Flush 3 Ml Syringe) 3 ml IVFLUSH QSHIFT [facility] Last Admin: 07/22/23 08:19 Dose: 3 ml Home Medications ?Medication ?Instructions ?Recorded ?Confirmed ?Last Taken ?Type No Known Home Meds 07/16/23 07/16/23 Unknown History Physical Exam Vital Signs: Vital Signs: Last Vital Signs Temp 96.5 F L 07/22/23 12:00 Pulse 96 07/22/23 12:00 Resp 26 H 07/22/23 12:00 BP 128/82 07/22/23 12:00 Pulse Ox 96 07/22/23 12:00 O2 Del Method Mechanical Ventil ation 07/22/23 12:00 FiO2 30 07/22/23 12:00 BMI result Body Mass Index 25.9 Const: Other: Intubated, sedated General: no acute distress and other (Sedated on the vent) HEENT: Other: Unremarkable Head: Yes normal to inspection Eyes: Sclerae: sclerae normal EOM: EOMs intact bilaterally Neck: Neck: Yes normal visual inspection, Yes no lymphadenopathy, Yes trachea midline and Yes supple Chest: Chest palpation & inspection: normal inspection of the chest Resp: Auscultation: clear to auscultation bilaterally Cardio: Palpation: normal PMI Rate: regular rate Rhythm: regular rhythm Heart sounds: S1 normal heart sound present, S2 normal heart sound present, no gallops, no murmurs and no rubs GI: Palpation (GI): Soft to palpation and Other GI palpation findings present ( Nontender) Auscultation: normal bowel sounds Back/Spine/Pelvis: Other: unremarkable Skin: General skin exam: no rashes or lesions noted Neuro: Other: His eyes are open and he is having myoclonic jerking of his eyes in the vertical plane and frequent blinking and twitching in a generalized distribution, including myoclonic twitches off his hands and legs consistent with status epilepticus. He does not follow any commands. He has slight posturing and withdrawal to deep nailbed pressure. Extrem: General: Yes normal to inspection, Yes no pedal edema, No clubbing and No cyanosis Psych: Mental Status: mental status grossly abnormal Results Labs 07/22/23 05:38 07/22/23 05:38 Labs: Short CBC 07/22/23 Range/Units 05:38 WBC 7.9 (4.8-10.8) X10*3/uL Hgb 13.1 L (14.0-18.0) g/dl Hct 38.0 L (42.0-52.0) % Plt Count 230 (160-400) X10*3/uL BMP 07/22/23 05:38 Sodium 140 Potassium 3.9 Chloride 104 Carbon Dioxide 24 BUN 18 H Creatinine 0.76 Calcium 9.9 Liver Function 07/22/23 Range/Units 05:38 Total Bilirubin 0.3 (0.0-1.0) mg/dL AST 76 H (5-37) U/L ALT 88 H (0-40) U/L Alkaline Phosphatase 50 (39-117) U/L Albumin 4.6 (3.5-5.0) g/dL Microbiology Microbiology Results: Microbiology 07/16/23 10:31 Blood - Venous Blood Culture - Final No growth after 5 days. 07/16/23 10:31 Blood - Venous Blood Culture - Final No growth after 5 days. Assessment and Plan (1) Anoxic brain injury: Status: Acute He has severe hypoxic brain injury and appears to be in status epilepticus on top of that. His MRI shows cortical and basal ganglia damage.I have personally reviewed his imaging studies including MRI and EEG. Recommendations : stat EEG to see if is in status epilepticus. If this is confirmed, then in addition to his Keppra,. I would give him a loading dose of the Dilantin 18 mg/kg body weight followed by IV Dilantin 200 mg IV twice a day. Increase Keppra to 2 g every 12 hours. His prognosis appears to be poor. (2) Cardiogenic shock: Status: Acute (3) Seizure-like activity: Status: Acute (4) Cardiomyopathy: Status: Acute (5) NSTEMI (non-ST elevated myocardial infarction): Status: Acute (6) Acute respiratory failure with hypoxia: Status: Acute Plan 33-year-old male with PMH of schizoaffective d/o, extensive trauma and PTSD symptoms and polysubstance abuse with previous hospitalization for psych issues, HIV was found down unresponsive at home secondary to multiple drug overdose including cocaine, fentanyl, marijuana and benzodiazepines on 07/16/2023. When the police arrived at home he did not have any pulse and CPR was started by the PD, EMS intubated him and was brought into the ED. MRI of the brain showing extensive anoxic brain injury, echocardiogram showing EF of about 28% with multiple wall akinesis/hypokinesis, very poor neurological response, episodes of bradycardia and hypotension. Neuro: Acute encephalopathy possibly due to anoxic brain encephalopathy due to unknown down time prior to CPR started by PD. MRI of the brain showing extensive anoxic brain injury. Patient currently has very poor neurological status, absent gag reflex, sluggishly reactive pupils, no spontaneous response, significant myoclonic jerks. We will consult Neurology for secondary opinion about neurological prognosis On propofol for control of myoclonus, as needed fentanyl for analgesia both of which we will taper as tolerated. Upon tapering off propofol patient has continuous myoclonic jerks, we will take off propofol for neurological examination. will stop fentanyl Close neurological status monitoring in the ICU every hour Cardiac: Cardiogenic Shock: On dopamine drip due to episodes of bradycardia, titrate Levophed to keep map above 65 mm Hg TTE showed EF of 28% with akinetic inferolateral, inferoseptal and anterior septal renae possibly secondary to cardiac arrest and stunned myocardium. Heparin drip stopped Respiratory: Acute hypoxemic respiratory failure due to Currently on ventilator support On PRVC mode FiO2 50%, PEEP 5, TV 400, RR 20 Peak pressures and plateau pressures are under the curve Ventilator management bundle with head end elevation, aspiration precaution, chlorhexidine mouthwash, daily awakening trials, daily spontaneous breathing trials GI: on tube feeds Renal: Acute kidney injury possibly secondary to ATN which is currently improving Creatinine 0.76 this morning We will closely monitor I's and O's Avoid nephrotoxic medications Heme: closely monitor H&H, transfuse for hemoglobin less than 7 grams/deciliter Endocrine: Blood sugars under control Sliding scale insulin as needed Infectious disease: Cultures negative so far Off levofloxacin Musculoskeletal: Decubitus ulcer prevention protocol Prophylaxis: Lovenox, pantoprazole Given the MRI findings and clinical examination where he has no cough and gag reflex with continuous ongoing myoclonic jerks upon tapering off propofol he has a very poor prognosis. This has been explained in detail to family especially patients mom that if patient survives this it is very unlikely that he would return back to his previous life and living independent life. It is most likely that patient will be bed-bound needing significant assistance for all activities of his daily life. Critical care time spent is about 45 minutes on ventilator management, sedation management, close neurological status monitoring, vasopressor management, titrating vasopressor drips, management of episodes of tachycardia and bradycardia and this time is excluding procedural time and family meetings Procedures Date of Service Date of Service: 07/22/23
--- NOTE | 2023-07-22 14:17 | EEG_ITS ---
FINDINGS: Background activity consists of a continuous body spike with generalized 2 hertz seizure discharge throughout most of the record. This state of status epilepticus stops briefly for about 30 seconds and then returns. Clinically, the patient has been having generalized twitching movements. IMPRESSION: This is a markedly abnormal EEG due to long periods of continuous generalized body spike wave discharges at 2 hertz consistent with generalized status epilepticus which appears to be multifocal, consistent with severe hypoxic encephalopathy with poor prognosis. Clinically correlation is suggested. MD BONITA Taylor/MADINA / [id number]
[2023-07-22] MEDS: Midazolam HCl/PF 2 MG/2 ML VIAL 4 MG IVPUSH ×3 (15:14→20:27)
--- NOTE | 2023-07-22 15:42 | MHC.CM.PN ---
Patient remains intubated in ICU. Per MD rounds, family requested a second opinion. A Neurology consult was ordered and performed today. A goals of care meeting is anticipated. CM will continue to follow.
[2023-07-22] MEDS: Enoxaparin Sodium 40 MG/0.4 ML SYRINGE SUBCUT (15:46)
[2023-07-22] MEDS: Artificial Tears 15 ML DROPS 1 DROP EYE-BOTH (20:42)
[2023-07-22] MEDS: propofoL 1,000 MG/100 ML VIAL 21.54 MG IVCONT (23:17)
[2023-07-23] VITALS (28 sets, daily range): BP systolic 93–136; BP diastolic 56–87; PULSE 79–106; RESP 16–26; TEMP 34.8–38; O2SAT 90–100; BMI 23.8
[2023-07-23] MEDS: propofoL 1,000 MG/100 ML VIAL 17.23 MG IVCONT ×3 (02:51→20:33)
[2023-07-23 05:40] LABS: VBG Base Excess -4.5 mmol/L; VBG HCO3 18 mmol/L (22-26); VBG pCO2 27 mmHg; VBG pH 7.42 (7.32-7.43); VBG pO2 43 mmHg
[2023-07-23] MEDS: Midazolam HCl/PF 2 MG/2 ML VIAL 4 MG IVPUSH (05:40)
[2023-07-23 05:51] LABS: Venous Blood Gas Refer to POC result
[2023-07-23 06:27] LABS: Alanine Aminotransferase 114 U/L (0-40); Albumin Level 4.6 g/dL (3.5-5.0); Alkaline Phosphatase 55 U/L (39-117); Anion Gap 18 (12-20); Aspartate Amino Transferase 85 U/L (5-37); Bilirubin Total 0.4 mg/dL (0.0-1.0); Blood Urea Nitrogen 21 mg/dL (9-16); Calcium 10.1 mg/dL (8.4-10.2); Carbon Dioxide 17 mmol/L (22-29); Chloride 108 mmol/L (96-108); Creatinine Clr Calc Pharmacy 147.9; Estimated Glomerular Filt Rate > 60; Glucose Random 123 mg/dL (60-115); Potassium 4.5 mmol/L (3.3-5.1); Sodium 138 mmol/L (135-145); Total Protein 8.5 g/dL (6.5-8.0)
[2023-07-23] MEDS: Famotidine/PF 20 MG/2 ML VIAL IVPUSH (08:03)
[2023-07-23] MEDS: Chlorhexidine Gluc Oral Rinse 15 ML MOUTHWASH BUCCAL ×3 (08:03→20:33)
[2023-07-23] MEDS: 0.9 % Sodium Chloride Flush 3 ML SYRINGE IVFLUSH ×2 (08:09→15:15)
--- NOTE | 2023-07-23 09:00 | P.PNCC_ITS ---
Subjective Subjective Date of Service: 07/23/23 Critical Care Time (minutes): 40 Comment: on ventilator support frequent seizures with minimum stimulus off dopamine since last night Physical Exam 2 Vital Signs: Vital Signs: Last Vital Signs Temp 98.2 F 07/23/23 08:00 Pulse 84 07/23/23 08:00 Resp 26 H 07/23/23 08:00 BP 130/87 07/23/23 08:00 Pulse Ox 93 07/23/23 08:00 O2 Del Method Mechanical Ventil ation 07/23/23 08:00 FiO2 30 07/23/23 08:37 BMI result Body Mass Index 23.8 General: acute distress, ill appearing and tired appearing Nutritional Appearance: Normal nourished and normal weight Eyes: appearance normal, both eyes and all related structures; Alignment and Position: alignment normal and position normal Neck: No lymphadenopathy, no thyromegaly Resp: bilateral air entry equal, occasional added sounds present Cardio: Regular rate, regular rhythm; Heart sounds: S1 normal heart sound present and S2 normal heart sound present GI: soft, nontender, no guarding, no hepatosplenomegaly : bladder normal to inspection, bladder normal to palpation, no renal angle tenderness Skin: no rashes or lesions noted and elasticity normal Neuro: Frequent myoclonus, generalized tonic-clonic seizures on weaning sedation Objective Data Labs 07/22/23 05:38 07/23/23 05:27 Labs: Laboratory Results - last 24 hr 07/23/23 07/23/23 05:27 05:32 VBG pH 7.42 VBG pCO2 27 VBG pO2 43 VBG HCO3 18 L VBG O2 Saturation 72.0 VBG Base Excess -4.5 Sodium 138 Potassium 4.5 Chloride 108 Carbon Dioxide 17 L Anion Gap 18 BUN 21 H Creatinine 0.70 Estim Creat Clear Calc 147.9 Estimated GFR > 60 Random Glucose 123 H Calcium 10.1 Total Bilirubin 0.4 AST 85 H ALT 114 H Alkaline Phosphatase 55 Total Protein 8.5 H Albumin 4.6 Microbiology Microbiology Results: Microbiology 07/16/23 10:31 Blood - Venous Blood Culture - Final No growth after 5 days. 07/16/23 10:31 Blood - Venous Blood Culture - Final No growth after 5 days. Progress Note: A&P Assessment and plan (1) Anoxic brain injury: Status: Acute (2) Cardiogenic shock: Status: Acute (3) Seizure-like activity: Status: Acute (4) Cardiomyopathy: Status: Acute (5) NSTEMI (non-ST elevated myocardial infarction): Status: Acute (6) Acute respiratory failure with hypoxia: Status: Acute Plan 33-year-old male with PMH of schizoaffective d/o, extensive trauma and PTSD symptoms and polysubstance abuse with previous hospitalization for psych issues, HIV was found down unresponsive at home secondary to multiple drug overdose including cocaine, fentanyl, marijuana and benzodiazepines on 07/16/2023. When the police arrived at home he did not have any pulse and CPR was started by the PD, EMS intubated him and was brought into the ED. MRI of the brain showing extensive anoxic brain injury, echocardiogram showing EF of about 28% with multiple wall akinesis/hypokinesis, very poor neurological response, episodes of bradycardia and hypotension. Neuro: Acute encephalopathy possibly due to anoxic brain encephalopathy due to unknown down time prior to CPR started by PD. MRI of the brain showing extensive anoxic brain injury. Patient currently has very poor neurological status, absent gag reflex, sluggishly reactive pupils, no spontaneous response, significant myoclonic jerks and status epilepticus upon weaning sedation. Neurology consulted, who also a pt that this patient has a very poor prognosis and more likely to be bed-bound On propofol for control of myoclonus, taper as tolerated. Upon tapering off propofol patient has continuous myoclonic jerks, we will take off propofol for neurological examination. EEG showed generalized tonic-clonic seizures, Keppra dose increased to 2000 mg b.i.d., we will add fosphenytoin Close neurological status monitoring in the ICU every hour Cardiac: Cardiogenic Shock: Off dopamine drip since last night TTE showed EF of 28% with akinetic inferolateral, inferoseptal and anterior septal renae possibly secondary to cardiac arrest and stunned myocardium. Heparin drip stopped Respiratory: Acute hypoxemic respiratory failure due to Currently on ventilator support On PRVC mode FiO2 50%, PEEP 5, TV 400, RR 20 Peak pressures and plateau pressures are under the curve Ventilator management bundle with head end elevation, aspiration precaution, chlorhexidine mouthwash, daily awakening trials, daily spontaneous breathing trials GI: on tube feeds Slightly worsening transaminitis possibly secondary to seizure medications We will closely watch will add miralax and senna for constipation Renal: Acute kidney injury possibly secondary to ATN which is currently improving Creatinine 0.76 this morning We will closely monitor I's and O's Avoid nephrotoxic medications Heme: closely monitor H&H, transfuse for hemoglobin less than 7 grams/deciliter Endocrine: Blood sugars under control Sliding scale insulin as needed Infectious disease: Cultures negative so far Off levofloxacin Musculoskeletal: Decubitus ulcer prevention protocol Prophylaxis: Lovenox, pantoprazole Critical care time spent is about 40 minute on ventilator management, sedation management, managing episodes of status epilepticus. Quality Stroke Does the patient have a stroke diagnosis?: No VTE Prior VTE?: No VTE Risk Level:: Medical - moderate - high VTE Device Contraindication: Treatment Not Indicated VTE Drug Contraindication: N/A - Med Ordered
--- NOTE | 2023-07-23 11:45 | MHC.CM.PN ---
Pt w/status epilepticus s/p anoxic brain injury: EEG shows evidence of severe anoxic injury with poor prognosis. Neuro and MD to discuss prognosis again with family who are having difficulty understanding the gravity of pt's injury and unlikeliness of any neurological recovery. CM available for any family discussions.
[2023-07-23] MEDS: propofoL 1,000 MG/100 ML VIAL 12.92 MG IVCONT (15:14)
[2023-07-23] MEDS: Enoxaparin Sodium 40 MG/0.4 ML SYRINGE SUBCUT (15:15)
--- NOTE | 2023-07-23 21:45 | W.MHC.ACPN ---
Advanced Care Planning Note Advanced Care Planning Note Discussed with: family member(s) (mother, grandmother and niece) Time spent (in minutes): 60 Narrative: I had a lengthy discussion with the family members of the patient including his mother Monica Cardoza, we reviewed the patient's clinical scenario in detail including but not limited to his presentation and hospital course in the ICU, different test done with basic interpretation to the best of my abilities in no Medical and go and in their lower [place] language [place]. They all seem to understand that the patient's prognosis is very poor, all questions answered, at the end the agreement was made that the patient at least for now would be DNR and no further invasive procedures or escalation of care, if he had any further decompensation and they are willing to make him RATING SPECIALIST this upcoming Thursday after all family members have the chest to say their goodbyes tomorrow throughout the day. They expressed their desire to proceed with RATING SPECIALIST and terminal extubation measures during my shift and when I am present for they seem to have identified better with me and they like the fact that I speak the same language. The decision for DNR as well as future RATING SPECIALIST was witnessed by 1 of the ICU nurses Sherine, code status will be updated. Critical care time used for critical evaluation of this patient, diagnosis, treatment and coordination of care, review her records and documentation TOTAL CRITICAL CARE TIME 60??? MIN . discussion and coordination with consultants, completely separate from any procedures performed. . Patient's care was discussed in detail with Dr. Car .? He is aware of all the above as well as the plan of care for this patient. . Problems Discussed (1) Anoxic brain injury: (2) Cardiogenic shock: (3) Seizure-like activity: (4) Cardiomyopathy: (5) NSTEMI (non-ST elevated myocardial infarction): (6) Acute respiratory failure with hypoxia:
[2023-07-23] MEDS: Artificial Tears 15 ML DROPS 1 DROP EYE-BOTH (22:38)
[2023-07-24] VITALS (32 sets, daily range): BP systolic 99–125; BP diastolic 54–82; PULSE 74–103; RESP 16–24; TEMP 34.7–37; O2SAT 94–100; BMI 23.8
[2023-07-24] MEDS: propofoL 1,000 MG/100 ML VIAL 17.23 MG IVCONT (01:02)
[2023-07-24] MEDS: Midazolam HCl/PF 2 MG/2 ML VIAL IVPUSH ×5 (02:06→22:08)
[2023-07-24 04:58] LABS: VBG Base Excess 0.5 mmol/L; VBG HCO3 23 mmol/L (22-26); VBG pCO2 33 mmHg; VBG pH 7.45 (7.32-7.43); VBG pO2 33 mmHg
[2023-07-24] MEDS: propofoL 1,000 MG/100 ML VIAL 21.54 MG IVCONT ×5 (05:06→20:42)
[2023-07-24 05:17] LABS: MANUAL DIFF FLAG NO
[2023-07-24 05:19] LABS: Basophils Absolute Auto 0.1 X10*3/uL (0.0-0.2); Basophils Percent Auto 0.8 % (0-2); Eosinophils Absolute Auto 0.2 X10*3/uL (0.0-0.4); Eosinophils Percent Auto 1.7 % (0-4); Hematocrit 40.7 % (42.0-52.0); Hemoglobin 13.4 g/dl (14.0-18.0); Imm Gran Abs Auto 0.08 X10*3/uL (0.00-0.03); Imm Gran Pct Auto 0.9 % (0.0-0.4); Lymphocytes Absolute Auto 1.5 X10*3/uL (1.2-4.9); Lymphocytes Percent Auto 17.5 % (20-40); Mean Corpuscular HGB Conc 32.9 g/dl (31.0-36.0); Mean Corpuscular Hemoglobin 31.2 pg (27.0-33.0); Mean Corpuscular Volume 94.7 fL (80.0-98.0); Mean Platelet Volume 10.8 fL (9.4-12.4); Monocytes Absolute Auto 1.1 X10*3/uL (0.1-1.2); Monocytes Percent Auto 12.6 % (2-11); Neutrophils Absolute Auto 5.8 x10*3/uL (2.0-8.3); Neutrophils Percent Auto 66.5 % (45-73); Platelet Count 220 X10*3/uL (160-400); Red Cell Distribution Width 11.9 % (11.0-16.0); White Blood Count 8.7 X10*3/uL (4.8-10.8)
[2023-07-24 05:25] LABS: Venous Blood Gas Refer to POC result
--- NOTE | 2023-07-24 05:29 | PC.NURSE ---
Upon initial assessment at 1900- pt intubated/sedated, propofol infusing per APR. Neurologically with absent gag reflex but spontaneous cough, negative doll's eye and corneal reflexes. Pt exhibits intermittent nystagmus, myoclonic jerking and decerebrate posturing to noxious stimuli and decreased sedation- PRN versed given per APR. Normothermic but with periods of diaphoresis. NSR on tele, HR 80-90s. SBP WNL. ETT #7.5, 21 cm at teeth, on ACVC settings, breathing over vent. TF infusing via OGT at goal with no s/s of intolerance. Urinary catheter in place, UOP approx 50 mL/hr, slightly green tinted. Skin overall intact. Multiple family members present at beginning of shift, updated on pt status/plan of care- advanced care planning discussion held with GILES Chahal. Code status changed to DNR with possible transition to COMPLIANCE INVESTIGATOR status.
[2023-07-24 05:37] LABS: Alanine Aminotransferase 115 U/L (0-40); Albumin Level 4.6 g/dL (3.5-5.0); Alkaline Phosphatase 54 U/L (39-117); Anion Gap 16 (12-20); Aspartate Amino Transferase 66 U/L (5-37); Bilirubin Total 0.3 mg/dL (0.0-1.0); Blood Urea Nitrogen 19 mg/dL (9-16); Calcium 10.5 mg/dL (8.4-10.2); Carbon Dioxide 23 mmol/L (22-29); Chloride 107 mmol/L (96-108); Estimated Glomerular Filt Rate > 60; Glucose Random 114 mg/dL (60-115); Potassium 4.2 mmol/L (3.3-5.1); Sodium 142 mmol/L (135-145); Total Protein 8.1 g/dL (6.5-8.0)
[2023-07-24] MEDS: 0.9 % Sodium Chloride Flush 3 ML SYRINGE IVFLUSH ×2 (07:04→15:10)
[2023-07-24] MEDS: Chlorhexidine Gluc Oral Rinse 15 ML MOUTHWASH BUCCAL ×3 (08:11→20:29)
[2023-07-24] MEDS: Famotidine/PF 20 MG/2 ML VIAL IVPUSH (08:11)
[2023-07-24] MEDS: polyethylene glycoL 3350 17 GM POWD.PACK PO (08:11)
--- NOTE | 2023-07-24 08:59 | P.PNCC_ITS ---
Subjective Subjective Date of Service: 07/24/23 Critical Care Time (minutes): 40 Comment: Continues to be on ventilator support this morning, Off vasopressor support Labs slightly hemoconcentrated Physical Exam 2 Vital Signs: Vital Signs: Last Vital Signs Temp 97.5 F 07/24/23 08:00 Pulse 80 07/24/23 08:00 Resp 20 07/24/23 08:00 BP 113/70 07/24/23 08:00 Pulse Ox 98 07/24/23 08:00 O2 Del Method Mechanical Ventil ation 07/24/23 08:00 FiO2 30 07/24/23 08:13 BMI result Body Mass Index 23.8 General: Patient in acute distress, ill appearing and tired appearing Nutritional Appearance: well nourished and normal weight Eyes: appearance normal, both eyes and all related structures; Alignment and Position: alignment normal and position normal Neck: No lymphadenopathy, no thyromegaly Resp: bilateral air entry equal, occasional added sounds present Cardio: Regular rate, regular rhythm; Heart sounds: S1 normal heart sound present and S2 normal heart sound present GI: soft, nontender, no guarding, no hepatosplenomegaly : bladder normal to inspection, bladder normal to palpation, no renal angle tenderness Skin: no rashes or lesions noted and elasticity normal Neuro: Continuous GCS and myoclonic jerks upon weaning sedation Objective Data Labs 07/24/23 04:51 07/24/23 04:51 Labs: Laboratory Results - last 24 hr 07/23/23 07/24/23 07/24/23 09:54 04:49 04:51 WBC Cancelled 8.7 RBC Cancelled 4.30 L Hgb Cancelled 13.4 L Hct Cancelled 40.7 L MCV Cancelled 94.7 MCH Cancelled 31.2 MCHC Cancelled 32.9 RDW Cancelled 11.9 Plt Count Cancelled 220 MPV Cancelled 10.8 Immature Gran % (Auto) Cancelled 0.9 H Neut % (Auto) Cancelled 66.5 Lymph % (Auto) Cancelled 17.5 L [place] % (Auto) Cancelled 12.6 H Eos % (Auto) Cancelled 1.7 Baso % (Auto) Cancelled 0.8 Lymph # (Auto) Cancelled 1.5 [place] # (Auto) Cancelled 1.1 Eos # (Auto) Cancelled 0.2 Baso # (Auto) Cancelled 0.1 Abs Immat Gran (auto) Cancelled 0.08 H Absolute Neuts (auto) Cancelled 5.8 Absolute Nucleated RBC Cancelled 0.000 Nucleated RBC % (auto) Cancelled 0.0 VBG pH 7.45 H VBG pCO2 33 VBG pO2 33 VBG HCO3 23 VBG O2 Saturation 51.0 VBG Base Excess 0.5 Sodium 142 Potassium 4.2 Chloride 107 Carbon Dioxide 23 Anion Gap 16 BUN 19 H Creatinine 0.69 Estim Creat Clear Calc 150.0 Estimated GFR > 60 Random Glucose 114 Calcium 10.5 H Total Bilirubin 0.3 AST 66 H ALT 115 H Alkaline Phosphatase 54 Total Protein 8.1 H Albumin 4.6 Microbiology Microbiology Results: Microbiology 07/16/23 10:31 Blood - Venous Blood Culture - Final No growth after 5 days. 07/16/23 10:31 Blood - Venous Blood Culture - Final No growth after 5 days. Progress Note: A&P Assessment and plan (1) Anoxic brain injury: Status: Acute (2) Cardiogenic shock: Status: Acute (3) Cardiomyopathy: Status: Acute (4) NSTEMI (non-ST elevated myocardial infarction): Status: Acute (5) Acute respiratory failure with hypoxia: Status: Acute (6) Polysubstance abuse: Status: Acute Plan 33-year-old male with PMH of schizoaffective d/o, extensive trauma and PTSD symptoms and polysubstance abuse with previous hospitalization for psych issues, HIV was found down unresponsive at home secondary to multiple drug overdose including cocaine, fentanyl, marijuana and benzodiazepines on 07/16/2023. When the police arrived at home he did not have any pulse and CPR was started by the PD, EMS intubated him and was brought into the ED. MRI of the brain showing extensive anoxic brain injury, echocardiogram showing EF of about 28% with multiple wall akinesis/hypokinesis, very poor neurological response, episodes of bradycardia and hypotension. Neuro: Acute encephalopathy possibly due to anoxic brain encephalopathy due to unknown down time prior to CPR started by PD. MRI of the brain showing extensive anoxic brain injury. Patient currently has very poor neurological status, absent gag reflex, sluggishly reactive pupils, no spontaneous response, significant myoclonic jerks and status epilepticus upon weaning sedation. Neurology consulted, who also a pt that this patient has a very poor prognosis and more likely to be bed-bound On propofol for control of myoclonus, taper as tolerated. Upon tapering off propofol patient has continuous myoclonic jerks Close neurological status monitoring in the ICU every hour Cardiac: Cardiogenic Shock: Off dopamine drip since last night TTE showed EF of 28% with akinetic inferolateral, inferoseptal and anterior septal renae possibly secondary to cardiac arrest and stunned myocardium. Heparin drip stopped Respiratory: Acute hypoxemic respiratory failure due to Currently on ventilator support On PRVC mode FiO2 50%, PEEP 5, TV 400, RR 20, ventilator setting stable Peak pressures and plateau pressures are under the curve Ventilator management bundle with head end elevation, aspiration precaution, chlorhexidine mouthwash, daily awakening trials, daily spontaneous breathing trials GI: on tube feeds Slightly worsening transaminitis possibly secondary to seizure medications Continue miralax and senna for constipation Renal: Acute kidney injury possibly secondary to ATN which is currently improving Creatinine 0.69 this morning We will closely monitor I's and O's Avoid nephrotoxic medications Heme: closely monitor H&H, transfuse for hemoglobin less than 7 grams/deciliter Endocrine: Blood sugars under control Sliding scale insulin as needed Infectious disease: Cultures negative so far Off levofloxacin Musculoskeletal: Decubitus ulcer prevention protocol Prophylaxis: Lovenox, pantoprazole Quality Stroke Does the patient have a stroke diagnosis?: No VTE Prior VTE?: No VTE Risk Level:: Medical - moderate - high VTE Device Contraindication: Treatment Not Indicated VTE Drug Contraindication: N/A - Med Ordered
--- NOTE | 2023-07-24 11:07 | MHC.CLN ---
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
--- NOTE | 2023-07-24 11:44 | PC.NURSE ---
Addendum entered by Dori Juarez RN 07/24/23 15:42: Patient declined by FAUSTINO Original Note: PSV trial requested by FAUSTINO - MD & RT notified - 1045 pt placed on PSV 11/20 30% fio2 byb RT - patient maintaining vent settings well, current o2 sat 97% - [facility] updated
--- NOTE | 2023-07-24 14:46 | MHC.CM.PN ---
Pt code status changed to DNR last evening after lengthly discussions w/provider and family. Family will likely transition pt to PEDIATRIC ORTHODONTIST status this evening. [facility] is following for possible donation consideration.
[2023-07-24] MEDS: Enoxaparin Sodium 40 MG/0.4 ML SYRINGE SUBCUT (15:18)
[2023-07-24] MEDS: Artificial Tears 15 ML DROPS 1 DROP EYE-BOTH (18:03)
[2023-07-25] VITALS (29 sets, daily range): BP systolic 103–130; BP diastolic 48–87; PULSE 99–117; RESP 20–34; TEMP 35–37.1; O2SAT 90–100; BMI 23.6
[2023-07-25] MEDS: 0.9 % Sodium Chloride Flush 3 ML SYRINGE IVFLUSH ×2 (00:12→07:14)
[2023-07-25] MEDS: propofoL 1,000 MG/100 ML VIAL 21.54 MG IVCONT ×5 (00:14→16:56)
[2023-07-25 04:56] LABS: VBG Base Excess 0.3 mmol/L; VBG HCO3 23 mmol/L (22-26); VBG pCO2 31 mmHg; VBG pH 7.47 (7.32-7.43); VBG pO2 75 mmHg
[2023-07-25 04:58] LABS: Venous Blood Gas Refer to POC result
[2023-07-25 05:05] LABS: MANUAL DIFF FLAG NO
[2023-07-25 05:06] LABS: Basophils Absolute Auto 0.1 X10*3/uL (0.0-0.2); Basophils Percent Auto 0.7 % (0-2); Eosinophils Absolute Auto 0.2 X10*3/uL (0.0-0.4); Hematocrit 41.5 % (42.0-52.0); Hemoglobin 14.1 g/dl (14.0-18.0); Imm Gran Abs Auto 0.09 X10*3/uL (0.00-0.03); Lymphocytes Absolute Auto 1.3 X10*3/uL (1.2-4.9); Lymphocytes Percent Auto 14.1 % (20-40); Mean Corpuscular Hemoglobin 30.9 pg (27.0-33.0); Mean Corpuscular Volume 90.8 fL (80.0-98.0); Monocytes Percent Auto 11.4 % (2-11); Neutrophils Absolute Auto 6.3 x10*3/uL (2.0-8.3); Neutrophils Percent Auto 70.8 % (45-73); Platelet Count 326 X10*3/uL (160-400); Red Blood Count 4.57 X10*6/uL (4.60-5.80); Red Cell Distribution Width 11.7 % (11.0-16.0); White Blood Count 8.9 X10*3/uL (4.8-10.8)
[2023-07-25 05:22] LABS: Alanine Aminotransferase 111 U/L (0-40); Albumin Level 4.5 g/dL (3.5-5.0); Alkaline Phosphatase 60 U/L (39-117); Anion Gap 18 (12-20); Aspartate Amino Transferase 53 U/L (5-37); Bilirubin Total 0.2 mg/dL (0.0-1.0); Blood Urea Nitrogen 16 mg/dL (9-16); Carbon Dioxide 22 mmol/L (22-29); Chloride 108 mmol/L (96-108); Estimated Glomerular Filt Rate > 60; Glucose Random 128 mg/dL (60-115); Potassium 4.5 mmol/L (3.3-5.1); Sodium 143 mmol/L (135-145); Total Protein 8.3 g/dL (6.5-8.0)
[2023-07-25] MEDS: Chlorhexidine Gluc Oral Rinse 15 ML MOUTHWASH BUCCAL ×2 (08:23→14:01)
[2023-07-25] MEDS: Famotidine/PF 20 MG/2 ML VIAL IVPUSH (08:23)
[2023-07-25] MEDS: polyethylene glycoL 3350 17 GM POWD.PACK PO (08:23)
[2023-07-25] MEDS: Midazolam HCl/PF 2 MG/2 ML VIAL IVPUSH ×4 (08:42→13:53)
--- NOTE | 2023-07-25 11:43 | PM.CCPN ---
Subjective Subjective Date of Service: 07/25/23 Critical Care Time (minutes): 40 Physical Exam Vital Signs: Vital Signs: Last Vital Signs Temp 97.7 F 07/25/23 11:00 Pulse 105 H 07/25/23 11:00 Resp 25 H 07/25/23 11:00 BP 105/72 07/25/23 11:00 Pulse Ox 93 07/25/23 11:00 O2 Del Method Mechanical Ventil ation 07/25/23 11:00 FiO2 30 07/25/23 11:37 BMI result Body Mass Index 23.6 General: Patient in acute distress, ill appearing and tired appearing Nutritional Appearance: well nourished and normal weight Eyes: appearance normal, both eyes and all related structures; Alignment and Position: alignment normal and position normal Neck: No lymphadenopathy, no thyromegaly Resp: bilateral air entry equal, occasional added sounds present Cardio: Regular rate, regular rhythm; Heart sounds: S1 normal heart sound present and S2 normal heart sound present GI: soft, nontender, no guarding, no hepatosplenomegaly : bladder normal to inspection, bladder normal to palpation, no renal angle tenderness Skin: no rashes or lesions noted and elasticity normal Neuro: GTCS upon touching and physical examination, pupils reactive, no gag reflex Objective Data Labs 07/25/23 04:42 07/25/23 04:42 Labs: Laboratory Results - last 24 hr 07/25/23 07/25/23 04:42 04:45 WBC 8.9 RBC 4.57 L Hgb 14.1 Hct 41.5 L MCV 90.8 MCH 30.9 MCHC 34.0 RDW 11.7 Plt Count 326 D MPV 9.0 L Immature Gran % (Auto) 1.0 H Neut % (Auto) 70.8 Lymph % (Auto) 14.1 L [place] % (Auto) 11.4 H Eos % (Auto) 2.0 Baso % (Auto) 0.7 Lymph # (Auto) 1.3 [place] # (Auto) 1.0 Eos # (Auto) 0.2 Baso # (Auto) 0.1 Abs Immat Gran (auto) 0.09 H Absolute Neuts (auto) 6.3 Absolute Nucleated RBC 0.000 Nucleated RBC % (auto) 0.0 VBG pH 7.47 H VBG pCO2 31 VBG pO2 75 VBG HCO3 23 VBG O2 Saturation 95.0 VBG Base Excess 0.3 Sodium 143 Potassium 4.5 Chloride 108 Carbon Dioxide 22 Anion Gap 18 BUN 16 Creatinine 0.69 Estim Creat Clear Calc 150.0 Estimated GFR > 60 Random Glucose 128 H Calcium 11.0 H Total Bilirubin 0.2 AST 53 H ALT 111 H Alkaline Phosphatase 60 Total Protein 8.3 H Albumin 4.5 Microbiology Microbiology Results: Microbiology 07/16/23 10:31 Blood - Venous Blood Culture - Final No growth after 5 days. 07/16/23 10:31 Blood - Venous Blood Culture - Final No growth after 5 days. Progress Note: A&P Assessment and plan (1) Anoxic brain injury: Status: Acute (2) Cardiogenic shock: Status: Acute (3) Seizure-like activity: Status: Acute (4) Cardiomyopathy: Status: Acute (5) NSTEMI (non-ST elevated myocardial infarction): Status: Acute (6) Acute respiratory failure with hypoxia: Status: Acute (7) Polysubstance abuse: Status: Acute Plan 33-year-old male with PMH of schizoaffective d/o, extensive trauma and PTSD symptoms and polysubstance abuse with previous hospitalization for psych issues, HIV was found down unresponsive at home secondary to multiple drug overdose including cocaine, fentanyl, marijuana and benzodiazepines on 07/16/2023. When the police arrived at home he did not have any pulse and CPR was started by the PD, EMS intubated him and was brought into the ED. MRI of the brain showing extensive anoxic brain injury, echocardiogram showing EF of about 28% with multiple wall akinesis/hypokinesis, very poor neurological response. Neuro: Acute encephalopathy possibly due to anoxic brain encephalopathy due to unknown down time prior to CPR started by PD. MRI of the brain showing extensive anoxic brain injury. Patient currently has very poor neurological status, absent gag reflex, sluggishly reactive pupils, no spontaneous response, significant myoclonic jerks and status epilepticus upon weaning sedation. Neurology consulted, who also a pt that this patient has a very poor prognosis and more likely to be bed-bound On propofol for control of myoclonus, taper as tolerated. Upon tapering off propofol patient has continuous myoclonic jerks Close neurological status monitoring in the ICU every hour Cardiac: Cardiogenic Shock: Off dopamine drip since last night TTE showed EF of 28% with akinetic inferolateral, inferoseptal and anterior septal renae possibly secondary to cardiac arrest and stunned myocardium. Heparin drip stopped Respiratory: Acute hypoxemic respiratory failure due to Currently on ventilator support On PRVC mode FiO2 50%, PEEP 5, TV 400, RR 20, ventilator setting stable Peak pressures and plateau pressures are under the curve Ventilator management bundle with head end elevation, aspiration precaution, chlorhexidine mouthwash, daily awakening trials, daily spontaneous breathing trials GI: on tube feeds Transaminitis improving, possibly secondary to seizure medication Continue miralax and senna for constipation Renal: Acute kidney injury possibly secondary to ATN which is currently improving Creatinine 0.69 this morning We will closely monitor I's and O's Avoid nephrotoxic medications Heme: closely monitor H&H, transfuse for hemoglobin less than 7 grams/deciliter Endocrine: Blood sugars under control Sliding scale insulin as needed Infectious disease: Cultures negative so far Off levofloxacin Musculoskeletal: Decubitus ulcer prevention protocol Prophylaxis: Lovenox, pantoprazole Quality Stroke Does the patient have a stroke diagnosis?: No VTE Prior VTE?: No VTE Risk Level:: Medical - moderate - high VTE Device Contraindication: Treatment Not Indicated VTE Drug Contraindication: N/A - Med Ordered
[2023-07-25] MEDS: Enoxaparin Sodium 40 MG/0.4 ML SYRINGE SUBCUT (16:27)
[2023-07-25] MEDS: Midazolam HCl/NS 50 MG/50 ML PLAST..BAG IVCONT ×2 (19:54→20:08)
[2023-07-25] MEDS: fentaNYL citrate/NS 1,000 MCG/100 ML PLAST..BAG 15 MCG IVCONT (20:19)
--- NOTE | 2023-07-25 20:27 | W.MHC.ACPN ---
Advanced Care Planning Note Advanced Care Planning Note Discussed with: family member(s) (11 family members including his mother Monica Cardoza ) Time spent (in minutes): 45 Narrative: A lengthy discussion took place with all family members present including the patient's mother and multiple other relatives in regards to answering all the questions they had about his current clinical scenario whether or not they have been any changes or improvement. They are aware that no improvement has happened clinically. 0 previous information was reiterated to them. Subsequently the patient's mother asked to proceed with comfort measures only and to perform an extubation. Given that he is breathing spontaneously with the vent, they were warned that his life my not and immediately it may take hours, days, weeks or longer. They are all aware that if the patient was to continue to be alive, he is significant anoxic brain injury would lead him to live in a near vegetative state in addition to the ongoing status epilepticus. They are all in agreement that this is not the type of life and quality of life they would want for him, they are all aware that at some point he may also need transition into hospice care at home or at a facility. Three of the family members kindly asked to be present during extubation, At 20:00, patient was started on Versed 4 mg an hour drip, 10-15 minutes later, propofol was shut off, the patient appeared to be in distress, fentanyl drip was added with good effect. Patient was extubated without complications at 20:20. Copies material was suctioned from the posterior pharynx. Scopolamine patch was added for secretions. All family members had the chance to revisit with the patient, they are all grateful of how this was handle, there aware that we are using medications to keep him calm and as comfortable as possible given his underlying condition of status epilepticus. Critical care time used for critical evaluation of this patient, diagnosis, treatment and coordination of care, review her records and documentation TOTAL CRITICAL CARE TIME 45 MIN . discussion and coordination with consultants, completely separate from any procedures performed. . Patient's care was discussed in detail with Dr. Car. He is aware of all the above as well as the plan of care for this patient.. Problems Discussed (1) Anoxic brain injury: (2) Cardiogenic shock: (3) Seizure-like activity: (4) Cardiomyopathy: (5) NSTEMI (non-ST elevated myocardial infarction): (6) Acute respiratory failure with hypoxia: (7) Polysubstance abuse:
[2023-07-25] MEDS: Scopolamine 1.5 MG PATCH.TD.3 EAR-BEHIND (20:29)
[2023-07-25] MEDS: fentaNYL citrate/NS 1,000 MCG/100 ML PLAST..BAG 20 MCG IVCONT (23:34)
[2023-07-26] MEDS: Midazolam HCl/NS 50 MG/50 ML PLAST..BAG IVCONT (03:18)
[2023-07-26] MEDS: fentaNYL citrate/NS 1,000 MCG/100 ML PLAST..BAG 20 MCG IVCONT ×2 (04:19→09:24)
[2023-07-26 06:00] VITALS: RESP 27
[2023-07-26 08:05] VITALS: RESP 28
[2023-07-26] MEDS: Chlorhexidine Gluc Oral Rinse 15 ML MOUTHWASH BUCCAL ×2 (08:25→14:17)
[2023-07-26 09:24] VITALS: RESP 28
--- NOTE | 2023-07-26 11:15 | P.PNCC_ITS ---
Subjective Subjective Date of Service: 07/26/23 Critical Care Time (minutes): 40 Comment: Goals of care discussion with the family was continued and patient is terminally extubated for comfort care last night. Physical Exam 2 Vital Signs: Vital Signs: Last Vital Signs Temp 98.4 F 07/25/23 19:56 Pulse 117 H 07/25/23 22:00 Resp 28 H 07/26/23 09:24 BP 110/63 07/25/23 19:56 Pulse Ox 98 07/25/23 22:00 O2 Del Method Room Air 07/25/23 22:00 FiO2 30 07/25/23 19:56 BMI result Body Mass Index 23.6 General: ill appearing and tired appearing Nutritional Appearance: well nourished and overweight Eyes: appearance normal, both eyes and all related structures; Alignment and Position: alignment normal and position normal Neck: No lymphadenopathy, no thyromegaly Resp: bilateral air entry equal, occasional added sounds present Cardio: Regular rate, regular rhythm; Heart sounds: S1 normal heart sound present and S2 normal heart sound present GI: soft, nontender, no guarding, no hepatosplenomegaly : bladder normal to inspection, bladder normal to palpation, no renal angle tenderness Skin: no rashes or lesions noted and elasticity normal Neuro: On Versed drip, seizures upon minute stimulation Objective Data Labs 07/25/23 04:42 07/25/23 04:42 Microbiology Microbiology Results: Microbiology 07/16/23 10:31 Blood - Venous Blood Culture - Final No growth after 5 days. 07/16/23 10:31 Blood - Venous Blood Culture - Final No growth after 5 days. Progress Note: A&P Assessment and plan (1) Anoxic brain injury: Status: Acute (2) Cardiogenic shock: Status: Acute (3) Seizure-like activity: Status: Acute (4) Cardiomyopathy: Status: Acute (5) NSTEMI (non-ST elevated myocardial infarction): Status: Acute (6) Acute respiratory failure with hypoxia: Status: Acute (7) Polysubstance abuse: Status: Acute Plan 33-year-old male with PMH of schizoaffective d/o, extensive trauma and PTSD symptoms and polysubstance abuse with previous hospitalization for psych issues, HIV was found down unresponsive at home secondary to multiple drug overdose including cocaine, fentanyl, marijuana and benzodiazepines on 07/16/2023. When the police arrived at home he did not have any pulse and CPR was started by the PD, EMS intubated him and was brought into the ED. MRI of the brain showing extensive anoxic brain injury, echocardiogram showing EF of about 28% with multiple wall akinesis/hypokinesis, very poor neurological response. After several days of multiple discussions about goals of care, explained the family in detail about his poor prognosis in terms of neurological recovery the family agreed towards terminal extubation and comfort care yesterday in the evening. Patient is currently on Versed drip for controlling seizures, fentanyl drip for analgesia. We will continue the same drip for comfort measures, non titratable and we will transfer him to floor Quality Stroke Does the patient have a stroke diagnosis?: No VTE Prior VTE?: No VTE Risk Level:: Medical - moderate - high VTE Device Contraindication: Treatment Not Indicated VTE Drug Contraindication: N/A - Med Ordered
[2023-07-26] MEDS: Morphine Sulfate/NS 100 MG/100 ML PLAST..BAG 10 MG IVCONT ×2 (13:13→23:00)
[2023-07-26] MEDS: Midazolam HCl/PF 2 MG/2 ML VIAL IVPUSH (13:21)
--- NOTE | 2023-07-26 13:30 | PC.NURSE ---
Order for Morphine drip received, verbal from provider to start at rate of 10ml/hr. Medication bag in lock box and pump locked.
[2023-07-26] MEDS: diazePAM 10 MG/2 ML CARTRIDGE IVPUSH ×5 (14:17→22:14)
--- NOTE | 2023-07-26 14:40 | PC.NURSE ---
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
[2023-07-26] MEDS: 0.9 % Sodium Chloride Flush 3 ML SYRINGE IVFLUSH ×2 (16:28→20:00)
[2023-07-26 22:48] VITALS: RESP 26
[2023-07-26 23:00] VITALS: RESP 26
[2023-07-27] MEDS: diazePAM 10 MG/2 ML CARTRIDGE IVPUSH ×3 (00:39→10:19)
[2023-07-27 07:01] VITALS: RESP 24
--- NOTE | 2023-07-27 08:30 | MHC.CLN ---
F/U PATIENT TRANSITIONED TO COMFORT CARE ON 07/23. RD AVAILABLE NEEDED.
[2023-07-27] MEDS: 0.9 % Sodium Chloride Flush 3 ML SYRINGE IVFLUSH (08:49)
[2023-07-27 09:00] VITALS: RESP 24
[2023-07-27 10:14] VITALS: RESP 24
[2023-07-27] MEDS: Morphine Sulfate/NS 100 MG/100 ML PLAST..BAG 10 MG IVCONT (10:14)
[2023-07-27] MEDS: Acetaminophen Supp 650 MG SUPP.RECT PR (10:20)
--- NOTE | 2023-07-27 10:52 | HO.PM.IMPN ---
Subjective Subjective Date of Service: 07/27/23 Interval History: febrile to 100.4 seizure activity improved copious secretions Review of Systems Review of Systems: Yes Unobtainable due to mental status Physical Exam Vital Signs: Vital Signs: Last Vital Signs Temp 98.4 F 07/25/23 19:56 Pulse 117 H 07/25/23 22:00 Resp 24 H 07/27/23 10:14 BP 110/63 07/25/23 19:56 Pulse Ox 98 07/25/23 22:00 O2 Del Method Room Air 07/25/23 22:00 FiO2 30 07/25/23 19:56 BMI result Body Mass Index 23.6 Gen: ill-appearing, unresponsive HEENT: copious secretions Lungs: tachypneic, coarse crackles CV: tachycardic Abd: soft Neuro: unresponsive Objective Data Active Medications Acetaminophen (Acetaminophen Supp 650 Mg Supp.Rect) [address] Q4H PRN PRN Reason: Fever Last Admin: 07/27/23 10:20 Dose: 650 mg Documented By: NEHEMIAH Artificial Tears (Artificial Tears 15 Ml Drops) 1 drop EYE-BOTH TID PRN; Protocol PRN Reason: Dry Eyes Last Admin: 07/24/23 18:03 Dose: 1 drop Documented By: DAVID Diazepam (Diazepam 10 Mg/2 Ml Cartridge) 10 mg IVPUSH Q1H PRN PRN Reason: Seizures Last Admin: 07/27/23 10:19 Dose: 10 mg Documented By: NEHEMIAH Glycopyrrolate (Glycopyrrolate 0.2 Mg/Ml Vial) 0.2 mg IVPUSH Q4H PRN PRN Reason: secretions Morphine Sulfate (Morphine Sulfate/Ns) 100 mg in 100 mls @ 0 mls/hr IVCONT .Q0M [facility]; Protocol Last Admin: 07/27/23 10:14 Dose: 10 mg/hr, 10 mls/hr Documented By: NEHEMIAH Scopolamine (Scopolamine 1.5 Mg Patch.Td.3) 1.5 mg EAR-BEHIND Q72H [facility] Last Admin: 07/25/23 20:29 Dose: 1.5 mg Documented By: KIMANI Sodium Chloride (0.9 % Sodium Chloride Flush 3 Ml Syringe) 3 ml IVFLUSH QSHIFT [facility] Last Admin: 07/27/23 08:49 Dose: 3 ml Documented By: NEHEMIAH Camara 07/25/23 04:42 07/25/23 04:42 Assessment and Plan (1) Anoxic brain injury: Status: Acute Plan d12 33yo M with schizoaffective disorder, PTSD, polysubstance abuse, HIV found unresponsive and pulseless at home due to overdosing on multiple drugs. CPR started by [place] PD, intubated by EMS, then admitted to the ICU. Extensive anoxic brain injury on MRI, TTE with LVEF 28% with akinesis/hypokinesis. Likely near-vegetative state with status epilepticus. Due to lack of neurologic improvement, the patient was terminally extubated 07/25/23 and transitioned to HEALTH ASSISTANT and stepped down to the M/S floor on 07/26/23. - continue IV diazepam, IV morphine drip, transdermal scopolamine patch - add IV glycopyrrolate, CT APAP Total time managing care of this patient today: 35 minutes. Quality Stroke Does the patient have a stroke diagnosis?: No VTE Prior VTE?: No VTE Risk Level:: Medical - moderate - high VTE Device Contraindication: Treatment Not Indicated VTE Drug Contraindication: N/A - Med Ordered
[2023-07-27] MEDS: Glycopyrrolate 0.2 MG/ML VIAL IVPUSH (12:11)
--- NOTE | 2023-07-27 12:57 | MHC.CM.PN ---
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
[2023-07-27 16:00] VITALS: RESP 26
--- NOTE | 2023-07-27 17:42 | PM.EVENT ---
Event Note Date of Service: 07/27/23 Event Note: called to eval patient, found pulseless, apneic, time of 530pm Time Spent With Patient Time: Total time managing care of this patient today ____ minutes.
--- NOTE | 2023-07-27 18:06 | PM.EVENT ---
Event Note Date of Service: 07/27/23 Event Note: d/w ME: Jimmy Tamayo, case accepted, number: [id number] Time Spent With Patient Time: Total time managing care of this patient today ____ minutes.
--- NOTE | 2023-07-28 07:24 | PM.DDS ---
Discharge Sum: Prov Provider Primary care physician: Elis Davis MD Admitting clinician: Philip Landis Attending physician on admission: Philip Landis Pronouncing clinician: Tonny Chew Discharge Sum: Diag Contributing Factors (1) Anoxic brain injury: (2) Seizure-like activity: (3) Cardiogenic shock: (4) Acute respiratory failure with hypoxia: (5) Polysubstance abuse: (6) Overdose: Discharge Sum: Summary Date and Time Date of admission: 07/16/23 13:46 Date of : 07/27/23 Time of : 17:30 Summary Details: from admission H+P by assistant statistician Philip Landis MD, 07/16/23: 33-year-old gentleman with underlying HIV, polysubstance abuse, schizoaffective disorder admitted after patient collapsed at acquaintance house after reported overdose. CPR performed by police, but pulse present on EMS arrival. On arrival to ER patient comatose, but with to sat of 92%, intubated for airway protection and admitted to intensive care unit. Initial CT head essentially normal. 33yo M with schizoaffective disorder, PTSD, polysubstance abuse, and HIV who was found unresponsive and pulseless at home due to overdosing on multiple drugs. CPR was started by Marie MAE. He was intubated by EMS, brought in to the [facility], then admitted to the ICU. Workup revealed extensive anoxic brain injury on MRI, TTE with LVEF 28% with akinesis/hypokinesis. Likely near-vegetative state with status epilepticus. Due to lack of neurologic improvement, an extensive discussion was done with the assistant statistician and the patient's family about his extremely poor prognosis. He was terminally extubated 07/25/23 and transitioned to TRIAL LAWYER and stepped down to the medical-surgical unit on 07/26/23. He was treated palliatively with IV diazepam, IV morphine, IV glycopyrrolate, and transdermal scopolamine. He on 07/27/23 at 17:30. Additional Data Confirmation of as documented by pronouncing clinician: no pulse, no respirations and no heart sounds Attending physician: Lexa Oakes MD Was code activated?: No polygraph examiner notified?: Yes Hospice patient?: Yes
== END 2023-07-27 17:30 | disposition expired | DRG 812 ==
LOC: HO.ED 13:53 → HO.EDOVER 13:59 → HO.ICU 14:51 → HO.S3 07-26 13:04
PROVIDERS: Internal Medicine Critical Care Medicine; Physician Assistant; Physician Assistant Medical; Registered Nurse Community Health; Admitting Provider Internal Medicine Pulmonary Disease; Emergency Provider Emergency Medicine; PCP Family Medicine; Visit Provider Family Medicine
DX: T50.904A Poisoning by unspecified drugs, medicaments and biological substances, undetermined, initial encounter (principal); J96.01 Acute respiratory failure with hypoxia; J69.0 Pneumonitis due to inhalation of food and vomit; R40.2A Nontraumatic coma due to underlying condition; R57.0 Cardiogenic shock; N17.0 Acute kidney failure with tubular necrosis; G93.1 Anoxic brain damage, not elsewhere classified; Z66 Do not resuscitate; Z51.5 Encounter for palliative care; I21.A1 Myocardial infarction type 2; R00.1 Bradycardia, unspecified; G25.3 Myoclonus; I20.1 Angina pectoris with documented spasm; R00.0 Tachycardia, unspecified; R56.9 Unspecified convulsions; I51.81 Takotsubo syndrome; F14.20 Cocaine dependence, uncomplicated; Z21 Asymptomatic human immunodeficiency virus [HIV] infection status; I95.2 Hypotension due to drugs; T42.75XA Adverse effect of unspecified antiepileptic and sedative-hypnotic drugs, initial encounter; F25.0 Schizoaffective disorder, bipolar type; F19.10 Other psychoactive substance abuse, uncomplicated; Z20.822 Contact with and (suspected) exposure to COVID-19
CPT/HCPCS: 0241U; 36415; 70450; 70551; 71045; 71250; 72125; 74176; 80048; 80053; 80076; 80143; 80179; 80307; 81001; 82010; 82040; 82140; 82550; 82803; 82947; 83605; 83735; 83880; 84100; 84145; 84443; 84484; 85025; 85610; 85652; 85730; 86140; 86359; 86360; 87040; 87536; 93005; 93306; 94002; 94003; 94799; 95816; 99285; C1758; J0613; J1165; J1265; J1596; J1644; J1650; J1953; J1956; J2250; J2251; J2270; J2310; J2543; J2704; J3010; J3360; P9047

== ENCOUNTER 2023-07-16 13:46 | Outpatient (BNV) | payer MEDICAID, SELFPAY | END 2023-07-17 07:00 | PROVIDERS: Admitting Provider Internal Medicine Pulmonary Disease; Emergency Provider Emergency Medicine; Visit Provider Internal Medicine | DX: I51.9 Heart disease, unspecified (principal); R93.1 Abnormal findings on diagnostic imaging of heart and coronary circulation | CPT/HCPCS: 93010; 93306 ==

== ENCOUNTER → 2023-07-16 13:46 | Outpatient (BNV) | payer MEDICAID, SELFPAY | PROVIDERS: Admitting Provider Internal Medicine Pulmonary Disease; Emergency Provider Emergency Medicine; PCP Family Medicine; Visit Provider Psychiatry & Neurology Neurology | DX: G93.1 Anoxic brain damage, not elsewhere classified (principal); R57.0 Cardiogenic shock; J96.01 Acute respiratory failure with hypoxia; I21.4 Non-ST elevation (NSTEMI) myocardial infarction; R56.9 Unspecified convulsions; I42.9 Cardiomyopathy, unspecified | CPT/HCPCS: 99223 ==

== ENCOUNTER → 2023-07-16 13:46 | Outpatient (BNV) | payer MEDICAID, SELFPAY | PROVIDERS: Admitting Provider Internal Medicine Pulmonary Disease; Emergency Provider Emergency Medicine; Visit Provider Internal Medicine Pulmonary Disease | DX: R56.9 Unspecified convulsions (principal); I42.9 Cardiomyopathy, unspecified; I21.4 Non-ST elevation (NSTEMI) myocardial infarction; J96.01 Acute respiratory failure with hypoxia; F19.10 Other psychoactive substance abuse, uncomplicated; R09.2 Respiratory arrest; T50.904A Poisoning by unspecified drugs, medicaments and biological substances, undetermined, initial encounter; J69.0 Pneumonitis due to inhalation of food and vomit; F25.0 Schizoaffective disorder, bipolar type | CPT/HCPCS: 99291 ==

== ENCOUNTER → 2023-07-16 13:46 | Outpatient (BNV) | payer MEDICAID, SELFPAY | PROVIDERS: Admitting Provider Internal Medicine Pulmonary Disease; Emergency Provider Emergency Medicine; PCP Family Medicine; Visit Provider Family Medicine | DX: G93.1 Anoxic brain damage, not elsewhere classified (principal) | CPT/HCPCS: 99239; 99499 ==

== ENCOUNTER → 2023-07-16 13:46 | Outpatient (BNV) | payer MEDICAID, SELFPAY | PROVIDERS: Admitting Provider Internal Medicine Pulmonary Disease; Emergency Provider Emergency Medicine; Visit Provider Registered Nurse Community Health | DX: I42.9 Cardiomyopathy, unspecified (principal); R57.0 Cardiogenic shock; G93.1 Anoxic brain damage, not elsewhere classified; R56.9 Unspecified convulsions; I21.4 Non-ST elevation (NSTEMI) myocardial infarction; J96.01 Acute respiratory failure with hypoxia; F19.10 Other psychoactive substance abuse, uncomplicated | CPT/HCPCS: 99291; 99499 ==

== ENCOUNTER → 2023-07-16 13:46 | Outpatient (BNV) | payer MEDICAID, SELFPAY | PROVIDERS: Admitting Provider Internal Medicine Pulmonary Disease; Emergency Provider Emergency Medicine; Visit Provider Internal Medicine | DX: R09.2 Respiratory arrest (principal); I21.4 Non-ST elevation (NSTEMI) myocardial infarction; T50.904A Poisoning by unspecified drugs, medicaments and biological substances, undetermined, initial encounter; F19.10 Other psychoactive substance abuse, uncomplicated; F14.20 Cocaine dependence, uncomplicated; J96.01 Acute respiratory failure with hypoxia; I42.9 Cardiomyopathy, unspecified | CPT/HCPCS: 99223; 99233 ==